=== PATIENT | male | born 1950 | race Caucasian/White ===

== ENCOUNTER 2020-05-01 01:50 | Outpatient (CLI) | payer MEDICARE, OTHER, SELFPAY ==
[2020-05-02 13:41] LABS: SARS-CoV-2 RNA PCR Negative
== END 2020-05-01 01:51 | disposition home or self-care (01) ==
LOC: ANHCOVIDDT 01:51
PROVIDERS: Visit Provider Otolaryngology
DX: Z01.812 Encounter for preprocedural laboratory examination (principal); Z20.828 Contact with and (suspected) exposure to other viral communicable diseases
CPT/HCPCS: 87635; C9803; U0003

== ENCOUNTER 2020-05-03 02:27 | Day surgery (SDC) | payer MEDICARE, OTHER, SELFPAY ==
[2020-04-30 15:27] VITALS: BMI 32.9
--- NOTE | 2020-05-02 08:19 | P.HP_ITS ---
H&P: HPI History of Present Illness Date/Time: 05/02/20 08:20 Chief complaint: eustachian tube dysfunction, nasopharyngeal cyst Narrative: Maciel Horn is a 69 year old male With history of bilateral eustachian tube dysfunction as well as a recently observed nasopharyngeal cyst on recent endoscopy. Patient presents today for operative intervention including PE tube insertion as well as nasal endoscopy and biopsy of cyst /excision of cyst. Review of Systems Review of Systems: Narrative: Similar to previous H&P /clinic note. [facility] Social History Social History Smoking packs per day: 0.5 Smoking cigarettes per day: 10.0 Years smoked: 5 Smoking pack-years: 2.50 Smoking status: Former smoker Additional smoking assessment comments: 40 YEARS AGO Substance use: current Substance use type: marijuana Last use: 04/29/2020 Spiritual care concerns: No Meds Home Medications and Allergies Home Medications Medication Instructions Recorded Confirmed Type aspirin 81 mg chewable tablet 81 mg PO DAILY 01/17/20 04/30/20 History finasteride 5 mg tablet 5 mg PO DAILY 01/17/20 04/30/20 History lisinopril 20 1 tablet PO DAILY 01/17/20 04/30/20 History mg-hydrochlorothiazide 25 mg tablet lovastatin 40 mg tablet 40 mg PO DAILY 01/17/20 04/30/20 History metformin 1,000 mg 24 hr 2,000 mg PO DAILY tablet 01/17/20 04/30/20 History tablet,extended release zmoanzfr-tqcqdgdnv-ntiexdqqx 3.5 4 drop RIGHTEAR Q8H #10 ml 04/25/20 04/30/20 Rx mg/mL-10,000 unit/mL-1 % ear solution fluticasone propionate [Flonase 1 spray NASAL Q12H PRN 04/30/20 04/30/20 History Allergy Relief] Allergies Allergy/AdvReac Type Severity Reaction Status Date / Time No Known Allergies Allergy Unknown NONE Verified 04/30/20 15:27 Exam Narrative: Exam Narrative: Similar to previous H&P /clinic note. Assessment and Plan Assessment and plan (1) Pharyngeal or nasopharyngeal cyst: Code(s): J39.2 - Other diseases of pharynx Status: Acute Assessment and Plan: The plan is for the OR for insertion of PE tubes with bilateral myringotomies as well as nasal endoscopy with biopsy /excision of nasopharyngeal cyst. The risks and benefits were explained in great detail to the patient who voiced u nderstanding and signed the appropriate consent forms. These risks include chronic TM perforation, cholesteatoma, change or damage to hearing, bleeding from the nose in ears, as well as infection, and the need for further surgery should the biopsy / excision of the nasopharyngeal cyst reveal something more sinister. (2) ETD (eustachian tube dysfunction): Code(s): H69.80 - Other specified disorders of Eustachian tube, unspecified ear Status: Acute
[2020-05-03] VITALS (8 sets, daily range): BP systolic 127–169; BP diastolic 63–94; PULSE 54–78; RESP 15–20; TEMP 36.3–36.4; O2SAT 94–100
--- NOTE | 2020-05-03 06:08 | ECG_ITS ---
Measurements Intervals [place] Rate: 57 P: 38 DE: 193 QRS: -17 QRSD: 112 T: 16 QT: 441 QTc: 432 Interpretive Statements SINUS BRADYCARDIA INTRAVENTRICULAR CONDUCTION DELAY BASELINE WANDER- II, III, AVF BORDERLINE ECG Electronically Signed On 05-03-2020 8:10:02 CDT by Mukund Dinero D.O.
[2020-05-03] MEDS: ACETAMINOPHEN 500 MG TABLET 1000 MG PO (07:01)
[2020-05-03] MEDS: LACTATED RINGERS 1,000 ML 30 ML IV CONT (07:01)
--- NOTE | 2020-05-03 07:01 | WPDHPUPDATE1 ---
History and Physical Update Update Date/Time: 05/03/20 07:01 History and Physical has been reviewed, including an updated exam of the patient. There are NO changes in the patient's condition. Risks, benefits, and alternatives have been discussed and questions answered. Patient agrees to proceed with procedure.
[2020-05-03 07:11] LABS: Anion Gap 10 mmol/L (8-16); Blood Urea Nitrogen 20 mg/dL (9-20); Calcium 9.2 mg/dL (8.4-10.2); Carbon Dioxide 25 mmol/L (22-30); Chloride 102 mmol/L (98-107); Estimated CRCL calculation 79 ml/min; Estimated Glomerular Filt Rate > 60; Glucose 184 mg/dL (75-110); Potassium 3.9 mmol/L (3.4-5.0); Sodium 137 mmol/L (137-145)
[2020-05-03 07:15] LABS: Glucose Point of Care 186 (65-105)
--- NOTE | 2020-05-03 07:22 | WPDANESEPPF ---
Anes - Initial Pre Proc Eval Procedure: Operation Date: 05/03/20 08:15 Proposed Procedures p Bilateral Myringotomy,Insertion Of T-Tubes - Brandon Bedolla MD s Nasal Endoscopy with Biopsy - Brandon Bedolla MD Date/Time: 05/03/20 07:22 Surgeon: Brandon Bedolla MD Pre Op Diagnosis: eustachian tube dysfunction, nasopharyngeal cyst Patient Data Age: 69 Gender: M Height: 5 ft 9 in Weight: 102 kg Last Vital Signs Temp 36.3 C L 05/03/20 07:08 Pulse 58 L 05/03/20 07:08 Resp 20 05/03/20 07:08 BP 127/63 05/03/20 07:08 Pulse Ox 98 05/03/20 07:08 Allergies Allergy/AdvReac Type Severity Reaction Status Date / Time No Known Allergies Allergy Unknown NONE Verified 04/30/20 15:27 Home Medications Medication Instructions Recorded Confirmed Type aspirin 81 mg chewable tablet 81 mg PO DAILY 01/17/20 05/03/20 History finasteride 5 mg tablet 5 mg PO DAILY 01/17/20 05/03/20 History lisinopril 20 1 tablet PO DAILY 01/17/20 05/03/20 History mg-hydrochlorothiazide 25 mg tablet lovastatin 40 mg tablet 40 mg PO DAILY 01/17/20 05/03/20 History metformin 1,000 mg 24 hr 2,000 mg PO DAILY tablet 01/17/20 05/03/20 History tablet,extended release celgiupk-siwymqchu-qofketrti 3.5 4 drop RIGHTEAR Q8H #10 ml 04/25/20 05/03/20 Rx mg/mL-10,000 unit/mL-1 % ear solution fluticasone propionate [Flonase 1 spray NASAL Q12H PRN 04/30/20 05/03/20 History Allergy Relief] Laboratory Tests 05/03/20 05/03/20 06:45 06:59 Sodium 137 mmol/L mmol/L (137-145) Potassium 3.9 mmol/L mmol/L (3.4-5.0) Chloride 102 mmol/L mmol/L (98-107) Carbon Dioxide 25 mmol/L mmol/L (22-30) Anion Gap 10 mmol/L mmol/L (8-16) BUN 20 mg/dL mg/dL (9-20) Creatinine 0.90 mg/dL mg/dL (0.7-1.3) Estim Creat Clear Calc 79 ml/min ml/min Estimated GFR > 60 (59 - ) Glucose 184 mg/dL H mg/dL (75-110) POC Capillary Glucose 186 mg/dl H mg/dl (65-105) Calcium 9.2 mg/dL mg/dL (8.4-10.2) Patient hx anesthesia problems: none Family hx anesthesia problems: none PMFSH Past Medical History Medical History (Updated 05/03/20 @ 07:23 by Sergey Mendoza MD) BRIDGETTE (obstructive sleep apnea) Social History Social History Smoking packs per day: 0.5 Smoking cigarettes per day: 10.0 Years smoked: 5 Smoking pack-years: 2.50 Smoking status: Former smoker Additional smoking assessment comments: 40 YEARS AGO Substance use: current Substance use type: marijuana Last use: 04/29/2020 Spiritual care concerns: No Anes - Eval Final PreProcedure Day of Procedure 05/03/20 07:22 Patient weight: obese Heart: regular rate and rhythm Lungs: clear to auscultation Airway: Mallampati scale class II Neurological: alert and oriented Last oral intake: >/= 8 hours ASA classification: III Emergent: no Anesthetic plan: proceed Anesthesia type and monitoring: general ETT and standard monitoring Informed Consent: The patient's anesthetic plan and its attendant risks and benefits were discussed with the patient/family/POA. Questions were solicited and answers provided to the satisfaction of the patient/family/POA.
[2020-05-03] MEDS: OXYMETAZOLINE HCL 0.05% NAS 15 ML BTL (*BKC) 1 SPRAY NASAL (08:11)
[2020-05-03] MEDS: LIDO 1%/EPINEPHRINE 1:100,000 20 ML VIAL INFILTRATE (08:12)
[2020-05-03] MEDS: CIPROFLOXACIN HCL 0.3% OP SOLN 2.5 ML BTL 4 DROP EACH EAR (08:12)
[2020-05-03 08:52] LABS: Glucose Point of Care 169 (65-105)
--- NOTE | 2020-05-03 08:52 | PM.PROC ---
Procedure Note - Detailed Date of procedure: 05/03/20 Pre-op diagnosis: eustachian tube dysfunction, nasopharyngeal cyst Post-op diagnosis: same Procedure performed: 1. Bilateral myringotomies with modified T tube insertion 2. Removal of left PE tube 3. Nasal endoscopy 4. Marsupialization of left nasopharyngeal cyst Description of procedure: The patient was correctly identified and consent was verified in the preoperative holding area. Patient was then brought to the operating room and a time-out was performed. General anesthesia was induced and an endotracheal tube was secured and the patient's airway and taped the left lower lip. The patient was then prepped and draped for the aforementioned procedures. The zoraida microscope was brought into the operative field and the right EAC and tympanic membrane were brought into view. An incision was made in the anterior-inferior quadrant and thick serous effusion was suctioned from the middle ear. A modified T-tube was placed and confirmed to be in proper position. Antibiotic drops were placed. The same procedure was performed on the patient's left side except a prior to the myringotomy and tube insertion a retained collar-button tube was removed. Again antibiotic drops were placed. Afrin was applied to the bilateral nasal passages and allowed to sit for 5 minutes. The endoscope was utilized to perform nasal endoscopy and a left septal inferior deviation was noted. A cyst was located in the left nasopharynx near the fossa of [place]mu[place]. Cyst was marsupialized using blakesly forceps. Hemostasis was achieved using Afrin-soaked pledgets. This marked the end of the procedure care of the patient was turned over to anesthesiology was present for and performed the entire procedure. Anesthesia: GLMA Surgeon: Brandon Bedolla MD Estimated blood loss (mL): 5 Packing: No Pathology: yes Complications: No immediate complications Condition: stable Disposition: PACU Findings: Bilateral erythematous TMs and EACs serous thick effusion in the bilateral middle ears left septal deviation left fossa of Rossenmueler nasopharyngeal cyst
== END 2020-05-03 10:13 | disposition home or self-care (01) ==
PROVIDERS: Anesthesiology; PCP Internal Medicine; Visit Provider Otolaryngology
PROC: (CPT 69436; principal; 2020-05-03 08:15)
PROC: (CPT 69436; 2020-05-03 08:15)
DX: H69.93 Unspecified Eustachian tube disorder, bilateral (principal); H93.8X1 Other specified disorders of right ear; J39.2 Other diseases of pharynx; J34.2 Deviated nasal septum; I10 Essential (primary) hypertension; E78.5 Hyperlipidemia, unspecified; E11.9 Type 2 diabetes mellitus without complications; Z79.84 Long term (current) use of oral hypoglycemic drugs; G47.33 Obstructive sleep apnea (adult) (pediatric); Z79.82 Long term (current) use of aspirin; Z79.899 Other long term (current) drug therapy; Z87.891 Personal history of nicotine dependence
CPT/HCPCS: 69436; 31237; 36415; 80048; 88305; 93005; A9270; J0330; J2405; J2704; J3010; J7120

== ENCOUNTER 2020-10-29 13:41 | Outpatient (CLI) | payer MEDICARE, OTHER, SELFPAY | END 2020-10-29 13:42 | disposition home or self-care (01) | LOC: ANHBWCAUD 13:42 | PROVIDERS: PCP Internal Medicine; Visit Provider Otolaryngology | DX: H91.93 Unspecified hearing loss, bilateral (principal); H69.80 Other specified disorders of Eustachian tube, unspecified ear | CPT/HCPCS: 92557 ==

== ENCOUNTER → 2020-11-02 01:41 | Outpatient (CLI) | payer MEDICARE, OTHER, SELFPAY ==
[2020-11-02 18:54] LABS: SARS-CoV-2 RNA PCR Negative
== END ==
PROVIDERS: PCP Internal Medicine; Visit Provider Otolaryngology
DX: Z01.812 Encounter for preprocedural laboratory examination (principal); Z20.822 Contact with and (suspected) exposure to COVID-19
CPT/HCPCS: 36415; 80048; C9803; U0003; U0005

== ENCOUNTER 2020-11-02 07:53 | Outpatient (CLI) | payer MEDICARE, OTHER, SELFPAY ==
[2020-11-02 09:07] LABS: Anion Gap 3 mmol/L (8-16); Blood Urea Nitrogen 15 mg/dL (9-20); Calcium 9.1 mg/dL (8.4-10.2); Carbon Dioxide 35 mmol/L (22-30); Chloride 102 mmol/L (98-107); Estimated Glomerular Filt Rate > 60; Glucose 216 mg/dL (75-110); Potassium 3.6 mmol/L (3.4-5.0); Sodium 140 mmol/L (137-145)
== END 2020-11-02 07:54 | disposition home or self-care (01) ==
PROVIDERS: PCP Internal Medicine; Visit Provider Anesthesiology
DX: I10 Essential (primary) hypertension (principal); Z01.812 Encounter for preprocedural laboratory examination
CPT/HCPCS: 36415; 80048

== ENCOUNTER 2020-11-05 01:12 | Day surgery (SDC) | payer MEDICARE, OTHER, SELFPAY ==
[2020-10-30 15:53] VITALS: BMI 33.0
--- NOTE | 2020-11-04 08:08 | WPDANESEPPF ---
Anes - Initial Pre Proc Eval Procedure: Operation Date: 11/05/20 07:30 Proposed Procedures p Eustachian Tube Dilation - Brandon Bedolla MD Date/Time: 11/04/20 08:08 Surgeon: Brandon Bedolla MD Pre Op Diagnosis: eustachian tube dysfunction Patient Data Age: 70 Gender: M Height: 1.75 m Weight: 101.6 kg Allergies Allergy/AdvReac Type Severity Reaction Status Date / Time No Known Allergies Allergy Unknown NONE Verified 11/05/20 06:39 Home Medications Medication Instructions Recorded Confirmed Type aspirin 81 mg chewable tablet 81 mg PO HS 01/17/20 10/30/20 History finasteride 5 mg tablet 5 mg PO HS 01/17/20 10/30/20 History lisinopril 20 1 tablet PO HS 01/17/20 10/30/20 History mg-hydrochlorothiazide 25 mg tablet lovastatin 40 mg tablet 40 mg PO HS 01/17/20 10/30/20 History metformin 1,000 mg 24 hr 2,000 mg PO HS tablet 01/17/20 10/30/20 History tablet,extended release fluticasone propionate [Flonase 1 spray NASAL Q12H PRN 04/30/20 10/30/20 History Allergy Relief] Patient hx anesthesia problems: none Family hx anesthesia problems: none PMFSH Past Medical History Medical History (Updated 11/04/20 @ 08:09 by Yemi Brandon DO) BPH (benign prostatic hyperplasia) Diabetes type 2, controlled Hyperlipidemia Hypertension BRIDGETTE (obstructive sleep apnea) CPAP Social History Social History Smoking packs per day: 0.5 Smoking cigarettes per day: 10.0 Years smoked: 6 Smoking pack-years: 3.00 Smoking status: Former smoker Tobacco type: cigarettes Smoking end date: 08/23/69 Additional smoking assessment comments: 40 YEARS AGO Substance use: current Substance use type: marijuana Last use: 04/29/2020 Living arrangements: with family Spiritual care concerns: No Anes - Eval Final PreProcedure Day of Procedure 11/04/20 08:08 Patient weight: obese Heart: regular rate and rhythm Lungs: clear to auscultation and normal air movement Airway: Mallampati scale class III Neurological: alert and oriented Last oral intake: >/= 8 hours ASA classification: III Emergent: no Anesthetic plan: proceed Anesthesia type and monitoring: general LMA and standard monitoring Informed Consent: The patient's anesthetic plan and its attendant risks and benefits were discussed with the patient/family/POA. Questions were solicited and answers provided to the satisfaction of the patient/family/POA.
--- NOTE | 2020-11-04 10:19 | PM.IMHP ---
H&P: HPI History of Present Illness Date/Time: 11/04/20 10:19 70-year-old male who presents for planned surgical procedure bilateral eustachian tube balloon dilations and nasal endoscopy with possible septoplasty and turbinate reductions for access. Patient reports no new symptoms or changes in his medical history. Audiogram obtained and reviewed. Reports resolution of his previously reported sinonasal issues. Chief Complaint: Bilateral eustachian tube dysfunction Review of Systems Constitutional: Constitutional: Denies fatigue, Denies fever(s) and Denies lethargy Eyes: Eyes: Denies blurry vision and Denies change in vision ENT: Reports as per HPI Cardiovascular: Cardiovascular: Denies chest pain Respiratory: Respiratory: Denies cough Endocrine: Endocrine: Denies fatigue Hematologic/Lymphatic: Hematologic/Lymphatic: Denies easy bleeding, Denies easy bruising and Denies lymphadenopathy Allergic/Immunologic: Allergic/Immunologic: Denies seasonal rhinorrhea [facility] Past Medical History Medical History (Updated 11/04/20 @ 08:09 by Yemi Brandon DO) BPH (benign prostatic hyperplasia) Diabetes type 2, controlled Hyperlipidemia Hypertension BRIDGETTE (obstructive sleep apnea) CPAP Social History Social History Smoking packs per day: 0.5 Smoking cigarettes per day: 10.0 Years smoked: 6 Smoking pack-years: 3.00 Smoking status: Former smoker Tobacco type: cigarettes Smoking end date: 08/23/69 Additional smoking assessment comments: 40 YEARS AGO Substance use: current Substance use type: marijuana Last use: 04/29/2020 Spiritual care concerns: No Meds Home Medications and Allergies Home Medications Medication Instructions Recorded Confirmed Type aspirin 81 mg chewable tablet 81 mg PO HS 01/17/20 10/30/20 History finasteride 5 mg tablet 5 mg PO HS 01/17/20 10/30/20 History lisinopril 20 1 tablet PO HS 01/17/20 10/30/20 History mg-hydrochlorothiazide 25 mg tablet lovastatin 40 mg tablet 40 mg PO HS 01/17/20 10/30/20 History metformin 1,000 mg 24 hr 2,000 mg PO HS tablet 01/17/20 10/30/20 History tablet,extended release fluticasone propionate [Flonase 1 spray NASAL Q12H PRN 04/30/20 10/30/20 History Allergy Relief] Allergies Allergy/AdvReac Type Severity Reaction Status Date / Time No Known Allergies Allergy Unknown NONE Verified 10/30/20 15:31 Exam Const: General: cooperative, healthy appearing, comfortable, well developed and alert HENMT: Head: normal to inspection, normocephalic and atraumatic Ears: hearing grossly normal bilaterally, external ears normal, TM's abnormal bilaterally ( Tubes present) and EAC's normal General nose exam: Normal external nose present, Normal nares present, No nasal polyps present, Normal nasal mucous membranes and turbinates present and Normal septum present Face and sinus: normal facial exam Mouth: Yes Normal oral and palatal mucosa present, Yes lip normal, Yes tongue normal, Yes oropharynx normal and Yes moist mucous membranes Teeth and gingiva: dentition normal and gingiva normal Throat: posterior oropharynx normal, tonsils normal and uvula midline Eyes: General: appearance normal, both eyes and all related structures Periorbital: periorbital findings normal Eyelids: eyelids normal Conjunctivae: conjunctivae normal Sclera: sclerae normal Neck: Neck: normal visual inspection, full ROM and no lymphadenopathy Thyroid: thyroid normal Lymphatic: no lymphadenopathy noted Resp: Effort & Inspection: normal respiratory effort and able to speak in complete sentences Cardio: Jugular venous distension: no JVD Neuro: Cranial nerves: Yes CN's II-XII intact bilaterally Assessment and Plan Assessment and plan (1) ETD (eustachian tube dysfunction): Code(s): H69.80 - Other specified disorders of Eustachian tube, unspecified ear Status: Acute Assessment and Plan:
[2020-11-05] VITALS (7 sets, daily range): BP systolic 118–151; BP diastolic 60–84; PULSE 55–82; RESP 14–20; TEMP 36.6; O2SAT 94–99
[2020-11-05] MEDS: ACETAMINOPHEN 500 MG TABLET 1000 MG PO (06:28)
[2020-11-05] MEDS: LACTATED RINGERS 1,000 ML 30 ML IV CONT (06:30)
[2020-11-05 06:38] LABS: Glucose Point of Care 236 (65-105)
--- NOTE | 2020-11-05 06:52 | WPDHPUPDATE1 ---
History and Physical Update Update Date/Time: 11/05/20 06:52 History and Physical has been reviewed, including an updated exam of the patient. There are NO changes in the patient's condition. Risks, benefits, and alternatives have been discussed and questions answered. Patient agrees to proceed with procedure.
[2020-11-05] MEDS: LIDO 1%/EPINEPHRINE 1:100,000 50 ML VIAL INFILTRATE (07:18)
[2020-11-05] MEDS: OXYMETAZOLINE HCL 0.05% NAS 15 ML BTL (*BKC) 1 SPRAY NASAL (07:18)
--- NOTE | 2020-11-05 08:13 | PM.PROC ---
Procedure Note - Detailed Date of procedure: 11/05/20 Pre-op diagnosis: eustachian tube dysfunction Post-op diagnosis: same Procedure performed: 1. Nasal endoscopy 2. Bilateral inferior turbinate outfracture 3. Bilateral eustachian tube dilation Description of procedure: The patient was correctly identified and consent was verified in the preoperative holding area. The patient was then brought to the operating room and a time-out was performed. General anesthesia was induced and endotracheal tube was secured the patient's airway and taped to the left lower lip. Afrin-soaked pledgets were then placed the bilateral nasal passages and allowed to sit for 5 minutes. The patient was then prepped and draped for the aforementioned procedures. The Afrin-soaked pledgets were then removed under endoscopic guidance the bilateral inferior turbinates were outfractured using a Montegut elevator. Using a 0 degree scope the left eustachian tube opening or torus was identified. The balloon was then inserted and inflated to 12 atmospheres for 2 minutes. It was deflated and removed. A similar procedure was performed on the right side. Hemostasis was noted to be excellent. This marked the end of the procedure. I performed all dictated portions. Care of the patient was turned over to Anesthesiology. Anesthesia: GETA Surgeon: Brandon Bedolla MD Drains: No Packing: No Pathology: none sent Complications: No immediate complications Condition: stable Disposition: PACU Findings: Successful dilation of the bilateral eustachian tubes
[2020-11-05 08:16] LABS: Glucose Point of Care 210 (65-105)
== END 2020-11-05 10:05 | disposition home or self-care (01) ==
PROVIDERS: PCP Internal Medicine; Visit Provider Otolaryngology
PROC: (CPT 69706; principal; 2020-11-05 07:30)
DX: H69.93 Unspecified Eustachian tube disorder, bilateral (principal); I10 Essential (primary) hypertension; E78.5 Hyperlipidemia, unspecified; E11.9 Type 2 diabetes mellitus without complications; G47.33 Obstructive sleep apnea (adult) (pediatric); N40.0 Benign prostatic hyperplasia without lower urinary tract symptoms; Z79.84 Long term (current) use of oral hypoglycemic drugs; Z79.82 Long term (current) use of aspirin; Z87.891 Personal history of nicotine dependence; E66.9 Obesity, unspecified; Z68.33 Body mass index [BMI] 33.0-33.9, adult
CPT/HCPCS: 69706; 30930; 82948; A9270; J0330; J1100; J2250; J2405; J2704; J3010; J7120

== ENCOUNTER 2021-10-30 00:19 | Day surgery (SDC) | payer MEDICARE, OTHER, SELFPAY ==
[2021-10-21 16:07] VITALS: BMI 32.5
--- NOTE | 2021-10-29 13:30 | P.PNAN_ITS ---
Anes - Initial Pre Proc Eval Procedure: Operation Date: 10/30/21 08:00 Proposed Procedures p Screening Colonoscopy - Bijan Ivory DO Date/Time: 10/29/21 13:30 Surgeon: Bijan Ivory DO Pre Op Diagnosis: hx of colon polyps Patient Data Age: 71 Gender: M Height: 1.75 m Weight: 100 kg Allergies Allergy/AdvReac Type Severity Reaction Status Date / Time No Known Allergies Allergy Unknown NONE Verified 10/30/21 07:11 Home Medications Medication Instructions Recorded Confirmed Type aspirin 81 mg chewable tablet 81 mg PO HS 01/17/20 10/21/21 History finasteride 5 mg tablet 5 mg PO HS 01/17/20 10/21/21 History lisinopril 20 1 tablet PO HS 01/17/20 10/21/21 History mg-hydrochlorothiazide 25 mg tablet lovastatin 40 mg tablet 40 mg PO HS 01/17/20 10/21/21 History metformin 1,000 mg 24 hr 2,000 mg PO HS tablet 01/17/20 10/21/21 History tablet,extended release fluticasone propionate [Flonase 1 spray NASAL Q12H PRN 04/30/20 10/21/21 History Allergy Relief] Patient hx anesthesia problems: none Family hx anesthesia problems: none Results Review: All pre-operative results and documents have been reviewed as part of the pre-operative evaluation. [facility] Past Medical History Medical History (Updated 11/04/20 @ 08:09 by Yemi Brandon DO) BPH (benign prostatic hyperplasia) Diabetes type 2, controlled Hyperlipidemia Hypertension BRIDGETTE (obstructive sleep apnea) CPAP Social History Social History Smoking packs per day: 0.5 Smoking cigarettes per day: 10.0 Years smoked: 3 Smoking pack-years: 1.50 Smoking status: Former smoker Tobacco type: cigarettes Smoking end date: 08/23/69 Additional smoking assessment comments: 40 YEARS AGO Alcohol intake: current Alcohol use details: 6 PK PER YEAR Substance use: current Substance use type: marijuana Last use: 2 DAYS Living arrangements: with family Spiritual care concerns: No Anes - Eval Final PreProcedure Day of Procedure 10/29/21 13:30 Patient weight: obese Heart: regular rate and rhythm Lungs: clear to auscultation and normal air movement Airway: Mallampati scale class II Neurological: alert and oriented Last oral intake: >/= 8 hours ASA classification: III Emergent: no Anesthetic plan: proceed Anesthesia type and monitoring: general GIVS and standard monitoring Results Review: All pre-operative results and documents have been reviewed as part of the pre-operative evaluation. Informed Consent: The patient's anesthetic plan and its attendant risks and benefits were discussed with the patient/family/POA. Questions were solicited and answers provided to the satisfaction of the patient/family/POA.
[2021-10-30 07:12] VITALS: BP 147/65; PULSE 68; RESP 18; TEMP 36.8; O2SAT 98
[2021-10-30] MEDS: LACTATED RINGERS 1,000 ML 150 ML IV CONT (07:18)
[2021-10-30 07:27] LABS: Glucose Point of Care 167 mg/dl (65-105)
--- NOTE | 2021-10-30 08:03 | PM.IMHP ---
H&P: HPI History of Present Illness Date/Time: 10/30/21 08:03 Chief Complaint: family history colon cancer Narrative: this is a 71-year-old man who presents for colonoscopy. His last colonoscopy was 5 years ago. He has a family history of colon cancer in his mother who was diagnosed in her 40s. He denies any hematochezia or melena. He denies any recent change in bowel habits. Review of Systems Review of Systems: All systems reviewed & are unremarkable except as noted in HPI and below Constitutional: Constitutional: Denies chills, Denies fever(s), Denies headache(s) and Denies weight loss Eyes: Eyes: Denies change in vision ENT: Denies dizziness, Denies headache(s), Denies neck mass and Denies throat swelling Cardiovascular: Cardiovascular: Denies chest pain, Denies lightheadedness and Denies dyspnea Respiratory: Respiratory: Denies cough, Denies dyspnea and Denies wheezing Gastrointestinal: Gastrointestinal: Denies abdominal pain, Denies change in bowel habits, Denies nausea and Denies vomiting Genitourinary: Genitourinary: Denies hematuria and Denies dysuria Musculoskeletal: Musculoskeletal: Reports as per HPI Integumentary/Breasts: Skin/Breast: Reports as per HPI Neurologic: Denies dizziness and Denies headache(s) Allergic/Immunologic: Allergic/Immunologic: Denies throat swelling and Denies wheezing [facility] Past Medical History Medical History (Updated 10/30/21 @ 08:04 by Bijan Ivory DO) BPH (benign prostatic hyperplasia) Diabetes type 2, controlled Hyperlipidemia Hypertension BRIDGETTE (obstructive sleep apnea) CPAP Social History Social History Smoking packs per day: 0.5 Smoking cigarettes per day: 10.0 Years smoked: 3 Smoking pack-years: 1.50 Smoking status: Former smoker Tobacco type: cigarettes Smoking end date: 08/23/69 Additional smoking assessment comments: 40 YEARS AGO Alcohol intake: current Alcohol use details: 6 PK PER YEAR Substance use: current Substance use type: marijuana Last use: 2 DAYS Living arrangements: with family Spiritual care concerns: No Meds Home Medications and Allergies Home Medications Medication Instructions Recorded Confirmed Type aspirin 81 mg chewable tablet 81 mg PO HS 01/17/20 10/21/21 History finasteride 5 mg tablet 5 mg PO HS 01/17/20 10/21/21 History lisinopril 20 1 tablet PO HS 01/17/20 10/21/21 History mg-hydrochlorothiazide 25 mg tablet lovastatin 40 mg tablet 40 mg PO HS 01/17/20 10/21/21 History metformin 1,000 mg 24 hr 2,000 mg PO HS tablet 01/17/20 10/21/21 History tablet,extended release fluticasone propionate [Flonase 1 spray NASAL Q12H PRN 04/30/20 10/21/21 History Allergy Relief] Allergies Allergy/AdvReac Type Severity Reaction Status Date / Time No Known Allergies Allergy Unknown NONE Verified 10/30/21 07:11 Vital Signs Vital Signs - 24 hr 10/30/21 07:12 Temperature 36.8 C Pulse Rate 68 Respiratory Rate 18 Blood Pressure 147/65 H Pulse Oximetry 98 Exam Const: General: no acute distress and alert Orientation/consciousness: patient oriented x3 HENMT: Head: normocephalic and atraumatic Ears: hearing grossly normal bilaterally General nose exam: Normal nares present Mouth: Yes Normal oral and palatal mucosa present Eyes: Periorbital: periorbital findings normal Sclera: sclerae normal EOM: EOMs intact bilaterally Neck: Neck: normal visual inspection, no lymphadenopathy and trachea midline Chest: Chest palpation & inspection: normal inspection of the chest Resp: Effort & Inspection: normal respiratory effort Auscultation: clear to auscultation bilaterally Cardio: Jugular venous distension: no JVD Rate: regular rate Rhythm: regular rhythm Heart sounds: S1 normal heart sound present and S2 normal heart sound present Peripheral pulses: Peripheral pulses 2+ throughout GI: Inspection: normal to inspection GI Pa
[2021-10-30 08:37] VITALS: BP 127/76; PULSE 64; RESP 23; O2SAT 98
[2021-10-30 08:47] VITALS: BP 123/75; PULSE 59; RESP 18; O2SAT 98
[2021-10-30 08:57] VITALS: BP 152/77; PULSE 60; RESP 19; O2SAT 98
== END 2021-10-30 09:09 | disposition home or self-care (01) ==
PROVIDERS: PCP Internal Medicine; Visit Provider Surgery
PROC: 0DJD8ZZ Inspection of Lower Intestinal Tract, Via Natural or Artificial Opening Endoscopic (ICD-10-PCS; CPT 45378; principal; 2021-10-30 08:00)
DX: Z12.11 Encounter for screening for malignant neoplasm of colon (principal); D12.5 Benign neoplasm of sigmoid colon; K57.30 Diverticulosis of large intestine without perforation or abscess without bleeding; Z80.0 Family history of malignant neoplasm of digestive organs; I10 Essential (primary) hypertension; N40.0 Benign prostatic hyperplasia without lower urinary tract symptoms; E11.9 Type 2 diabetes mellitus without complications; E78.5 Hyperlipidemia, unspecified; G47.33 Obstructive sleep apnea (adult) (pediatric)
CPT/HCPCS: 45380; 82948; 88305; J2704; J7120

== ENCOUNTER 2021-12-24 16:20 | Outpatient (CLI) | payer MEDICARE, SELFPAY ==
[2021-12-24 17:31] LABS: SARS-CoV-2 Ag Negative (Negative)
[2021-12-24 18:09] LABS: SARS-CoV-2 RNA PCR Negative (Negative)
== END 2021-12-24 16:21 | disposition home or self-care (01) ==
LOC: CHSLAB 16:24
PROVIDERS: PCP Internal Medicine; Visit Provider Internal Medicine
DX: Z20.822 Contact with and (suspected) exposure to COVID-19 (principal)
CPT/HCPCS: 87426; C9803; U0003; U0005

== ENCOUNTER 2022-09-18 10:48 | Outpatient (CLI) | payer MEDICARE, OTHER, SELFPAY ==
--- NOTE | ~2022-09-18 | US_ITS ---
EXAMINATION: US scrotum doppler DATE: 09/18/2022 12:18 INDICATION: Scrotal swelling. TECHNIQUE: Grayscale and Doppler ultrasound images of the testes were obtained. COMPARISON: Ultrasound 07/08/2007 FINDINGS: The right testis measures 3.8 x 2.1 x 2.3 cm. The left testis measures 3.2 x 2.2 x 2.5 cm. There is a 3 mm benign cyst in right testis. There is normal vascular flow to both testes. The right epididymis demonstrate a 5 mm cyst. The left epididymis demonstrates an 11 mm cyst. There are large r ight and moderate-sized left hydroceles. IMPRESSION: 1. Large right and moderate-sized left hydroceles. Reviewed, dictated and finalized at location A. L ATTENDANT
== END 2022-09-18 10:49 | disposition home or self-care (01) ==
LOC: CHSIMG 10:49
PROVIDERS: PCP Internal Medicine; Visit Provider Internal Medicine
DX: N50.89 Other specified disorders of the male genital organs (principal); N43.3 Hydrocele, unspecified
CPT/HCPCS: 76870; 93976

== ENCOUNTER 2023-06-16 14:13 | Outpatient (CLI) | payer MEDICARE, OTHER, SELFPAY ==
--- NOTE | ~2023-06-16 | XR_ITS ---
EXAM: XR lumbar spine 2-3V DATE: 06/16/2023 14:41 HISTORY: LOW BACK PAIN X 6 WEEKS . COMPARISON: None available. FINDINGS: Mild lumbar scoliosis. Soft tissue anchors over the bilateral pelvis. 14 mm right nephrolit h. Exaggerated lumbar lordosis. 5 nonrib-bearing lumbar-type vertebral bodies. Pedicles intact. Kayla l vertebral body alignment. Vertebral body heights preserved. Moderate multilevel disc space narrowin g and marginal osteophytosis. Moderate facet hypertrophy and sclerosis in the lower lumbar spine. No fracture or dislocation. IMPRESSION: Moderate lumbar degenerative disc disease and facet arthropathy. Reviewed, dictated and finalized at location K.
== END 2023-06-16 14:14 | disposition home or self-care (01) ==
LOC: CHSIMG 14:15
PROVIDERS: PCP Internal Medicine; Visit Provider Internal Medicine
DX: M54.50 Low back pain, unspecified (principal); M51.36 Other intervertebral disc degeneration, lumbar region
CPT/HCPCS: 72100

== ENCOUNTER 2023-07-01 09:17 | Outpatient (CLI) | payer MEDICARE, OTHER, SELFPAY ==
--- NOTE | ~2023-07-01 | MR_ITS ---
MRI of the lumbar spine Clinical History: Back pain Technique: Axial T2-weighted images, and sagittal T1-weighted, T2-weighted, and T2 fat-sat images wer e acquired. Findings: There is no fracture or subluxation of the lumbar spine. Vertebral bodies maintain normal h eight and alignment. No bone marrow signal abnormality seen. At L1-L2, there is no significant disc bulge or herniation. There is mild facet arthropathy. No centr al canal stenosis or neural foraminal narrowing. At L2-L3, there is mild disc bulge and mild facet arthropathy. No central canal stenosis or neural fo raminal narrowing. At L3-L4, there is mild disc bulge and mild facet arthropathy. There is minimal central canal stenosi s. There is mild to moderate left neural foraminal narrowing, and mild right neural foraminal narrowi ng. At L4-L5, there is disc bulge and facet arthropathy, with minimal central canal stenosis. There is mo derate to severe left neural foraminal narrowing, and severe right neural foraminal narrowing. At and L5-S1, there is disc bulge and moderate facet arthropathy. No central canal stenosis or neural foraminal narrowing. Paravertebral soft tissues are unremarkable. Impression: Moderate degenerative spondylosis at L4-L5. Mild degenerative change of the remaining lumbar spine, a s detailed above. Reviewed, dictated and finalized at location . YTICAL MANAGER Impression: Moderate degenerative spondylosis at L4-L5. Mild degenerative change of the rem aining lumbar spine, as detailed above.
== END 2023-07-01 09:18 | disposition home or self-care (01) ==
LOC: CHSIMG 09:18
PROVIDERS: PCP Internal Medicine; Visit Provider Internal Medicine
DX: M54.50 Low back pain, unspecified (principal); M43.06 Spondylolysis, lumbar region
CPT/HCPCS: 72148

== ENCOUNTER 2023-12-31 01:19 | Emergency (ER) | payer MEDICARE, OTHER, SELFPAY ==
[2023-12-31 01:25] VITALS: BP 182/75; PULSE 78; RESP 18; TEMP 36.3; O2SAT 98
--- NOTE | 2023-12-31 02:39 | PC.NURSE ---
no answer x1 at triage
== END 2023-12-31 02:30 | disposition left against medical advice (07) ==
LOC: ANHED 02:50
PROVIDERS: PCP Internal Medicine
DX: R10.30 Lower abdominal pain, unspecified (principal)
CPT/HCPCS: 99199

== ENCOUNTER 2023-12-31 02:33 | Emergency (ER) | payer MEDICARE, OTHER, SELFPAY ==
--- NOTE | ~2023-12-31 | CT_ITS ---
CT of the Abdomen and Pelvis: Indication: Abdominal pain Technique: 2.5 mm axial scans were obtained through the abdomen and pelvis following intravenous adm inistration of 100 cc of Omnipaque 350. Dose reduction technique was used on this scan by utilizing a utomated exposure control and iterative reconstruction technique. The dose-length product (DLP) was 1 284.71 mGy-cm. COMPARISON: 05/09/2009 Findings: Scans through the lung bases are unremarkable. Probable mild diffuse hepatic steatosis. The spleen, pancreas, gallbladder, left adrenal gland, and l eft kidney are within normal limits. 9 mm nonobstructing right renal stone present. Right adrenal nod ule measures 2.1 cm in diameter, stable from prior exam. There are atherosclerotic calcifications of the aorta. No lymphadenopathy. There is wall thickening of sigmoid colon with pericolonic inflammatory stranding and underlying dive rticular disease. No abscess or free air. No bowel obstruction. Images through the pelvis were performed. Urinary bladder unremarkable. Prostate gland mildly enlarge d. No ascites. Impression: Acute sigmoid diverticulitis. No abscess or free air. 9 mm nonobstructing right renal stone. Probable diffuse hepatic steatosis. 2.1 cm right adrenal nodule is stable since 2008, therefore benign. Reviewed, dictated and finalized at location . Impression: Acute sigmoid diverticulitis. No abscess or free air. 9 mm nonobstructing right renal stone. Probable diffuse hepatic steatosis. 2.1 cm right adrenal nodule is stable since 2008, therefore benign.
[2023-12-31 02:33] VITALS: BP 178/89; PULSE 73; RESP 18; TEMP 36.6; O2SAT 95
[2023-12-31] MEDS: LACTATED RINGERS 1,000 ML 999 ML IV CONT (03:05)
[2023-12-31 03:10] LABS: Basophils Absolute Auto 0.04 K/mm3 (0.00-0.10); Basophils Percent Auto 0.4 % (0.0-1.0); Eosinophils Absolute Auto 0.11 K/mm3 (0.02-0.50); Hematocrit 44.6 % (37.0-46.0); Hemoglobin 14.6 g/dL (12.4-15.3); Immature Granulocyte Absolute 0.05 K/mm3 (0.00-0.00); Immature Granulocyte Percent A 0.5 % (0.0-0.0); Lymphocytes Absolute Auto 1.76 K/mm3 (1.10-4.50); Lymphocytes Percent Auto 15.9 % (18.0-42.0); Mean Corpuscular HGB Conc 32.7 g/dL (32-36); Mean Corpuscular Hemoglobin 31.3 pg (27.0-31.0); Mean Corpuscular Volume 95.5 fL (78.0-102.0); Monocytes Percent Auto 8.1 % (2.0-11.0); Neutrophils Absolute Auto 8.23 K/mm3 (1.70-7.20); Neutrophils Percent Auto 74.1 % (50.0-70.0); Platelet Count Result 212 K/mm3 (150-420); Red Blood Count 4.67 M/mm3 (4.70-6.10); Red Cell Distribution Width 12.8 % (11.6-14.4); White Blood Count 11.1 K/mm3 (4.8-10.8)
[2023-12-31 03:26] LABS: Partial Thromboplastin Time 34.2 Sec (23.9-30.70); Prothrombin Time 10.9 Seconds (9.50-12.1)
[2023-12-31 03:28] LABS: Alanine Aminotransferase 27 U/L (16-63); Albumin Level 3.3 g/dL (3.4-5.0); Alkaline Phosphatase 62 U/L (46-116); Anion Gap 10 mmol/L (4-12); Aspartate Amino Transferase 12 U/L (15-37); Blood Urea Nitrogen 15 mg/dL (7-18); Calcium 8.9 mg/dL (8.5-10.1); Carbon Dioxide 29 mmol/L (21-32); Chloride 103 mmol/L (98-108); Estimated Glomerular Filt Rate 51; Glucose 213 mg/dL (70-99); Lipase 51 U/L (16-77); Osmolality Calculated 300 mOsm/kg (285-295); Potassium 3.9 mmol/L (3.5-5.1); Sodium 142 mmol/L (136-145); Total Protein 7.2 g/dL (6.4-8.2)
[2023-12-31 03:31] LABS: Lactic Acid Reflex 1.5 mmol/L (0.4-2.0)
[2023-12-31 05:52] LABS: Appearance Urine Clear (Clear); Bilirubin Urine Negative (Negative); Blood Urine Negative (Negative); Color Urine Light Yellow (Yellow); Glucose Urine UA Negative (Negative); Ketones Urine Negative (Negative); Leukocyte Esterase Ur Negative LEU/UL (Negative); Nitrate Urine Negative (Negative); Protein Urine Negative (Negative); Specific Grav Ur <= 1.005 (1.010-1.020); Urobilinogen Urine 0.2 mg/dL (0.2-1.0)
[2023-12-31 05:54] LABS: Add Urine Microscopic? NO
--- NOTE | 2023-12-31 06:11 | ED.ABDPAIN ---
HPI - Abdominal Pain General Chief Complaint: Abdominal Pain Stated Complaint: Abd Pain Time Seen by Provider: 12/31/23 02:46 Source: patient Mode of arrival: ambulatory Limitations: no limitations History of Present Illness HPI narrative: this is a 73-year-old male who presents with some abdominal pain localizing to the left lower quadrant patient with history of kidney stones and history of diverticulitis with no fever chills no chest pain no shortness of breath no dysuria or hematuria. MD elicited complaint: abdominal pain Pertinent past history: none Onset (ago): hour(s) Pain Consistency: constant Severity: mild Quality: aching Radiation: LLQ Migration to: no migration Exacerbating factors: bowel movement and movement Relieving factors: nothing Associated symptoms: nausea Related Data Home Medications Medication Instructions Recorded Confirmed aspirin 81 mg chewable tablet 81 mg PO 01/17/20 10/21/21 finasteride 5 mg tablet 5 mg PO 01/17/20 10/21/21 lisinopril 20 1 tablet PO 01/17/20 10/21/21 mg-hydrochlorothiazide 25 mg tablet lovastatin 40 mg tablet 40 mg PO 01/17/20 10/21/21 metformin 1,000 mg 24 hr 2,000 mg PO 01/17/20 10/21/21 tablet,extended release (gastric reten.) fluticasone propionate 50 1 spray intranasal Q12H PRN 04/30/20 10/21/21 mcg/actuation nasal Allergic Symptoms spray,suspension (Flonase Allergy Relief) Allergies Allergy/AdvReac Type Severity Reaction Status Date / Time No Known Allergies Allergy Unknown NONE Verified 10/30/21 07:11 Review of Systems Review of Systems: All systems reviewed & are unremarkable except as noted in HPI and below PMFSH Past Medical History Medical History BPH (benign prostatic hyperplasia) Diabetes type 2, controlled Hyperlipidemia Hypertension BRIDGETTE (obstructive sleep apnea) CPAP Social History Social History Smoking packs per day: 0.5 Smoking cigarettes per day: 10.0 Years smoked: 3 Smoking pack-years: 1.50 Smoking status: Former smoker Tobacco type: cigarettes Smoking end date: 08/23/69 Additional smoking assessment comments: 40 YEARS AGO Alcohol intake: current Alcohol use details: 6 PK PER YEAR Substance use: current Substance use type: marijuana Last use: 2 DAYS Living arrangements: with family Spiritual care concerns: No Exam Const: General: healthy appearing, no acute distress and alert Nutritional Appearance: well nourished and obese Orientation/consciousness: patient oriented x3 Limitations: no limitations Chest: Chest palpation & inspection: normal inspection of the chest Resp: Effort & Inspection: normal respiratory effort Auscultation: clear to auscultation bilaterally Cardio: Rate: regular rate Rhythm: regular rhythm GI: GI Palp: Yes Soft to palpation and Yes Tenderness to palpation present (GI) Auscultation: normal bowel sounds : General: Yes bladder normal to palpation Skin: General skin exam: normal color Rashes: no rashes Neuro: General: patient oriented x3, moves all extremities and no meningeal signs Extrem: General: normal to inspection, no clubbing, cyanosis or edema and no pedal edema Course Course Emergency Course: Patient with abdominal pain received IV fluids labs reviewed with patient does have an elevated white blood cell count of 11.1, CT scan shows that he has acute diverticulitis without abscess and right renal stone that is nonobstructing. Patient received Cipro and Flagyl p.o.. Patient's pain level has been tolerable and declined any pain medicine at this time. Vital Signs Vital signs: Vital Signs Temperature 36.6 C 12/31/23 02:33 Pulse Rate 73 12/31/23 02:33 Respiratory Rate 18 12/31/23 02:33 Blood Pressure 178/89 H 12/31/23 02:33 Pulse Oximetry 95 12/31/23 02:33 Oxygen Delivery Room Air 12/31/23 0
[2023-12-31] MEDS: CIPROFLOXACIN 500 MG TAB PO (06:17)
[2023-12-31] MEDS: metroNIDAZOLE 250 MG TABLET 500 MG PO (06:18)
[2023-12-31 06:44] VITALS: BP 150/80; PULSE 62; RESP 18; TEMP 36.2; O2SAT 97
--- NOTE | 2024-01-06 12:50 | PC.NURSE ---
Final Blood Culture report: No growth after 5 days, no further action or treatment needed.
== END 2023-12-31 06:44 | disposition home or self-care (01) ==
PROVIDERS: Emergency Provider Emergency Medicine; PCP Internal Medicine
DX: K57.92 Diverticulitis of intestine, part unspecified, without perforation or abscess without bleeding (principal); Z79.82 Long term (current) use of aspirin; E11.9 Type 2 diabetes mellitus without complications; E78.5 Hyperlipidemia, unspecified; I10 Essential (primary) hypertension; G47.33 Obstructive sleep apnea (adult) (pediatric); Z99.89 Dependence on other enabling machines and devices; Z87.891 Personal history of nicotine dependence
CPT/HCPCS: 36415; 74177; 80053; 81003; 83605; 83690; 85025; 85610; 85730; 87040; 96360; 99284; A9270; J7120; Q9967

== ENCOUNTER 2024-05-26 11:22 | Outpatient (CLI) | payer MEDICARE, OTHER, SELFPAY ==
--- NOTE | ~2024-05-26 | CT_ITS ---
Non-contrast CT scan of the Abdomen and Pelvis Clinical indication: Abdominal pain Technique: 2.5 mm axial scans were obtained through the abdomen and pelvis without intravenous or or al contrast. Dose reduction technique was used on this scan by utilizing automated exposure control a nd iterative reconstruction technique. The dose-length product (DLP) was 1145.04 mGy-cm. COMPARISON: 12/31/2023 Findings: Images through the lung bases reveal no abnormalities. 11 x 6 mm nonobstructing right renal stone present. No left renal stone. No hydronephrosis on either side. The liver, spleen, pancreas, gallbladder, and left adrenal gland appear normal. 2.1 cm low-density ri ght adrenal nodule is compatible with adenoma.. There are atherosclerotic calcifications of the aorta . . Probable minimal inflammatory change about diverticula at the proximal sigmoid colon, suggestive of v florencia mild acute radiculitis. No abscess or free air. No bowel obstruction. Images through the pelvis were performed. There is no evidence of ascites or lymphadenopathy. Urinary bladder unremarkable. Prostate gland mildly enlarged. Impression: Findings consistent with very mild acute diverticulitis at the proximal sigmoid colon. No obstruction , abscess, or free air. Nonobstructing right renal stone, as above. 2.9 cm right adrenal adenoma. Reviewed, dictated and finalized at [facility]. Impression: Findings consistent with very mild acute diverticulitis at the proximal sigmoid colon. No obstruction, abscess, or free air. Nonobstructing right renal stone, as above. 2.9 cm right adrenal adenoma.
[2024-05-26 11:36] LABS: Basophils Absolute Auto 0.03 K/mm3 (0.00-0.10); Basophils Percent Auto 0.4 % (0.0-1.0); Eosinophils Absolute Auto 0.19 K/mm3 (0.02-0.50); Eosinophils Percent Auto 2.2 % (1.0-6.0); Hematocrit 45.7 % (37.0-46.0); Hemoglobin 15.5 g/dL (12.4-15.3); Immature Granulocyte Absolute 0.05 K/mm3 (0.00-0.00); Immature Granulocyte Percent A 0.6 % (0.0-0.0); Lymphocytes Absolute Auto 1.64 K/mm3 (1.10-4.50); Lymphocytes Percent Auto 19.2 % (18.0-42.0); Mean Corpuscular HGB Conc 33.9 g/dL (32-36); Mean Corpuscular Hemoglobin 31.4 pg (27.0-31.0); Mean Corpuscular Volume 92.7 fL (78.0-102.0); Mean Platelet Volume 9.7 fl (8.7-11.0); Monocytes Percent Auto 5.8 % (2.0-11.0); Neutrophils Absolute Auto 6.15 K/mm3 (1.70-7.20); Neutrophils Percent Auto 71.8 % (50.0-70.0); Platelet Count Result 233 K/mm3 (150-420); Red Blood Count 4.93 M/mm3 (4.70-6.10); Red Cell Distribution Width 13.4 % (11.6-14.4); White Blood Count 8.6 K/mm3 (4.8-10.8)
[2024-05-26 11:38] LABS: Add Urine Microscopic? NO; Appearance Urine Clear (Clear); Bilirubin Urine Negative (Negative); Blood Urine Negative (Negative); Color Urine Light Yellow (Yellow); Glucose Urine UA Negative (Negative); Ketones Urine Negative (Negative); Leukocyte Esterase Ur Negative (Negative); Nitrate Urine Negative (Negative); Protein Urine Negative (Negative); Specific Grav Ur 1.015 (1.010-1.020); Urobilinogen Urine 0.2 mg/dL (0.2-1.0)
[2024-05-26 11:50] LABS: Alanine Aminotransferase 29 U/L (16-63); Albumin Level 3.5 g/dL (3.4-5.0); Alkaline Phosphatase 74 U/L (46-116); Anion Gap 10 mmol/L (4-12); Aspartate Amino Transferase 12 U/L (15-37); Blood Urea Nitrogen 12 mg/dL (7-18); CRP 1.5 mg/dL (0.0-0.9); Calcium 8.8 mg/dL (8.5-10.1); Carbon Dioxide 28 mmol/L (21-32); Chloride 99 mmol/L (98-108); Estimated Glomerular Filt Rate 54; Glucose 227 mg/dL (70-99); Osmolality Calculated 290 mOsm/kg (285-295); Potassium 3.5 mmol/L (3.5-5.1); Sodium 137 mmol/L (136-145); Total Protein 7.3 g/dL (6.4-8.2)
[2024-05-26 11:59] LABS: Lactic Acid Reflex 3.1 mmol/L (0.4-2.0)
[2024-05-26 12:31] LABS: Reflex Lactic Acid Yes or No No Lactic Reflex
[2024-05-26 12:47] LABS: Erythrocyte Sedimentation Rate 10 mm/hr (0-20)
== END 2024-05-26 11:23 | disposition home or self-care (01) ==
LOC: CHSLAB 11:24
PROVIDERS: PCP Internal Medicine; Visit Provider Internal Medicine
DX: K57.92 Diverticulitis of intestine, part unspecified, without perforation or abscess without bleeding (principal); N20.0 Calculus of kidney; D35.01 Benign neoplasm of right adrenal gland
CPT/HCPCS: 36415; 74176; 80053; 81003; 83605; 85025; 85652; 86140

== ENCOUNTER 2024-06-21 12:45 | Emergency (ER) | payer MEDICARE, OTHER, SELFPAY ==
--- NOTE | ~2024-06-21 | XR_ITS ---
XR chest 1V portable Ordering provider: Pedrito Oquendo MD History: 73 years Male with . cough . Comparison: October 12, 2018 FINDINGS: MEDIASTINUM: The cardiac silhouette is not enlarged. LUNGS: No infiltrates, effusions or pneumothorax. Prominent markings in the lower lobes. OTHER: No free air under the diaphragm. Degenerative the spine. IMPRESSION: Prominent markings in the lower lobes. Otherwise, no acute cardiopulmonary pathology. Reviewed, dictated and finalized at location A. IMPRESSION: Prominent markings in the lower lobes. Otherwise, no acute cardiopulmonary path ology.
--- NOTE | 2024-06-21 13:02 | ED.URI ---
HPI - URI/Sore Throat General Chief Complaint: Upper Respiratory Infection Stated Complaint: covid symptoms Source: patient Mode of arrival: ambulatory Limitations: no limitations History of Present Illness HPI Narrative: 73-year-old male with a history of hypertension, sinusitis, BRIDGETTE on CPAP, kidney stones, BPH, diabetes mellitus, dyslipidemia, diverticulitis currently on antibiotics presents to the ED with a 6 day history of -- cough which is productive of mucoid sputum -- chest congestion. no chest pain or shortness of breath -- improvement of his abdominal pain. patient did COVID test at home this was noted to be -2 days ago. MD elicited complaint: cough Onset (ago): day(s) ( 6 days) Consistency: intermittent Description of mucous: clear Able to tolerate fluids by mouth: Yes Exacerbating factors: nothing Relieving factors: nothing Associated symptoms: cough Treatments prior to arrival: none Related Data Home Medications Medication Instructions Recorded Confirmed aspirin 81 mg chewable tablet 81 mg PO 01/17/20 12/31/23 finasteride 5 mg tablet 5 mg PO 01/17/20 12/31/23 lisinopril 20 1 tablet PO 01/17/20 12/31/23 mg-hydrochlorothiazide 25 mg tablet lovastatin 40 mg tablet 40 mg PO 01/17/20 12/31/23 metformin 1,000 mg 24 hr 2,000 mg PO 01/17/20 12/31/23 tablet,extended release (gastric reten.) fluticasone propionate 50 1 spray intranasal Q12H PRN 04/30/20 12/31/23 mcg/actuation nasal Allergic Symptoms spray,suspension (Flonase Allergy Relief) Allergies Allergy/AdvReac Type Severity Reaction Status Date / Time No Known Allergies Allergy Unknown NONE Verified 10/30/21 07:11 Review of Systems Review of Systems: All systems reviewed & are unremarkable except as noted in HPI and below Constitutional: Constitutional: Reports as per HPI and Reports no additional constitutional complaints Eyes: Eyes: Reports as per HPI and Reports no additional eye complaints ENT: Reports system reviewed and no additional complaints, except as documented and Reports as per HPI Cardiovascular: Cardiovascular: Reports as per HPI and Reports no additional cardiovascular complaints Respiratory: Respiratory: Reports as per HPI, Reports no additional respiratory complaints, Reports chest congestion and Reports cough Gastrointestinal: Gastrointestinal: Reports as per HPI and Reports no additional gastrointestinal complaints Genitourinary: Genitourinary: Reports no additional male genitourinary complaints and Reports as per HPI Musculoskeletal: Musculoskeletal: Reports no additional musculoskeletal complaints and Reports as per HPI Integumentary/Breasts: Skin/Breast: Reports system reviewed and no additional complaints, except as docu and Reports as per HPI Neurologic: Reports system reviewed and no additional complaints, except as documented and Reports as per HPI Psychiatric: Psychiatric: Reports no additional psychiatric complaints and Reports as per HPI Endocrine: Endocrine: Reports no additional endocrine complaints and Reports as per HPI Hematologic/Lymphatic: Hematologic/Lymphatic: Reports no additional hematologic/lymphatic complaints and Reports as per HPI Allergic/Immunologic: Allergic/Immunologic: Reports no additional allergic/immunologic complaints and Reports as per HPI [facility] Past Medical History Medical History BPH (benign prostatic hyperplasia) Diabetes type 2, controlled Hyperlipidemia Hypertension BRIDGETTE (obstructive sleep apnea) CPAP Social History Social History Smoking packs per day: 0.5 Smoking cigarettes per day: 10.0 Years smoked: 3 Smoking pack-years: 1.50 Smoking status: Former smoker Tobacco type: cigarettes Smoking end date: 08/23/69 Additional smoking assessment comments: 40 YEARS AGO Alcohol intake: current Alcohol use details: 6 PK PER YEAR Substance use: current Substance use type: marijuana Last use: 2 DAYS Living arrangements: with family Spiritual care concerns: No Exam Narrative: afebrile. Oxygen saturation of 96% on room air with a respiratory rate of 20. Const: Orientation/consciousness: patient oriented x3 Limitations: no limitations HENMT: Head: normal to inspection Ears: external ears normal Face/Nose/Sinus: Normal external nose present Face and sinus: normal facial exam Mouth: Yes Normal oral and palatal mucosa present Throat: posterior oropharynx normal Eyes: Conjunctivae: conjunctivae normal Pupils: Equal, round and reactive pupils present EOM: EOMs intact bilaterally Direct Ophthalmoscopy: no photophobia Neck: Neck: normal visual inspection, no lymphadenopathy and no meningeal signs Chest: Chest palpation & inspection: normal inspection of the chest Resp: Effort & Inspection: normal respiratory effort Auscultation: clear to auscultation bilaterally Cardio: Rate: regular rate Rhythm: regular rhythm GI: GI Palp: Yes Soft to palpation Auscultation: normal bowel sounds Other: No tenderness/ rigidity / rebound. : General: Yes no CVA tenderness Back/Spine/Pelvis: Back: no CVA tenderness Skin: General skin exam: normal color Rashes: no rashes Neuro: General: patient oriented x3, moves all extremities, no meningeal signs, no focal motor deficits and CN's II-XI intact bilaterally Cranial nerves: Yes Nystagmus not present Speech: normal speech Gait exam (Neuro): Normal gait present Extrem: General: normal to inspection and no clubbing, cyanosis or edema Psych: Mental Status: mental status grossly normal Affect: normal affect Attitude: cooperative Course Course Emergency Course: Upper respiratory tract infection-- tested negative for influenza/ RSV / COVID. cough with chest congestion-- Chest x-ray does not show any acute findings. It revealed increased markings at the right base. Patient is already taking Cipro. will DC Cipro and have him take Levaquin which will cover atypical organisms lung infection and diverticulitis. diverticulitis- currently on Cipro and Flagyl per primary care physician. Patient had a normal white cell count and a normal lactate. Hyperglycemia-- patient has a blood sugar of 220. Patient is on metformin. Patient does not have any glucosuria which is surprising with his blood sugar of 220. Vital Signs Vital signs: Vital Signs Oxygen Delivery Room Air 06/21/24 12:45 Temperature 37.0 C 06/21/24 15:09 Pulse Rate 84 06/21/24 15:09 Respiratory Rate 20 06/21/24 15:09 Blood Pressure 150/86 H 06/21/24 15:09 Pulse Oximetry 98 06/21/24 15:09 Oxygen Delivery Room Air 06/21/24 15:09 MDM - URI/Sore Throat MDM Narrative Medical decision making narrative: Upper respiratory tract infection bronchitis hyperglycemia Differential Diagnosis Differential diagnosis: Likely upper respiratory infection and viral infection Medical Records Attestation: I reviewed the patient's medical records. Lab Data Attestation: I reviewed the patient's lab results. 06/21/24 13:34 06/21/24 13:34 Labs: Lab Results 06/21/24 06/21/24 06/21/24 Range/Units 12:50 13:34 13:35 WBC 6.5 (4.8-10.8) K/mm3 RBC 4.74 (4.70-6.10) M/mm3 Hgb 14.7 (12.4-15.3) g/dL Hct 44.3 (37.0-46.0) % MCV 93.5 (78.0-102.0) fL MCH 31.0 (27.0-31.0) pg MCHC 33.2 (32-36) g/dL RDW 13.2 (11.6-14.4) % Plt Count 224 (150-420) K/mm3 MPV 10.1 (8.7-11.0) fl Immature Gran % (Auto) 0.5 H (0.0-0.0) % Neut % (Auto) 58.5 (50.0-70.0) % Lymph % (Auto) 27.2 (18.0-42.0) % [place] % (Auto) 9.3 (2.0-11.0) % Eos % (Auto) 3.9 (1.0-6.0) % Baso % (Auto) 0.6 (0.0-1.0) % Lymph # (Auto) 1.76 (1.10-4.50) K/mm3 [place] # (Auto) 0.60 (0.10-0.90) K/mm3 Eos # (Auto) 0.25 (0.02-0.50) K/mm3 Baso # (Auto) 0.04 (0.00-0.10) K/mm3 Abs Immat Gran (auto) 0.03 H (0.00-0.00) K/mm3 Absolute Neuts (auto) 3.80 (1.70-7.20) K/mm3 Absolute Nucleated RBC 0.00 (0.00-0.00) K/mm3 Nucleated RBC % 0.0 (0-0.0) % Sodium 143 (136-145) mmol/L Potassium 3.9 (3.5-5.1) mmol/L Chloride 105 (98-108) mmol/L Carbon Dioxide 30 (21-32) mmol/L Anion Gap 8 (4-12) mmol/L BUN 14 (7-18) mg/dL Creatinine 1.22 (0.70-1.30) mg/dL Estim Creat Clear Calc 57 ml/min Estimated GFR 58 L (59 - ) Glucose 220 H (70-99) mg/dL Calculated Osmolality 303 H (285-295) mOsm/kg Lactic Acid 1.5 (0.4-2.0) mmol/L Calcium 8.9 (8.5-10.1) mg/dL Total Bilirubin 0.4 (0.00-1.00) mg/dL AST 17 (15-37) U/L ALT 30 (16-63) U/L Alkaline Phosphatase 70 (46-116) U/L Total Protein 7.0 (6.4-8.2) g/dL Albumin 3.2 L (3.4-5.0) g/dL Lipase 121 H (16-77) U/L Urine Color Yellow (Yellow) Urine Appearance Clear (Clear) Urine pH 5.0 (5.0-8.0) Ur Specific [place] >= 1.030 H (1.010-1.020) Urine Protein Trace H (Negative) Urine Glucose (UA) Negative (Negative) Urine Ketones Negative (Negative) Ur Blood (Man) Negative (Negative) Urine Nitrate Negative (Negative) Urine Bilirubin Negative (Negative) Urine Urobilinogen 0.2 (0.2-1.0) mg/dL Leukocyte Esterase Rfl Negative (Negative) JERONIMO/UL Urine RBC None seen (0-2) /hpf Urine WBC None seen (0-3) /hpf Urine Bacteria Trace (None) /hpf Urine Mucus Moderate H /lpf Influenza A (RT-PCR) Negative (Negative) Influenza B (RT-PCR) Negative (Negative) RSV (RT-PCR) Negative (Negative) SARS-CoV-2 RNA (RT-PCR) Negative (Negative) Discharge Plan Discharge Clinical Impression: Bronchitis Upper respiratory infection Qualifiers: URI type: unspecified URI Qualified Code(s): J06.9 - Acute upper respiratory infection, unspecified Hyperglycemia due to type 2 diabetes mellitus Qualifiers: Diabetes mellitus termination clerk insulin use: without termination clerk use Qualified Code(s): E11.65 - Type 2 diabetes mellitus with hyperglycemia Patient Disposition: Home, Self-Care Condition: Stable Instructions: Antibiotic Form, Upper Respiratory Infection (ED), Acute Bronchitis (ED) Patient Language: [place] Prescriptions: New levofloxacin 500 mg tablet 500 mg PO DAILY 5 Days Qty: 5 0RF No Action ciprofloxacin HCl 500 mg tablet 500 mg PO Q12H Qty: 14 0RF metronidazole 500 mg tablet 500 mg PO Q8H Qty: 20 0RF ondansetron 4 mg tablet,disintegrating 4 mg PO Q6H PRN (Reason: nausea and vomiting) Qty: 10 0RF finasteride 5 mg tablet 5 mg PO HS lisinopril-hydrochlorothiazide 20-25 mg tablet 1 tablet PO HS lovastatin 40 mg tablet 40 mg PO HS aspirin 81 mg tablet,chewable 81 mg PO HS metformin 1,000 mg tablet,ER laureen.retention 24 hr 2,000 mg PO HS fluticasone propionate [Flonase Allergy Relief] 50 mcg/actuation spray,suspension 1 spray NASAL Q12H PRN (Reason: Allergic Symptoms) Rx Instructions: administer into each nostril Follow-up/Referrals: UNKNOWN,DOCTOR [Non-Staff] - Time of Disposition: 15:12
[2024-06-21 13:03] VITALS: BP 161/86; PULSE 76; RESP 20; TEMP 36.6; O2SAT 96
[2024-06-21 13:40] LABS: Basophils Absolute Auto 0.04 K/mm3 (0.00-0.10); Basophils Percent Auto 0.6 % (0.0-1.0); Eosinophils Absolute Auto 0.25 K/mm3 (0.02-0.50); Eosinophils Percent Auto 3.9 % (1.0-6.0); Hematocrit 44.3 % (37.0-46.0); Hemoglobin 14.7 g/dL (12.4-15.3); Immature Granulocyte Absolute 0.03 K/mm3 (0.00-0.00); Immature Granulocyte Percent A 0.5 % (0.0-0.0); Lymphocytes Absolute Auto 1.76 K/mm3 (1.10-4.50); Lymphocytes Percent Auto 27.2 % (18.0-42.0); Mean Corpuscular HGB Conc 33.2 g/dL (32-36); Mean Corpuscular Volume 93.5 fL (78.0-102.0); Mean Platelet Volume 10.1 fl (8.7-11.0); Monocytes Percent Auto 9.3 % (2.0-11.0); Neutrophils Percent Auto 58.5 % (50.0-70.0); Platelet Count Result 224 K/mm3 (150-420); Red Blood Count 4.74 M/mm3 (4.70-6.10); Red Cell Distribution Width 13.2 % (11.6-14.4); White Blood Count 6.5 K/mm3 (4.8-10.8)
[2024-06-21 13:41] LABS: Influenza A QL RT-PCR Negative (Negative); Influenza B QL RT-PCR Negative (Negative); RSV RNA, RT-PCR Negative (Negative); SARS-CoV-2 RNA PCR Negative (Negative)
[2024-06-21 13:55] LABS: Alanine Aminotransferase 30 U/L (16-63); Albumin Level 3.2 g/dL (3.4-5.0); Alkaline Phosphatase 70 U/L (46-116); Anion Gap 8 mmol/L (4-12); Aspartate Amino Transferase 17 U/L (15-37); Bilirubin,Total 0.4 mg/dL (0.00-1.00); Blood Urea Nitrogen 14 mg/dL (7-18); Calcium 8.9 mg/dL (8.5-10.1); Carbon Dioxide 30 mmol/L (21-32); Chloride 105 mmol/L (98-108); Estimated CRCL calculation 57 ml/min; Estimated Glomerular Filt Rate 58; Glucose 220 mg/dL (70-99); Lipase 121 U/L (16-77); Osmolality Calculated 303 mOsm/kg (285-295); Potassium 3.9 mmol/L (3.5-5.1); Sodium 143 mmol/L (136-145)
[2024-06-21 13:59] LABS: Lactic Acid Reflex 1.5 mmol/L (0.4-2.0)
[2024-06-21 14:13] LABS: Add Urine Microscopic? YES; Appearance Urine Clear (Clear); Bilirubin Urine Negative (Negative); Blood Urine Negative (Negative); Color Urine Yellow (Yellow); Glucose Urine UA Negative (Negative); Ketones Urine Negative (Negative); Leukocyte Esterase Ur Negative LEU/UL (Negative); Nitrate Urine Negative (Negative); Protein Urine Trace (Negative); Specific Grav Ur >= 1.030 (1.010-1.020); Urobilinogen Urine 0.2 mg/dL (0.2-1.0)
[2024-06-21 14:20] LABS: RBC Urine None seen /hpf (0-2); WBC Urine None seen /hpf (0-3)
[2024-06-21 14:21] LABS: Bacteria Urine Trace /hpf; Mucus Urine Moderate /lpf
[2024-06-21 15:09] VITALS: BP 150/86; PULSE 84; RESP 20; TEMP 37; O2SAT 98
[2024-06-21] MEDS: methylPREDNISolone SOD SUCC 125 MG VIAL 40 MG IM (15:21)
== END 2024-06-21 15:35 | disposition home or self-care (01) ==
PROVIDERS: Emergency Provider Internal Medicine Critical Care Medicine; PCP Internal Medicine
DX: J40 Bronchitis, not specified as acute or chronic (principal); J06.9 Acute upper respiratory infection, unspecified; E11.65 Type 2 diabetes mellitus with hyperglycemia; I10 Essential (primary) hypertension; Z87.891 Personal history of nicotine dependence; Z20.822 Contact with and (suspected) exposure to COVID-19
CPT/HCPCS: 36415; 71045; 80053; 81001; 83605; 83690; 85025; 87637; 96372; 99283; J2919

== ENCOUNTER 2024-07-13 13:54 | Emergency (ER) | payer MEDICARE, OTHER, SELFPAY ==
[2024-07-13] VITALS (41 sets, daily range): BP systolic 97–148; BP diastolic 64–111; PULSE 61–204; RESP 11–26; TEMP 36.8; O2SAT 92–99
--- NOTE | ~2024-07-13 | XR_ITS ---
EXAMINATION: XR chest 1V portable DATE: 07/13/2024 14:28 INDICATION: Chest pain TECHNIQUE: frontal view of the chest was obtained. COMPARISON: Chest radiograph dated 06/21/[address] dated 05/26/2024 FINDINGS: No interval change in linear discoid atelectasis/scarring at the medial right lower lung zone and sarah nting at the left costophrenic angle both of which on prior CT appear to be related to prior partial pneumonectomies with suture lines and scarring along the inferolateral lingula and at the periphery o f the remaining small right middle lobe. No new airspace opacities, pulmonary edema, pleural effusion or pneumothorax. Heart size is normal. IMPRESSION: 1. Chronic atelectasis/scarring along suture lines at the bilateral lung bases consistent with prior partial right middle lobe and lingular pneumonectomies. Correlate with surgical history. 2. No other acute cardiopulmonary disease. Reviewed, dictated and finalized at location B. 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 Chronic atelectasis/scarring along suture lines at the bilateral lung bases consistent with prior partial right middle lobe and lingular pneumonectomies. C orrelate with surgical history. 2. No other acute cardiopulmonary disease.
--- NOTE | 2024-07-13 14:07 | ECG_ITS ---
Test Date: 2024-07-13 13:57:56 Measurements Intervals [place] Rate: 188 P: 0 PA: 0 QRS: -69 QRSD: 125 T: 42 QT: 249 QTc: 440 Interpretive Statements SUPRAVENTRICULAR TACHYCARDIA RIGHT BUNDLE BRANCH BLOCK LEFT ANTERIOR FASCICULAR BLOCK ABNORMAL ECG No previous ECG available for comparison Electronically Signed On 07-13-2024 14:14:46 BASKET [employer]URNER by Mukund Dinero D.O.
[2024-07-13] MEDS: ASPIRIN 81 MG CHEWABLE TABLET 324 MG PO (14:17)
[2024-07-13] MEDS: ADENOSINE IV SOLN 6 MG/2 ML VIAL IV PUSH (14:17)
[2024-07-13 14:22] LABS: Basophils Absolute Auto 0.04 K/mm3 (0.00-0.10); Basophils Percent Auto 0.4 % (0.0-1.0); Eosinophils Absolute Auto 0.24 K/mm3 (0.02-0.50); Eosinophils Percent Auto 2.3 % (1.0-6.0); Hematocrit 40.9 % (37.0-46.0); Hemoglobin 14.2 g/dL (12.4-15.3); Immature Granulocyte Absolute 0.03 K/mm3 (0.00-0.00); Immature Granulocyte Percent A 0.3 % (0.0-0.0); Lymphocytes Absolute Auto 3.12 K/mm3 (1.10-4.50); Lymphocytes Percent Auto 29.3 % (18.0-42.0); Mean Corpuscular HGB Conc 34.7 g/dL (32-36); Mean Corpuscular Hemoglobin 31.8 pg (27.0-31.0); Mean Corpuscular Volume 91.5 fL (78.0-102.0); Mean Platelet Volume 10.1 fl (8.7-11.0); Monocytes Absolute Auto 0.84 K/mm3 (0.10-0.90); Monocytes Percent Auto 7.9 % (2.0-11.0); Neutrophils Absolute Auto 6.38 K/mm3 (1.70-7.20); Neutrophils Percent Auto 59.8 % (50.0-70.0); Platelet Count Result 195 K/mm3 (150-420); Red Blood Count 4.47 M/mm3 (4.70-6.10); Red Cell Distribution Width 13.5 % (11.6-14.4); White Blood Count 10.7 K/mm3 (4.8-10.8)
[2024-07-13] MEDS: SODIUM CHLORIDE 0.9% IV 1,000 ML 1000 ML (14:29)
--- NOTE | 2024-07-13 14:37 | ECG_ITS ---
Test Date: 2024-07-13 14:40:20 Measurements Intervals [place] Rate: 86 P: 47 [place]: 172 QRS: -9 QRSD: 100 T: 45 QT: 385 QTc: 463 Interpretive Statements SINUS RHYTHM INCOMPLETE RIGHT BUNDLE BRANCH BLOCK BASELINE ARTIFACT- I, II, III, AVR, AVL, AVF, V6 BORDERLINE ECG Compared to ECG 07/13/2024 13:57:56 Supraventricular tachycardia no longer present Right bundle-branch block no longer present Left anterior fascicular block no longer present Electronically Signed On 07-13-2024 14:51:46 MICROFILM TECHNICIAN by Mukund Dinero D.O.
[2024-07-13 14:40] LABS: D Dimer 0.46 mg/L (0.19-0.50); Partial Thromboplastin Time 31.1 Sec (23.9-30.70); Prothrombin Time 10.9 Seconds (9.50-12.1)
[2024-07-13 14:42] LABS: Add Urine Microscopic? YES; Appearance Urine Clear (Clear); Bilirubin Urine Negative (Negative); Blood Urine Negative (Negative); Color Urine Light Yellow (Yellow); Glucose Urine UA Negative (Negative); Ketones Urine Trace (Negative); Leukocyte Esterase Ur Negative LEU/UL (Negative); Nitrate Urine Negative (Negative); Protein Urine Trace (Negative); Specific Grav Ur >= 1.030 (1.010-1.020); Urobilinogen Urine 0.2 mg/dL (0.2-1.0); pH Urine 5.5 (5.0-8.0)
[2024-07-13 14:49] LABS: Bacteria Urine Trace /hpf; Mucus Urine Few /lpf; RBC Urine None seen /hpf (0-2); Squamous Epithelial Cell Urine Rare /hpf (Few); WBC Urine None seen /hpf (0-3)
[2024-07-13 14:52] LABS: Alanine Aminotransferase 26 U/L (16-63); Albumin Level 3.3 g/dL (3.4-5.0); Alkaline Phosphatase 66 U/L (46-116); Anion Gap 15 mmol/L (4-12); Aspartate Amino Transferase 17 U/L (15-37); Bilirubin,Total 0.8 mg/dL (0.00-1.00); Blood Urea Nitrogen 17 mg/dL (7-18); Calcium 8.9 mg/dL (8.5-10.1); Carbon Dioxide 25 mmol/L (21-32); Chloride 103 mmol/L (98-108); Estimated CRCL calculation 48 ml/min; Estimated Glomerular Filt Rate 48; Glucose 163 mg/dL (70-99); Lipase 68 U/L (16-77); NT Pro B Type Natriuretic Pept 175 pg/mL (0-125); Osmolality Calculated 301 mOsm/kg (285-295); Potassium 3.4 mmol/L (3.5-5.1); Sodium 143 mmol/L (136-145); Total Protein 6.6 g/dL (6.4-8.2); Troponin I 14.2 ng/L (0.00-60.4)
--- NOTE | 2024-07-13 14:56 | PC.NURSE ---
Placed pt on 2L nasal cannula per RN
[2024-07-13 15:06] LABS: Thyroid Stimulating Hormone 1.46 uIU/mL (0.36-3.74)
[2024-07-13 16:56] LABS: Troponin I 51.5 ng/L (0.00-60.4)
--- NOTE | 2024-07-13 17:11 | ED_ITS ---
HPI - Chest Pain General Chief Complaint: Chest Pain Stated Complaint: chest pain Time Seen by Provider: 07/13/24 13:59 Source: patient and family Mode of arrival: ambulatory Limitations: no limitations History of Present Illness HPI narrative: this is a 73-year-old male has a history of CAD and hypertension along with hyperlipidemia nonsmoker presents with an episode tachycardia that started prior to his arrival to the emergency department. . Patient was having some chest discomfort with some some mild shortness of breath with no diaphoresis no nausea vomiting. Patient had CAD that was treated approximately 20 years ago and has not had any events since then. Patient took a Viagra earlier this morning and subsequent to that has had a episode of tachycardia. No fever chills no nausea vomiting no abdominal pain no flank pain no dysuria. MD complaint: chest discomfort Onset (ago): hour(s) Timing of current episode: constant Onset: during rest Related Data Home Medications Medication Instructions Recorded Confirmed aspirin 81 mg chewable tablet 81 mg PO HS 01/17/20 07/13/24 finasteride 5 mg tablet 5 mg PO HS 01/17/20 07/13/24 lisinopril 20 1 tablet PO HS 01/17/20 07/13/24 mg-hydrochlorothiazide 25 mg tablet lovastatin 40 mg tablet 40 mg PO HS 01/17/20 07/13/24 fluticasone propionate 50 1 spray intranasal Q12H PRN 04/30/20 12/31/23 mcg/actuation nasal Allergic Symptoms spray,suspension (Flonase Allergy Relief) albuterol sulfate 90 mcg/actuation inhalation 07/13/24 aerosol inhaler amlodipine 2.5 mg tablet mg 07/13/24 budesonide-formoterol HFA 160 inhalation 07/13/24 mcg-4.5 mcg/actuation aerosol inhaler (Breyna) glimepiride 4 mg tablet 4 mg PO DAILY 07/13/24 07/13/24 metformin 500 mg tablet,extended mg PO 07/13/24 release 24 hr pioglitazone 30 mg tablet 30 mg PO DAILY 07/13/24 07/13/24 tizanidine 4 mg tablet 4 mg PO DAILY 07/13/24 07/13/24 Allergies Allergy/AdvReac Type Severity Reaction Status Date / Time No Known Allergies Allergy Unknown NONE Verified 07/13/24 14:08 Review of Systems Review of Systems: All systems reviewed & are unremarkable except as noted in HPI and below PMFSH Past Medical History Medical History BPH (benign prostatic hyperplasia) Diabetes type 2, controlled Hyperlipidemia Hypertension BRIDGETTE (obstructive sleep apnea) CPAP Social History Social History Smoking packs per day: 0.5 Smoking cigarettes per day: 10.0 Years smoked: 3 Smoking pack-years: 1.50 Smoking status: Former smoker Tobacco type: cigarettes Smoking end date: 08/23/69 Additional smoking assessment comments: 40 YEARS AGO Alcohol intake: current Alcohol use details: 6 PK PER YEAR Substance use: current Substance use type: marijuana Last use: 2 DAYS Living arrangements: with family Spiritual care concerns: No Exam Const: General: no acute distress Nutritional Appearance: well nourished Orientation/consciousness: patient oriented x3 Limitations: no limitations HENMT: Head: normal to inspection Eyes: Conjunctivae: conjunctivae normal Pupils: Equal, round and reactive pupils present EOM: EOMs intact bilaterally Direct Ophthalmoscopy: no photophobia Neck: Neck: normal visual inspection and no lymphadenopathy Chest: Chest palpation & inspection: normal inspection of the chest Resp: Effort & Inspection: normal respiratory effort Auscultation: clear to auscultation bilaterally Cardio: Rate: tachycardic Rhythm: regular rhythm GI: GI Palp: Yes Soft to palpation Auscultation: normal bowel sounds Urinary Catheter: Urinary Catheter: patent and draining Back/Spine/Pelvis: Back: no CVA tenderness Skin: General skin exam: normal color Neuro: General: patient oriented x3, moves all extremities, no meningeal signs and no focal motor deficits Extrem: General: normal to inspection, no clubbing, cyanosis or edema and no pedal edema Psych: Mental Status: mental status grossly normal Course Course Emergency Course: Patient with some presentation of SVT and heart rates around 185/199 with a blood pressure 109 systolic. The patient received 6mg IV adenosine which converted the patient and currently blood pressure 125/64 with a heart rate of 80. Had blood work performed including troponins within normal range troponin initially 14 and 51 subsequently with a BNP of 175 D-dimer was negative repeat EKG showed normal sinus rhythm with a incomplete right bundle clayton block with a heart rate of 86. Chest x-ray showed no acute cardiopulmonary abnormalities. Vital Signs Vital signs: Vital Signs Pulse Rate 199 H 07/13/24 13:55 Respiratory Rate 11 L 07/13/24 13:55 Temperature 36.8 C 07/13/24 14:03 Pulse Rate 80 07/13/24 15:01 Respiratory Rate 18 07/13/24 15:01 Blood Pressure 125/64 07/13/24 15:01 Pulse Oximetry 95 07/13/24 15:04 Oxygen Delivery Room Air 07/13/24 15:04 Oxygen Flow Rate 2 07/13/24 14:56 MDM - Chest Pain Lab Data 07/13/24 14:17 07/13/24 14:17 Labs: Lab Results 07/13/24 07/13/24 07/13/24 Range/Units 14:07 14:17 16:30 WBC 10.7 (4.8-10.8) K/mm3 RBC 4.47 L (4.70-6.10) M/mm3 Hgb 14.2 (12.4-15.3) g/dL Hct 40.9 (37.0-46.0) % MCV 91.5 (78.0-102.0) fL MCH 31.8 H (27.0-31.0) pg MCHC 34.7 (32-36) g/dL RDW 13.5 (11.6-14.4) % Plt Count 195 (150-420) K/mm3 MPV 10.1 (8.7-11.0) fl Immature Gran % (Auto) 0.3 H (0.0-0.0) % Neut % (Auto) 59.8 (50.0-70.0) % Lymph % (Auto) 29.3 (18.0-42.0) % Piatt % (Auto) 7.9 (2.0-11.0) % Eos % (Auto) 2.3 (1.0-6.0) % Baso % (Auto) 0.4 (0.0-1.0) % Lymph # (Auto) 3.12 (1.10-4.50) K/mm3 Piatt # (Auto) 0.84 (0.10-0.90) K/mm3 Eos # (Auto) 0.24 (0.02-0.50) K/mm3 Baso # (Auto) 0.04 (0.00-0.10) K/mm3 Abs Immat Gran (auto) 0.03 H (0.00-0.00) K/mm3 Absolute Neuts (auto) 6.38 (1.70-7.20) K/mm3 Absolute Nucleated RBC 0.00 (0.00-0.00) K/mm3 Nucleated RBC % 0.0 (0-0.0) % PT 10.9 (9.50-12.1) Seconds INR 1.0 APTT 31.1 H (23.9-30.70) Sec D-Dimer 0.46 (0.19-0.50) mg/L Sodium 143 (136-145) mmol/L Potassium 3.4 L (3.5-5.1) mmol/L Chloride 103 (98-108) mmol/L Carbon Dioxide 25 (21-32) mmol/L Anion Gap 15 H (4-12) mmol/L BUN 17 (7-18) mg/dL Creatinine 1.45 H (0.70-1.30) mg/dL Estim Creat Clear Calc 48 ml/min Estimated GFR 48 L (59 - ) Glucose 163 H (70-99) mg/dL Calculated Osmolality 301 H (285-295) mOsm/kg Calcium 8.9 (8.5-10.1) mg/dL Total Bilirubin 0.8 (0.00-1.00) mg/dL AST 17 (15-37) U/L ALT 26 (16-63) U/L Alkaline Phosphatase 66 (46-116) U/L Troponin I 14.2 51.5 (0.00-60.4) ng/L NT-Pro-B Natriuret Pep 175 H (0-125) pg/mL Total Protein 6.6 (6.4-8.2) g/dL Albumin 3.3 L (3.4-5.0) g/dL Lipase 68 (16-77) U/L TSH 1.46 (0.36-3.74) uIU/mL Urine Color Light yellow (Yellow) Urine Appearance Clear (Clear) Urine pH 5.5 (5.0-8.0) Ur Specific [place] >= 1.030 H (1.010-1.020) Urine Protein Trace H (Negative) Urine Glucose (UA) Negative (Negative) Urine Ketones Trace H (Negative) Ur Blood (Man) Negative (Negative) Urine Nitrate Negative (Negative) Urine Bilirubin Negative (Negative) Urine Urobilinogen 0.2 (0.2-1.0) mg/dL Leukocyte Esterase Rfl Negative (Negative) JERONIMO/UL Urine RBC None seen (0-2) /hpf Urine WBC None seen (0-3) /hpf Ur Squamous Epith Cells Rare (Few) /hpf Urine Bacteria Trace (None) /hpf Granular Casts 1-2 H (None) /lpf Urine Mucus Few H /lpf Critical Care Time Critical Care Time Critical Care Time: No Discharge Plan Discharge Clinical Impression: SVT (supraventricular tachycardia) Patient Disposition: Home, Self-Care Condition: Stable Instructions: Antibiotic Form, Supraventricular Tachycardia (ED) Additional Instructions: advised patient to follow up with primary within the next 2 to 3 days for further evaluation and treatment. Prescriptions: No Action levofloxacin 500 mg tablet 500 mg PO DAILY 3 Days Qty: 3 0RF tizanidine 4 mg tablet 4 mg PO DAILY amlodipine 2.5 mg tablet glimepiride 4 mg tablet 4 mg PO DAILY albuterol sulfate 90 mcg/actuation HFA aerosol inhaler INHALATION pioglitazone 30 mg tablet 30 mg PO DAILY metformin 500 mg tablet extended release 24 hr PO budesonide-formoterol [Breyna] 160-4.5 mcg/actuation HFA aerosol inhaler INHALATION ciprofloxacin HCl 500 mg tablet 500 mg PO Q12H Qty: 14 0RF metronidazole 500 mg tablet 500 mg PO Q8H Qty: 20 0RF finasteride 5 mg tablet 5 mg PO HS lisinopril-hydrochlorothiazide 20-25 mg tablet 1 tablet PO HS lovastatin 40 mg tablet 40 mg PO HS aspirin 81 mg tablet,chewable 81 mg PO HS fluticasone propionate [Flonase Allergy Relief] 50 mcg/actuation spray,suspension 1 spray NASAL Q12H PRN (Reason: Allergic Symptoms) Rx Instructions: administer into each nostril Follow-up/Referrals: Alon Mcneill MD [Primary Care Provider] - Time of Disposition: 17:17
--- NOTE | 2024-07-13 17:28 | PC.NURSE ---
ERP aware of Pt's BP. No new orders.
== END 2024-07-13 17:35 | disposition home or self-care (01) ==
PROVIDERS: Emergency Provider Emergency Medicine; PCP Internal Medicine
DX: I47.10 Supraventricular tachycardia, unspecified (principal); E78.5 Hyperlipidemia, unspecified; I25.10 Atherosclerotic heart disease of native coronary artery without angina pectoris; I10 Essential (primary) hypertension; E11.9 Type 2 diabetes mellitus without complications; Z79.899 Other long term (current) drug therapy; Z79.84 Long term (current) use of oral hypoglycemic drugs; Z87.891 Personal history of nicotine dependence
CPT/HCPCS: 36415; 71045; 80053; 81001; 83690; 83880; 84443; 84484; 85025; 85380; 85610; 85730; 93005; 96361; 96374; 99284; A9270; J0153; J7030

== ENCOUNTER 2024-11-30 16:14 | Outpatient (CLI) | payer MEDICARE, OTHER, SELFPAY ==
--- NOTE | ~2024-11-30 | XR_ITS ---
XR chest 2V Ordering provider: Alon Mcneill MD History: 74 years Male with . URI, COUGH, SOB . Comparison: July 13, 2024 FINDINGS: MEDIASTINUM: The cardiac silhouette is not enlarged. LUNGS: No infiltrates, effusions or pneumothorax. OTHER: No free air under the diaphragm. Degenerative changes of the spine. IMPRESSION: No acute cardiopulmonary pathology. Reviewed, dictated and finalized at location A.
--- OUTSIDE RECORDS SUMMARY | 2024-11-30 16:18 | XMS_ITS | Continuity of Care Document ---
Author Name [facility] Organization [facility] Care Team Providers Care Beef Skinner Name Role Phone [facility] Unavailable Unavailable Problems Combined list of problems from Department of [facility] and [facility] Affairs facilities. It does not include entries that were removed or entered in error. Problem Status Onset Date Problem Type Date of Resolution Comments Source Benign essential hypertension Active Condition [facility] Diabetes mellitus Active Condition [facility] Family history of cancer of colon Active Condition [facility] History of calculus of kidney Active Condition [facility] Hyperlipidemia Active Condition [facility] Sleep apnea Active Condition [facility] Diagnosis: ICD-10-CM H90.3 Sensorineural hearing loss, bilateral Active Diagnosis [facility] Diagnosis: ICD-10-CM H90.A22 Snsrnrl hear loss, uni, l ear, with rstrcd hear cntra side Active Diagnosis [facility] Diagnosis: ICD-10-CM H91.93 Unspecified hearing loss, bilateral Active Diagnosis [facility] Diagnosis: ICD-10-CM E11.9 Type 2 diabetes mellitus without complications Active Diagnosis [facility] Medications Combined list of outpatient medications from Department of [facility] facilities.Medications provided include 1) outpatient medications from the last 15 months, and 2) patient-reported medications. Medication Details Route Status Patient Instructions Prescription Expires Prescription Number Last Dispense Date Ordering Provider Order Date Order Qty Source ALOGLIPTIN 12.5MG TAB TAKE ONE TABLET BY MOUTH ONCE A DAY ORAL DISCONT INUED (EDIT) 07/23/2024 [id number] KARYN ROBISON 2022 90 [facility] ALOGLIPTIN 25MG TAB TAKE ONE TABLET BY MOUTH ONCE A DAY FOR DIABETES ORAL DISCONT INUED 01/03/2025 [id number] SAKRENATEKARYN 2023 90 [facility] AMLODIPINE BESYLATE 2.5MG TAB TAKE ONE TABLET BY MOUTH ONCE A DAY ORAL ACTIVE ENRIQUETA2023 [facility] ASPIRIN 81MG TAB,EC TAKE ONE TABLET BY MOUTH ONCE A DAY ORAL ACTIVE FRANKLINRENATE2020 [facility] BETAMETHASO NE VALERATE 0.1% OINT,TOP APPLY SPARINGL Y TO AFFECTED AREA(S) TWICE DAILY NEEDED (EXTERNA L USE ONLY) APPLY SMALL DAB TO ENTRANCE OF EAR CANAL TWICE A DAY NEEDED FOR ITCHING TOPICA L 10/20/2024 [id number] NATHALY DOOLEY 2023 45 [facility] DIVISCHALINO N CETIRIZINE HCL 10MG TAB TAKE ONE TABLET BY MOUTH ONCE A DAY NEEDED ORAL ACTIVE RENE ROBISONJAYA 2020 [facility] FINASTERIDE 5MG TAB TAKE ONE TABLET BY MOUTH ONCE A DAY ORAL ACTIVE FRANKLINRENATE2020 [facility] GLIMEPIRIDE 4MG TAB TAKE ONE TABLET BY MOUTH EVERY MORNING ORAL ACTIVE ENRIQUETA2022 [facility] HYDROCHLORO THIAZIDE 25MG/LISINO PRIL 20MG TAB TAKE ONE TABLET BY MOUTH EVERY MORNING ORAL ACTIVE ENRIQUETA2022 [facility] LISINOPRIL 40MG TAB TAKE ONE-HALF TABLET BY MOUTH ONCE A DAY ORAL ACTIVE ENRIQUETA2022 [facility] LOVASTATIN 40MG TAB TAKE ONE TABLET BY MOUTH EVERY EVENING ORAL ACTIVE ENRIQUETA2020 [facility] METFORMIN HCL 500MG 24HR TAB,SA TAKE FOUR TABLETS BY MOUTH EVERY MORNING BEFORE A MEAL ORAL ACTIVE ENRIQUETA2020 [facility] PIOGLITAZON E HCL 30MG TAB TAKE ONE TABLET BY MOUTH ONCE A DAY ORAL ACTIVE GARRY SANTANA 2023 [facility] SITAGLIPTIN (EQV-ZITUVI O) 25MG TAB TAKE ONE TABLET BY MOUTH ONCE A DAY FOR DIABETES ORAL ACTIVE 09/05/2025 [id number] KARYN ROBISON 2024 90 [facility] Immunizations Combined list of available immunizations from the Department of Defense and Veterans Affairs facilities. 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 Status Comments Source COVID-19 (PFIZER), MRNA, LNP-S, PF, 30 MCG/0.3 ML DOSE 3 2020 208 complet ed [facility] COVID-19 (PFIZER), MRNA, LNP-S, PF, 30 MCG/0.3 ML DOSE 2 2020 208 complet ed [facility] COVID-19 (AdviceIQ), MRNA, LNP-S, PF, 30 MCG/0.3 ML DOSE 1 2020 208 complet ed [facility] ZOSTER LIVE 2014 121 complet ed [facility] INFLUENZA, UNSPECIFIED FORMULATION 2013 88 complet ed [facility] Results Combined list of recent chemistry, hematology and other laboratory results from Department of Defense and Veterans Affairs, ranging from 15 months to all on record, depending upon the facility. Order Name Results Value Reference Range Date Interpretation Specimen Comments Source BASIC METABOLIC PANEL CREATININE [MASS/VOLUM E] IN SERUM OR PLASMA 1.10 mg/dL 0.7 - 1.3 07/12 Specimen Type: PLASMA Comment: No hemolysis noted. Ordering Provider: OLYA NICHOLS Report Released Date/Time: Jul 12, 2024 01:43 PM Reporting Lab: [facility] [address] [facility] [address] Performing Lab: [facility] [address] [facility] [address] [facility] BASIC METABOLIC PANEL UREA NITROGEN [MASS/VOLUM E] IN SERUM OR PLASMA 16.7 mg/dL 9.0 - 25.0 07/12 Specimen Type: PLASMA Comment: No hemolysis noted. Ordering Provider: OLYA NICHOLS Report Released Date/Time: Jul 12, 2024 01:43 PM Reporting Lab: [facility] [address] [facility] [address] Performing Lab: [facility] [address] [facility] [facility] [address] [address] [facility] BASIC METABOLIC PANEL GLUCOSE [MASS/VOLUM E] IN SERUM OR PLASMA 168 mg/dL 72 - 99 07/12 H Specimen Type: PLASMA Comment: No hemolysis noted. Ordering Provider: OLYA NICHOLS Report Released Date/Time: Jul 12, 2024 01:43 PM Reporting Lab: [place] [address] [facility] [address] [address] Performing Lab: [place] [address] [facility] [address] [facility] BASIC METABOLIC PANEL SODIUM [MOLES/VOLU ME] IN SERUM OR PLASMA 144 meq/L 136 - 145 07/12 Specimen Type: PLASMA Comment: No hemolysis noted. Ordering Provider: OLYA NICHOLS Report Released Date/Time: Jul 12, 2024 01:43 PM Reporting Lab: [place] [address] [facility] [address] Performing Lab: [place] [address] [facility] [address] [facility] BASIC METABOLIC PANEL POTASSIUM [MOLES/VOLU ME] IN SERUM OR PLASMA 3.8 meq/L 3.5 - 5 07/12 Specimen Type: PLASMA Comment: No hemolysis noted. Ordering Provider: OLYA NICHOLS Report Released Date/Time: Jul 12, 2024 01:43 PM Reporting Lab: [place] [address] [facility] [address] Performing Lab: [place] [address] [facility] [address] [facility] BASIC METABOLIC PANEL CHLORIDE [MOLES/VOLU ME] IN SERUM OR PLASMA 106 meq/L 98 - 107 07/12 Specimen Type: PLASMA Comment: No hemolysis noted. Ordering Provider: OLYA NICHOLS Report Released Date/Time: Jul 12, 2024 01:43 PM Reporting Lab: [facility] [address] [address] Performing Lab: [facility] [address] [address] [facility] BASIC METABOLIC PANEL CARBON DIOXIDE, TOTAL [MOLES/VOLU ME] IN SERUM OR PLASMA 27 meq/L 22 - 31 07/12 Specimen Type: PLASMA Comment: No hemolysis noted. Ordering Provider: OLYA NICHOLS Report Released Date/Time: Jul 12, 2024 01:43 PM Reporting Lab: [place] [address] [facility] [address] Performing Lab: [address] [phone] [place] [address] BASIC METABOLIC PANEL CALCIUM [MASS/VOLUM E] IN SERUM OR PLASMA 9.4 mg/dL 8.4 - 10.4 07/12 Specimen Type: PLASMA Comment: No hemolysis noted. Ordering Provider: OLYA NICHOLS Report Released Date/Time: Jul 12, 2024 01:43 PM Reporting Lab: [place] [address] [facility] [facility] [address] Performing Lab: [place] [address] [facility] [address] [address] [facility] BASIC METABOLIC PANEL GLOMERULAR FILTRATION RATE/1.73 SQ M.PREDICTED [VOLUME RATE/AREA] IN SERUM, PLASMA OR BLOOD BY CREATININE- BASED FORMULA (CKD-EPI 2020) 70.4 60 07/12 Specimen Type: PLASMA Comment: No hemolysis noted. Ordering Provider: OLYA NICHOLS Report Released Date/Time: Jul 12, 2024 01:43 PM Reporting Lab: [facility] [address] [facility] [facility] [address] [address] Performing Lab: [place] [address] [facility] [facility] [address] [address] [facility] CBC LEUKOCYTES [#/VOLUME] IN BLOOD BY AUTOMATED COUNT 6.6 10*3/u L 3.6 - 11.2 07/12 Specimen Type: BLOOD No comment entered. Ordering Provider: OLYA NICHOLS Report Released Date/Time: Jul 12, 2024 01:43 PM Reporting Lab: [address] [address] Performing Lab: [address] [address] [facility] CBC ERYTHROCYTE S [#/VOLUME] IN BLOOD BY AUTOMATED COUNT 4.59 10*6/u L 4.10 - 5.70 07/12 Specimen Type: BLOOD No comment entered. Ordering Provider: OLYA NICHOLS Report Released Date/Time: Jul 12, 2024 01:43 PM Reporting Lab: [address] [address] Performing Lab: [phone] [place] [address] CBC HEMOGLOBIN [MASS/VOLUM E] IN BLOOD 14.2 g/dL 13.1 - 16.8 07/12 Specimen Type: BLOOD No comment entered. Ordering Provider: OLYA NICHOLS Report Released Date/Time: Jul 12, 2024 01:43 PM Reporting Lab: [address] [address] Performing Lab: [address] [phone] [place] [address] CBC HEMATOCRIT [VOLUME FRACTION] OF BLOOD 43.6 38.2 - 48.4 07/12 Specimen Type: BLOOD No comment entered. Ordering Provider: OLYA NICHOLS Report Released Date/Time: Jul 12, 2024 01:43 PM Reporting Lab: [address] [address] Performing Lab: [address] [address] [facility] CBC MCV [ENTITIC VOLUME] BY AUTOMATED COUNT 95.0 fL 80.0 - 100.0 07/12 Specimen Type: BLOOD No comment entered. Ordering Provider: OLYA NICHOLS Report Released Date/Time: Jul 12, 2024 01:43 PM Reporting Lab: [address] [address] Performing Lab: [address] [address] [facility] CBC MCH [ENTITIC MASS] BY AUTOMATED COUNT 30.9 pg 27.0 - 34.0 07/12 Specimen Type: BLOOD No comment entered. Ordering Provider: OLYA NICHOLS Report Released Date/Time: Jul 12, 2024 01:43 PM Reporting Lab: [address] [address] Performing Lab: [address] [address] [facility] CBC MCHC [MASS/VOLUM E] BY AUTOMATED COUNT 32.6 g/dL 33.0 - 36.0 07/12 L Specimen Type: BLOOD No comment entered. Ordering Provider: OLYA NICHOLS Report Released Date/Time: Jul 12, 2024 01:43 PM Reporting Lab: [address] [address] Performing Lab: [address] [address] [facility] CBC PLATELETS [#/VOLUME] IN BLOOD BY AUTOMATED COUNT 199 10*3/u L 150 - 400 07/12 Specimen Type: BLOOD No comment entered. Ordering Provider: OLYA NICHOLS Report Released Date/Time: Jul 12, 2024 01:43 PM Reporting Lab: [address] [address] Performing Lab: [address] [address] [facility] CBC PLATELET MEAN VOLUME [ENTITIC VOLUME] IN BLOOD BY AUTOMATED COUNT 10.6 fL 7.5 - 11.2 07/12 Specimen Type: BLOOD No comment entered. Ordering Provider: OLYA NICHOLS Report Released Date/Time: Jul 12, 2024 01:43 PM Reporting Lab: [facility] [address] [facility] [address] Performing Lab: [facility] [address] [place] [address] [facility] CBC ERYTHROCYTE DISTRIBUTIO N WIDTH [RATIO] BY AUTOMATED COUNT 13.9 11.8 - 15.1 07/12 Specimen Type: BLOOD No comment entered. Ordering Provider: OLYA NICHOLS Report Released Date/Time: Jul 12, 2024 01:43 PM Reporting Lab: [facility] [address] [place] [address] Performing Lab: [facility] [address] [place] [address] [phone] [place] [address] CBC LYMPHOCYTES /100 LEUKOCYTES IN BLOOD BY AUTOMATED COUNT 31 07/12 Specimen Type: BLOOD No comment entered. Ordering Provider: OLYA NICHOLS Report Released Date/Time: Jul 12, 2024 01:43 PM Reporting Lab: [facility] [address] [place] [address] Performing Lab: [facility] [address] [place] [address] [facility] CBC MONOCYTES/1 00 LEUKOCYTES IN BLOOD BY AUTOMATED COUNT 9 07/12 Specimen Type: BLOOD No comment entered. Ordering Provider: OLYA NICHOLS Report Released Date/Time: Jul 12, 2024 01:43 PM Reporting Lab: [facility] [address] [place] [address] Performing Lab: [facility] [address] [address] [facility] CBC NEUTROPHILS /100 LEUKOCYTES IN BLOOD BY AUTOMATED COUNT 56 07/12 Specimen Type: BLOOD No comment entered. Ordering Provider: OLYA NICHOLS Report Released Date/Time: Jul 12, 2024 01:43 PM Reporting Lab: [facility] [address] [facility] [address] Performing Lab: [facility] [address] [address] [facility] CBC EOSINOPHILS /100 LEUKOCYTES IN BLOOD BY AUTOMATED COUNT 3 07/12 Specimen Type: BLOOD No comment entered. Ordering Provider: OLYA NICHOLS Report Released Date/Time: Jul 12, 2024 01:43 PM Reporting Lab: [place] [address] [address] Performing Lab: [place] [address] [place] [phone] [facility] CBC BASOPHILS/1 00 LEUKOCYTES IN BLOOD BY AUTOMATED COUNT 1 07/12 Specimen Type: BLOOD No comment entered. Ordering Provider: OLYA NICHOLS Report Released Date/Time: Jul 12, 2024 01:43 PM Reporting Lab: [facility] [address] [address] Performing Lab: [place] [address] [address] [facility] CBC LYMPHOCYTES [#/VOLUME] IN BLOOD BY AUTOMATED COUNT 2.05 10*3/u L 0.77 - 4.50 07/12 Specimen Type: BLOOD No comment entered. Ordering Provider: OLYA NICHOLS Report Released Date/Time: Jul 12, 2024 01:43 PM Reporting Lab: [facility] [address] Performing Lab: [facility] [address] [facility] CBC MONOCYTES [#/VOLUME] IN BLOOD BY AUTOMATED COUNT 0.59 10*3/u L 0.19 - 0.80 07/12 Specimen Type: BLOOD No comment entered. Ordering Provider: STROBER,OLYA SCOTT A Report Released Date/Time: Jul 12, 2024 01:43 PM Reporting Lab: [place] [phone] Performing Lab: [address] [address] [facility] CBC NEUTROPHILS [#/VOLUME] IN BLOOD BY AUTOMATED COUNT 3.68 10*3/u L 2.10 - 8.00 07/12 Specimen Type: BLOOD No comment entered. Ordering Provider: OLYA NICHOLS A Report Released Date/Time: Jul 12, 2024 01:43 PM Reporting Lab: [place] [phone] Performing Lab: [address] [phone] CBC EOSINOPHILS [#/VOLUME] IN BLOOD BY AUTOMATED COUNT 0.21 10*3/u L 0.00 - 0.60 07/12 Specimen Type: BLOOD No comment entered. Ordering Provider: OLYA NICHOLS A Report Released Date/Time: Jul 12, 2024 01:43 PM Reporting Lab: [place] [phone] Performing Lab: [address] [address] [facility] CBC BASOPHILS [#/VOLUME] IN BLOOD BY AUTOMATED COUNT 0.05 10*3/u L 0.00 - 0.20 07/12 Specimen Type: BLOOD No comment entered. Ordering Provider: OLYA NICHOLS A Report Released Date/Time: Jul 12, 2024 01:43 PM Reporting Lab: [place] [phone] Performing Lab: [address] [address] [facility] GLUCOSE,B LOOD-poct (STL) GLUCOSE [MASS/VOLUM E] IN BLOOD BY AUTOMATED TEST STRIP 115 mg/dL 72 - 99 01/01 H Specimen Type: BLOOD Comment: Test Performed by: [id number] Meter #: [id number] Ordering Provider: Sae ROBISON Report Released Date/Time: January 01, 2023 04:03 PM Reporting Lab: [facility] [address] [facility] [address] Performing Lab: [facility] [address] [facility] [address] [facility] Vital Signs Combined list of inpatient and outpatient Vital Signs from Department of [facility] and [facility], ranging from 12 months to all on record, depending upon the facility. Vital Sign Value Date Comments Source SYSTOLIC BLOOD PRESSURE 152 07/12/2024 12:47:25 [facility] DIASTOLIC BLOOD PRESSURE 74 07/12/2024 12:47:25 [facility] PULSE OXIMETRY 96 07/12/2024 12:47:25 [facility] PAIN 0 07/12/2024 12:47:25 [facility] TEMPERATURE 97.7 07/12/2024 12:47:25 [facility] PULSE 65 07/12/2024 12:47:25 [facility] RESPIRATION 16 07/12/2024 12:47:25 [facility] Encounters Combined list of: 1) Encounters from Department of [facility] Affairs facilities going backup to the last 18 months, not all MD inpatient encounters are included; 2) Encounters from the Department [facility] facilities going backup to 280 months. Location Location Details Encounter Type Encounter Number Reason For Visit Attending Provider ADM Date DC Date Status Disposition Source [facility] Outpatient Encounter [id number] RIGOBERTO RYAN 07/14 [facility] Outpatient Encounter [id number] 07/22 [facility] QNHP OL DIG ASSMT&MGMT 5-10 [id number] Diagnos is: ICD-10- CM E11.9 Type 2 diabete s mellitu s without complic ations KAMINI SANTANA 07/23 [facility] Outpatient Encounter [id number] LOUIE MEYER 12/30 [facility] Outpatient Encounter [id number] 01/02 [facility] OFFICE O/P EST MOD 30 MIN [id number] Diagnos is: ICD-10- CM E11.9 Type 2 diabete s mellitu s without complic ations KARYN ROBISON 01/02 [facility] MTMS BY PHARM ADDL 15 MIN [id number] Diagnos is: ICD-10- CM E11.9 Type 2 diabete s mellitu s without complic ations KAMINI SANTANA 01/18 [facility] UNLISTED ORL SERVICE/PX [id number] Diagnos is: ICD-10- CM H90.3 Sensori neural hearing loss, bilKaran Cespedes 07/07 [facility] OFFICE O/P EST LOW 20 MIN [id number] Diagnos is: ICD-10- CM H91.93 Unspeci fied hearing loss, bilater JAGJIT Moran 07/12 [facility] Outpatient Encounter [id number] 07/12 [facility] [place] [id number] Diagnos is: ICD-10- CM H90.A22 Snsrnrl hear loss, uni, l ear, with rstrcd hear cntra side MAXIMOLANDON Bae 07/19 [facility] HEARING AID CHECK BOTH EARS [id number] Diagnos is: ICD-10- CM H90.3 Sensori neural hearing loss, bilater al LANDON MARSH 08/02 [facility] Outpatient Encounter [id number] 09/03 [facility] Outpatient Encounter [id number] 10/31 [facility] Outpatient Encounter [id number] 11/01 [facility] Outpatient Encounter [id number] 11/10 [facility] Outpatient Encounter [id number] 11/27 [facility] Social History Combined list of available smoking, tobacco, and other social history from Department of Defense and [facility] Affairs facilities. Social History Type Response Date Comment [facility] e Tobacco smoking status NHIS VA-TOBACCO NEVER USED 01/03/2024 [facility] History of tobacco use MD-TOBACCO QUIT 5 TO < 15 YRS 06/22/2022 [facility] History of tobacco use MD-TOBACCO FORMER USER 07/22/2021 [facility] History of tobacco use CURRENT TOBACCO USER 01/08/2015 [facility] Plan of Care List of future care activities from Department [facility] Affairs facilities. Additional future care activities may be listed in the Assessment and Plan section. Date/Time Care Activity Care Activity Detail Facili ty 12/27/2024 AMBULATORY - NONE AMBULATORY - NONE [facility]
--- OUTSIDE RECORDS SUMMARY | 2024-11-30 16:18 | XMS_ITS | Encounter Summary ---
Author Name [facility] [place] [facility] [place] Address [address] [place] [address] Care Team Providers Care Associate Professor Of Library Science Name Role Phone KARYN ROBISON Primary Care Provider Unavaila ble Insurance Providers: All historical and current Section Date Range: From patient's date of to the date document was created. This section includes the names of all active insurance providers for the patient. Insurance Provider Type of Coverage Plan Name Start of Policy Coverage End of Policy Coverage Group Number Member ID Insurance Provider's Telephone Number Policy Guardado's Name Patient's Relationship to Policy Guardado MEDICARE (WNR) MEDICARE (M) PART B Aug 23, 2014 PART B [id number] [phone] [place] PATIENT MEDICARE (WNR) MEDICARE (M) PART A Jul 23, 2014 PART A [id number] [place] PATIENT [employer] PLAN F MEDIC ARE SUPPL EMENT Feb 20, 2015 PLAN F [id number] [phone] DOUG [place] PATIENT Selected Encounter This section includes the information on record at [place] for the Encounter. Date/Time Encounter Type Encounter Description Reason Pro vider Source IHE Encounter Template Text not used by PA
--- OUTSIDE RECORDS SUMMARY | 2024-11-30 16:19 | XMS_ITS | Encounter Summary ---
Author Organization [facility] Address [address] [place] [address] Care Team Providers Care Call Center Dispatcher Name Role Phone Alon Mcneill MD Primary Care Provider [phone] Encounter Details Date Type Department Care Team (Late st Contact Info) Description 01/28/2019 Abstract [facility] CONVERSION [address] [place] [address] , Generic Conversion, Social History Tobacco Use Types Packs/Day Years Used Date Smoking Tobacco: Never Sex and Gender Information Value Date Recorded Sex Assigned at Not on file Legal Sex Male 8:49 PM CDT Gender Identity Not on file Sexual Orientation Not on file documented as of this encounter Plan of Treatment Not on file documented as of this encounter Visit Diagnoses Not on filedocumented in this encounter Care Teams Call Center Dispatcher Relationship Specialty Start Date End Date Alon Mcneill MD [address] [place] [phone] PCP - General INTERNAL MEDICINE 02/28/19 documented as of this encounter
--- OUTSIDE RECORDS SUMMARY | 2024-11-30 16:19 | XMS_ITS | Clinical Summary ---
Author Organization [facility] Address [address] [place] [phone] Care Team Providers Care Connie Scratcher Name Role Phone Alon Mcneill MD Primary Care Provider + [phone] Allergies No known active allergies Medications finasteride (PROSCAR) 5 mg tablet Take 1 tablet (5 mg total) by mouth every morning Active lisinopril-hydroCHLO ROthiazide (ZESTORETIC) 20-25 mg per tablet Take 1 tablet by mouth every morning Active metFORMIN XR (GLUCOPHAGE XR) 500 mg 24 hr tablet Take 4 tablets (2,000 mg total) by mouth daily with breakfast 08/09/20 24 Active glimepiride (AMARYL) 4 mg tablet Take 2 tablets (8 mg total) by mouth daily before breakfast Active pioglitazone (ACTOS) 30 mg tablet Take 1 tablet (30 mg total) by mouth every morning Active lisinopriL (PRINIVIL,ZESTRIL) 20 mg tablet Take 1 tablet (20 mg total) by mouth every morning Active alogliptin 25 mg tablet Take 25 mg by mouth every morning Active albuterol HFA (PROVENTIL HFA,VENTOLIN HFA,PROAIR HFA) 90 mcg/actuation inhaler albuterol sulfate 90 mcg/actuation HFA aerosol inhaler Active cetirizine (ZyrTEC) 10 mg tablet Take 1 tablet (10 mg total) by mouth as needed for allergies Active apixaban (ELIQUIS) 5 mg tabletIndications:at rial fibrillation Take 1 tablet (5 mg total) by mouth every 12 (twelve) hours 60 tablet 09/01/19 25 Active amiodarone (PACERONE) 200 mg tabletIndications:Pa roxysmal Supraventricular Tachycardia,Preventi on of Recurrent Atrial Fibrillation Take 1 tablet (200 mg total) by mouth 2 (two) times a day 60 tablet 1 09/01/19 25 Active famotidine (PEPCID) 40 mg tabletIndications:Pr evention of Stress Ulcer Take 1 tablet (40 mg total) by mouth 2 (two) times a day 60 tablet 09/01/19 25 Active Active Problems Problem Noted Date Diagnosed Date Status post ablation of atrial fibrillation 04/2025 Atrial fibrillation 08/31/2024 SVT (supraventricular tachycardia) 08/09/2024 Lung mass 05/28/2009 Encounters Date Type Department Care Team Description 09/07/2024 [facility] Post Discharge Follow up phone call [address] [phone] Amalia Babb RN 08/31/2024 6:11 AM ADMINISTRATIVE ASSOCIATE - 09/01/2024 12:40 PM ADMINISTRATIVE ASSOCIATE Hospital Encounter [address] [address] Luis Alarcon MD SVT (supraventricular tachycardia) Discharge Disposition: Discharge to home or self care from Last 3 Months Surgical History Surgery Date Site/Laterality Comments INGUINAL HERNIA REPAIR Inguinal Hernia Repair - (Added by Conv) [place] VASECTOMY UNI/BI SPX W/PO STOP SEMEN EXAMS Surgery Vas Deferens Vasectomy - (Added by Conv) [place] BRNCHSC INCL FLUOR GDNCE DX W/CELL WASHG SPX Bronchoscopy (Therapeutic) - (Added by Conv) [place] LITHOTRIPSY XTRCORP SHOCK WAVE Renal Lithotripsy - (Added by TW Conv) LUNG SURGERY Right nodule removed Medical History Medical History Date Comments Personal history of urinary calculi Nephrolithiasis - (Added by TW Conv) Personal history of other di seases of the respiratory system History of upper respiratory infection - (Added by TW Conv) SVT (supraventricular tachycardia) Lung mass HTN (hypertension) Hyperlipidemia Other fatigue d/t SVT Diverticulitis of colon Bronchitis 07/2024 Sleep apnea Kidney stone Type 2 diabetes mellitus (HCC) Urticaria Family History Medical History Relation Name Comments Asthma Daughter Asthma - (Added by TW Conv) Heart disease Father Heart Disease - (Added by Conv) Relation Name Status Comments Daughter Father Mother Social History Tobacco Use Types Packs/Day Years Used Date Smoking Tobacco: Former Cigarettes Smokeless Tobacco: Former Snuff Tobacco Cessation:Counseling Given: Not Answered Comments:Only smoked in the [employer] in the 60's AUDIT-C Answer Date Recorded Q1: How often do you have a drink containing alc ohol? Monthly or less 08/30/2024 Q2: How many drinks containi ng alcohol do you have on a typical day when you are drinking? 1 or 2 08/30/2024 Q3: How often do you have si x or more drinks on one occasion? Never 08/30/2024 Personal Safety Answer Date Recorded Have you ever been in or are you currently in a harmful physical or emotional relationship or is someone making you feel afraid or unsafe? Denies 08/31/2024 Sex and Gender Information Value Date Recorded Sex Assigned at Not on file Legal Sex Male 2:50 AM ADMINISTRATIVE ASSOCIATE Gender Identity Not on file Sexual Orientation Not on file Obstetrics History Last Filed Vital Signs Vital Sign Reading Time Taken Comments Blood Pressure 136/74 09/01/2024 8:00 AM ADMINISTRATIVE ASSOCIATE Pulse 66 09/01/2024 8:00 AM ADMINISTRATIVE ASSOCIATE Temperature 36.9 C (98.4 F) 09/01/2024 8:00 AM ADMINISTRATIVE ASSOCIATE Respiratory Rate 18 09/01/2024 8:00 AM ADMINISTRATIVE ASSOCIATE Oxygen Saturation 94% 09/01/2024 8:39 AM ADMINISTRATIVE ASSOCIATE Inhaled Oxygen Concentration - - Weight 107 kg (236 lb) 08/31/2024 7:10 AM ADMINISTRATIVE ASSOCIATE Height 175.3 cm (5' 9 ) 08/31/2024 7:10 AM ADMINISTRATIVE ASSOCIATE Body Mass Index 34.85 08/31/2024 7:10 AM ADMINISTRATIVE ASSOCIATE Plan of Treatment Health Maintenance Due Date Last Done Comments Colon Cancer Screening-Colonoscopy 1949 Depression Screening 1949 Hepatitis C Screening 1949 Hepatitis B Screening 1967 Zoster Vaccine (1 of 2) 1999 Abdominal Aortic Aneurysm (A AA) Screen 2014 Well Visit 65+ 2014 Pneumococcal vaccine 65+ (2 of 2 - PPSV23) 12/02/2018 12/02/2017 Covid-19 Vaccine (4 - 2023-2 5 season) 2024 06/12/2021, 10/16/2020, 09/25/2020 Influenza Vaccine (#1) 2024 , 08/04/2019, 07/22/2018, Additional history exists Fall Risk Assessment 09/01/2025 09/01/2024 DTaP/Tdap/Td Vaccine (2 - Td or Tdap) 07/09/2026 07/09/2016 Procedures Procedure Name Priority Date/Time Associated Diagnosis Comments EGFR Routine 09/01/2024 8:29 AM ADMINISTRATIVE ASSOCIATE CREATININE Routine 09/01/2024 8:29 AM ADMINISTRATIVE ASSOCIATE POCT GLUCOSE DEVICE Routine 09/01/2024 8 :22 AM ADMINISTRATIVE ASSOCIATE ECG 12-LEAD Routine 09/01/2024 7:21 AM ADMINISTRATIVE ASSOCIATE HEMOGLOBIN A1C Routine 09/01/2024 4:27 AM ADMINISTRATIVE ASSOCIATE from Last 3 Months Results * eGFR (09/01/2024 8:29 AM ADMINISTRATIVE ASSOCIATE) eGFR 70 >=60 mL/min/1. 73 m2 Comment: Interpretive Data Reference Interval Normal >/= 90 mL/min/1.73m2 Mildly decreased* 60 - 89 mL/min/1.73m2 Mildly to moderately decreased 45 - 59 mL/min/1.73m2 Moderately to severely decreased 30 - 44 mL/min/1.73m2 Severely decreased 15 - 29 mL/min/1.73m2 Kidney Failure < 15 mL/min/1.73m2 *Relative to young adult level Estimated glomerular filtration rate is determined by the 2020 CKD-EPI equation recommended by the National Kidney Foundation (A Unifying Approach to GFR Estimation: Recommendations of the NKF-ASK Task Force on Reassessing the Inclusion of Race in Diagnosing Kidney Disease, JASN 202). The CKD-EPI equation should not be used for patients with unstable renal function and has not been validated in children and those over 70. Current interpretive data was last reviewed 2021. Blood 09/01/2024 8:29 AM ADMINISTRATIVE ASSOCIATE 09/01/2024 9:12 AM ADMINISTRATIVE ASSOCIATE us Saulius Kalvaitis MD LAB BLOOD ORDERABLES Final Result Performing Organization Address City/[facility] Co de Phone Number JACK MANZO [phone] [address] [facility] [place] [address] * Creatinine (09/01/2024 8:29 AM ADMINISTRATIVE ASSOCIATE) Creatinine 1.10 0.80 - 1.30 mg/dL Blood 09/01/2024 8:29 AM ADMINISTRATIVE ASSOCIATE 09/01/2024 9:12 AM ADMINISTRATIVE ASSOCIATE Luis Alarcon MD LAB BLOOD ORDERABLES Final Result Performing Organization Address [facility] Co de Phone Number JACK MANZO [phone] [address] [facility] [place] [address] * (ABNORMAL) POCT glucose (09/01/2024 8:22 AM ADMINISTRATIVE ASSOCIATE) Glucose, POC 222(H) 70 - 199 mg/dL Blood 09/01/2024 8:22 AM ADMINISTRATIVE ASSOCIATE 09/01/2024 8:22 AM ADMINISTRATIVE ASSOCIATE Luis Alarcon MD LAB POCT ORDERABLES - DEVIC E Final Result Performing Organization Address [facility] de Phone Number JACK MANZO [phone] [address] [facility] [place] [address] * ECG 12 lead (09/01/2024 7:21 AM ADMINISTRATIVE ASSOCIATE) 09/01/2024 7:21 AM ADMINISTRATIVE ASSOCIATE Narrative [facility] - 09/01/2024 8:49 AM ADMINISTRATIVE ASSOCIATE Vent Rate: 66 bpm RR Interval: 897 msec [place] Interval: 206 msec QRS Duration: 150 msec QT Interval: 452 msec QTC Interval: 466 msec P-R-T [place]: 65 - -21 - 9 degrees IMPRESSION: SINUS RHYTHM BORDERLINE LEFT AXIS DEVIATION [QRS AXIS < -20] RIGHT BUNDLE BRANCH BLOCK [120+ ms QRS DURATION, UPRIGHT V1, 40+ ms S IN I/aVL/V4/V5/V6] ABNORMAL ECG NO CHANGE FROM PREVIOUS TRACING NOTED Electronically Signed By: Rolando Peña MD us Luis Alarcon MD ECG ORDERABLES Final Resul t [facility] * (ABNORMAL) Hemoglobin A1c (09/01/2024 4:27 AM ADMINISTRATIVE ASSOCIATE) Hgb A1C 7.1(H) 4.0 - 5.6 % Estimated Average Glucose 157 mg/dL JACK MANZO Comment: The ADA recommends reporting an estimated Average Glucose (eAG) with all Hemoglobin A1c results using the equation derived from a study of 507 normal and diabetic adults. Minority populations were underrepresented and children were not included. (Diabetes Care 31:8698-6835, 2008). The eAG is not equivalent to a fasting glucose. Blood 09/01/2024 4:27 AM ADMINISTRATIVE ASSOCIATE 09/01/2024 4:40 AM ADMINISTRATIVE ASSOCIATE Nery Celeste NP LAB BLOOD ORDERABLES Final Result JACK [id number] Department of Laboratories [place] [id number] from Last [address] [facility] Care Teams Connie Scratcher Relationship Specialty Start Date End Date Alon Mcneill MD [address], [place] [id number] PCP - General 05/06/22
--- OUTSIDE RECORDS SUMMARY | 2024-11-30 16:19 | XMS_ITS | Referral Summary ---
Author Organization [facility] Address [address] [place] [phone] Care Team Providers Care Coat Tailor Name Role Phone Alon Mcneill MD Primary Care Provider + [phone] Encounters Date Type Department Care Team Description 09/07/2024 [facility] Post Discharge Follow up phone call [address] [address] Amalia Babb RN 08/31/2024 6:11 AM CREDIT ADMINISTRATION SPECIALIST - 09/01/2024 12:40 PM CREDIT ADMINISTRATION SPECIALIST Hospital Encounter [address] [address] Luis Alarcon MD SVT (supraventricular tachycardia) Discharge Disposition: Discharge to home or self care from Last 3 Months Allergies No known active allergies Medications finasteride [...] SVT (supraventricular tachycardia) 08/09/2024 Lung mass 05/28/2009 Social History Tobacco Use Types Packs/Day Years Used Date Smoking Tobacco: Former Cigarettes Smokeless Tobacco: Former Snuff Tobacco Cessation:Counseling Given: Not Answered Comments:Only smoked in the [employer] in the AUDIT-C Answer Date Recorded Q1: How often [...] on file Legal Sex Male 2:50 AM CREDIT ADMINISTRATION SPECIALIST Gender Identity Not on file Sexual Orientation Not on file Last Filed Vital Signs Vital Sign Reading Time Taken Comments Blood Pressure 136/74 09/01/2024 8:00 AM CREDIT ADMINISTRATION SPECIALIST Pulse 66 09/01/2024 8:00 AM CREDIT ADMINISTRATION SPECIALIST Temperature 36.9 C (98.4 F) 09/01/2024 8:00 AM CREDIT ADMINISTRATION SPECIALIST Respiratory Rate 18 09/01/2024 8:00 AM CREDIT ADMINISTRATION SPECIALIST Oxygen Saturation 94% 09/01/2024 8:39 AM CREDIT ADMINISTRATION SPECIALIST Inhaled Oxygen Concentration - - Weight 107 kg (236 lb) 08/31/2024 7:10 AM CREDIT ADMINISTRATION SPECIALIST Height 175.3 cm (5' 9 ) 08/31/2024 7:10 AM CREDIT ADMINISTRATION SPECIALIST Body Mass Index 34.85 08/31/2024 7:10 AM CREDIT ADMINISTRATION SPECIALIST Plan of Treatment Not on file Procedures Procedure Name Priority Date/Time Associated Diagnosis Comments EGFR Routine 09/01/2024 8:29 AM CREDIT ADMINISTRATION SPECIALIST CREATININE Routine 09/01/2024 8:29 AM CREDIT ADMINISTRATION SPECIALIST POCT GLUCOSE DEVICE Routine 09/01/2024 8 :22 AM CREDIT ADMINISTRATION SPECIALIST ECG 12-LEAD Routine 09/01/2024 7:21 AM CREDIT ADMINISTRATION SPECIALIST HEMOGLOBIN A1C Routine 09/01/2024 4:27 AM CREDIT ADMINISTRATION SPECIALIST from Last 3 Months Results * eGFR (09/01/2024 8:29 AM CREDIT ADMINISTRATION SPECIALIST) eGFR 70 >=60 mL/min/1. 73 m2 Comment: [...] of Race in Diagnosing Kidney Disease, JASN 2020). The CKD-EPI equation should not be used for patients with unstable renal function and has not been validated in children and those over 70. Current interpretive data was last reviewed 2021. Blood 09/01/2024 8:29 AM CREDIT ADMINISTRATION SPECIALIST 09/01/2024 9:12 AM CREDIT ADMINISTRATION SPECIALIST Luis Alarcon MD LAB BLOOD ORDERABLES Final Result Performing Organization Address [facility] de Phone Number JACK MANZO [phone] [facility] [place] [address] * Creatinine (09/01/2024 8:29 AM CREDIT ADMINISTRATION SPECIALIST) Creatinine 1.10 0.80 - 1.30 mg/dL Blood 09/01/2024 8:29 AM CREDIT ADMINISTRATION SPECIALIST 09/01/2024 9:12 AM CREDIT ADMINISTRATION SPECIALIST Luis Alarcon MD LAB BLOOD ORDERABLES Final Result Performing Organization Address [facility] de Phone Number JACK MANZO [phone] [facility] [place] [address] * (ABNORMAL) POCT glucose (09/01/2024 8:22 AM CREDIT ADMINISTRATION SPECIALIST) Glucose, POC 222(H) 70 - 199 mg/dL Blood 09/01/2024 8:22 AM CREDIT ADMINISTRATION SPECIALIST 09/01/2024 8:22 AM CREDIT ADMINISTRATION SPECIALIST Luis Alarcon MD LAB POCT ORDERABLES - DEVIC E Final Result Performing Organization Address [facility] de Phone Number JACK MANZO [phone] [facility] [place] [address] * ECG 12 lead (09/01/2024 7:21 AM CREDIT ADMINISTRATION SPECIALIST) 09/01/2024 7:21 AM CREDIT ADMINISTRATION SPECIALIST Narrative [facility] - 09/01/2024 8:49 AM CREDIT ADMINISTRATION SPECIALIST Vent Rate: 66 bpm RR Interval: 897 msec VT Interval: 206 msec QRS Duration: 150 msec QT Interval: 452 msec QTC Interval: 466 msec P-R-T [place]: 65 - -21 - 9 degrees IMPRESSION: SINUS RHYTHM BORDERLINE LEFT AXIS DEVIATION [QRS AXIS < -20] RIGHT BUNDLE BRANCH BLOCK [120+ ms QRS DURATION, UPRIGHT V1, 40+ ms S IN I/aVL/V4/V5/V6] ABNORMAL ECG NO CHANGE FROM PREVIOUS TRACING NOTED Electronically Signed By: Rolando Peña MD us Luis Alarcon MD ECG ORDERABLES Final Resul t [facility] * (ABNORMAL) Hemoglobin A1c (09/01/2024 4:27 AM CREDIT ADMINISTRATION SPECIALIST) Hgb A1C 7.1(H) 4.0 - 5.6 % Estimated Average Glucose 157 mg/dL JACK MANZO Comment: The ADA recommends reporting an estimated Average Glucose (eAG) with all Hemoglobin A1c results using the equation derived from a study of 507 normal and diabetic adults. Minority populations were underrepresented and children were not included. (Diabetes Care 31:0123-3638, 2008). The eAG is not equivalent to a fasting glucose. Blood 09/01/2024 4:27 AM CREDIT ADMINISTRATION SPECIALIST 09/01/2024 4:40 AM CREDIT ADMINISTRATION SPECIALIST Nery Celeste NP LAB BLOOD ORDERABLES Final Result JACK [id number] [place] [phone] from Last 3 Months Insurance MEDICARE [facility] [employer]ICARE [employer] Care Teams Coat Tailor Relationship Specialty Start Date End Date Alon Mcneill MD [address] [place] [address] PCP - General 05/06/22
--- OUTSIDE RECORDS SUMMARY | 2024-11-30 16:19 | XMS_ITS | Encounter Summary ---
Author Name [facility] Organization [facility] Address [address] [place] [address] Care Team Providers Care Kitchen Porter Name Role Phone KARYN ROBISON Primary Care [...] PART B Aug 23, 2014 PART B [id number] [phone] DOUG KIRKLAND PATIENT MEDICARE (WNR) MEDICARE (M) PART A Jul 23, 2014 PART A [id number] [phone] DOUG KIRKLAND PATIENT [employer] [place] PLAN F MEDIC ARE SUPPL EMENT Feb 20, 2015 PLAN F [id number] [phone] DOUG KIRKLAND PATIENT Selected Encounter This section includes the information on record at [place] for the Encounter. Date/Time Encounter Type Encounter Description Reason Provider Source Jul 07, 2024 10:00 AM UNLISTED ORL SERVICE/PX AUDIOLOGY ICD-10-CM H90.3 Sensorineural hearing loss, bilateral JENNIFER CHRISTENSEN ICA N I[facility] Encounter Template Text not used by [facility] Assessments - Encounter Diagnoses This section includes the primary and secondary diagnoses documented for the Encounter. Date/Time Primary/Secondary Diagnosis Diagnosis Name Provider Source Jul 07, 2024 12:35 PM PRIMARY Sensorineural hearing loss, bilateral MARTINE CHRISTENSEN N [facility] Plan of Treatment: Future Appointments (+ 6 months) and Future Tests (+/- 45 days) The Plan of Treatment section includes future care activities for the patient from all [place] treatmentfacilities. This section includes future appointments and future orders which are active, pending or scheduled. Future Appointments This section includes appointments that were scheduled to occur 6 months from the date of the Encounter, up to a maximum of 20 appointments. The data comes from all [place] treatment facilities. Appointment Date/Time Appointment Type Appointme nt Facility Name Jul 12, 2024 01:00 PM AMBULATORY - SUR[facility]ERY [facility] Jul 19, 2024 09:00 AM [facility]ULATORY [facility]ERY [facility] Aug 02, 2024 10:15 AM AMBULATORY - SUR[facility]ERY [facility] December 27, 2024 07:00 AM AMBULATORY - NONE [facility] January 01, 2025 09:00 AM AMBULATORY - MEDICINE [facility] Lab Results: +/- 30 days of the encounter This section includes the Chemistry and Hematology Lab Results on record with [place] for the patient. Radiology Reports and Pathology Reports are provided separately, in subsequent sections. Lab Results This section contains the Chemistry/Hematology Results that were resulted 30 days before or 30 daysafter the date of the Encounter. Date/Time Source Result Type Result - Unit Interpretation Reference Range Comment Jul 12, 2024 02:07 PM [facility] BASIC METABOLIC PANEL Specimen Type: PLASMA Comment: No hemolysis noted. Ordering Provider: BREANNA NICHOLS Report Released Date/Time: Jul 12, 2024 01:43 PM Reporting Lab: [place] [id number] [facility] [id number] Performing Lab: [address] [address] CREATININE 1.10 mg/dL 0.7-1.3 UREA NITROGEN 16.7 mg/dL 9.0-25.0 GLUCOSE 168 mg/dL H 72-99 SODIUM 144 meq/L 136-145 POTASSIUM 3.8 meq/L 3.5-5 CHLORIDE 106 meq/L 98-107 CARBON DIOXIDE 27 meq/L 22-31 CALCIUM 9.4 mg/dL 8.4-10.4 EGFR (CKD-EPI 2020) 70.4 >60 Jul 12, 2024 02:07 PM [facility] CBC Specimen Type: BLOOD No comment entered. Ordering Provider: BREANNA NICHOLS Report Released Date/Time: Jul 12, 2024 01:43 PM Reporting Lab: [facility] [address] [facility] [address] Performing Lab: [facility] [address] [facility] [address] WBC 6.6 10*3/uL 3.6-11.2 RBC 4.59 10*6/uL 4.10-5.70 HGB 14.2 g/dL 13.1-16.8 HCT 43.6 38.2-48.4 MCV 95.0 fL 80.0-100.0 MCH 30.9 pg 27.0-34.0 MCHC 32.6 g/dL L 33.0-36.0 PLT 199 10*3/uL 150-400 MPV 10.6 fL 7.5-11.2 RDW 13.9 11.8-15.1 LYMPHOCYTES, AUTO % 31 MONOCYTES, AUTO % 9 NEUTROPHILS, AUTO % 56 EOSINOPHILS, AUTO % 3 BASOPHILS, AUTO % 1 LYMPHOCYTES, ABSOLUTE 2.05 10*3/uL 0.77-4.50 MONOCYTES, ABSOLUTE 0.59 10*3/uL 0.19-0.80 NEUTROPHILS, ABSOLUTE 3.68 10*3/uL 2.10-8.00 EOSINOPHILS, ABSOLUTE 0.21 10*3/uL 0.00-0.60 BASOPHILS, ABSOLUTE 0.05 10*3/uL 0.00-0.20 Social History: Smoking Status (Most current) and Tobacco Use (All prior to encounter date) This section includes the most current, and the historical, smoking and tobacco- related health factors from the [place] facility where the Encounter took place. Current Smoking Status This section includes the most current smoking, or tobacco-related health factor, from the [place] facility where the Encounter took place. Date/Time Current Smoking Status Comment Bran arcos January 08, 2015 09:46 AM CURRENT TOBACCO USER [facility] Tobacco Use History This section includes a history of the smoking, or tobacco-related health factors, that were collected on or before the date of the Encounter. The data comes from the [place] facility where the Encounter took place. Date/Time Smoking Status/Tobacco Use Comment Fili narvaez January 08, 2015 09:46 AM TOBACCO MEDS OFFER ED BUT DECLINED [facility] Radiology Reports: +/- 30 days of the encounter Radiology Reports For cases when an order for radiology services may have been completed prior to the date of the Encounter, the report list includes the Radiology Reports that were completed up to 30 days before dateof the Encounter. For cases when an order for radiology services may have been completed after the date of the Encounter, the report list also includes the Radiology Reports that were completed up to30 days after date of the Encounter. The data comes from all [place] treatment facilities. Date/Time Radiology Report Provider Source Jul 12, 2024 01:51 PM CHEST X-RAY, 2 VIE WS: EDUARDOKARISKRYSTALDOUG BEATRIZ [id number] M Exm Date: JUL 12, 2024@13:51 Req Phys: ROBERT NICHOLS Loc: -ENT HEAD AND NECK CONSULT ( Img Loc: -MAIN RADIOLOGY SUITE Service: [address] [address] (Case [id number] COMPLETE) CHEST X-RAY, 2 VIEWS (RAD Detailed) CPT:37287 Reason for Study: pre op cxsdr for ENT procedure Clinical History: Report Status: Verified Date Reported: JUL 13, 2024 Date Verified: JUL 13, 2024 Access Representative E-Sig:/ES/Jill Diggs MD Report: FINDINGS: Heart size is normal. Mediastinal structures appear unremarkable. Both lungs are fully expanded without evidence of pulmonary infiltrates or additional significant findings. Impression: No evidence of acute cardiopulmonary disease. Primary Interpreting Staff: Jill Diggs MD, Radiologist (Access Representative) /QMB JILL DIGGS [facility] Encounter Notes: All associated encounter notes This section contains the clinical notes associated to the Encounter. Date/Time Encounter Note(s) Provider Source Jul 07, 2024 10:00 AM AUDIOLOGY CHAIN DYER NOTE: LOCAL TITLE: HEARING AIDS STL STANDARD TITLE: AUDIOLOGY CHAIN DYER NOTE DATE OF NOTE: JUL 07, 2024@10:00 ENTRY DATE: JUL 07, 2024@10:00:13 AUTHOR: JACINTA CHRISTENSEN COSIGNER: URGENCY: STATUS: COMPLETED SUBJECT: Audio HEARING AIDS STL Has ADDENDA HEARING AID CHECK PERFORMED TODAY: Sebastian has the following [place] issued aid(s): 03/10/22 SONOVA PHONAK AUDEO P90-RL JOAQUIM R [id number] 03/10/22 SONOVA PHONAK AUDEO P90-RL JOAQUIM L [id number] Worn with SlimTips. Left SlimTip with canal lock. REPORTED PROBLEM: Pt reported he is not hearing as well from the hearing aids. Pt also reported discomfort from the left SlimTip. REPAIR ACTIONS: Noted hairline cracking on left SlimTip and portion of right SlimTip broken. General cleaning. Listening check OK. During cleaning, broke canal lock off left SlimTip. Discussed options with pt. Pt reported he prefers the SlimTip coupling. Smoothed edges on left SlimTip. Pt reported improved comfort with canal lock broken off SlimTip. Took new PATRICIA bilaterally without incident to order replacement SlimTips for pt. Pt reported good comfort with current right SlimTip and reported best comfort from left SlimTip with original order in 2021 (order number: [id number]). Will send new impressions and note pt's preference with order. Completed available firmware update. Datalogging lost to firmware update. Performed in-situ audiometry, which suggests significant change to hearing in right ear. Programmed aids based on in-situ thresholds. Pt reported improved hearing through hearing aids following reprogramming and confirmed balance between ears. Requested additional volume. Increased volume 6 steps from in-situ thresholds. Pt reported comfort with gain. Otoscopy revealed clear canal and intact TM left. Visualized right TM with dark discoloration in posterior inferior region. Performed video otoscopy and saved images in MICHELE. Performed tympanometry bilaterally which revealed type C tymp left consistent with findings at 01/14/2022 audio appt and flat tymp right with normal ear canal volume. Of note, pt has history of right PE tube per 01/14/2022 audio eval and ENT notes; PE tube not visualized in TM today. Discussed findings with pt and recommended ENT consult. Pt agreeable. Placed consult. PLAN 1. ENT consult. 2. Appt with assistant front office manager for coupling with replacement SlimTips. 3. Audio eval pending medical management. /luma/ Ramiro BRAVO Staff Glove Cleaner, Surgery Service Signed: 07/07/2024 12:58 07/19/2024 ADDENDUM STATUS: COMPLETED Right and left SlimTips arrived in clinic certified. Will provide to assistant front office manager for coupling at 08/02 appt. /Ramiro Rubio Staff Glove Cleaner, Surgery Service Signed: 07/19/2024 14:32 JACINTA CHRISTENSEN [facility]
--- OUTSIDE RECORDS SUMMARY | 2024-11-30 16:19 | XMS_ITS | Clinical Summary ---
Author Organization [facility] Address [address] [place] [id number] Care Team Providers Care Ed Teacher Name Role Phone Alon Mcneill MD Primary Care Provider [phone] Social History Tobacco Use Types Packs/Day Years Used Date Smoking Tobacco: Never Sex and Gender Information Value Date Recorded Sex Assigned at Not on file Legal Sex Male 8:49 PM CDT Gender Identity Not on file Sexual Orientation Not on file Last Filed Vital Signs Vital Sign Reading Time Taken Comments Blood Pressure 133/88 10/17/2009 4:16 AM INVESTOR Pulse 75 10/17/2009 4:16 AM INVESTOR Temperature - - Respiratory Rate 16 10/17/2009 4:16 AM INVESTOR Oxygen Saturation - - Inhaled Oxygen Concentration - - Weight - - Height 180.3 cm (5' 11 ) 10/17/2009 4:16 AM INVESTOR Body Mass Index - - Plan of Treatment Health Maintenance Due Date Last Done Comments Colorectal Cancer Screening Colonoscopy (10 Years) 1950 Kidney Health Evaluation 1950 Hemoglobin A1C 1950 Diabetes: Retinopathy Eye Exam 1967 Hepatitis C 1967 DTaP, Tdap and Td Vaccines ( 1 - Tdap) 1968 Zoster Vaccines (1 of 2) 1999 Lipid Panel 09/19/2010 09/19/2009 Annual Medicare Wellness Visit 2014 Pneumococcal Vaccine: 65+ Ye ars (2 of 2 - PPSV23 or PCV20) 01/27/2018 12/02/2017 COVID-19 Vaccine ( - 2023-2 5 season) 2024 RSV Immunization or 60+ Years (1 - 1-dose 75+ series) 2024 Meningococcal B Vaccine Aged Out No l onger eligible based on patient's age to complete this topic Meningococcal Vaccine Aged Out No valeriano peter eligible based on patient's age to complete this topic RSV Immunizations Under 20 Months Aged Out No longer eligible based on patient's age to complete this topic Procedures Procedure Name Priority Date/Time Associated Diagnosis Comments LIPID PANEL Routine 09/19/2009 12:00 AM INVESTOR from Last 3 Months or Most Recently Relevant to Health Maintenance Results * LIPID PANEL (09/19/2009 12:00 AM INVESTOR) TRIGLYCERIDES 50 0 - 150 mg/dl MEDINFORMATIX TO EPIC CONVERSION Comment:0-150 CHOLESTEROL 119 0 - 200 mg/dl MEDINFORMATIX TO EPIC CONVERSION Comment:0-200 HDL 49 40 - 59 mg/dl MEDINFORMATIX TO EPIC CONVERSION Comment:35-96 LDL CONVERSION 60 0 - 100 mg/dl MEDINFORMATIX TO EPIC CONVERSION Comment:0-130 CHOL/HDL RATIO 2.4 <4.0 (Calc) MEDINFORMATIX TO EPIC CONVERSION LDL/HDL 1.2 <3.0 Calc MEDINFORMA TIX TO EPIC CONVERSION 09/19/2009 09/19/2009 Narrative MEDINFORMATIX TO EPIC CONVERSION - 09/19/2009 3:05 PM INVESTOR Reviewed by CHART Sep 19 2009 3:05:00:000PM, Reviewed by [facility] Sep 28 2009 9:13:00:000PM 0-150, 0-200, 35-96, 0-130 us Generic Conversion Md [facility] Final R esult MEDINFORMATIX TO EPIC CONVERSION from Last 3 Months or Most Recently Relevant to Health Maintenance Insurance MEDICARE [facility] Care Teams Ed Teacher Relationship Specialty Start Date End Date Alon Mcneill MD [address] [place] [id number] PCP - General INTERNAL MEDICINE 02/28/19
--- OUTSIDE RECORDS SUMMARY | 2024-11-30 16:19 | XMS_ITS | Encounter Summary ---
Author Organization [facility] Healthcare Address [address] [place] [address] Care Team Providers Care Custom Marine Canvas Fabricator Name Role Phone Alon Mcneill MD Primary Care Provider [phone] Encounter Details Date Type Department Care Team (Late st Contact Info) Description 09/07/2024 [facility] Post Discharge Follow up phone call [address] [address] Amalia Babb RN Social History Tobacco Use Types Packs/Day Years Used Date Smoking Tobacco: Former Cigarettes Smokeless Tobacco: Former Snuff Comments:Only smoked in the [employer] in the 's AUDIT-C Answer Date Recorded Q1: How often [...] on file Legal Sex Male 2:50 AM 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
--- OUTSIDE RECORDS SUMMARY | 2024-11-30 16:19 | XMS_ITS | Encounter Summary ---
Author Name [facility] [place] [facility] [place] Address [address] [place] [id number] Care Team Providers Care Chicken Cutter Name Role Phone KARYN ROBISON Primary Care Provider [facility] Insurance Providers: All historical and current Section [...] PART B Aug 23, 2014 PART B [id number] PARVINKRYSTAL DOUG PATIENT MEDICARE (WNR) MEDICARE (M) PART A Jul 23, 2014 PART A [id number] DOUG K[place] PATIENT [employer] [place] [employer] PLAN F MEDIC ARE SUPPL EMENT Feb 20, 2015 PLAN F [id number] [phone] EDUARDOKARISKRYSTALDOUG PATIENT Selected Encounter This section includes the information on record at [place] for the Encounter. Date/Time Encounter Type Encounter Description Reason Provider Source Jul 19, 2024 09:00 AM TYMPANOMETRY AUDIOLOGY ICD-10-CM H90.A22 Snsrnrl hear loss, uni, l ear, with rstrcd hear cntra side SANDY MARSH Encounter Template Text not used by [facility] Assessments - Encounter Diagnoses This section includes the primary and secondary diagnoses documented for the Encounter. Date/Time Primary/Secondary Diagnosis Diagnosis Name Provider Source Jul 27, 2024 03:32 PM PRIMARY Snsrnrl hear loss, uni, l ear, with rstrcd hear cntra side SANDY MARSH [facility] Jul 27, 2024 03:32 PM SECONDARY Mix cndct/snrl hear loss,uni,r ear w rstrcd hear cntra side SANDY MARSH [facility] Plan of Treatment: Future Appointments (+ 6 months) and Future Tests (+/- 45 days) The Plan of Treatment section includes future care activities for the patient from all [place] [facility]. This section includes future appointments and future orders which are active, pending or scheduled. Future Appointments This section includes appointments that were scheduled to occur 6 months from the date of the Encounter, up to a maximum of 20 appointments. The data comes from all [place] treatment facilities. Appointment Date/Time Appointment Type Appointme nt Facility Name Aug 02, 2024 10:15 AM AMBULATORY - SURGERY [facility] December 27, 2024 07:00 AM AMBULATORY - NONE [facility] January 01, 2025 09:00 AM AMBULATORY - MEDICINE [facility] Lab Results: +/- 30 days of the encounter This section includes the Chemistry and Hematology Lab Results on record with [place] for the patient. Radiology Reports and Pathology Reports are provided separately, in subsequent sections. Lab Results This section contains the Chemistry/Hematology Results that were resulted 30 days before or 30 daysafter the date of the Encounter. Date/Time Source Result Type Result - Unit Interpretation Reference Range Comment Jul 12, 2024 02:07 PM [facility] BASIC METABOLIC PANEL Specimen Type: PLASMA Comment: No hemolysis noted. Ordering Provider: BREANNA NICHOLS Report Released Date/Time: Jul 12, 2024 01:43 PM Reporting Lab: [facility] [address] [facility] [address] Performing Lab: [place] [id number] [facility] [address] CREATININE 1.10 mg/dL 0.7-1.3 UREA NITROGEN 16.7 mg/dL 9.0-25.0 GLUCOSE 168 mg/dL H 72-99 SODIUM 144 meq/L 136-145 POTASSIUM 3.8 meq/L 3.5-5 CHLORIDE 106 meq/L 98-107 CARBON DIOXIDE 27 meq/L 22-31 CALCIUM 9.4 mg/dL 8.4-10.4 EGFR (CKD-EPI 2020) 70.4 >60 Jul 12, 2024 02:07 PM [facility] CBC Specimen Type: BLOOD No comment entered. Ordering Provider: BREANNA NICHOLS Report Released Date/Time: Jul 12, 2024 01:43 PM Reporting Lab: [facility] [address] [facility] [address] Performing Lab: [facility] [address] [facility] [address] WBC 6.6 10*3/uL 3.6-11.2 RBC 4.59 10*6/uL [...] and tobacco- related health factors from the [place] facility where the Encounter took place. Current Smoking Status This section includes the most current smoking, or tobacco-related health factor, from the [place] facility where the Encounter took place. Date/Time Current Smoking Status Comment Bran ity January 08, 2015 09:46 AM CURRENT TOBACCO USER [facility] Tobacco Use History This section includes a history of the smoking, or tobacco-related health factors, that were collected on or before the date of the Encounter. The data comes from the [place] facility where the Encounter took place. Date/Time Smoking Status/Tobacco Use Comment F acrodrigo January 08, 2015 09:46 AM TOBACCO MEDS OFFER ED BUT DECLINED [facility] Radiology Reports: +/- 30 days of [...] the Encounter. The data comes from all [place] treatment facilities. Date/Time Radiology Report Provider Source Jul 12, 2024 01:51 PM CHEST X-RAY, 2 VIE WS: DOUG KIRKLAND BEATRIZ [id number] -[id number] M Ex Date: JUL 12, 2024@13:51 Req Phys: ROBERT NICHOLS Loc: -ENT HEAD AND NECK CONSULT ( Img Loc: -MAIN RADIOLOGY SUITE Service: [address] [address] (Case [id number] COMPLETE) CHEST X-RAY, 2 VIEWS (RAD Detailed) CPT:28303 Reason for Study: pre op cxsdr for ENT procedure Clinical History: Report Status: Verified Date Reported: JUL 13, 2024 Date Verified: JUL 13, 2024 Barrel Marker E-Sig:/ES/Jill Diggs MD Report: FINDINGS: Heart size is normal. Mediastinal structures appear unremarkable. Both lungs are fully expanded without evidence of pulmonary infiltrates or additional significant findings. Impression: No evidence of acute cardiopulmonary disease. Primary Interpreting Staff: Jill Diggs MD, Radiologist (Barrel Marker) /QMB JILL DIGGS [facility] Encounter Notes: All associated encounter notes This section contains the clinical notes associated to the Encounter. Date/Time Encounter Note(s) Provider Source Jul 19, 2024 12:02 PM ADDENDUM: LOCAL TITLE: Addendum STANDARD TITLE: ADDENDUM DATE OF NOTE: JUL 19, 2024@12:02:59 ENTRY DATE: JUL 19, 2024@12:03 AUTHOR: MARANDA BREEN EXP COSIGNER: URGENCY: STATUS: COMPLETED Unable to addend most recent ENT note. Patient completed audiogram today in preparation for ENT procedure for removal of retained right PE tube, possible placement of bilateral t-tubes. Patient reported recent cardiac event to scarfer operator. I called patient to discuss. 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 He was able to get to his recliner prior to syncopal episode. He went to ED in [place], [place] as he thought he was having an TN. Per patient, bloodwork was done and he was given a medication IV (sounds like adenosine for SVT). After receiving the medication his sxs completely and immediately resolved. Patient has pending outpatient cardiology f/u. Will defer OR scheduling until he has seen cardiology and been cleared. /luma/ MARANDA BREEN REGISTERED NURSE Signed: 07/19/2024 12:07 Receipt Acknowledged By: 07/19/2024 12:37 /luma/ HILTON WALKER STAFF PHYSICIAN OTOLARYNGOLOGY 07/19/2024 16:29 /luma/ ROBERT NICHOLS Resident Physician --- Original Document --- 07/19/24 AUDIO EVALS STL: Purpose of appt: audio [X] patient initiated visit [] provider initiated visit CASE HISTORY: Otoscopic evaluation normal left ear and likely retained PE tube in right ear behind TM. TM's visible AU. Pt's main complaint is bilateral hearing loss, worse to right ear. Denied tinnitus x2 during case history. Pt denied otalgia, aural fullness, vertigo, otosurgery or recent ear infections. Last Baseline eval 01-14-2022. RESULTS: Right Ear- Audiometry (air and/or bone conduction): Mod 250 Hz sloping to profound mixed loss 4-8000 Hz. Bone line symmetric with left ear. Masking dilemma at 4000 Hz for bone. SRT: 65 dB WRS: 72% (last eval 92%) Tympanogram: type B Reflexes: did not test Left Ear- Audiometry (air and/or bone conduction): Normal 250 Hz sloping to severe/profound SNHL at 4-8000 Hz. Masking dilemma at 4000 Hz for bone. SRT: 50 dB WRS: 76% (last eval 88%) Tympanogram: type C with signif neg pressure of -144daPa Reflexes: did not test RECOMMENDATIONS: 1. Pt has Aug 02 appt to p/u new c-shells. 2. Pt had recent cariac event. Will alert ENT nurse navigator for situational awareness. /luma/ Ramiro SARMIENTO Staff Vice Chairman, Surgery Service Signed: 07/19/2024 09:49 Receipt Acknowledged By: 07/19/2024 11:42 /luma/ MARANDA BREEN REGISTERED NURSE 07/19/2024 ADDENDUM STATUS: COMPLETED New right and left SlimTips ordered as planned in 07/07/2024 hearing aid note; arrived in clinic. Certified. Will provide to facilities assistant for coupling at 08/02 appt. /luma/ Ramiro BRAVO Staff Vice Chairman, Surgery Service Signed: 07/19/2024 14:33 MARANDA BREEN [facility] Jul 19, 2024 07:29 AM AUDIOLOGY E & M NO TE: LOCAL TITLE: AUDIO EVALS STL STANDARD TITLE: AUDIOLOGY E & M NOTE DATE OF NOTE: JUL 19, 2024@07:29 ENTRY DATE: JUL 19, 2024@07:29:17 AUTHOR: SANDY MARSH EXP COSIGNER: URGENCY: STATUS: COMPLETED SUBJECT: audio AUDIO EVALS STL Has ADDENDA Purpose of appt: audio [X] patient initiated visit [] provider initiated visit CASE HISTORY: Otoscopic evaluation normal left ear and likely retained PE tube in right ear behind TM. TM's visible AU. Pt's main complaint is bilateral hearing loss, worse to right ear. Denied tinnitus x2 during case history. Pt denied otalgia, aural fullness, vertigo, otosurgery or recent ear infections. Last Baseline eval 01-14-2022. RESULTS: Right Ear- Audiometry (air and/or bone conduction): Mod 250 Hz sloping to profound mixed loss 4-8000 Hz. Bone line symmetric with left ear. Masking dilemma at 4000 Hz for bone. SRT: 65 dB WRS: 72% (last eval 92%) Tympanogram: type B Reflexes: did not test Left Ear- Audiometry (air and/or bone conduction): Normal 250 Hz sloping to severe/profound SNHL at 4-8000 Hz. Masking dilemma at 4000 Hz for bone. SRT: 50 dB WRS: 76% (last eval 88%) Tympanogram: type C with signif neg pressure of -144daPa Reflexes: did not test RECOMMENDATIONS: 1. Pt has Aug 02 appt to p/u new c-shells. 2. Pt had recent cariac event. Will alert ENT nurse navigator for situational awareness. /luma/ Ramiro SARMIENTO Staff Vice Chairman, Surgery Service Signed: 07/19/2024 09:49 Receipt Acknowledged By: 07/19/2024 11:42 /darcy BREEN REGISTERED NURSE 07/19/2024 ADDENDUM STATUS: COMPLETED Unable to addend most recent ENT note. Patient completed audiogram today in preparation for ENT procedure for removal of retained right PE tube, possible placement of bilateral t-tubes. Patient reported recent cardiac event to scarfer operator. I called patient to discuss. 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 He was able to get to his recliner prior to syncopal episode. He went to ED in [place], [place] as he thought he was having an TN. Per patient, bloodwork was done and he was given a medication IV (sounds like adenosine for SVT). After receiving the medication his sxs completely and immediately resolved. Patient has pending outpatient cardiology f/u. Will defer OR scheduling until he has seen cardiology and been cleared. /luma/ MARANDA BREEN REGISTERED NURSE Signed: 07/19/2024 12:07 Receipt Acknowledged By: 07/19/2024 12:37 /es/ HILTON WALKER STAFF PHYSICIAN OTOLARYNGOLOGY * AWAITING SIGNATURE * ROBERT NICHOLS 07/19/2024 ADDENDUM STATUS: COMPLETED New right and left SlimTips ordered as planned in 07/07/2024 hearing aid note; arrived in clinic. Certified. Will provide to facilities assistant for coupling at 08/02 appt. /es/ Ramiro BRAVO Staff Vice Chairman, Surgery Service Signed: 07/19/2024 14:33 [facility]
--- OUTSIDE RECORDS SUMMARY | 2024-11-30 16:19 | XMS_ITS | Encounter Summary ---
Author Name [facility] [place] Address [address] [place] [address] Care Team Providers Care Sccm Administrator Name Role Phone KARYN ROBISON Primary Care [...] PART B Aug 23, 2014 PART B [id number] DOUG KIRKLAND PATIENT MEDICARE (WNR) MEDICARE (M) PART A Jul 23, 2014 PART A [id number] DOUG [place] PATIENT [employer] [place] MED[employer] PLAN F MEDIC ARE SUPPL EMENT Feb 20, 2015 PLAN F [id number] [phone] DOUG KIRKLAND PATIENT Selected Encounter This section includes the information on record at [place] for the Encounter. Date/Time Encounter Type Encounter Description Reason Provider Source Aug 02, 2024 10:15 AM HEARING AID CHECK BOTH EARS AUDIOLOGY ICD-10-CM H90.3 Sensorineural hearing loss, bilateral SANDY MARSH Melania Encounter Template Text not used by [place] Assessments - Encounter Diagnoses This section includes the primary and secondary diagnoses documented for the Encounter. Date/Time Primary/Secondary Diagnosis Diagnosis Name Provider Source Aug 11, 2024 11:54 AM PRIMARY Sensorineural hearing loss, bilateral ARIELLE RAVI [facility] Plan of Treatment: Future Appointments (+ 6 months) and Future Tests (+/- 45 days) The Plan of Treatment section includes future care activities for the patient from all [place] treatmentfacilities. This section includes future appointments and future orders which are active, pending or scheduled. Future Appointments This section includes appointments that were scheduled to occur 6 months from the date of the Encounter, up to a maximum of 20 appointments. The data comes from all [place] treatment facilities. Appointment Date/Time Appointment Type Appointme nt Facility Name December 27, 2024 07:00 AM AMBULATORY - NONE [facility] January 01, 2025 09:00 AM AMBULATORY - MEDICINE [facility] Lab Results: +/- 30 days of the encounter This section includes the Chemistry and Hematology Lab Results on record with [place] for the patient. Radiology Reports and Pathology Reports are provided separately, in subsequent sections. Lab Results This section contains the Chemistry/Hematology Results that were resulted 30 days before or 30 daysafter the date of the Encounter. Date/Time Source Result Type Result - Unit Interpretation Reference Range Comment Jul 12, 2024 02:07 PM [facility] BASIC METABOLIC PANEL Specimen Type: PLASMA Comment: No hemolysis noted. Ordering Provider: BREANNA NICHOLS Report Released Date/Time: Jul 12, 2024 01:43 PM Reporting Lab: [facility] [address] [facility] [address] Performing Lab: [facility] [address] [facility] [address] CREATININE 1.10 mg/dL 0.7-1.3 UREA NITROGEN 16.7 mg/dL 9.0-25.0 GLUCOSE 168 mg/dL H 72-99 SODIUM 144 meq/L 136-145 POTASSIUM 3.8 meq/L 3.5-5 CHLORIDE 106 meq/L 98-107 CARBON DIOXIDE 27 meq/L 22-31 CALCIUM 9.4 mg/dL 8.4-10.4 EGFR (CKD-EPI 2020) 70.4 >60 Jul 12, 2024 02:07 PM [facility] CBC Specimen Type: BLOOD No comment entered. Ordering Provider: BREANNA NICHOLS Report Released Date/Time: Jul 12, 2024 01:43 PM Reporting Lab: [facility] [address] [facility] [address] Performing Lab: [facility] [address] [facility] [address] WBC 6.6 10*3/uL 3.6-11.2 RBC 4.59 10*6/uL [...] and tobacco- related health factors from the [place] facility where the Encounter took place. Current Smoking Status This section includes the most current smoking, or tobacco-related health factor, from the [place] facility where the Encounter took place. Date/Time Current Smoking Status Comment Facil ity January 08, 2015 09:46 AM CURRENT TOBACCO USER [facility] Tobacco Use History This section includes a history of the smoking, or tobacco-related health factors, that were collected on or before the date of the Encounter. The data comes from the [place] facility where the Encounter took place. Date/Time Smoking Status/Tobacco Use Comment F acility January 08, 2015 09:46 AM TOBACCO MEDS OFFER ED BUT DECLINED [facility] Radiology Reports: +/- 30 days of the [...] the Encounter. The data comes from all [place] treatment facilities. Date/Time Radiology Report Provider Source Jul 12, 2024 01:51 PM CHEST X-RAY, 2 VIE WS: DOUG KIRKLAND [id number] -1950 M [facility] Date: JUL 12, 2024@13:51 Req Phys: ROBERT NICHOLS Loc: -ENT HEAD AND NECK CONSULT ( Img Loc: -MAIN RADIOLOGY SUITE Service: [address] [address] (Case [id number] COMPLETE) CHEST X-RAY, 2 VIEWS (RAD Detailed) CPT:68098 Reason for Study: pre op cxsdr for ENT procedure Clinical History: Report Status: Verified Date Reported: JUL 13, 2024 Date Verified: JUL 13, 2024 Pricing Specialist E-Sig:/ES/Cristopher Reyes MD Report: FINDINGS: Heart size is normal. Mediastinal structures appear unremarkable. Both lungs are fully expanded without evidence of pulmonary infiltrates or additional significant findings. Impression: No evidence of acute cardiopulmonary disease. Primary Interpreting Staff: Cristopher Reyes MD, Radiologist (Pricing Specialist) /CRISTOPHER REID [facility] Encounter Notes: All associated encounter notes This section contains the clinical notes associated to the Encounter. Date/Time Encounter Note(s) Provider Source Aug 02, 2024 11:16 AM AUDIOLOGY DIRECTOR ZONE NOTE: LOCAL TITLE: HEARING AIDS STL STANDARD TITLE: AUDIOLOGY DIRECTOR ZONE NOTE DATE OF NOTE: AUG 02, 2024@11:16 ENTRY DATE: AUG 02, 2024@11:16:51 AUTHOR: ARIELLE RAVI EXP COSIGNER: SANDY MARSH URGENCY: STATUS: COMPLETED SUBJECT: audio HEARING AIDS STL Has ADDENDA Hearing aid check performed today: CASE HISTORY: Pt wore the following hearing devices: 03/10/22 SONOVA PHONAK AUDEO P90-RL JOAQUIM R [id number] 03/10/22 SONOVA PHONAK AUDEO P90-RL JOAQUIM L [id number] Pt arrived to have new SlimTips coupled to his aids. CLEANING/REPAIRS: Retrieved new SlimTips and coupled to aids. Pt reported much more comfortable fit and better sound quality. Some audible feedback from both aids. PROGRAMMING: Completed per MELYSSA. Details in addendum. CONNECTIVTY: Re-paired both aids to pt's iPhone and [employer] tomi. Reviewed tomi features. DISPOSITION: Pt left clinic wearing both aids. Disposed of previous SlimTips. RECOMMENDATIONS: 1. Full-time hearing aid use. 2. Contact Audiology Clinic [phone] for repairs and/or adjustments as needed. /luma/ ARIELLE RAVI Managing Supervisor Signed: 08/02/2024 11:22 /luma/ Ramiro SARMIENTO Staff Wealth Management Director, Surgery Service Cosigned: 08/02/2024 11:28 08/02/2024 ADDENDUM STATUS: COMPLETED The information above has been reviewed by this provider. I am in agreement with the action plan as outlined. Feedback garage manager completed bilaterally. Feedback tests OK. Pt reported good sound quality and volume. /luma/ Ramiro SARMIENTO Staff Wealth Management Director, Surgery Service Signed: 08/02/2024 11:29 ARIELLE RAVI [facility]
--- OUTSIDE RECORDS SUMMARY | 2024-11-30 16:19 | XMS_ITS | Encounter Summary ---
Author Name [facility] Address [address] [place] [address] Care Team Providers Care Electronic Publishing Specialist Name Role Phone KARYN ROBISON Primary Care [...] PART B Aug 23, 2014 PART B [id number] DOU[place] PATIENT MEDICARE (WNR) MEDICARE (M) PART A Jul 23, 2014 PART A [id number] DOUG [place] PATIENT [employer] PLAN F MEDIC ARE SUPPL EMENT Feb 20, 2015 PLAN F [id number] [phone] DOUG [place] PATIENT Selected Encounter This section includes the information on record at [place] for the Encounter. Date/Time Encounter Type Encounter Description Reason Provider Source January 03, 2024 11:00 AM OFFICE O/P EST MOD 30 MIN PRIMARY CARE/MEDICINE ICD-10-CM E11.9 Type 2 diabetes mellitus without complications LILIANA ROBISON Encounter Template Text not used by [facility] Assessments - Encounter Diagnoses This section includes the primary and secondary diagnoses documented for the Encounter. Date/Time Primary/Secondary Diagnosis Diagnosis Name Provider Source January 18, 2024 07:07 AM PRIMARY Type 2 diabetes mellitus without complications [facility] January 18, 2024 07:07 AM SECONDARY Essential (primary) hypertension [facility] January 18, 2024 07:07 AM SECONDARY Hyperlipidemia, unspecified [facility] January 18, 2024 07:07 AM SECONDARY Other hyperlipidemia [facility] Plan of Treatment: Future Appointments (+ 6 months) and Future Tests (+/- 45 days) The Plan of Treatment section includes future care activities for the patient [facility]. This section includes future appointments and future orders which are active, pending or scheduled. Future Appointments This section includes appointments that were scheduled to occur 6 months from the date of the Encounter, up to a maximum of 20 appointments. The data comes from all [place] treatment facilities. Appointment Date/Time Appointment Type Appointme nt Facility Name January 19, 2024 09:30 AM AMBULATORY - MEDICINE [facility] Social History: Smoking Status (Most current) and Tobacco Use (All prior to encounter date) This section includes the most current, and the historical, smoking and tobacco- related health factors from the [place] facility where the Encounter took place. Current Smoking Status This section includes the most current smoking, or tobacco-related health factor, from the [place] facility where the Encounter took place. Date/Time Current Smoking Status Comment Bran itdarrel January 03, 2024 11:00 AM VA-TOBACCO NEVER USED [facility] Tobacco Use History This section includes a history of the smoking, or tobacco-related health factors, that were collected on or before the date of the Encounter. The data comes from the [place] facility where the Encounter took place. Date/Time Smoking Status/Tobacco Use Comment F acility Jun 22, 2022 02:00 PM VA-TOBACCO FORMER USER [facility] Jun 22, 2022 02:00 PM VA-TOBACCO QUIT 5 TO < 15 YRS [facility] Jul 22, 2021 11:00 AM VA-TOBACCO FORMER USER [facility] Jul 22, 2021 11:00 AM DC-TOBACCO QUIT 1 TO < 5 YRS [facility] Encounter Notes: All associated encounter notes This section contains the clinical notes associated to the Encounter. Date/Time Encounter Note(s) Provider Source January 03, 2024 11:27 AM TELEHEALTH NOTE: LOCAL TITLE: PRIMARY CARE VIDEO CONNECT [facility] STANDARD TITLE: TELEHEALTH NOTE DATE OF NOTE: JANUARY 03, 2024@11:27 ENTRY DATE: JANUARY 03, 2024@11:27:15 AUTHOR: KARYN ROBISON EXP COSIGNER: URGENCY: STATUS: COMPLETED PRIMARY CARE VIDEO CONNECT [facility] Has ADDENDA Medicine Provider Note Modality of Care: Clinical Video Telehealth Visit conducted by Clinical Video Telehealth. Patient/surrogate provided verbal consent for video telehealth. Patient location confirmed. Emergency number confirmed. Patient Contact Details: Best contact number for backup communication with patient: CLASS: Whole Health Pathway Orientation DURATION: Class was minutes. PARTICIPANTS: Veterans participated in class today. PROVIDER: INTERVENTION: Group Education, Motivational Interviewing PURPOSE: Provide an introduction to Whole Health Partnership OBJECTIVES: By the end of the session, the patients will be able to: 1. Understand what [facility] means [facility] 2. Understand the importance of identifying their health goals 3. Understand the options available to them for the whole health partnership TOPICS DISCUSSED: 1. Whole health definition 2. Personalize health inventory and planning 3. Importance of health goals and health and well-being Patient was alert and actively participated in today's group content. Patient appeared to understand the material presented. remains sustainable as an outpatient. Vet appears to be making adequate progress toward group goals. Encouraged patient to call the Whole Health phone line at any time if he/she is interested in more information or have questions about options. Confirmed patient knowledge of contact information for Whole Health Partnership. PLAN Patient's preferences include: Chief Complaint:c/o abd.pain History of Present Illness:says he was dagnosed with diverticulitis in outside ER recently,was given 2 kinds of antibiotics.feeling better now. also had biopsy of forehead skin lesion taken out ,results pending. bs running high,private pcp advised to increase alogliptin to 25 mg. had hga1c done 2 weeks ago,does not remember the value. also had bp lately,pcp added amlodipine 2.5 mg which helped to bring the bp down. Past Medical History: Problem List 1) History of calculus of kidney 2) Sleep apnea 3) Family history of cancer of colon 4) Diabetes mellitus 5) Benign essential hypertension 6) Sleep apnea 7) Hyperlipidemia Comment: Social History:no smoking,etoh very occ Review of Systems:no cp/palpitations/dizziness/ sob/cough. Allergies/Adverse Drug Reactions: Patient has answered NKA Active and Medication List: Active and Recently Outpatient Medications (excluding Supplies): Active Outpatient Medications Status 1) ALOGLIPTIN 12.5MG TAB TAKE ONE TABLET BY MOUTH ONCE A ACTIVE DAY 2) BETAMETHASONE VALERATE 0.1% OINT APPLY SPARINGLY TO ACTIVE AFFECTED AREA(S) TWICE DAILY NEEDED (EXTERNAL USE ONLY) APPLY SMALL DAB TO ENTRANCE OF EAR CANAL TWICE A DAY NEEDED FOR ITCHING Active Non-VA Medications Status 1) Non-VA ASPIRIN 81MG EC TAB 81MG BY MOUTH ONCE A DAY ACTIVE 2) Non-VA CETIRIZINE HCL 10MG TAB 10MG BY MOUTH ONCE A ACTIVE DAY NEEDED 3) Non-VA FINASTERIDE 5MG TAB 5MG BY MOUTH ONCE A DAY ACTIVE 4) Non-VA GLIMEPIRIDE 4MG TAB 4MG BY MOUTH EVERY MORNING ACTIVE 5) Non-VA HCTZ 25/LISINOPRIL 20MG TAB 1 TABLET BY MOUTH ACTIVE EVERY MORNING 6) Non-VA LISINOPRIL 40MG TAB 20MG BY MOUTH ONCE A DAY ACTIVE 7) Non-VA LOVASTATIN 40MG TAB 40MG BY MOUTH EVERY ACTIVE EVENING 8) Non-VA METFORMIN HCL 500MG 24HR SA TAB 2000MG BY ACTIVE MOUTH EVERY MORNING BEFORE A MEAL 10 Total Medications Non VA Medications: Medication Reconciliation Completed: Assessment/Plan: 1) h/o kidney stones,remote 2) hearing loss,has hearing aids 3) s/p lung surgery for a spicule(benign)10 years ago 4) s/p [place] inguinal hernia repairs 5) s/p vasectomy 6) htn,controlled well, conthctz/lisinopril , lisinopril and amlodipine 7) hyperlipidemia,controlled per pt,had labs with private pcp cont lovastatin 8) bph,cont proscar 9) sleep apnea,cont daily cpap 10) s/p colonoscopy in 10/2021,f/u advised in 5 years sec to FH 11) niddm,controlled,cont glimeperide, metformin and alogliptin increase alogliptin from 12.5 mg to 25 mg. will refer to clinical pharmacy. 12) obesity,lost wt on ozempic,now off of it as it made him sick 13) diverticulitis,on antibiotics now. has reg f/u with private pcp. advised to send us copy of recent labs,fax number given. time spent is 30 mts Follow-Up: Suicide Screen: C-SSRS Screening [place]-Suicide Severity Rating Scale (C-SSRS Screener) 1. Over the past month, have you wished you were or wished you could go to sleep and not wake up? No 2. Over the past month, have you had any actual thoughts of killing yourself? No 3. Over the past month, have you been thinking about how you might do this? Response not required due to responses to other questions. 4. Over the past month, have you had these thoughts and had some intention of acting on them? Response not required due to responses to other questions. 5. Over the past month, have you started to work out or worked out the details of how to kill yourself? Response not required due to responses to other questions. 6. If yes, at any time in the past month did you intend to carry out this plan? Response not required due to responses to other questions. 7. In your lifetime, have you ever done anything, started to do anything, or prepared to do anything to end your life (for example, collected pills, obtained a gun, gave away valuables, went to the roof but didn't jump)? No 8. If YES, was this within the past 3 months? Response not required due to responses to other questions. Alcohol Use Screen (AUDIT-C): Alcohol Screen: SCREEN FOR ALCOHOL (AUDIT-C) An alcohol screening test (AUDIT-C) was negative (score=1). 1. How often did you have a drink containing alcohol in the past year? Consider a drink to be a 12 ounce can or bottle of regular beer, 8 ounces of malt liquor, a 5 ounce glass of table wine, or a 1.5 ounce shot of liquor (like scotch, gin, or vodka). Monthly or less 2. How many drinks containing alcohol did you have on a typical day when you were drinking in the past year? One or two drinks 3. How often did you have six or more drinks on one occasion in the past year? Never Avg Risk Colorectal Cancer Screen: AVERAGE RISK colorectal cancer screening is due based on information available to this clinical reminder Patient has arranged or is choosing to arrange this care independent of and without assistance from this [place]. Depression Screening: Perform PHQ-2 A PHQ-2 screen was performed. The score was 0 which is a negative screen for depression. Over the past two weeks, how often have you been bothered by the following problems? 1. Little interest or pleasure in doing things Not at all 2. Feeling down, depressed, or hopeless Not at all Assess Statin Use - Lipids (CVD/DM): The patient is still taking the NON-VA statin medication as documented. Tobacco Use Screening: The patient has never used tobacco. /luma/ KARYN ROBISON Staff Physician Signed: 01/03/2024 16:03 10/31/2024 ADDENDUM STATUS: COMPLETED [facility] Records review performed to find [facility]'s outside PCP's records. Hospital visit summary from [facility] in August 2024 found and attached below. Will add the outside PCP records if found. 08/31/2024: Subjective Chief complaint of ablation. Interval History: Patient seen and examined at bedside. We were asked to consult yesterday for medical management. PAtient did well overnight - no apparent issues. This morning reports feeling well. Dr. Alarcon has indicated that patient will be discharged home today. Objective Physical Exam: General: This is a 74 y.o. male in no acute distress. Head: Normocephalic, atraumatic. Eyes: No conjunctival injection. Nasal cavity is patent. Throat is clear. Mucus membranes are pink and moist without bleeding. Neck: Supple. No JVD. No lymphadenopathy. Trachea is in the midline position. Lungs: Clear breath sounds bilaterally. No wheezing auscultated. Heart: S1 and S2. No murmur auscultated. Abdomen: Round, soft, nontender. Bowel sounds are present in all four quadrants. Extremities: No cyanosis, clubbing or edema. Neuro: Patient is awake and alert x 3. Speech is clear and coherent. Skin: Warm and dry. No rashes or lesions. Lab/Radiology/Diagnostic Review: Laboratory review: Lab results in the last 24 hours: Recent Results (from the past 24 hours) POCT glucose Collection Time: 08/31/24 12:33 PM Result Value Ref Range Glucose, POC 192 70 - 199 mg/dL POCT glucose Collection Time: 08/31/24 9:58 PM Result Value Ref Range Glucose, POC 208 (H) 70 - 199 mg/dL Hemoglobin A1c Collection Time: 09/01/24 4:27 AM Result Value Ref Range Hgb A1C 7.1 (H) 4.0 - 5.6 % Estimated Average Glucose 157 mg/dL POCT glucose Collection Time: 09/01/24 8:22 AM Result Value Ref Range Glucose, POC 222 (H) 70 - 199 mg/dL Creatinine Collection Time: 09/01/24 8:29 AM Result Value Ref Range Creatinine 1.10 0.80 - 1.30 mg/dL eGFR Collection Time: 09/01/24 8:29 AM Result Value Ref Range eGFR 70 >=60 mL/min/1.73 m2 Current Facility-Administered Medications Medication Dose Route Frequency Provider Last Rate Last Admin albuterol HFA (PROVENTIL HFA,VENTOLIN HFA,PROAIR HFA) 90 mcg/actuation inhaler 1 puff 1 puff inhalation Q4H While awake (RT) Lius Alarcon MD 1 puff at 09/01/24 0839 amiodarone (PACERONE) tablet 200 mg 200 mg oral TID Luis Alarcon MD 200 mg at 09/01/24 1124 apixaban (ELIQUIS) tablet 5 mg 5 mg oral Q12H ABHINAV Luis Alarcon MD 5 mg at 09/01/24 1124 cetirizine (ZyrTEC) tablet 10 mg 10 mg oral Daily PRN Luis Alarcon MD dextrose oral liquid liquid 15 g 15 g oral Q15 Min PRN Nery Celeste NP Or dextrose (D10W) 10% bolus 250 mL 250 mL intravenous Q15 Min PRN Nery Celeste NP famotidine (PEPCID) tablet 40 mg 40 mg oral BID Luis Alarcon MD 40 mg at 09/01/24 1124 finasteride (PROSCAR) tablet 5 mg 5 mg oral QAM Luis Alarcon MD 5 mg at 09/01/24 1124 glucagon injection 1 mg 1 mg intramuscular Q30 Min PRN Nery Celeste NP insulin lispro (HumaLOG, ADMELOG) 100 unit/mL injection 0-10 Units 0-10 Units subcutaneous TID with meals Nery Celeste NP 4 Units at 09/01/24 1124 insulin lispro (HumaLOG, ADMELOG) 100 unit/mL injection 0-5 Units 0-5 Units subcutaneous Nightly Nery Celeste NP 2 Units at 08/31/24 2204 lisinopriL (PRINIVIL,ZESTRIL) tablet 20 mg 20 mg oral Luis Pathak MD 20 mg at 09/01/24 1124 sodium chloride 0.9% flush 0.5-20 mL 0.5-20 mL intra-catheter Q8H ABHINAV Luis Alarcon MD 10 mL at 08/31/24 2212 sodium chloride 0.9% flush 0.5-20 mL 0.5-20 mL intra-catheter PRN Luis Alarcon MD Vitals: 24hr Min/Max: Temp Min: 36.7 ?C (98 ?F) Max: 37.1 ?C (98.7 ?F) Pulse Min: 60 Max: 83 BP Min: 121/63 Max: 170/83 Resp Min: 10 Max: 24 SpO2 Min: 91 % Max: 99 % Most Recent : Vitals: 09/01/24 0839 BP: Pulse: Resp: Temp: SpO2: 94% I/O last 2 completed shifts: In: 1250 [P.O.:150; I.V.:1100] Out: 450 [Urine:450] No intake/output data recorded. Assessment/Plan Principal Problem: SVT (supraventricular tachycardia) ([facility]) Active Problems: Status post ablation of atrial fibrillation Atrial fibrillation (CMS/HCC) (HCC) Supraventricular tachycardia Paroxysmal AFib -Now s/p ablation -Continue tele monitoring, amiodarone, Eliquis -Further recommendation per Cardiology Diabetes type 2 -Continue Accu-Cheks, SSI -Check A1c in a.m. Hypertension -Continue lisinopril Hyperlipidemia -Check lipid panel Obesity with BRIDGETTE -Body mass index is 34.85 kg/m?. -iet and lifestyle modification recommended No barriers to discharge from the medicine team - patient appears stable no acute distress. Recommend follow up with pcp + cardiology services AL DESIGNER Luis Alarcon MD - 09/01/2024 8:09 AM VISUAL DESIGNER: Discharge is planned for today. AL DESIGNER Luis Alarcon MD - 08/31/2024 4:39 PM VISUAL DESIGNER: Images from the original note were not included. EP follow-up note I reviewed EKG results post ablation ECG 12 lead Order: [id number] Status: Preliminary result Visible to patient: No (not released) Next appt: None 0 Result Notes Details Narrative Vent Rate: 64 bpm RR Interval: 930 msec NE Interval: 197 msec QRS Duration: 149 msec QT Interval: 460 msec QTC Interval: 470 msec P-R-T [place]: 38 - -27 - 13 degrees IMPRESSION: SINUS RHYTHM BORDERLINE LEFT AXIS DEVIATION RIGHT BUNDLE BRANCH BLOCK ABNORMAL ECG Electronically Signed By: This result has not been signed. Information might be incomplete. Specimen Collected: 08/31/24 13:38 Last Resulted: 08/31/24 13:36 Diabetic medications were held for now Will ask hospitalist consult for diabetes management Stop diltiazem Give amiodarone for now as per orders Give Eliquis as per orders Bedrest until 7:00 a.m. tomorrow AL DESIGNER AL DESIGNER /luma/ MARTÍN ROTHMANN, RN REGISTERED NURSE Signed: 10/31/2024 10:28 11/10/2024 ADDENDUM STATUS: COMPLETED reviewed pts records from pts private pcp DR.RAJNEESH BHAKTA. PT SEEN ON 10/27/2024 ,f/u visit. labs to be done in future.no labs. f/u advised in 3 months. message left for pt advising him to send us copy of recent labs. /luma/ KARYN ROBISON Staff Physician Signed: 11/10/2024 09:24 11/14/2024 ADDENDUM STATUS: COMPLETED labs reviewed,done outside on 10/25/2024. tot chol 247 tri 251,ldl 149 EGFR 58 hga1c 7.1 TSH 2.5 chem 7 with cr of 1.28 normal lfts CK 73 normal cbc u/a normal /luma/ KARYN ROBISON Staff Physician Signed: 11/14/2024 09:22 KARYN ROBISON [facility]
--- OUTSIDE RECORDS SUMMARY | 2024-11-30 16:19 | XMS_ITS | Encounter Summary ---
Author Name [facility] [place] Organization [facility] [place] Address [address] [place] [id number] Care Team Providers Care Shirt Sorter Name Role Phone KARYN ROBISON Primary Care [...] PART B Aug 23, 2014 PART B [id number] DOUG KIRKLAND PATIENT MEDICARE (WNR) MEDICARE (M) PART A Jul 23, 2014 PART A [id number] DOUG KIRKLAND PATIENT [employer] [place] [employer] PLAN F MEDIC ARE SUPPL EMENT Feb 20, 2015 PLAN F [id number] [phone] DOUG KIRKLAND PATIENT Selected Encounter This section includes the information on record at [place] for the Encounter. Date/Time Encounter Type Encounter Description Reason Provider Source Jul 12, 2024 01:00 PM OFFICE O/P EST LOW 20 MIN OTOLARYNGOLOGY/EN T ICD-10-CM H91.93 Unspecified hearing loss, bilateral SMETAK,HILTON HOWARD IHE Encounter Template Text not used by [place] Assessments - Encounter Diagnoses This section includes the primary and secondary diagnoses documented for the Encounter. Date/Time Primary/Secondary Diagnosis Diagnosis Name Provider Source Jul 25, 2024 01:29 PM PRIMARY Unspecified hearing loss, bilateral ALEJO JORDAN [facility] Plan of Treatment: Future Appointments (+ 6 months) and Future Tests (+/- 45 days) The Plan of Treatment section includes future care activities for the patient from all [place] treatmentfacilities. This section includes future appointments and future orders which are active, pending or scheduled. Future Appointments This section includes appointments that were scheduled to occur 6 months from the date of the Encounter, up to a maximum of 20 appointments. The data comes from all [place] treatment facilities. Appointment Date/Time Appointment Type Appointme nt Facility Name Jul 19, 2024 09:00 AM AMBULATORY - SURGERY . [facility] Aug 02, 2024 10:15 AM AMBULATORY - SURGERY . L [facility] December 27, 2024 07:00 AM AMBULATORY - NONE [facility] January 01, 2025 09:00 AM AMBULATORY - MEDICINE [facility] Lab Results: +/- 30 days of the encounter This section includes the Chemistry and Hematology Lab Results on record with [place] for the patient. Radiology Reports and Pathology [...] Comment: No hemolysis noted. Ordering Provider: BREANNA JORDAN Report Released Date/Time: Jul 12, 2024 01:43 PM Reporting Lab: [facility] [address] [address] Performing Lab: [place] [address] [place] [address] CREATININE 1.10 mg/dL 0.7-1.3 UREA NITROGEN 16.7 mg/dL 9.0-25.0 GLUCOSE 168 mg/dL H 72-99 SODIUM 144 meq/L 136-145 POTASSIUM 3.8 meq/L 3.5-5 CHLORIDE 106 meq/L 98-107 CARBON DIOXIDE 27 meq/L 22-31 CALCIUM 9.4 mg/dL 8.4-10.4 EGFR (CKD-EPI 2020) 70.4 >60 Jul 12, 2024 02:07 PM [facility] CBC Specimen Type: BLOOD No comment entered. Ordering Provider: BREANNA JORDAN Report Released Date/Time: Jul 12, 2024 01:43 PM Reporting Lab: [facility] [address] [address] Performing Lab: [facility] [address] [address] WBC 6.6 10*3/uL 3.6-11.2 RBC 4.59 10*6/uL [...] 10*3/uL 0.00-0.60 BASOPHILS, ABSOLUTE 0.05 10*3/uL 0.00-0.20 Vital Signs: All taken on the encounter date This section contains inpatient and outpatient Vital Signs collected on the date of the Encounter. Date/Time Temperature Pulse Blood Pressure Respiratory Rate SP02 Pain Height Weight Body Mass Index Source Jul 12, 2024 12:47 PM 97.7 65 152/74 16 96 0 [facility] Social History: Smoking Status (Most current) and Tobacco Use (All prior to encounter date) This section includes the most current, and the historical, smoking and tobacco- related health factors from the [place] facility where the Encounter took place. Current Smoking Status This section includes the most current smoking, or tobacco-related health factor, from the [place] facility where the Encounter took place. Date/Time Current Smoking Status Comment Bran isrrael January 08, 2015 09:46 AM CURRENT TOBACCO USER [facility] Tobacco Use History This section includes a history of the smoking, or tobacco-related health factors, that were collected on or before the date of the Encounter. The data comes from the [place] facility where the Encounter took place. Date/Time [...] the Encounter. The data comes from all [place] treatment facilities. Date/Time Radiology Report Provider Source Jul 12, 2024 01:51 PM CHEST X-RAY, 2 VIE WS: DOUG KIRKLAND [id number] -[id number] M Exm Date: JUL 12, 2024@13:51 Req Phys: ROBERT JORDAN Loc: -ENT HEAD AND NECK CONSULT ( Img Loc: -MAIN RADIOLOGY SUITE Service: [address] [address] (Case [id number] COMPLETE) CHEST X-RAY, 2 VIEWS (RAD Detailed) CPT:27389 Reason for Study: pre op cxsdr for ENT procedure Clinical History: Report Status: Verified Date Reported: JUL 13, 2024 Date Verified: JUL 13, 2024 [employer] E-Sig:/ES/Jill Diggs MD Report: FINDINGS: Heart size is normal. Mediastinal structures appear unremarkable. Both lungs are fully expanded without evidence of pulmonary infiltrates or additional significant findings. Impression: No evidence of acute cardiopulmonary disease. Primary Interpreting Staff: Jill Diggs MD, Radiologist ([employer]) /QMB JILL DIGGS [facility] Encounter Notes: All associated encounter notes This section contains the clinical notes associated to the Encounter. Date/Time Encounter Note(s) Provider Source Oct 25, 2024 10:24 AM ADDENDUM: LOCAL TITLE: Addendum STANDARD TITLE: ADDENDUM DATE OF NOTE: OCT 25, 2024@10:24:41 ENTRY DATE: OCT 25, 2024@10:24:42 AUTHOR: HILTON WALKER EXP COSIGNER: URGENCY: STATUS: COMPLETED Given low risk of bleeding, ok to continue all anticoagulation in the perioperative period. /es/ HILTON WALKER STAFF PHYSICIAN OTOLARYNGOLOGY Signed: 10/25/2024 10:25 Receipt Acknowledged By: 10/25/2024 10:51 /es/ MARANDA BREEN REGISTERED NURSE 10/25/2024 10:58 /es/ DIEGO GARCIA Staff Physician, Otolaryngology 10/25/2024 17:35 /es/ Arielle Dahl MD PhD Resident Physician, ENT --- Original Document --- 07/12/24 OTOLARYNGOLOGY STL: JUL 12, 2024 OTOLARYNGOLOGY-HEAD AND NECK SURGERY - ESTABLISHED PATIENT PROGRESS NOTE Dx: right retained PE tube in ME w/CHL, left CHL Tx: left myringotomy & PE tube removal (12/10/21) S: DOUG KIRKLAND is a 73 y/o WHITE MALE presenting for follow up after audiology noted a retained ear tube on the right. He noted some itching in the right ear several months ago which resolved after using some ointment. No acute changes in his hearing. PHYSICAL EXAM: GEN: Awake, NAD FACE: NC/AT. No scars or cutaneous lesions. EARS: Bilateral auricles well formed. No drainage. Right ear with retained t- tube just behind TM. Left TM retracted, aerated. NOSE: External nose normal. Nasal mucosa moist, no bleeding/drainage. EYES: EOMI. Vision grossly intact. OC/OP: No OC/OP bleeding, tolerating secretions, MMM NECK: Supple with no LAD. Trachea midline. CHEST: Breathing comfortably, no stridor/stertor. NEURO: Cranial nerves II-XII grossly intact. LABS/IMAGING/DIAGNOSTICS: none ASSESSMENT: DOUG KIRKLAND is a 73 y/o WHITE MALE with history of bilateral t-tube placement, retained PE tube on the left s/p removal, now with retained tube on the right. Tube appears to be just medial to the right TM. Discussed that he would likely benefit from removal of this retained tube. May consider replacement of t-tubes given the retraction noted on the left side. Repeat audiogram may be helpful to determine whether he would have any possible improvement to hearing with tube replacement. PLAN: - Repeat audiogram - OR for removal of retained right PE tube, possible placement of bilateral t- tubes depending on audiogram results /luma/ ROBERT JORDAN Resident Physician Signed: 07/12/2024 18:16 /luma/ HILTON WLAKER STAFF PHYSICIAN OTOLARYNGOLOGY Cosigned: 07/19/2024 12:08 Receipt Acknowledged By: 07/13/2024 11:50 /luma/ MARANDA BREEN REGISTERED NURSE 09/06/2024 ADDENDUM STATUS: COMPLETED Patient called for status update on scheduling ENT procedure. I left a voicemail with my contact information. /luma/ MARANDA BREEN REGISTERED NURSE Signed: 09/06/2024 13:40 10/24/2024 ADDENDUM STATUS: COMPLETED Patient is scheduled on December 27 at 0830 for removal of retained right PE tube, possible placement of bilateral t-tubes with Dr. Garcia/Easton. Patient will arrive on 4N [facility] by 0700 for pre op check-in appointment. Patient is s/p ablation at [facility] on 08/31/24 for SVT, he is on apixaban BID. He will f/u with cardiology on November 24. Audiogram completed on 07/19/24, please review for surgical plan. Dr. Dahl, please schedule in [place]. ENT attending, please advise if you are ok with patient remaining on apixaban BID pre op. /luma/ MARANDA BREEN REGISTERED NURSE Signed: 10/24/2024 12:28 Receipt Acknowledged By: 10/25/2024 10:57 /luma/ DIEGO GARCIA Staff Physician, Otolaryngology 10/25/2024 10:24 /luma/ HILTON WALKER STAFF PHYSICIAN OTOLARYNGOLOGY 10/24/2024 13:07 /luma/ Arielle Dahl MD PhD Resident Physician, ENT HILTON WALKER [facility] Oct 24, 2024 12:23 PM ADDENDUM: LOCAL TITLE: Addendum STANDARD TITLE: ADDENDUM DATE OF NOTE: OCT 24, 2024@12:23:40 ENTRY DATE: OCT 24, 2024@12:23:41 AUTHOR: MARANDA BREEN EXP COSIGNER: URGENCY: STATUS: COMPLETED Patient is scheduled on Wednesday, December 27 at 0830 for removal of retained right PE tube, possible placement of bilateral t-tubes with Dr. Garcia/Easton. Patient will arrive on 4N [facility] by 0700 for pre op check-in appointment. Patient is s/p ablation at [facility] on 08/31/24 for SVT, he is on apixaban BID. He will f/u with cardiology on November 24. Audiogram completed on 07/19/24, please review for surgical plan. Dr. Dahl, please schedule in [place]. ENT attending, please advise if you are ok with patient remaining on apixaban BID pre op. /luma/ MARANDA BREEN REGISTERED NURSE Signed: 10/24/2024 12:28 Receipt Acknowledged By: 10/25/2024 10:57 /luma/ DIEGO GACRIA Staff Physician, Otolaryngology 10/25/2024 10:24 /luma/ HILTON WALKER STAFF PHYSICIAN OTOLARYNGOLOGY 10/24/2024 13:07 /luma/ Arielle Dahl MD PhD Resident Physician, ENT --- Original Document --- 07/12/24 OTOLARYNGOLOGY STL: JUL 12, 2024 OTOLARYNGOLOGY-HEAD AND NECK SURGERY - ESTABLISHED PATIENT PROGRESS NOTE Dx: right retained PE tube in ME w/CHL, left CHL Tx: left myringotomy & PE tube removal (12/10/21) S: DOUG KIRKLAND is a 73 y/o WHITE MALE presenting for follow up after audiology noted a retained ear tube on the right. He noted some itching in the right ear several months ago which resolved after using some ointment. No acute changes in his hearing. PHYSICAL EXAM: GEN: Awake, NAD FACE: NC/AT. No scars or cutaneous lesions. EARS: Bilateral auricles well formed. No drainage. Right ear with retained t- tube just behind TM. Left TM retracted, aerated. NOSE: External nose normal. Nasal mucosa moist, no bleeding/drainage. EYES: EOMI. Vision grossly intact. OC/OP: No OC/OP bleeding, tolerating secretions, MMM NECK: Supple with no LAD. Trachea midline. CHEST: Breathing comfortably, no stridor/stertor. NEURO: Cranial nerves II-XII grossly intact. LABS/IMAGING/DIAGNOSTICS: none ASSESSMENT: DOUG KIRKLAND is a 73 y/o WHITE MALE with history of bilateral t-tube placement, retained PE tube on the left s/p removal, now with retained tube on the right. Tube appears to be just medial to the right TM. Discussed that he would likely benefit from removal of this retained tube. May consider replacement of t-tubes given the retraction noted on the left side. Repeat audiogram may be helpful to determine whether he would have any possible improvement to hearing with tube replacement. PLAN: - Repeat audiogram - OR for removal of retained right PE tube, possible placement of bilateral t- tubes depending on audiogram results /es/ ROBERT JORDAN Resident Physician Signed: 07/12/2024 18:16 /es/ HILTON WALKER STAFF PHYSICIAN OTOLARYNGOLOGY Cosigned: 07/19/2024 12:08 Receipt Acknowledged By: 07/13/2024 11:50 /darcy BREEN REGISTERED NURSE 09/06/2024 ADDENDUM STATUS: COMPLETED Patient called for status update on scheduling ENT procedure. I left a voicemail with my contact information. /darcy BREEN REGISTERED NURSE Signed: 09/06/2024 13:40 10/25/2024 ADDENDUM STATUS: COMPLETED Given low risk of bleeding, ok to continue all anticoagulation in the perioperative period. /darcy WALKER STAFF PHYSICIAN OTOLARYNGOLOGY Signed: 10/25/2024 10:25 Receipt Acknowledged By: 10/25/2024 10:51 /darcy BREEN REGISTERED NURSE * AWAITING SIGNATURE * DIEGO GARCIA * AWAITING SIGNATURE * ARIELLE DAHL [place] [facility] Jul 12, 2024 01:44 PM OTOLARYNGOLOGY NOT E: LOCAL TITLE: OTOLARYNGOLOGY ST STANDARD TITLE: OTOLARYNGOLOGY NOTE DATE OF NOTE: JUL 12, 2024@13:44 ENTRY DATE: JUL 12, 2024@13:45 AUTHOR: ROBERT JORDAN COSIGNER: HILTON WALKER URGENCY: STATUS: COMPLETED OTOLARYNGOLOGY ST Has ADDENDA JUL 12, 2024 OTOLARYNGOLOGY-HEAD AND NECK SURGERY - ESTABLISHED PATIENT PROGRESS NOTE Dx: right retained PE tube in ME w/CHL, left CHL Tx: left myringotomy & PE tube removal (12/10/21) S: DOUG KIRKLAND is a 73 y/o WHITE MALE presenting for follow up after audiology noted a retained ear tube on the right. He noted some itching in the right ear several months ago which resolved after using some ointment. No acute changes in his hearing. PHYSICAL EXAM: GEN: Awake, NAD FACE: NC/AT. No scars or cutaneous lesions. EARS: Bilateral auricles well formed. No drainage. Right ear with retained t- tube just behind TM. Left TM retracted, aerated. NOSE: External nose normal. Nasal mucosa moist, no bleeding/drainage. EYES: EOMI. Vision grossly intact. OC/OP: No OC/OP bleeding, tolerating secretions, MMM NECK: Supple with no LAD. Trachea midline. CHEST: Breathing comfortably, no stridor/stertor. NEURO: Cranial nerves II-XII grossly intact. LABS/IMAGING/DIAGNOSTICS: none ASSESSMENT: DOUG KIRKLAND is a 73 y/o WHITE MALE with history of bilateral t-tube placement, retained PE tube on the left s/p removal, now with retained tube on the right. Tube appears to be just medial to the right TM. Discussed that he would likely benefit from removal of this retained tube. May consider replacement of t-tubes given the retraction noted on the left side. Repeat audiogram may be helpful to determine whether he would have any possible improvement to hearing with tube replacement. PLAN: - Repeat audiogram - OR for removal of retained right PE tube, possible placement of bilateral t- tubes depending on audiogram results /luma/ ROBERT JORDAN Resident Physician Signed: 07/12/2024 18:16 /luma/ HILTON WALKER STAFF PHYSICIAN OTOLARYNGOLOGY Cosigned: 07/19/2024 12:08 Receipt Acknowledged By: 07/13/2024 11:50 /darcy BREEN REGISTERED NURSE 09/06/2024 ADDENDUM STATUS: COMPLETED Patient called for status update on scheduling ENT procedure. I left a voicemail with my contact information. /darcy BREEN REGISTERED NURSE Signed: 09/06/2024 13:40 10/24/2024 ADDENDUM STATUS: COMPLETED Patient is scheduled on Wednesday, December 27 at 0830 for removal of retained right PE tube, possible placement of bilateral t-tubes with Dr. Garcia/Easton. Patient will arrive on [facility] by 0700 for pre op check-in appointment. Patient is s/p ablation at [facility] on 08/31/24 for SVT, he is on apixaban BID. He will f/u with cardiology on November 24. Audiogram completed on 07/19/24, please review for surgical plan. Dr. Dahl, please schedule in [place]. ENT attending, please advise if you are ok with patient remaining on apixaban BID pre op. /darcy BREEN REGISTERED NURSE Signed: 10/24/2024 12:28 Receipt Acknowledged By: * AWAITING SIGNATURE * DIEGO GARCIA 10/25/2024 10:24 /darcy WALKER STAFF PHYSICIAN OTOLARYNGOLOGY 10/24/2024 13:07 /es/ Arielle Dahl MD PhD Resident Physician, ENT 10/25/2024 ADDENDUM STATUS: COMPLETED Given low risk of bleeding, ok to continue all anticoagulation in the perioperative period. /es/ HILTON WALKER STAFF PHYSICIAN OTOLARYNGOLOGY Signed: 10/25/2024 10:25 Receipt Acknowledged By: * AWAITING SIGNATURE * MARANDA BREEN * AWAITING SIGNATURE * DIEGO GARCIA * AWAITING SIGNATURE * ARIELLE DAHL WILLIAM A [facility] Jul 12, 2024 01:30 PM OTOLARYNGOLOGY CON SULT: LOCAL TITLE: OTOLARYNGOLOGY CONSULT [facility] STANDARD TITLE: OTOLARYNGOLOGY CONSULT DATE OF NOTE: JUL 12, 2024@13:30 ENTRY DATE: JUL 19, 2024@11:51:26 AUTHOR: MARANDA BREEN EXP COSIGNER: URGENCY: STATUS: COMPLETED This note serves to close out the ENT consult from 07/12/24. See Dr. Jordan's note for further details. /luma/ MARANDA BREEN REGISTERED NURSE Signed: 07/19/2024 11:51 MARANDA BREEN [facility]
--- OUTSIDE RECORDS SUMMARY | 2024-11-30 16:19 | XMS_ITS | CONTINUITY OF CARE DOCUMENT ---
Author Name melissa torres Address Unknown Organization [facility] Address [address] [place] [address] Phone [phone] Care Team Providers Care Retail Merchandising Specialist Name Role Phone Dorian HILTON, Luis Unavailable JAMES BHAKTA MD Unavailable JAMES BHAKTA MD Unavailable PROBLEMS Condition Status Date Provider Notes Sleep apnea active Jose Anderson Hypertension active Jose Ahyolyzageorge Hyperlipidemia active Jose Anderson Diabetes mellitus, type 2 active Jose tuttle Lobectomy of lung, right active Jose mercado SVT active Jose Anderson Intermittent palpitations active Luis poole MD Systolic murmur active Luis Alarcon MD Carotid bruit bilateral active Luis rodriguez MD Atrial fib paroxysmal active Luis christine MD Fatigue, weakness active Luis Alarcon MD ENCOUNTERS Date Type Provider Location Encounter Diag nosis - In-person encounter Office Visit Luis Alarcon MD [facility] Atrial fib paroxysmalFatigue, weakness - In-person encounter Office Visit Luis Alarcon MD [facility] Intermittent palpitationsSystolic murmurCarotid bruit bilateral VITAL SIGNS Date Observation Value Provider Body Mass Index (Ratio) 36.18 kg/m2 Casey banegas [place] blood pressure, cuff size regular Avelino allen Griselda blood pressure, diastolic 84 mm[Hg] Avelino rrgeorge Griselda blood pressure, systolic 146 mm[Hg] Radha ri Griselda oxygen saturation, oximetry 96 % Sandy Griselda pulse rate 73 /min Sandy Leslie lder weight E&M 245 [lb_av] Sandy Leslie lder height E&M 69 [in_i] Sandy Leslie lder HISTORY OF MEDICATION USE Medication Status Instructions Dates Provider Indications Com ments amiodarone 200 mg tablet active Take 1 tablet by mouth twice a day Sandy Villalobos amiodarone 200 mg tablet completed TAKE 1 TABLET BY MOUTH TWICE DAILY - Sandy Villalobos albuterol sulfate 90 mcg/actuation HFA aerosol inhaler active Luis Alarcon MD finasteride 5 mg tablet active Sandy Villalobos pioglitazone 30 mg tablet active Sandy Villalobos albuterol sulfate 90 mcg/actuation HFA aerosol inhaler active Sandy Villalobos diltiazem HCl (Cardizem CD) 120 mg capsule,extende d release 24hr completed - Luis Alarcon MD glimepiride 4 mg tablet active Sandy Villalobos lisinopril 20 mg tablet active Take 1 tablet by mouth once a day Sandy Villalobos alogliptin 25 mg tablet active Sandy Villalobos aspirin 81 mg tablet,delayed release (DR/EC) active Take 1 tablet by mouth once a day Sandy Villalobos lovastatin 20 mg tablet active Sandy Villalobos INSURANCE PROVIDERS Payer name Policy type / Coverage type [place] [employer] [place] Medicare [id number] [facility] GIS [employer] [phone] ADVANCE DIRECTIVES Name Date DISCUSSED - NO DECISION MADE TREATMENT PLAN Date Name Performer Electrophysiology: His updated medication list for this problem includes: Lisinopril-hydrochlorothiazide 20-25 Mg Tablet (Lisinopril-hydrochlorothiazide) Diltiazem Hcl (cardizem Cd) 120 Mg Capsule,extended Release 24hr (Diltiazem hcl (cardizem cd)) Lisinopril 20 Mg Tablet (Lisinopril) ..... Take 1 tablet by mouth once a day Aspirin 81 Mg Tablet,delayed Release (dr/ec) (Aspirin) ..... Take 1 tablet by mouth once a day Luis Alarcon MD Electrophysiology Luis christine MD Electrophysiology:ab arizmendi on 09/01/2024 Atrial fibrillation, Atypical atrial flutter , SVT (supraventricular tachycardia) AV node reentry P alpitations T he following medications were removed from the medication list: Diltiazem Hcl (cardizem Cd) 120 Mg Capsule,extended Release 24hr (Diltiazem hcl (cardizem cd)) His updated medication list for this problem includes: Lisinopril 20 Mg Tablet (Lisinopril) ..... Take 1 tablet by mouth once a day Aspirin 81 Mg Tablet,delayed Release (dr/ec) (Aspirin) ..... Take 1 tablet by mouth once a day Orders: 9 9213 LTD 20-29min (CPT-69832) C omplex e/m visit add on (G2211) Luis Alarcon MD Electrophysiology: The following medications were removed from the medication list: Diltiazem Hcl (cardizem Cd) 120 Mg Capsule,extended Release 24hr (Diltiazem hcl (cardizem cd)) & #13;His updated medication list for this problem includes: Lisinopril 20 Mg Tablet (Lisinopril) ..... Take 1 tablet by mouth once a day Aspirin 81 Mg Tablet,delayed Release (dr/ec) (Aspirin) ..... Take 1 tablet by mouth once a day Luis Alarcon MD Electrophysiology:rosalba Alarcon MD Electrophysiology Luis christine MD Electrophysiology: H is updated medication list for this problem includes: Lisinopril-hydrochlorothiazide 20-25 Mg Tablet (Lisinopril-hydrochlorothiazide) Diltiazem Hcl (cardizem Cd) 120 Mg Capsule,extended Release 24hr (Diltiazem hcl (cardizem cd)) Lisinopril 20 Mg Tablet (Lisinopril) ..... Take 1 tablet by mouth once a day Aspirin 81 Mg Tablet,delayed Release (dr/ec) (Aspirin) ..... Take 1 tablet by mouth once a day uLis Alarcon MD Electrophysiology: H is updated medication list for this problem includes: Lisinopril-hydrochlorothiazide 20-25 Mg Tablet (Lisinopril-hydrochlorothiazide) Diltiazem Hcl (cardizem Cd) 120 Mg Capsule,extended Release 24hr (Diltiazem hcl (cardizem cd)) Lisinopril 20 Mg Tablet (Lisinopril) ..... Take 1 tablet by mouth once a day Aspirin 81 Mg Tablet,delayed Release (dr/ec) (Aspirin) ..... Take 1 tablet by mouth once a day Orders: E KG (CPT-53978) 9 9205 HIGH 60-74 min (CPT-96303) A BLATION w/ Anesthesia (*) C omplete Echo (71087) Luis Alarcon MD Date Name Monitor - Telemetry (Mobile Cardiac) PROTHROMBIN TIME WIT H INR Partial Thromboplast in Time, Activated CBC (INCLUDES DIFF/P LT) BASIC METABOLIC PANE L W/EGFR Carotid Duplex Bilat eral Complete Echo ABLATION w/ Anesthes ia Complex e/[place] [address] LTD 20-29min HISTORY OF PROCEDURES Procedure Date Procedure Name Provider Procedure Notes S tatus Complex e/m visit ad d on Luis Alarcon MD active EKG Luis Alarcon MD comp leted
[2024-11-30 16:43] LABS: Hematocrit 42.4 % (37.0-46.0); Hemoglobin 13.7 g/dL (12.4-15.3); Mean Corpuscular HGB Conc 32.3 g/dL (32-36); Mean Corpuscular Hemoglobin 30.9 pg (27.0-31.0); Mean Corpuscular Volume 95.7 fL (78.0-102.0); Mean Platelet Volume 10.1 fl (8.7-11.0); Platelet Count Result 210 K/mm3 (150-420); Red Blood Count 4.43 M/mm3 (4.70-6.10); Red Cell Distribution Width 13.4 % (11.6-14.4); White Blood Count 6.1 K/mm3 (4.8-10.8)
[2024-11-30 16:52] LABS: Alanine Aminotransferase 38 U/L (16-63); Albumin Level 3.5 g/dL (3.4-5.0); Alkaline Phosphatase 74 U/L (46-116); Anion Gap 8 mmol/L (4-12); Aspartate Amino Transferase 17 U/L (15-37); Bilirubin,Total 0.6 mg/dL (0.00-1.00); Blood Urea Nitrogen 17 mg/dL (7-18); Calcium 8.7 mg/dL (8.5-10.1); Carbon Dioxide 31 mmol/L (21-32); Chloride 105 mmol/L (98-108); Estimated Glomerular Filt Rate 49; Glucose 196 mg/dL (70-99); Osmolality Calculated 304 mOsm/kg (285-295); Potassium 3.4 mmol/L (3.5-5.1); Sodium 144 mmol/L (136-145); Total Protein 7.1 g/dL (6.4-8.2)
[2024-11-30 17:30] LABS: Influenza A QL RT-PCR Negative (Negative); Influenza B QL RT-PCR Negative (Negative); RSV RNA, RT-PCR Negative (Negative); SARS-CoV-2 RNA PCR Negative (Negative)
== END 2024-11-30 16:15 | disposition home or self-care (01) ==
PROVIDERS: PCP Internal Medicine; Visit Provider Internal Medicine
DX: J06.9 Acute upper respiratory infection, unspecified (principal); R05.9 Cough, unspecified
CPT/HCPCS: 36415; 71046; 80053; 85027; 87637

== ENCOUNTER 2024-12-05 15:33 | Outpatient (CLI) | payer MEDICARE, OTHER, SELFPAY ==
--- NOTE | ~2024-12-05 | XR_ITS ---
XR chest 2V Ordering provider: Anila Keyes, CHILDREN'S CHOIR DIRECTOR History: 74 years Male with . COUGH X 2 WEEKS . Comparison: November 30, 2024 FINDINGS: MEDIASTINUM: The cardiac silhouette is not enlarged. LUNGS: No infiltrates, effusions or pneumothorax. OTHER: No free air under the diaphragm. Degenerative changes of the spine. IMPRESSION: No acute cardiopulmonary pathology. Reviewed, dictated and finalized at location A.
[2024-12-05 15:47] LABS: Hematocrit 45.3 % (37.0-46.0); Hemoglobin 14.8 g/dL (12.4-15.3); Mean Corpuscular HGB Conc 32.7 g/dL (32-36); Mean Platelet Volume 9.8 fl (8.7-11.0); Platelet Count Result 250 K/mm3 (150-420); Red Blood Count 4.77 M/mm3 (4.70-6.10); Red Cell Distribution Width 13.3 % (11.6-14.4); White Blood Count 7.1 K/mm3 (4.8-10.8)
[2024-12-05 15:57] LABS: Anion Gap 11 mmol/L (4-12); Blood Urea Nitrogen 24 mg/dL (7-18); Calcium 9.2 mg/dL (8.5-10.1); Carbon Dioxide 29 mmol/L (21-32); Chloride 103 mmol/L (98-108); Estimated Glomerular Filt Rate 43; Glucose 303 mg/dL (70-99); Osmolality Calculated 311 mOsm/kg (285-295); Sodium 143 mmol/L (136-145)
--- OUTSIDE RECORDS SUMMARY | 2024-12-05 16:32 | XMS_ITS | Continuity of Care Document ---
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 and [facility] Affairs facilities. It does not include entries that were removed or entered in error. Problem Status Onset Date Problem Type Date of Resolution Comments Source Benign essential hypertension Active Condition [facility] Diabetes mellitus Active Condition [facility] Family history of cancer of colon Active Condition [facility] History of calculus of kidney Active Condition [facility] Hyperlipidemia Active Condition [facility] Sleep apnea Active Condition [facility] Diagnosis: ICD-10-CM H90.3 Sensorineural hearing loss, bilateral Active Diagnosis [facility] Diagnosis: ICD-10-CM H90.A22 Snsrnrl hear loss, uni, l ear, with rstrcd hear cntra side Active Diagnosis [facility] Diagnosis: ICD-10-CM H91.93 Unspecified hearing loss, bilateral Active Diagnosis [facility] Diagnosis: ICD-10-CM E11.9 Type 2 diabetes mellitus without complications Active Diagnosis [facility] Medications Combined list of outpatient medications from Department of [facility] and [facility] facilities.Medications provided include 1) outpatient medications from the last 15 months, and 2) patient-reported medications. Medication Details Route Status Patient Instructions Prescription Expires Prescription Number Last Dispense Date Ordering Provider Order Date Order Qty Source ALOGLIPTIN 12.5MG TAB TAKE ONE TABLET BY MOUTH ONCE A DAY ORAL DISCONT INUED (EDIT) 07/23/2024 [id number] KARYN ROBISON 2022 90 [facility] ALOGLIPTIN 25MG TAB TAKE ONE TABLET BY MOUTH ONCE A DAY FOR DIABETES ORAL DISCONT INUED 01/03/2025 [id number] SAKRENATEKARYN 2023 90 [facility] AMLODIPINE BESYLATE 2.5MG TAB TAKE ONE TABLET BY MOUTH ONCE A DAY ORAL ACTIVE ENRIQUETA2023 [facility] ASPIRIN 81MG TAB,EC TAKE ONE TABLET BY MOUTH ONCE A DAY ORAL ACTIVE FRANKLINRENATE2020 [facility] BETAMETHASO NE VALERATE 0.1% OINT,TOP APPLY SPARINGL Y TO AFFECTED AREA(S) TWICE DAILY NEEDED (EXTERNA L USE ONLY) APPLY SMALL DAB TO ENTRANCE OF EAR CANAL TWICE A DAY NEEDED FOR ITCHING TOPICA L 10/20/2024 [id number] NATHALY DOOLEY 2023 45 [facility] DIVIS[facility]AL[facility] N CETIRIZINE HCL 10MG TAB TAKE ONE TABLET BY MOUTH ONCE A DAY NEEDED ORAL ACTIVE RENE ROBISONJAYA 2020 [facility] FINASTERIDE 5MG TAB TAKE ONE TABLET BY MOUTH ONCE A DAY ORAL ACTIVE FRANKLINRENATE2020 [facility] GLIMEPIRIDE 4MG TAB TAKE ONE TABLET BY MOUTH EVERY MORNING ORAL ACTIVE ENRIQUETA2022 [facility] HYDROCHLORO THIAZIDE 25MG/LISINO PRIL 20MG TAB TAKE ONE TABLET BY MOUTH EVERY MORNING ORAL ACTIVE ENRIQUETA2022 [facility] LISINOPRIL 40MG TAB TAKE ONE-HALF TABLET BY MOUTH ONCE A DAY ORAL ACTIVE ENRIQUETA2022 [facility] LOVASTATIN 40MG TAB TAKE ONE TABLET BY MOUTH EVERY EVENING ORAL ACTIVE ENRIQUETA2020 [facility] METFORMIN HCL 500MG 24HR TAB,SA TAKE FOUR TABLETS BY MOUTH EVERY MORNING BEFORE A MEAL ORAL ACTIVE ENRIQUETA2020 [facility] PIOGLITAZON E HCL 30MG TAB TAKE ONE TABLET BY MOUTH ONCE A DAY ORAL ACTIVE GARRY SANTANA 2023 [facility] SITAGLIPTIN (EQV-ZITUVI O) 25MG TAB TAKE ONE TABLET BY MOUTH ONCE A DAY FOR DIABETES ORAL ACTIVE 09/05/2025 [id number] KARYN ROBISON 2024 90 [facility] Immunizations Combined list of available immunizations from the Department of Defense and Veterans Affairs facilities. 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 [facility] [address] Performing Lab: [facility] [address] [facility] [address] [facility] BASIC METABOLIC PANEL UREA NITROGEN [MASS/VOLUM E] IN SERUM OR PLASMA 16.7 mg/dL 9.0 - 25.0 07/12 Specimen Type: PLASMA Comment: No hemolysis noted. Ordering Provider: OLYA NICHOLS Report Released Date/Time: Jul 12, 2024 01:43 PM Reporting Lab: [facility] [address] [facility] [address] Performing Lab: [facility] [address] [facility] [address] [facility] BASIC METABOLIC PANEL GLUCOSE [MASS/VOLUM E] IN SERUM OR PLASMA 168 mg/dL 72 - 99 07/12 H Specimen Type: PLASMA Comment: No hemolysis noted. Ordering Provider: OLYA NICHOLS Report Released Date/Time: Jul 12, 2024 01:43 PM Reporting Lab: [place] [address] [facility] [address] Performing Lab: [place] [address] [facility] [address] [facility] BASIC METABOLIC PANEL SODIUM [MOLES/VOLU ME] IN SERUM OR PLASMA 144 meq/L 136 - 145 07/12 Specimen Type: PLASMA Comment: No hemolysis noted. Ordering Provider: OLYA NICHOLS Report Released Date/Time: Jul 12, 2024 01:43 PM Reporting Lab: [place] [address] [facility] [address] Performing Lab: [place] [address] [facility] [address] [facility] BASIC METABOLIC PANEL POTASSIUM [MOLES/VOLU ME] IN SERUM OR PLASMA 3.8 meq/L 3.5 - 5 07/12 Specimen Type: PLASMA Comment: No hemolysis noted. Ordering Provider: OLYA NICHOLS Report Released Date/Time: Jul 12, 2024 01:43 PM Reporting Lab: [place] [address] [facility] [address] Performing Lab: [place] [address] [facility] [address] [facility] BASIC METABOLIC PANEL CHLORIDE [MOLES/VOLU ME] IN SERUM OR PLASMA 106 meq/L 98 - 107 07/12 Specimen Type: PLASMA Comment: No hemolysis noted. Ordering Provider: OLYA NICHOLS Report Released Date/Time: Jul 12, 2024 01:43 PM Reporting Lab: [facility] [address] [facility] [address] Performing Lab: [facility] [address] [facility] [address] [facility] BASIC METABOLIC PANEL CARBON DIOXIDE, TOTAL [MOLES/VOLU ME] IN SERUM OR PLASMA 27 meq/L 22 - 31 07/12 Specimen Type: PLASMA Comment: No hemolysis noted. Ordering Provider: OLYA NICHOLS Report Released Date/Time: Jul 12, 2024 01:43 PM Reporting Lab: [place] [address] [facility] [address] Performing Lab: [address] [id number] [place] [address] BASIC METABOLIC PANEL CALCIUM [MASS/VOLUM E] IN SERUM OR PLASMA 9.4 mg/dL 8.4 - 10.4 07/12 Specimen Type: PLASMA Comment: No hemolysis noted. Ordering Provider: OLYA NICHOLS Report Released Date/Time: Jul 12, 2024 01:43 PM Reporting Lab: [place] [address] [facility] [address] Performing Lab: [place] [address] [facility] [address] [facility] BASIC METABOLIC PANEL GLOMERULAR FILTRATION RATE/1.73 SQ M.PREDICTED [VOLUME RATE/AREA] IN SERUM, PLASMA OR BLOOD BY CREATININE- BASED FORMULA (CKD-EPI 2020) 70.4 60 07/12 Specimen Type: PLASMA Comment: No hemolysis noted. Ordering Provider: OLYA NICHOLS Report Released Date/Time: Jul 12, 2024 01:43 PM Reporting Lab: [facility] [address] [facility] [address] Performing Lab: [place] [address] [facility] [address] [facility] CBC LEUKOCYTES [#/VOLUME] IN BLOOD BY AUTOMATED COUNT 6.6 10*3/u L 3.6 - 11.2 07/12 Specimen Type: BLOOD No comment entered. Ordering Provider: OLYA NICHOLS Report Released Date/Time: Jul 12, 2024 01:43 PM Reporting Lab: [address] [address] Performing Lab: [address] [address] [facility] CBC ERYTHROCYTE S [#/VOLUME] IN BLOOD BY AUTOMATED COUNT 4.59 10*6/u L 4.10 - 5.70 07/12 Specimen Type: BLOOD No comment entered. Ordering Provider: OLYA NICHOLS Report Released Date/Time: Jul 12, 2024 01:43 PM Reporting Lab: [address] [address] Performing Lab: [address] [phone] [place] [address] CBC HEMOGLOBIN [MASS/VOLUM E] IN BLOOD 14.2 g/dL 13.1 - 16.8 07/12 Specimen Type: BLOOD No comment entered. Ordering Provider: OLYA NICHOLS Report Released Date/Time: Jul 12, 2024 01:43 PM Reporting Lab: [address] [address] Performing Lab: [address] [phone] [place] [address] CBC HEMATOCRIT [VOLUME FRACTION] OF BLOOD 43.6 38.2 - 48.4 07/12 Specimen Type: BLOOD No comment entered. Ordering Provider: OLYA NICHOLS Report Released Date/Time: Jul 12, 2024 01:43 PM Reporting Lab: [address] [address] Performing Lab: [address] [address] [facility] CBC MCV [ENTITIC VOLUME] BY AUTOMATED COUNT 95.0 fL 80.0 - 100.0 07/12 Specimen Type: BLOOD No comment entered. Ordering Provider: OLYA NICHOLS Report Released Date/Time: Jul 12, 2024 01:43 PM Reporting Lab: [address] [address] Performing Lab: [address] [address] [facility] CBC MCH [ENTITIC MASS] BY AUTOMATED COUNT 30.9 pg 27.0 - 34.0 07/12 Specimen Type: BLOOD No comment entered. Ordering Provider: OLYA NICHOLS Report Released Date/Time: Jul 12, 2024 01:43 PM Reporting Lab: [address] [address] Performing Lab: [address] [address] [facility] CBC MCHC [MASS/VOLUM E] BY AUTOMATED COUNT 32.6 g/dL 33.0 - 36.0 07/12 L Specimen Type: BLOOD No comment entered. Ordering Provider: OLYA NICHOLS Report Released Date/Time: Jul 12, 2024 01:43 PM Reporting Lab: [address] [address] Performing Lab: [address] [address] [facility] CBC PLATELETS [#/VOLUME] IN BLOOD BY AUTOMATED COUNT 199 10*3/u L 150 - 400 07/12 Specimen Type: BLOOD No comment entered. Ordering Provider: OYLA NICHOLS Report Released Date/Time: Jul 12, 2024 01:43 PM Reporting Lab: [address] [address] Performing Lab: [address] [address] [facility] CBC PLATELET MEAN VOLUME [ENTITIC VOLUME] IN BLOOD BY AUTOMATED COUNT 10.6 fL 7.5 - 11.2 07/12 Specimen Type: BLOOD No comment entered. Ordering Provider: OLYA NICHOLS Report Released Date/Time: Jul 12, 2024 01:43 PM Reporting Lab: [facility] [address] [facility] [address] Performing Lab: [facility] [address] [place] [address] [facility] CBC ERYTHROCYTE DISTRIBUTIO N WIDTH [RATIO] BY AUTOMATED COUNT 13.9 11.8 - 15.1 07/12 Specimen Type: BLOOD No comment entered. Ordering Provider: OLYA NICHOLS Report Released Date/Time: Jul 12, 2024 01:43 PM Reporting Lab: [facility] [address] [place] [address] Performing Lab: [facility] [address] [place] [phone] [place] [address] CBC LYMPHOCYTES /100 LEUKOCYTES IN BLOOD BY AUTOMATED COUNT 31 07/12 Specimen Type: BLOOD No comment entered. Ordering Provider: OLYA NICHOLS Report Released Date/Time: Jul 12, 2024 01:43 PM Reporting Lab: [facility] [address] [place] [address] Performing Lab: [facility] [address] [place] [address] [facility] CBC MONOCYTES/1 00 LEUKOCYTES IN BLOOD BY AUTOMATED COUNT 9 07/12 Specimen Type: BLOOD No comment entered. Ordering Provider: OLYA NICHOLS Report Released Date/Time: Jul 12, 2024 01:43 PM Reporting Lab: [facility] [address] [place] [address] Performing Lab: [facility] [address] [facility] [address] [facility] CBC NEUTROPHILS /100 LEUKOCYTES IN BLOOD BY AUTOMATED COUNT 56 07/12 Specimen Type: BLOOD No comment entered. Ordering Provider: OLYA NICHOLS Report Released Date/Time: Jul 12, 2024 01:43 PM Reporting Lab: [facility] [address] [facility] [address] Performing Lab: [facility] [address] [facility] [address] [facility] CBC EOSINOPHILS /100 LEUKOCYTES IN BLOOD BY AUTOMATED COUNT 3 07/12 Specimen Type: BLOOD No comment entered. Ordering Provider: OLYA NICHOLS Report Released Date/Time: Jul 12, 2024 01:43 PM Reporting Lab: [place] [address] [facility] [address] Performing Lab: [place] [address] [place] [phone] [facility] CBC BASOPHILS/1 00 LEUKOCYTES IN BLOOD BY AUTOMATED COUNT 1 07/12 Specimen Type: BLOOD No comment entered. Ordering Provider: OLYA NICHOLS Report Released Date/Time: Jul 12, 2024 01:43 PM Reporting Lab: [facility] [address] Performing Lab: [place] [address] [facility] [address] [facility] CBC LYMPHOCYTES [#/VOLUME] IN BLOOD BY AUTOMATED COUNT 2.05 10*3/u L 0.77 - 4.50 07/12 Specimen Type: BLOOD No comment entered. Ordering Provider: OLYA NICHOLS Report Released Date/Time: Jul 12, 2024 01:43 PM Reporting Lab: [facility] [address] Performing Lab: [facility] [address] [facility] CBC MONOCYTES [#/VOLUME] IN BLOOD BY AUTOMATED COUNT 0.59 10*3/u L 0.19 - 0.80 07/12 Specimen Type: BLOOD No comment entered. Ordering Provider: STROBER,OLYA SCOTT A Report Released Date/Time: Jul 12, 2024 01:43 PM Reporting Lab: [place] [id number] Performing Lab: [address] [address] [facility] CBC NEUTROPHILS [#/VOLUME] IN BLOOD BY AUTOMATED COUNT 3.68 10*3/u L 2.10 - 8.00 07/12 Specimen Type: BLOOD No comment entered. Ordering Provider: OLYA NICHOLS A Report Released Date/Time: Jul 12, 2024 01:43 PM Reporting Lab: [place] [id number] Performing Lab: [address] [phone] CBC EOSINOPHILS [#/VOLUME] IN BLOOD BY AUTOMATED COUNT 0.21 10*3/u L 0.00 - 0.60 07/12 Specimen Type: BLOOD No comment entered. Ordering Provider: OLYA NICHOLS A Report Released Date/Time: Jul 12, 2024 01:43 PM Reporting Lab: [place] [id number] Performing Lab: [address] [address] [facility] CBC BASOPHILS [#/VOLUME] IN BLOOD BY AUTOMATED COUNT 0.05 10*3/u L 0.00 - 0.20 07/12 Specimen Type: BLOOD No comment entered. Ordering Provider: OLYA NICHOLS A Report Released Date/Time: Jul 12, 2024 01:43 PM Reporting Lab: [place] [id number] Performing Lab: [address] [address] [facility] GLUCOSE,B LOOD-poct (STL) GLUCOSE [MASS/VOLUM E] IN BLOOD BY AUTOMATED TEST STRIP 115 mg/dL 72 - 99 01/01 H Specimen Type: BLOOD Comment: Test Performed by: [id number] Meter #: [id number] Ordering Provider: Sae ROBISON Report Released Date/Time: January 01, 2023 04:03 PM Reporting Lab: [facility] [address] [facility] [address] Performing Lab: [facility] [address] [facility] [address] [facility] Vital Signs Combined list of inpatient and outpatient Vital Signs from Department of [facility] and [facility], ranging from 12 months to all on record, depending upon the facility. Vital Sign Value Date Comments Source SYSTOLIC BLOOD PRESSURE 152 07/12/2024 12:47:25 [facility] DIASTOLIC BLOOD PRESSURE 74 07/12/2024 12:47:25 [facility] PULSE OXIMETRY 96 07/12/2024 12:47:25 [facility] PAIN 0 07/12/2024 12:47:25 [facility] TEMPERATURE 97.7 07/12/2024 12:47:25 [facility] PULSE 65 07/12/2024 12:47:25 [facility] RESPIRATION 16 07/12/2024 12:47:25 [facility] Encounters Combined list of: 1) Encounters from Department of [facility] Affairs facilities going backup to the last 18 months, not all DC inpatient encounters are included; 2) Encounters from the Department [facility] facilities going backup to 280 months. Location Location Details Encounter Type Encounter Number Reason For Visit Attending Provider ADM Date DC Date Status Disposition Source [facility] Outpatient Encounter [id number] RIGOBERTO RYAN 07/14 [facility] Outpatient Encounter [id number] 07/22 [facility] QNHP OL DIG ASSMT&MGMT 5-10 [id number] Diagnos is: ICD-10- CM E11.9 Type 2 diabete s mellitu s without complic ations KAMINI SANTANA 07/23 [facility] N [facility] Outpatient Encounter [id number] LOUIE MEYER 12/30 [facility] Outpatient Encounter [id number] 01/02 [facility] OFFICE O/P EST MOD 30 MIN [id number] Diagnos is: ICD-10- CM E11.9 Type 2 diabete s mellitu s without complic ations KARYN ROBISON 01/02 [facility] MTMS BY PHARM ADDL 15 MIN [id number] Diagnos is: ICD-10- CM E11.9 Type 2 diabete s mellitu s without complic ations KAMINI SANTANA 01/18 [facility] UNLISTED ORL SERVICE/PX [id number] Diagnos is: ICD-10- CM H90.3 Sensori neural hearing loss, bilKaran Cespedes 07/07 [facility] OFFICE O/P EST LOW 20 MIN [id number] Diagnos is: ICD-10- CM H91.93 Unspeci fied hearing loss, bilater JAGJIT Moran 07/12 [facility] N [facility] Outpatient Encounter [id number] 07/12 [facility] [place] [id number] Diagnos is: ICD-10- CM H90.A22 Snsrnrl hear loss, uni, l ear, with rstrcd hear cntra side MAXIMOLANDON Bae 07/19 [facility] N [facility] HEARING AID CHECK BOTH EARS [id number] Diagnos is: ICD-10- CM H90.3 Sensori neural hearing loss, bilater al LANDON MARSH 08/02 [facility] Outpatient Encounter [id number] 09/03 [facility] Outpatient Encounter [id number] 10/31 [facility] Outpatient Encounter [id number] 11/01 [facility] Outpatient Encounter [id number] 11/10 [facility] Outpatient Encounter [id number] 11/27 [facility] N Social History Combined list of available smoking, tobacco, and other social history from Department of Defense and [facility] Affairs facilities. Social History Type Response Date Comment [facility] e Tobacco smoking status NHIS VA-TOBACCO NEVER USED 01/03/2024 [facility] History of tobacco use DC-TOBACCO FORMER USER 06/22/2022 [facility] History of tobacco use DC-TOBACCO FORMER USER 07/22/2021 [facility] History of tobacco use CURRENT TOBACCO USER 01/08/2015 [facility] Plan of Care List of future care activities from Department of [facility] Affairs facilities. Additional future care activities may be listed in the Assessment and Plan section. Date/Time Care Activity Care Activity Detail Facili ty 12/27/2024 AMBULATORY - NONE AMBULATORY - NONE [facility]
--- OUTSIDE RECORDS SUMMARY | 2024-12-05 16:32 | XMS_ITS | Encounter Summary ---
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
--- OUTSIDE RECORDS SUMMARY | 2024-12-05 16:32 | XMS_ITS | Encounter Summary ---
Author Name [facility] [place] Organization [facility] [place] Address [address] [place] [address] Care Team Providers Care Epic Manager Name Role Phone KARYN ROBISON Primary Care [...] PART B Aug 23, 2014 PART B [id number] DOUG KIRKLAND PATIENT MEDICARE (WNR) MEDICARE (M) PART A Jul 23, 2014 PART A [id number] [phone] DOUG KIRKLAND PATIENT [employer] [place] [employer] PLAN F MEDIC ARE SUPPL EMENT Feb 20, 2015 PLAN F [id number] [phone] DOUG KIRKLAND PATIENT Selected Encounter This section [...] PRIMARY Unspecified hearing loss, bilateral ALEJO JORDAN [facility] Plan of Treatment: Future Appointments (+ [...] 2024 09:00 AM AMBULATORY - SURGERY . [facility] Aug 02, 2024 10:15 AM AMBULATORY - SURGERY . [facility] December 27, 2024 07:00 AM AMBULATORY - NONE [facility] January 01, 2025 09:00 AM AMBULATORY - MEDICINE [facility] Lab Results: +/- 30 days of the [...] Type Result - Unit Interpretation Reference Range Specimen Type Comment Jul 12, 2024 02:07 PM [facility] BASIC METABOLIC PANEL PLASMA Specimen Type: PLASMA Comment: No hemolysis noted. Ordering Provider: ROBERT JORDAN Report Released Date/Time: Jul 12, 2024 01:43 PM Reporting Lab: [place] [id number] [facility] [address] Performing Lab: [address] [address] CREATININE 1.10 mg/dL 0.7-1.3 UREA NITROGEN 16.7 mg/dL 9.0-25.0 GLUCOSE 168 mg/dL H 72-99 SODIUM 144 meq/L 136-145 POTASSIUM 3.8 meq/L 3.5-5 CHLORIDE 106 meq/L 98-107 CARBON DIOXIDE 27 meq/L 22-31 CALCIUM 9.4 mg/dL 8.4-10.4 EGFR (CKD-EPI 2020) 70.4 >60 Jul 12, 2024 02:07 PM [facility] CBC BLOOD Specimen Type: BLOOD No comment entered. Ordering Provider: ROBERT JORDAN Report Released Date/Time: Jul 12, 2024 01:43 PM Reporting Lab: [facility] [address] [facility] [address] Performing Lab: [facility] [address] [facility] [address] WBC 6.6 10*3/uL 3.6-11.2 RBC 4.59 10*6/uL 4.10-5.70 HGB 14.2 g/dL 13.1-16.8 HCT 43.6 38.2-48.4 MCV 95.0 fL 80.0-100.0 MCH 30.9 pg 27.0-34.0 MCHC 32.6 g/dL L 33.0-36.0 PLT 199 10*3/uL 150-400 MPV 10.6 fL 7.5-11.2 RDW 13.9 11.8-15.1 LYMPHOCYTES, AUTO % 31 MONOCYTES, AUTO % 9 NEUTROPHILS, AUTO % 56 EOSINOPHILS, AUTO % 3 BASOPHILS, AUTO % 1 LYMPHOCYTES, ABSOLUTE 2.05 10*3/uL 0.77- 4.50 MONOCYTES, ABSOLUTE 0.59 10*3/uL 0.19-0. 80 NEUTROPHILS, ABSOLUTE 3.68 10*3/uL 2.10- 8.00 EOSINOPHILS, ABSOLUTE 0.21 10*3/uL 0.00- 0.60 BASOPHILS, ABSOLUTE 0.05 10*3/uL 0.00-0. 20 Vital Signs: All taken on the encounter date This section contains inpatient and outpatient Vital Signs collected on the date of the Encounter. Date/Time Temperature Pulse Blood Pressure Respiratory Rate SP02 Pain Height Weight Body Mass Index Source Jul 12, 2024 12:47 PM 97.7 65 152/74 16 96 0 [facility] Social History: Smoking Status (Most [...] 08, 2015 09:46 AM CURRENT TOBACCO USER [facility] Tobacco Use History This section includes a history of the smoking, or tobacco-related health factors, that were collected on or before the date of the Encounter. The data comes from the [place] facility where the Encounter took place. Date/Time Smoking Status/Tobacco Use Comment F acrodrigo January 08, 2015 09:46 AM TOBACCO MEDS OFFER ED BUT DECLINED [facility] Radiology Reports: +/- 30 days of [...] CHEST X-RAY, 2 VIE WS: DOUG KIRKLAND [id number] -[id number] M Exm Date: JUL 12, 2024@13:51 Req Phys: ROBERT JORADN Loc: -ENT HEAD AND NECK CONSULT ( Img Loc: -MAIN RADIOLOGY SUITE Service: [address] [address] (Case [id number] COMPLETE) CHEST X-RAY, 2 VIEWS (RAD Detailed) CPT:93133 Reason for Study: pre op cxsdr for ENT procedure Clinical History: Report Status: Verified Date Reported: JUL 13, 2024 Date Verified: JUL 13, 2024 Black Top Machine Operator E-Sig:/ES/Jill Diggs MD Report: FINDINGS: Heart size is normal. Mediastinal structures appear unremarkable. Both lungs are fully expanded without evidence of pulmonary infiltrates or additional significant findings. Impression: No evidence of acute cardiopulmonary disease. Primary Interpreting Staff: Jill Diggs MD, Radiologist (Black Top Machine Operator) /QMB JILL DIGGS [facility] Encounter Notes: All associated encounter [...] 12:08 Receipt Acknowledged By: 07/13/2024 11:50 /luma/ AMRANDA BREEN REGISTERED NURSE 09/06/2024 ADDENDUM STATUS: COMPLETED [...] check-in appointment. Patient is s/p ablation at [facility] on 08/31/24 for SVT, he is [...] MD PhD Resident Physician, ENT HILTON WALKER [facility] Oct 24, 2024 12:23 PM [...] check-in appointment. Patient is s/p ablation at [facility] on 08/31/24 for SVT, he is [...] * AWAITING SIGNATURE * ARIELLE DAHL [facility] Jul 12, 2024 01:44 PM [...] check-in appointment. Patient is s/p ablation at [facility] on 08/31/24 for SVT, he is on apixaban BID. He will f/u with cardiology on November 24. Audiogram completed on 07/19/24, please review for surgical plan. Dr. Dahl, please schedule in [place]. ENT attending, please advise if you are ok with patient remaining on apixaban BID pre op. /darcy BREEN REGISTERED NURSE Signed: 10/24/2024 12:28 Receipt Acknowledged By: 10/25/2024 10:57 /es/ DIEGO GARCIA Staff Physician, Otolaryngology 10/25/2024 10:24 /es/ HILTON WALKER STAFF PHYSICIAN OTOLARYNGOLOGY 10/24/2024 13:07 /es/ Arielle Dahl MD PhD Resident Physician, ENT 10/25/2024 ADDENDUM STATUS: COMPLETED Given low risk of bleeding, ok to continue all anticoagulation in the perioperative period. /luma/ HILTON WALKER STAFF PHYSICIAN OTOLARYNGOLOGY Signed: 10/25/2024 10:25 Receipt Acknowledged By: 10/25/2024 10:51 /luma/ MARANDA BREEN REGISTERED NURSE 10/25/2024 10:58 /es/ DIEGO GARCIA Staff Physician, Otolaryngology 10/25/2024 17:35 /es/ Arielle Dahl MD PhD Resident Physician, ENT 12/05/2024 ADDENDUM STATUS: COMPLETED Contacted patient regarding cardiology visit, he reports appt is 12/07. Will f/u after that appt. Patient is still planning on upcoming procedure with ENT on December 27. /luma/ MARANDA BREEN REGISTERED NURSE Signed: 12/05/2024 10:51 ROBERT JORDAN [facility] Jul 12, 2024 01:30 PM OTOLARYNGOLOGY CON SULT: LOCAL TITLE: OTOLARYNGOLOGY CONSULT [facility] STANDARD TITLE: OTOLARYNGOLOGY CONSULT DATE OF NOTE: JUL 12, 2024@13:30 ENTRY DATE: JUL 19, 2024@11:51:26 AUTHOR: MARANDA BREEN EXP COSIGNER: URGENCY: STATUS: COMPLETED This note serves to close out the ENT consult from 07/12/24. See Dr. Jordan's note for further details. /darcy BREEN REGISTERED NURSE Signed: 07/19/2024 11:51 MARANDA BREEN [facility]
--- OUTSIDE RECORDS SUMMARY | 2024-12-05 16:32 | XMS_ITS | CONTINUITY OF CARE DOCUMENT ---
Author Name melissa torres Address Unknown Organization [facility] Address [address] [address] [place] [address] Phone [phone] Care Team Providers Care Wire Dropper Name Role Phone Dorian HILTON, Luis Unavailable JAMES BHAKTA MD Unavailable [phone] JAMES BHAKTA MD Unavailable PROBLEMS Condition Status [...] In-person encounter Office Visit Luis Alarcon MD [facility] Atrial fib paroxysmalFatigue, weakness - In-person encounter Office Visit Luis Alarcon MD [facility] Intermittent palpitationsSystolic murmurCarotid bruit bilateral VITAL SIGNS Date Observation Value Provider Body Mass Index (Ratio) 36.18 kg/m2 Casey banegas [place] blood pressure, cuff size regular Avelino allen [...] Payer name Policy type / Coverage type [place] red constitution party [place] MEDIC[place] PART B Medicare [id number] [facility] [employer] [place] [id number] ADVANCE DIRECTIVES Name Date DISCUSSED - NO [...] a day Orders: 9 9213 LTD 20-29min (CPT-61609) C omplex e/m visit add on (G2211) [...] mouth once a day Luis Alarcon MD Electrophysiology: H is updated medication list for this problem includes: Lisinopril-hydrochlorothiazide 20-25 Mg Tablet (Lisinopril-hydrochlorothiazide) Diltiazem Hcl (cardizem Cd) 120 Mg Capsule,extended Release 24hr (Diltiazem hcl (cardizem cd)) Lisinopril 20 Mg Tablet (Lisinopril) ..... Take 1 tablet by mouth once a day Aspirin 81 Mg Tablet,delayed Release (dr/ec) (Aspirin) ..... Take 1 tablet by mouth once a day Orders: E KG (CPT-28212) 9 9205 HIGH 60-74 min (CPT-58983) A BLATION w/ Anesthesia (*) C omplete Echo (38366) Luis Alarcon MD Date Name Monitor - Telemetry (Mobile Cardiac) PROTHROMBIN TIME WIT H INR Partial Thromboplast in Time, Activated CBC (INCLUDES DIFF/P LT) BASIC METABOLIC PANE L W/EGFR Carotid Duplex Bilat eral Complete Echo ABLATION w/ Anesthes ia Complex e/[place] [address] LTD 20-29min HISTORY OF PROCEDURES Procedure Date Procedure Name Provider Procedure Notes S tatus Complex e/m visit ad d on Luis Alarcon MD active EKG Luis Alarcon MD comp leted
--- OUTSIDE RECORDS SUMMARY | 2024-12-05 16:32 | XMS_ITS | Referral Summary ---
Author Organization [facility] Address [address] [place] [id number] Care Team Providers Care Networking Administrator Name Role Phone Alon Mcneill MD Primary Care Provider + [phone] Encounters Date Type Department Care Team Description 09/07/2024 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 Gender Identity Not on file Sexual Orientation Not on file Last Filed Vital Signs Vital Sign Reading Time Taken Comments Blood Pressure 136/74 09/01/2024 8:00 AM CORE MICROARCHITECT Pulse 66 09/01/2024 8:00 AM CORE MICROARCHITECT Temperature 36.9 C (98.4 F) 09/01/2024 8:00 AM CORE MICROARCHITECT Respiratory Rate 18 09/01/2024 8:00 AM CORE MICROARCHITECT Oxygen Saturation 94% 09/01/2024 8:39 AM CORE MICROARCHITECT Inhaled Oxygen Concentration - - Weight 107 kg (236 lb) 08/31/2024 7:10 AM CORE MICROARCHITECT Height 175.3 cm (5' 9 ) 08/31/2024 7:10 AM CORE MICROARCHITECT Body Mass Index 34.85 08/31/2024 7:10 AM CORE MICROARCHITECT Plan of Treatment Not on file Insurance [employer] MEDICARE [facility] MEDICARE [employer] [place] Care Teams Networking Administrator Relationship Specialty Start Date End Date Alon Mcneill MD [address] [place] [address] PCP - General 05/06/22
--- OUTSIDE RECORDS SUMMARY | 2024-12-05 16:32 | XMS_ITS | Encounter Summary ---
Author Organization [facility] Address [address] [place] [address] Care Team Providers Care Hammer Fitter Name Role Phone Alon Mcneill MD Primary Care Provider [phone] Encounter Details Date Type Department Care Team (Late st Contact Info) Description 01/28/2019 Abstract SFL CONVERSION [address] [place] [address] , Generic Conversion, Social History Tobacco Use [...] on filedocumented in this encounter Care Teams Hammer Fitter Relationship Specialty Start Date End Date Alon Mcneill MD [address] [place] [phone] PCP - General INTERNAL MEDICINE 02/28/19 documented as of this encounter
--- OUTSIDE RECORDS SUMMARY | 2024-12-05 16:32 | XMS_ITS | Clinical Summary ---
Author Organization [facility] Address [address] [place] [id number] Care Team Providers Care Wrister Name Role Phone Alon Mcneill MD Primary Care Provider + [phone] Allergies No known active allergies Medications finasteride [...] Date Type Department Care Team Description 09/07/2024 [facility] Post Discharge Follow up phone call [place] [phone] Amalia Babb RN from Last 3 Months Surgical History Surgery Date Site/Laterality Comments INGUINAL HERNIA REPAIR Inguinal Hernia Repair - (Added by TW Conv) [place] VASECTOMY UNI/BI SPX W/PO STOP SEMEN EXAMS Surgery Vas Deferens Vasectomy - (Added by TW Conv) UT BRNCHSC INCL FLUOR GDNCE DX W/CELL WASHG SPX Bronchoscopy (Therapeutic) - (Added by TW Conv) [place] LITHOTRIPSY XTRCORP SHOCK WAVE Renal Lithotripsy - [...] disease Father Heart Disease - (Added by TW Conv) Relation Name Status Comments Daughter Father Mother Social History Tobacco Use Types Packs/Day Years Used Date Smoking Tobacco: Former Cigarettes Smokeless Tobacco: Former Snuff Tobacco Cessation:Counseling Given: Not Answered Comments:Only smoked in the [employer] in the ' AUDIT-C Answer Date Recorded Q1: How often [...] on file Legal Sex Male 2:50 AM SYSTEM CONFIGURATION SPECIALIST Gender Identity Not on file Sexual Orientation Not on file Obstetrics History Last Filed Vital Signs Vital Sign Reading Time Taken Comments Blood Pressure 136/74 09/01/2024 8:00 AM SYSTEM CONFIGURATION SPECIALIST Pulse 66 09/01/2024 8:00 AM SYSTEM CONFIGURATION SPECIALIST Temperature 36.9 C (98.4 F) 09/01/2024 8:00 AM SYSTEM CONFIGURATION SPECIALIST Respiratory Rate 18 09/01/2024 8:00 AM SYSTEM CONFIGURATION SPECIALIST Oxygen Saturation 94% 09/01/2024 8:39 AM SYSTEM CONFIGURATION SPECIALIST Inhaled Oxygen Concentration - - Weight 107 kg (236 lb) 08/31/2024 7:10 AM SYSTEM CONFIGURATION SPECIALIST Height 175.3 cm (5' 9 ) 08/31/2024 7:10 AM SYSTEM CONFIGURATION SPECIALIST Body Mass Index 34.85 08/31/2024 7:10 AM SYSTEM CONFIGURATION SPECIALIST Plan of Treatment Health Maintenance Due Date [...] (2 - Td or Tdap) 07/09/2026 07/09/2016 Insurance MEDICARE [facility] MEDICARE [facility] MEDICARE [facility] Care Teams Wrister Relationship Specialty Start Date End Date Alon Mcneill MD [address] [place] [address] PCP - General 05/06/22
--- OUTSIDE RECORDS SUMMARY | 2024-12-05 16:32 | XMS_ITS | Clinical Summary ---
Author Organization [facility] Address [address] [place] [address] Care Team Providers Care Waste Water Worker Name Role Phone Alon Mcneill MD Primary Care Provider [phone] Social History Tobacco Use Types Packs/Day Years Used Date Smoking Tobacco: Never Sex and Gender Information Value Date Recorded Sex Assigned at Not on file Legal Sex Male 8:49 PM CDT Gender Identity Not on file Sexual Orientation Not on file Last Filed Vital Signs Vital Sign Reading Time Taken Comments Blood Pressure 133/88 10/17/2009 4:16 AM SENIOR SALES EXECUTIVE Pulse 75 10/17/2009 4:16 AM SENIOR SALES EXECUTIVE Temperature - - Respiratory Rate 16 10/17/2009 4:16 AM SENIOR SALES EXECUTIVE Oxygen Saturation - - Inhaled Oxygen Concentration - - Weight - - Height 180.3 cm (5' 11 ) 10/17/2009 4:16 AM SENIOR SALES EXECUTIVE Body Mass Index - - Plan of [...] Annual Medicare Wellness Visit 2014 Pneumococcal Vaccine: 50+ Ye ars (2 of 2 - PPSV23 [...] Comments LIPID PANEL Routine 09/19/2009 12:00 AM SENIOR SALES EXECUTIVE from Last 3 Months or Most Recently Relevant to Health Maintenance Results * LIPID PANEL (09/19/2009 12:00 AM SENIOR SALES EXECUTIVE) TRIGLYCERIDES 50 0 - 150 mg/dl MEDINFORMATIX [...] TO EPIC CONVERSION - 09/19/2009 3:05 PM SENIOR SALES EXECUTIVE Reviewed by CHART Sep 19 2009 3:05:00:000PM, Reviewed by [facility] Sep 28 2009 9:13:00:000PM 0-150, 0-200, 35-96, 0-130 us Generic Conversion Md [facility] Final R esult MEDINFORMATIX TO EPIC CONVERSION from Last 3 Months or Most Recently Relevant to Health Maintenance Insurance MEDICARE [facility] Care Teams Waste Water Worker Relationship Specialty Start Date End Date Alon Mcneill MD [address] [place] [phone] PCP - General INTERNAL MEDICINE 02/28/19
== END 2024-12-05 15:34 | disposition home or self-care (01) ==
PROVIDERS: PCP Nurse Practitioner Family; Visit Provider Nurse Practitioner Family
DX: R05.9 Cough, unspecified (principal)
CPT/HCPCS: 36415; 71046; 80048; 85027

== ENCOUNTER 2024-12-08 10:16 | Outpatient (CLI) | payer MEDICARE, SELFPAY ==
--- OUTSIDE RECORDS SUMMARY | 2024-12-08 10:26 | XMS_ITS | Encounter Summary ---
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
--- OUTSIDE RECORDS SUMMARY | 2024-12-08 10:26 | XMS_ITS | CONTINUITY OF CARE DOCUMENT ---
Author Name melissa torres Address Unknown Organization [facility] Address [address] [address] [place] [address] Phone [phone] Care Team Providers Care Corporate Coordinator Name Role Phone Dorian HILTON, Luis Unavailable [phone] JAMES BHAKTA MD Unavailable JAMES BHAKTA MD Unavailable [phone] PROBLEMS Condition Status Date Provider Notes Sleep [...] In-person encounter Office Visit Luis Alarcon MD [facility] Atrial fib paroxysmalFatigue, weakness - In-person encounter Office Visit Luis Alarcon MD [facility] Intermittent palpitationsSystolic murmurCarotid bruit bilateral VITAL SIGNS Date Observation Value Provider Body Mass Index (Ratio) 36.18 kg/m2 Casey banegas [place] blood pressure, cuff size regular Avelino allen [...] Payer name Policy type / Coverage type [place] red [place] PART B Medicare [id number] [facility] [employer] [id number] ADVANCE DIRECTIVES Name Date DISCUSSED - NO [...] a day Orders: 9 9213 LTD 20-29min (CPT-36694) C omplex e/m visit add on (G2211) [...] mouth once a day Orders: E KG (CPT-29701) 9 9205 HIGH 60-74 min (CPT-25647) A BLATION w/ Anesthesia (*) C omplete Echo (77017) Luis Alarcon MD Date Name Monitor - Telemetry (Mobile Cardiac) PROTHROMBIN TIME WIT H INR Partial Thromboplast in Time, Activated CBC (INCLUDES DIFF/P LT) BASIC METABOLIC PANE L W/EGFR Carotid Duplex Bilat eral Complete Echo ABLATION w/ Anesthes ia Complex e/[place] [address] LTD 20-29min HISTORY OF PROCEDURES Procedure Date Procedure Name Provider Procedure Notes S tatus Complex e/m visit ad d on Luis Alarcon MD active EKG Luis Alarcon MD comp leted
--- OUTSIDE RECORDS SUMMARY | 2024-12-08 10:26 | XMS_ITS | Continuity of Care Document ---
Author Name [facility] Organization [facility] Care Team Providers Care Lock And Dam Operator Name Role Phone [facility] Unavailable Unavailable Problems Combined list of problems from Department of [facility] and [facility] facilities. It does not include entries that were removed or entered in error. Problem Status Onset Date Problem Type Date of Resolution Comments Source Benign essential hypertension Active Condition [facility] Diabetes mellitus Active Condition [facility] Family history of cancer of colon Active Condition [facility] History of calculus of kidney Active Condition [facility] Hyperlipidemia Active Condition [facility] Sleep apnea Active Condition [facility] Diagnosis: ICD-10-CM H90.3 Sensorineural hearing loss, bilateral Active Diagnosis [facility] Diagnosis: ICD-10-CM H90.A22 Snsrnrl hear loss, uni, l ear, with rstrcd hear cntra side Active Diagnosis [facility] Diagnosis: ICD-10-CM H91.93 Unspecified hearing loss, bilateral Active Diagnosis [facility] Diagnosis: ICD-10-CM E11.9 Type 2 diabetes mellitus without complications Active Diagnosis [facility] Medications Combined list of outpatient medications from Department of [facility] and [facility] facilities.Medications provided include 1) outpatient medications from the last 15 months, and 2) patient-reported medications. Medication Details Route Status Patient Instructions Prescription Expires Prescription Number Last Dispense Date Ordering Provider Order Date Order Qty Source ALOGLIPTIN 12.5MG TAB TAKE ONE TABLET BY MOUTH ONCE A DAY ORAL DISCONT INUED (EDIT) 07/23/2024 [id number] KARYN ROBISON 2022 [facility] ALOGLIPTIN 25MG TAB TAKE ONE TABLET BY MOUTH ONCE A DAY FOR DIABETES ORAL DISCONT INUED 01/03/2025 [id number] SAKRENATEKARYN 2023 90 [facility] AMLODIPINE BESYLATE 2.5MG TAB TAKE ONE TABLET BY MOUTH ONCE A DAY ORAL ACTIVE [facility]QUETA[facility]23 [facility] ASPIRIN 81MG TAB,EC TAKE ONE TABLET BY MOUTH ONCE A DAY ORAL ACTIVE FRANKLINRENATE[facility] BETAMETHASO NE VALERATE 0.1% OINT,TOP APPLY SPARINGL Y TO AFFECTED AREA(S) TWICE DAILY NEEDED (EXTERNA L USE ONLY) APPLY SMALL DAB TO ENTRANCE OF EAR CANAL TWICE A DAY NEEDED FOR ITCHING TOPICA L 10/20/2024 [id number] NATHALY DOOLEY 2023 45 [facility] N CETIRIZINE HCL 10MG TAB TAKE ONE TABLET BY MOUTH ONCE A DAY NEEDED ORAL ACTIVE RENE ROBISONJAYA [facility] FINASTERIDE 5MG TAB TAKE ONE TABLET BY MOUTH ONCE A DAY ORAL ACTIVE [facility] GLIMEPIRIDE 4MG TAB TAKE ONE TABLET BY MOUTH EVERY MORNING ORAL ACTIVE EN[facility]ETA2022 [facility] HYDROCHLORO THIAZIDE 25MG/LISINO PRIL 20MG TAB TAKE ONE TABLET BY MOUTH EVERY MORNING ORAL ACTIVE ENRIQUETA2022 [facility] LISINOPRIL 40MG TAB TAKE ONE-HALF TABLET BY MOUTH ONCE A DAY ORAL ACTIVE EN[facility]QUETA2022 [facility] LOVASTATIN 40MG TAB TAKE ONE TABLET BY MOUTH EVERY EVENING ORAL ACTIVE [facility]QUETA[facility] METFORMIN HCL 500MG 24HR TAB,SA TAKE FOUR TABLETS BY MOUTH EVERY MORNING BEFORE A MEAL ORAL ACTIVE [facility]RIQUETA[facility] PIOGLITAZON E HCL 30MG TAB TAKE ONE TABLET BY MOUTH ONCE A DAY ORAL ACTIVE GARRY SANTANA 2023 [facility] SITAGLIPTIN (EQV-ZITUVI O) 25MG TAB TAKE ONE TABLET BY MOUTH ONCE A DAY FOR DIABETES ORAL ACTIVE 09/05/2025 [id number] KARYN ROBISON 2024 90 [facility] Immunizations Combined list of available immunizations from the Department of Defense and Veterans Affairs facilities. 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 Code Drug Event Staff Member Status Comments Source COVID-19 (PFIZER), MRNA, LNP-S, PF, 30 MCG/0.3 ML DOSE 3 2020 208 complet ed [facility] COVID-19 (PFIZER), MRNA, LNP-S, PF, 30 MCG/0.3 ML DOSE 2 2020 208 complet ed [facility] COVID-19 (LendLayer), MRNA, LNP-S, PF, 30 MCG/0.3 ML DOSE 1 2020 208 complet ed [facility] ZOSTER LIVE 2014 121 complet ed [facility] INFLUENZA, UNSPECIFIED FORMULATION 2013 88 complet ed [facility] Results Combined list of [...] Lab: [facility] [address] [facility] [address] Performing Lab: [facility] [address] [facility] [address] [facility] BASIC METABOLIC PANEL UREA NITROGEN [MASS/VOLUM E] IN SERUM OR PLASMA 16.7 mg/dL 9.0 - 25.0 07/12 Specimen Type: PLASMA Comment: No hemolysis noted. Ordering Provider: OLYA NICHOLS Report Released Date/Time: Jul 12, 2024 01:43 PM Reporting Lab: [facility] [address] [facility] [address] Performing Lab: [facility] [address] [facility] [address] [facility] BASIC METABOLIC PANEL GLUCOSE [MASS/VOLUM E] IN SERUM OR PLASMA 168 mg/dL 72 - 99 07/12 H Specimen Type: PLASMA Comment: No hemolysis noted. Ordering Provider: OLYA NICHOLS Report Released Date/Time: Jul 12, 2024 01:43 PM Reporting Lab: [place] [address] [facility] [address] Performing Lab: [place] [address] [facility] [address] [facility] BASIC METABOLIC PANEL SODIUM [MOLES/VOLU ME] IN SERUM OR PLASMA 144 meq/L 136 - 145 07/12 Specimen Type: PLASMA Comment: No hemolysis noted. Ordering Provider: OLYA NICHOLS Report Released Date/Time: Jul 12, 2024 01:43 PM Reporting Lab: [place] [address] [facility] [address] Performing Lab: [place] [address] [facility] [address] [facility] BASIC METABOLIC PANEL POTASSIUM [MOLES/VOLU ME] IN SERUM OR PLASMA 3.8 meq/L 3.5 - 5 07/12 Specimen Type: PLASMA Comment: No hemolysis noted. Ordering Provider: OLYA NICHOLS Report Released Date/Time: Jul 12, 2024 01:43 PM Reporting Lab: [place] [address] [facility] [address] Performing Lab: [place] [address] [facility] [address] [facility] BASIC METABOLIC PANEL CHLORIDE [MOLES/VOLU ME] IN SERUM OR PLASMA 106 meq/L 98 - 107 07/12 Specimen Type: PLASMA Comment: No hemolysis noted. Ordering Provider: OLYA NICHOLS Report Released Date/Time: Jul 12, 2024 01:43 PM Reporting Lab: [facility] [address] [facility] [address] Performing Lab: [facility] [address] [facility] [address] [facility] BASIC METABOLIC PANEL CARBON DIOXIDE, TOTAL [MOLES/VOLU ME] IN SERUM OR PLASMA 27 meq/L 22 - 31 07/12 Specimen Type: PLASMA Comment: No hemolysis noted. Ordering Provider: OLYA NICHOLS Report Released Date/Time: Jul 12, 2024 01:43 PM Reporting Lab: [place] [address] [facility] [address] Performing Lab: [address] [phone] [place] [address] BASIC METABOLIC PANEL CALCIUM [MASS/VOLUM E] IN SERUM OR PLASMA 9.4 mg/dL 8.4 - 10.4 07/12 Specimen Type: PLASMA Comment: No hemolysis noted. Ordering Provider: OLYA NICHOLS Report Released Date/Time: Jul 12, 2024 01:43 PM Reporting Lab: [place] [address] [facility] [address] Performing Lab: [place] [address] [facility] [address] [facility] BASIC METABOLIC PANEL GLOMERULAR FILTRATION RATE/1.73 SQ M.PREDICTED [VOLUME RATE/AREA] IN SERUM, PLASMA OR BLOOD BY CREATININE- BASED FORMULA (CKD-EPI 2020) 70.4 60 07/12 Specimen Type: PLASMA Comment: No hemolysis noted. Ordering Provider: OLYA NICHOLS Report Released Date/Time: Jul 12, 2024 01:43 PM Reporting Lab: [facility] [address] [facility] [address] Performing Lab: [place] [address] [facility] [address] [facility] CBC LEUKOCYTES [#/VOLUME] IN BLOOD BY AUTOMATED COUNT 6.6 10*3/u L 3.6 - 11.2 07/12 Specimen Type: BLOOD No comment entered. Ordering Provider: OLYA NICHOLS Report Released Date/Time: Jul 12, 2024 01:43 PM Reporting Lab: [address] [address] Performing Lab: [address] [address] [facility] CBC ERYTHROCYTE S [#/VOLUME] IN BLOOD BY AUTOMATED COUNT 4.59 10*6/u L 4.10 - 5.70 07/12 Specimen Type: BLOOD No comment entered. Ordering Provider: OLYA NICHOLS Report Released Date/Time: Jul 12, 2024 01:43 PM Reporting Lab: [address] [address] Performing Lab: [address] [phone] [place] [address] CBC HEMOGLOBIN [MASS/VOLUM E] IN BLOOD 14.2 g/dL 13.1 - 16.8 07/12 Specimen Type: BLOOD No comment entered. Ordering Provider: OLYA NICHOLS Report Released Date/Time: Jul 12, 2024 01:43 PM Reporting Lab: [address] [address] Performing Lab: [address] [phone] [place] [address] CBC HEMATOCRIT [VOLUME FRACTION] OF BLOOD 43.6 38.2 - 48.4 07/12 Specimen Type: BLOOD No comment entered. Ordering Provider: OLYA NICHOLS Report Released Date/Time: Jul 12, 2024 01:43 PM Reporting Lab: [address] [address] Performing Lab: [address] [address] [facility] CBC MCV [ENTITIC VOLUME] BY AUTOMATED COUNT 95.0 fL 80.0 - 100.0 07/12 Specimen Type: BLOOD No comment entered. Ordering Provider: OLYA NICHOLS Report Released Date/Time: Jul 12, 2024 01:43 PM Reporting Lab: [address] [address] Performing Lab: [address] [address] [facility] CBC MCH [ENTITIC MASS] BY AUTOMATED COUNT 30.9 pg 27.0 - 34.0 07/12 Specimen Type: BLOOD No comment entered. Ordering Provider: OLYA NICHOLS Report Released Date/Time: Jul 12, 2024 01:43 PM Reporting Lab: [address] [address] Performing Lab: [address] [address] [facility] CBC MCHC [MASS/VOLUM E] BY AUTOMATED COUNT 32.6 g/dL 33.0 - 36.0 07/12 L Specimen Type: BLOOD No comment entered. Ordering Provider: OLYA NICHOLS Report Released Date/Time: Jul 12, 2024 01:43 PM Reporting Lab: [address] [address] Performing Lab: [address] [address] [facility] CBC PLATELETS [#/VOLUME] IN BLOOD BY AUTOMATED COUNT 199 10*3/u L 150 - 400 07/12 Specimen Type: BLOOD No comment entered. Ordering Provider: OLYA NICHOLS Report Released Date/Time: Jul 12, 2024 01:43 PM Reporting Lab: [address] [address] Performing Lab: [address] [address] [facility] CBC PLATELET MEAN VOLUME [ENTITIC VOLUME] IN BLOOD BY AUTOMATED COUNT 10.6 fL 7.5 - 11.2 07/12 Specimen Type: BLOOD No comment entered. Ordering Provider: OLYA NICHOLS Report Released Date/Time: Jul 12, 2024 01:43 PM Reporting Lab: [facility] [address] [facility] [address] Performing Lab: [facility] [address] [place] [address] [facility] CBC ERYTHROCYTE DISTRIBUTIO N WIDTH [RATIO] BY AUTOMATED COUNT 13.9 11.8 - 15.1 07/12 Specimen Type: BLOOD No comment entered. Ordering Provider: OLYA NICHOLS Report Released Date/Time: Jul 12, 2024 01:43 PM Reporting Lab: [facility] [address] [place] [phone] Performing Lab: [facility] [address] [place] [phone] [place] [address] CBC LYMPHOCYTES /100 LEUKOCYTES IN BLOOD BY AUTOMATED COUNT 31 07/12 Specimen Type: BLOOD No comment entered. Ordering Provider: OLYA NICHOLS Report Released Date/Time: Jul 12, 2024 01:43 PM Reporting Lab: [facility] [address] [place] [phone] Performing Lab: [facility] [address] [place] [address] [facility] CBC MONOCYTES/1 00 LEUKOCYTES IN BLOOD BY AUTOMATED COUNT 9 07/12 Specimen Type: BLOOD No comment entered. Ordering Provider: OLYA NICHOLS Report Released Date/Time: Jul 12, 2024 01:43 PM Reporting Lab: [facility] [address] [place] [address] Performing Lab: [facility] [address] [facility] [address] [facility] CBC NEUTROPHILS /100 LEUKOCYTES IN BLOOD BY AUTOMATED COUNT 56 07/12 Specimen Type: BLOOD No comment entered. Ordering Provider: OLYA NICHOLS Report Released Date/Time: Jul 12, 2024 01:43 PM Reporting Lab: [facility] [address] [facility] [address] Performing Lab: [facility] [address] [facility] [address] [facility] CBC EOSINOPHILS /100 LEUKOCYTES IN BLOOD BY AUTOMATED COUNT 3 07/12 Specimen Type: BLOOD No comment entered. Ordering Provider: OLYA NICHOLS Report Released Date/Time: Jul 12, 2024 01:43 PM Reporting Lab: [place] [address] [facility] [address] Performing Lab: [place] [address] [place] [phone] [facility] CBC BASOPHILS/1 00 LEUKOCYTES IN BLOOD BY AUTOMATED COUNT 1 07/12 Specimen Type: BLOOD No comment entered. Ordering Provider: OLYA NICHOLS Report Released Date/Time: Jul 12, 2024 01:43 PM Reporting Lab: [facility] [address] Performing Lab: [place] [address] [facility] [address] [facility] CBC LYMPHOCYTES [#/VOLUME] IN BLOOD BY AUTOMATED COUNT 2.05 10*3/u L 0.77 - 4.50 07/12 Specimen Type: BLOOD No comment entered. Ordering Provider: OLYA NICHOLS Report Released Date/Time: Jul 12, 2024 01:43 PM Reporting Lab: [facility] [address] Performing Lab: [facility] [address] [facility] CBC MONOCYTES [#/VOLUME] IN BLOOD BY AUTOMATED COUNT 0.59 10*3/u L 0.19 - 0.80 07/12 Specimen Type: BLOOD No comment entered. Ordering Provider: STROBER,OLYA SCOTT A Report Released Date/Time: Jul 12, 2024 01:43 PM Reporting Lab: [place] [phone] Performing Lab: [address] [address] [facility] CBC NEUTROPHILS [#/VOLUME] IN BLOOD BY AUTOMATED COUNT 3.68 10*3/u L 2.10 - 8.00 07/12 Specimen Type: BLOOD No comment entered. Ordering Provider: OLYA NICHOLS A Report Released Date/Time: Jul 12, 2024 01:43 PM Reporting Lab: [place] [phone] Performing Lab: [address] [phone] CBC EOSINOPHILS [#/VOLUME] IN BLOOD BY AUTOMATED COUNT 0.21 10*3/u L 0.00 - 0.60 07/12 Specimen Type: BLOOD No comment entered. Ordering Provider: OLYA NICHOLS A Report Released Date/Time: Jul 12, 2024 01:43 PM Reporting Lab: [place] [phone] Performing Lab: [address] [address] [facility] CBC BASOPHILS [#/VOLUME] IN BLOOD BY AUTOMATED COUNT 0.05 10*3/u L 0.00 - 0.20 07/12 Specimen Type: BLOOD No comment entered. Ordering Provider: OLYA NICHOLS A Report Released Date/Time: Jul 12, 2024 01:43 PM Reporting Lab: [place] [phone] Performing Lab: [address] [address] [facility] GLUCOSE,B LOOD-poct (STL) GLUCOSE [MASS/VOLUM E] IN BLOOD BY AUTOMATED TEST STRIP 115 mg/dL 72 - 99 01/01 H Specimen Type: BLOOD Comment: Test Performed by: [id number] Meter #: [id number] Ordering Provider: Sae RBOISON Report Released Date/Time: January 01, 2023 04:03 PM Reporting Lab: [facility] [address] [facility] [address] Performing Lab: [facility] [address] [facility] [address] [facility] Vital Signs Combined list of inpatient and outpatient Vital Signs from Department of [facility] and [facility], ranging from 12 months to all on record, depending upon the facility. Vital Sign Value Date Comments Source SYSTOLIC BLOOD PRESSURE 152 07/12/2024 12:47:25 [facility] DIASTOLIC BLOOD PRESSURE 74 07/12/2024 12:47:25 [facility] PULSE OXIMETRY 96 07/12/2024 12:47:25 [facility] PAIN 0 07/12/2024 12:47:25 [facility] TEMPERATURE 97.7 07/12/2024 12:47:25 [facility] PULSE 65 07/12/2024 12:47:25 [facility] RESPIRATION 16 07/12/2024 12:47:25 [facility] Encounters Combined list of: 1) Encounters from Department of [facility] facilities going backup to the last 18 months, not all [place] inpatient encounters are included; 2) Encounters from the Department [facility] facilities going backup to 280 months. Location Location Details Encounter Type Encounter Number Reason For Visit Attending Provider ADM Date DC Date Status Disposition Source [facility] Outpatient Encounter [id number] RIGOBERTO RYAN 07/[address] [facility] Outpatient Encounter [id number] 07/[address] [facility] QNHP OL DIG ASSMT&MGMT 5-10 [id number] Diagnos is: ICD-10- CM E11.9 Type 2 diabete s mellitu s without complic ations KAMINI SANTANA 07/23 [facility] N [facility] Outpatient Encounter [id number] LOUIE MEYER 12/[address] [facility] Outpatient Encounter [id number] 01/02 [facility] OFFICE O/P EST MOD 30 MIN [id number] Diagnos is: ICD-10- CM E11.9 Type 2 diabete s mellitu s without complic ations KARYN ROBISON 01/02 [facility] MTMS BY PHARM ADDL 15 MIN [id number] Diagnos is: ICD-10- CM E11.9 Type 2 diabete s mellitu s without complic ations KAMINI SANTANA 01/18 [facility] UNLISTED ORL SERVICE/PX [id number] Diagnos is: ICD-10- CM H90.3 Sensori neural hearing loss, bilKaran Cespedes 07/[address] [facility] OFFICE O/P EST LOW 20 MIN [id number] Diagnos is: ICD-10- CM H91.93 Unspeci fied hearing loss, bilater JAGJIT Moran 07/12 [facility] N [facility] Outpatient Encounter [id number] 07/12 [facility] [place] [id number] Diagnos is: ICD-10- CM H90.A22 Snsrnrl hear loss, uni, l ear, with rstrcd hear cntra side MAXIMOLANDON Bae 07/19 [facility] N [facility] HEARING AID CHECK BOTH EARS [id number] Diagnos is: ICD-10- CM H90.3 Sensori neural hearing loss, bilater al LANDON MARSH 08/02 [facility] Outpatient Encounter [id number] 09/03 [facility] Outpatient Encounter [id number] 10/31 [facility] Outpatient Encounter [id number] 11/01 [facility] Outpatient Encounter [id number] 11/10 [facility] Outpatient Encounter [id number] 11/27 [facility] N Social History Combined list of available smoking, tobacco, and other social history from Department of Defense and [facility] facilities. Social History Type Response Date Comment [facility] e Tobacco smoking status NHIS [place]-TOBACCO NEVER USED 01/03/2024 [facility] History of tobacco use [place]-TOBACCO FORMER USER 06/22/2022 [facility] History of tobacco use [place]-TOBACCO FORMER USER 07/22/2021 [facility] History of tobacco use CURRENT TOBACCO USER 01/08/2015 [facility] Plan of Care List of future care activities from Department of [facility] facilities. Additional future care activities may be listed in the Assessment and Plan section. Date/Time Care Activity Care Activity Detail Facili ty 12/27/2024 AMBULATORY - NONE AMBULATORY - NONE [facility]
--- OUTSIDE RECORDS SUMMARY | 2024-12-08 10:26 | XMS_ITS | Encounter Summary ---
Author Organization [facility] Address [address] [place] [address] Care Team Providers Care Alliance Director Name Role Phone Alon Mcneill MD Primary Care Provider [phone] Encounter Details Date Type Department Care Team (Late st Contact Info) Description 01/28/2019 Abstract [facility] CONVERSION [address] [place] [address] , Generic Conversion, Social History Tobacco Use [...] on filedocumented in this encounter Care Teams Alliance Director Relationship Specialty Start Date End Date Alon Mcneill MD [address] [place] [phone] PCP - General INTERNAL MEDICINE 02/28/19 documented as of this encounter
--- OUTSIDE RECORDS SUMMARY | 2024-12-08 10:26 | XMS_ITS | Clinical Summary ---
Author Organization [facility] Address [address] [place] [address] Care Team Providers Care Director Of Hemophilia Name Role Phone Alon Mcneill MD Primary Care Provider + [phone] Allergies No known active allergies Medications finasteride [...] SVT (supraventricular tachycardia) 08/09/2024 Lung mass 05/28/2009 Surgical History Surgery Date Site/Laterality Comments INGUINAL HERNIA REPAIR Inguinal Hernia Repair - (Added by TW Conv) [place] VASECTOMY UNI/BI SPX W/PO STOP SEMEN EXAMS Surgery Vas Deferens Vasectomy - (Added by TW Conv) [place] BRNCHSC INCL FLUOR GDNCE DX W/CELL WASHG SPX Bronchoscopy (Therapeutic) - (Added by TW Conv) [place] LITHOTRIPSY XTRCORP SHOCK WAVE Renal Lithotripsy - [...] on file Legal Sex Male 2:50 AM [employer]LINDER CHECKER Gender Identity Not on file Sexual Orientation Not on file Obstetrics History Last Filed Vital Signs Vital Sign Reading Time Taken Comments Blood Pressure 136/74 09/01/2024 8:00 AM [employer]ER CHECKER Pulse 66 09/01/2024 8:00 AM [employer]LINDER CHECKER Temperature 36.9 C (98.4 F) 09/01/2024 8:00 AM [employer]LINDER CHECKER Respiratory Rate 18 09/01/2024 8:00 AM CYLINDER CHECKER Oxygen Saturation 94% 09/01/2024 8:39 AM CYLINDER CHECKER Inhaled Oxygen Concentration - - Weight 107 kg (236 lb) 08/31/2024 7:10 AM [employer]LINDER CHECKER Height 175.3 cm (5' 9 ) 08/31/2024 7:10 AM CYLINDER CHECKER Body Mass Index 34.85 08/31/2024 7:10 AM CYLINDER CHECKER Plan of Treatment Health Maintenance Due Date [...] Td or Tdap) 07/09/2026 07/09/2016 Insurance MEDICARE [employer] [facility] [place] [address] Care Teams Director Of Hemophilia Relationship Specialty Start Date End Date Alon Mcniell MD [address] [place] [address] PCP - General 05/06/22
--- OUTSIDE RECORDS SUMMARY | 2024-12-08 10:26 | XMS_ITS | Clinical Summary ---
Author Organization [facility] Address [address] [place] [id number] Care Team Providers Care Manager Field Sales Name Role Phone Alon Mcneill MD Primary Care Provider [phone] Social History Tobacco Use Types Packs/Day Years Used Date Smoking Tobacco: Never Sex and Gender Information Value Date Recorded Sex Assigned at Not on file Legal Sex Male 8:49 PM CDT Gender Identity Not on file Sexual Orientation Not on file Last Filed Vital Signs Vital Sign Reading Time Taken Comments Blood Pressure 133/88 10/17/2009 4:16 AM MEDICAL EDUCATOR Pulse 75 10/17/2009 4:16 AM MEDICAL EDUCATOR Temperature - - Respiratory Rate 16 10/17/2009 4:16 AM MEDICAL EDUCATOR Oxygen Saturation - - Inhaled Oxygen Concentration - - Weight - - Height 180.3 cm (5' 11 ) 10/17/2009 4:16 AM MEDICAL EDUCATOR Body Mass Index - - Plan of [...] 50+ Ye ars (2 of 2 - PPSV23) 01/27/2018 12/02/2017 COVID-19 Vaccine ( - 2023-2 [...] Comments LIPID PANEL Routine 09/19/2009 12:00 AM MEDICAL EDUCATOR from Last 3 Months or Most Recently Relevant to Health Maintenance Results * LIPID PANEL (09/19/2009 12:00 AM MEDICAL EDUCATOR) TRIGLYCERIDES 50 0 - 150 mg/dl MEDINFORMATIX [...] TO EPIC CONVERSION - 09/19/2009 3:05 PM MEDICAL EDUCATOR Reviewed by CHART Sep 19 2009 3:05:00:000PM, Reviewed by [facility] Sep 28 2009 9:13:00:000PM 0-150, 0-200, 35-96, 0-130 us Generic Conversion Md [facility] Final R esult MEDINFORMATIX TO EPIC CONVERSION from Last 3 Months or Most Recently Relevant to Health Maintenance Insurance MEDICARE [facility] Care Teams Manager Field Sales Relationship Specialty Start Date End Date Alon Mcneill MD [address] [place] [address] PCP - General INTERNAL MEDICINE 02/28/19
--- OUTSIDE RECORDS SUMMARY | 2024-12-08 10:26 | XMS_ITS | Referral Summary ---
Author Organization [facility] Address [address] [place] [id number] Care Team Providers Care Cpht Name Role Phone Alon Mcneill MD Primary Care Provider [phone] Allergies No known active allergies Medications finasteride [...] on file Legal Sex Male 2:50 AM COOK TACO Gender Identity Not on file Sexual Orientation Not on file Last Filed Vital Signs Vital Sign Reading Time Taken Comments Blood Pressure 136/74 09/01/2024 8:00 AM COOK TACO Pulse 66 09/01/2024 8:00 AM COOK TACO Temperature 36.9 C (98.4 F) 09/01/2024 8:00 AM COOK TACO Respiratory Rate 18 09/01/2024 8:00 AM COOK TACO Oxygen Saturation 94% 09/01/2024 8:39 AM COOK TACO Inhaled Oxygen Concentration - - Weight 107 kg (236 lb) 08/31/2024 7:10 AM COOK TACO Height 175.3 cm (5' 9 ) 08/31/2024 7:10 AM COOK TACO Body Mass Index 34.85 08/31/2024 7:10 AM COOK TACO Plan of Treatment Not on file Insurance MEDICARE [facility] MEDICARE [facility] MEDICARE [facility] Care Teams Cpht Relationship Specialty Start Date End Date Alon Mcneill MD [address] [place] [address] PCP - General 05/06/22
[2024-12-08 10:36] LABS: Anion Gap 9 mmol/L (4-12); Blood Urea Nitrogen 19 mg/dL (7-18); Calcium 8.9 mg/dL (8.5-10.1); Carbon Dioxide 29 mmol/L (21-32); Chloride 104 mmol/L (98-108); Estimated Glomerular Filt Rate 51; Glucose 252 mg/dL (70-99); Osmolality Calculated 305 mOsm/kg (285-295); Potassium 3.7 mmol/L (3.5-5.1); Sodium 142 mmol/L (136-145)
== END 2024-12-08 10:17 | disposition home or self-care (01) ==
LOC: CHSLAB 10:18
PROVIDERS: PCP Nurse Practitioner Family; Visit Provider Nurse Practitioner Family
DX: E86.0 Dehydration (principal)
CPT/HCPCS: 36415; 80048

== ENCOUNTER 2025-01-23 17:58 | Emergency (ER) | payer MEDICARE, OTHER, SELFPAY ==
--- NOTE | ~2025-01-23 | CT_ITS ---
CT abdomen pelvis wo con Ordering provider: Ajay Zaragoza MD History: 74 years Male with . pain LLQ, blood in stool today, hx of diverticulitis . Comparison: May 26, 2024 Technique: CT abdomen and pelvis with IV and without oral contrast. Automated exposure control and it erative reconstruction technique were employed. The dose-length product was 1230.80 mGy-cm. Findings: VISUALIZED LOWER CHEST: Normal. UPPER ABDOMINAL ORGANS: Liver: Fat infiltration. Hepatomegaly. Gallbladder: Contracted. Spleen: Normal. Stomach/duodenum: Normal. Pancreas: Normal. Adrenals: Right adrenal adenoma unchanged from previous examination. Kidneys: Hypodensity in the left kidney lower pole unchanged from previous examination suggestive of a cyst. Stone in the right kidney lower pole unchanged PELVIC ORGANS: The bladder shows slightly thickened wall which may indicate cystitis. BOWEL AND MESENTERY: Colon: Mild sigmoid diverticulosis without diverticulitis. Slightly thickened wall of the sigmoid col on is seen with minimal surrounding fat stranding which may indicate colitis or diverticulitis. Follo w-up advised. Normal appendix. Small Bowel: Normal. No obstruction. Peritoneum/mesentery: No free air or free fluid. No mesenteric lymphadenopathy. RETROPERITONEUM: Mild atheromatous disease of the abdominal aorta. No retroperitoneal lymphadenopat hy. MUSCULOSKELETAL: Superficial soft tissues: Small fat-containing umbilical hernia. The superficial soft tissues are nor mal. Bones: Age appropriate degenerative changes of the spine. Fracture in the right fifth, sixth and iraida nth rib anteriorly. Bilateral sacroiliitis. Bilateral hip osteoarthritic changes. IMPRESSION: 1. Possible colitis versus diverticulitis in the proximal sigmoid colon. 2. Right kidney stone unchanged from previous examination. 3. Right adrenal adenoma unchanged. 4. Hepatomegaly with fat infiltration. Reviewed, dictated and finalized at location A.
[2025-01-23 18:00] VITALS: BP 172/72; PULSE 97; RESP 18; TEMP 36.7; O2SAT 97
--- OUTSIDE RECORDS SUMMARY | 2025-01-23 18:00 | XMS_ITS | Encounter Summary ---
Author Name [facility] Organization [facility] Address [address] [place] [address] Care Team Providers Care State Archivist Name Role Phone KARYN ROBISON Primary Care [...] PART B Aug 23, 2014 PART B [id number] [phone] DOUG KIRKLAND PATIENT MEDICARE (WNR) MEDICARE (M) PART A Jul 23, 2014 PART A [id number] DOUG KIRKLAND PATIENT [employer] PLAN F MEDIC ARE SUPPL EMENT Feb 20, 2015 PLAN F [id number] [phone] DOUG KIRKLAND PATIENT Selected Encounter This section includes the information on record at [place] for the Encounter. Date/Time Encounter Type Encounter Description Reason Provider Source December 27, 2024 09:20 AM Outpatient Encounter ADMIN PAT ACTIVTIES (MASNONCT) JUANI TALAMANTES Melania Encounter Template Text not used by [place] Plan of Treatment: Future Appointments (+ 6 months) and Future Tests (+/- 45 days) The Plan of Treatment section includes future care activities for the patient from all [place] [facility]. This section includes future appointments and future orders which are active, pending or scheduled. Future Appointments This section includes appointments that were scheduled to occur 6 months from the date of the Encounter, up to a maximum of 20 appointments. The data comes from all [place] treatment facilities. Appointment Date/Time Appointment Type Appointme nt Facility Name January 01, 2025 09:00 AM AMBULATORY - MEDICINE [facility] Jan 24, 2025 11:30 AM AMBULATORY - SURGERY [facility] Active, Pending, and Scheduled Orders This section includes a listing of several types of active, pending, and scheduled orders, including clinic medications orders, diagnostic test orders, procedure orders and consult orders; where the start date of the order is 45 days before the date of the Encounter or 45 days after the date of theEncounter. The data comes from all [facility]. Test Date/Time Test Type Test Details Facility Name December 27, 2024 08:10 AM Pharmacy - Clinic Medication Order [facility] Lab Results: +/- 30 days of the encounter This section includes the Chemistry and Hematology Lab Results on record with [place] for the patient. Radiology Reports and Pathology Reports are provided separately, in subsequent sections. Lab Results This section contains the Chemistry/Hematology Results that were resulted 30 days before or 30 daysafter the date of the Encounter. Date/Time Source Result Type Result - Unit Interpretation Reference Range Specimen Type Comment December 27, 2024 09:08 AM [facility] GLUCOSE,BLOOD-poct (STL) BLOOD Specimen Type: BLOOD Comment: Test Performed by: [id number] Meter #: [id number] Ordering Provider: AGA GARCIA Report Released Date/Time: December 28, 2024 08:00 AM Reporting Lab: [address] [address] Performing Lab: [address] [address] GLUCOSE,BLOOD-poct (STL) 200 mg/dL H 72-99 December 27, 2024 06:50 AM [facility] GLUCOSE,BLOOD-poct (STL) BLOOD Specimen Type: BLOOD Comment: Test Performed by: [id number] Meter #: [id number] Ordering Provider: KARYN ROBISON Report Released Date/Time: December 27, 2024 06:51 AM Reporting Lab: [facility] [address] [facility] [address] Performing Lab: [facility] [address] [facility] [address] GLUCOSE,BLOOD-poct (STL) 206 mg/dL H 72-99 Vital Signs: All taken on the encounter date This section contains inpatient and outpatient Vital Signs collected on the date of the Encounter. Date/Time Temperature Pulse Blood Pressure Respiratory Rate SP02 Pain Height Weight Body Mass Index Source December 27, 2024 09:20 AM 97.3 57 144/77 17 94 0 [facility] December 27, 2024 07:45 AM 97.3 60 152/71 20 94 0 70 236.6 34 [facility] Social History: Smoking Status (Most current) and Tobacco Use (All prior to encounter date) This section includes the most current, and the historical, smoking and tobacco- related health factors from the [place] facility where the Encounter took place. Current Smoking Status This section includes the most current smoking, or tobacco-related health factor, from the [place] facility where the Encounter took place. Date/Time Current Smoking Status Comment Bran [email or web address] January 08, 2015 09:46 AM TOBACCO MEDS OFFER ED BUT DECLINED [facility] Tobacco Use History This section includes a history of the smoking, or tobacco-related health factors, that were collected on or before the date of the Encounter. The data comes from the [place] facility where the Encounter took place. Date/Time Smoking Status/Tobacco Use Comment F [email or web address] January 08, 2015 09:46 AM TOBACCO MEDS OFFER ED BUT DECLINED [facility] Encounter Notes: All associated encounter notes This section contains the clinical notes associated to the Encounter. Date/Time Encounter Note(s) Provider Source December 27, 2024 09:20 AM ANESTHESIOLOGY LENARD WSHEET: LOCAL TITLE: PACU POST-OP FLOWSHEET STL STANDARD TITLE: ANESTHESIOLOGY FLOWSHEET DATE OF NOTE: DECEMBER 27, 2024@09:20 ENTRY DATE: DECEMBER 27, 2024@09:20:54 AUTHOR: JUANI TALAMANTES EXP COSIGNER: URGENCY: STATUS: COMPLETED Patient: DOUG KIRKLAND SSN: [id number] Anesthesia Method: Monitored 12/27/2024 8:34 (Primary), Level Of Consciousness: Sedated, Monitors Applied, Oxygen Therapy: Mask, EtCO2 Verified: Waveform Positioning: Head Neutral, Head And Neck In Alignment With Spine, Pressure Points Padded & Checked, Eyes, Ears And Nose Free Of Pressure ASA Number: 3 Procedure: Removal right ear tube, possible bilateral T-tube Diagnosis: Conductive hearing loss Ototoxic hearing loss, unspecified ear PACU Drugs: PACU Fluids: Date of Operation: 12/27/2024 Anesthesia Care End: 12/27/2024 9:01 Resources: Aquacel foam placed on rene prominence to protect skin during surgery Safety Belt Staff: --------- MARILIN PISANO, SURGEON HILTON WALKER, ATT. SURGEON ANA OLIVA, Holding Nurse ANA OLIVA, Holding Nurse AGA GARCIA ANES. SUPER. LUGO, MICHAEL, PRIN. ANES. YUNGLING, NEKCOE, Post-Op Nurse Surgery Start Time: 12/27/2024 8:33 Procedure End Time: Moderate Sedation Care End: /luma/ YURI HARPER, RN Signed: 12/27/2024 09:20 JUANI TALAMANTES [facility]
--- OUTSIDE RECORDS SUMMARY | 2025-01-23 18:00 | XMS_ITS ---
Author Name [facility] Organization [facility] Address [address] [place] [id number] Care Team Providers Care Gore Stitcher Name Role Phone KARYN ROBISON Primary Care [...] PART B Aug 23, 2014 PART B [id number] [place] PATIENT MEDICARE (WNR) MEDICARE (M) PART A Jul 23, 2014 PART A [id number] D[place] PATIENT [employer] [facility] [employer] PLAN F MEDIC ARE SUPPL EMENT Feb 20, 2015 PLAN F [id number] [phone] DOUG [place] PATIENT Selected Encounter This section includes the information on record at [place] for the Encounter. Date/Time Encounter Type Encounter Description Reason Provider Source Jul 12, 2024 01:00 PM OFFICE O/P EST LOW 20 MIN OTOLARYNGOLOGY/EN T ICD-10-CM H91.93 Unspecified hearing loss, bilateral SMETAK,JAYNE HOWARD IHE Encounter Template Text not used by [place] Assessments - Encounter Diagnoses This section includes the primary and secondary diagnoses documented for the Encounter. Date/Time Primary/Secondary Diagnosis Diagnosis Name Provider Source Jul 25, 2024 01:29 PM PRIMARY Unspecified hearing loss, bilateral ALEJO JORDAN [facility] Plan of Treatment: Future Appointments (+ 6 months) and Future Tests (+/- 45 days) The Plan of Treatment section includes future care activities for the patient from all [place] treatmentfacilities. This section includes future appointments and future orders which are active, pending or scheduled. Future Appointments This section includes appointments that were scheduled to occur 6 months from the date of the Encounter, up to a maximum of 20 appointments. The data comes from all [place] treatment facilities. Appointment Date/Time Appointment Type Appointme nt Facility Name Jul 19, 2024 09:00 AM AMBULATORY - SURGERY [facility] Aug 02, 2024 10:15 AM AMBULATORY - SURGERY [facility] December 27, 2024 07:00 AM AMBULATORY - NONE [facility] January 01, 2025 09:00 AM AMBULATORY - MEDICINE [facility] Lab Results: +/- 30 days of the encounter This section includes the Chemistry and Hematology Lab Results on record with [place] for the patient. Radiology Reports and Pathology Reports are provided separately, in subsequent sections. Lab Results This section contains the Chemistry/Hematology Results that were resulted 30 days before or 30 daysafter the date of the Encounter. Date/Time Source Result Type Result - Unit Interpretation Reference Range Specimen Type Comment Jul 12, 2024 02:07 PM [facility] BASIC METABOLIC PANEL PLASMA Specimen Type: PLASMA Comment: No hemolysis noted. Ordering Provider: ROBERT JORDAN Report Released Date/Time: Jul 12, 2024 01:43 PM Reporting Lab: [facility] [address] [facility] [address] Performing Lab: [place] [id number] [facility] [address] CREATININE 1.10 mg/dL 0.7-1.3 UREA NITROGEN 16.7 mg/dL 9.0-25.0 GLUCOSE 168 mg/dL H 72-99 SODIUM 144 meq/L 136-145 POTASSIUM 3.8 meq/L 3.5-5 CHLORIDE 106 meq/L 98-107 CARBON DIOXIDE 27 meq/L 22-31 CALCIUM 9.4 mg/dL 8.4-10.4 EGFR (CKD-EPI 2020) 70.4 >60 Jul 12, 2024 02:[address] [facility] CBC BLOOD Specimen Type: BLOOD No comment entered. Ordering Provider: ROBERT JORDAN Report Released Date/Time: Jul 12, 2024 01:43 PM Reporting Lab: [facility] [address] [facility] [address] Performing Lab: [facility] [address] [facility] [address] WBC 6.6 10*3/uL 3.6-11.2 RBC 4.59 10*6/uL [...] PM 97.7 65 152/74 16 96 0 [facility] Social History: Smoking Status (Most current) and Tobacco Use (All prior to encounter date) This section includes the most current, and the historical, smoking and tobacco- related health factors from the [place] facility where the Encounter took place. Current Smoking Status This section includes the most current smoking, or tobacco-related health factor, from the [place] facility where the Encounter took place. Date/Time Current Smoking Status Comment Bran ity January 08, 2015 09:46 AM CURRENT TOBACCO USER [facility] Tobacco Use History This section includes a history of the smoking, or tobacco-related health factors, that were collected on or before the date of the Encounter. The data comes from the [place] facility where the Encounter took place. Date/Time Smoking Status/Tobacco Use Comment F [email or web address] January 08, 2015 09:46 AM TOBACCO MEDS OFFER ED BUT DECLINED [facility] Radiology Reports: +/- 30 days of [...] the Encounter. The data comes from all [place] treatment facilities. Date/Time Radiology Report Provider Source Jul 12, 2024 01:51 PM CHEST X-RAY, 2 VIE WS: PARVINKRYSTALDOUG [id number] M Exm Date: JUL 12, 2024@13:51 Req Phys: ROBERT OJRDAN Loc: -ENT HEAD AND NECK CONSULT ( Img Loc: -MAIN RADIOLOGY SUITE Service: [address] [address] (Case [id number] COMPLETE) CHEST X-RAY, 2 VIEWS (RAD Detailed) CPT:50110 Reason for Study: pre op cxsdr for ENT procedure Clinical History: Report Status: Verified Date Reported: JUL 13, 2024 Date Verified: JUL 13, 2024 Chief Clinical Dietitian E-Sig:/ES/Jill Diggs MD Report: FINDINGS: Heart size is normal. Mediastinal structures appear unremarkable. Both lungs are fully expanded without evidence of pulmonary infiltrates or additional significant findings. Impression: No evidence of acute cardiopulmonary disease. Primary Interpreting Staff: Jill Diggs MD, Radiologist (Chief Clinical Dietitian) /QMB JILL DIGGS [facility] Encounter Notes: All associated encounter notes This section contains the clinical notes associated to the Encounter. Date/Time Encounter Note(s) Provider Source December 27, 2024 08:48 AM OPERATIVE NOTE: LOCAL TITLE: BRIEF OP NOTE STL STANDARD TITLE: OPERATIVE NOTE DATE OF NOTE: DECEMBER 27, 2024@08:48 ENTRY DATE: DECEMBER 27, 2024@08:48:30 AUTHOR: MARILIN HERNADEZ EXP COSIGNER: JAYNE WALKER URGENCY: STATUS: COMPLETED Date of Surgery:December Surgery Case #:[id number] Pre-Operative Diagnosis:Retained R ear tube Post-Operative Diagnosis:Retained R ear tube Surgery Performed:Bilateral ear exam under anesthesia, removal of R ear tube Attending:Jayne Walker Surgeon:Marilin Hernadez 1st Neonatal Critical Care Nurse:None Type of Anesthesia:MAC Specimens:No If yes, Type and number of specimens: Findings: Retained tube in R middle ear Complications:None Estimated Blood Loss:2 cc Blood Given? No If yes, how much? Fluid Replacement:See anesthesia note Status En-Route to PACU? Critical: Satisfactory: Operative Note Dictation Job#: /es/ MARILIN HERNADEZ Resident Physician Signed: 12/27/2024 08:51 /es/ JAYNE WALKER STAFF PHYSICIAN OTOLARYNGOLOGY Cosigned: 12/27/2024 09:06 MARILIN HERNADEZ [facility] December 27, 2024 07:57 AM PHYSICIAN EDUCATIO N DISCHARGE NOTE: LOCAL TITLE: DISCHARGE INSTRUCTIONS ST STANDARD TITLE: PHYSICIAN EDUCATION DISCHARGE NOTE DATE OF NOTE: DECEMBER 27, 2024@07:57 ENTRY DATE: DECEMBER 27, 2024@07:57:47 AUTHOR: MARILIN HERNADEZ EXP COSIGNER: JAYNE WALKER URGENCY: STATUS: COMPLETED ENT DISCHARGE INSTRUCTIONS SURGERY DATE: DECEMBER 27, 2024 DIAGNOSIS: Otitis media with effusion SURGERY PERFORMED: Ear exam under anesthesia, removal of R ear tube DIET: Pre-surgical diet ACTIVITY: 1. No activity restrictions WOUND CARE: After-Care Bloody ear drainage for a day or two after surgery is common. Use Ciprodex drops twice daily for 10 days. MEDICATIONS TO TAKE: Active Outpatient Medications (including Supplies): Active Outpatient Medications Status 1) SITAGLIPTIN (EQV-ZITUVIO) 25MG TAB TAKE ONE TABLET BY MOUTH ACTIVE ONCE A DAY Indication: FOR DIABETES Active Non-VA Medications Status 1) Non-VA AMLODIPINE BESYLATE 2.5MG TAB 2.5MG BY MOUTH ONCE A ACTIVE DAY Indication: FOR HIGH BLOOD PRESSURE 2) Non-VA ASPIRIN 81MG EC TAB 81MG BY MOUTH ONCE A DAY ACTIVE 3) Non-VA CETIRIZINE HCL 10MG TAB 10MG BY MOUTH ONCE A DAY ACTIVE NEEDED 4) Non-VA FINASTERIDE 5MG TAB 5MG BY MOUTH ONCE A DAY ACTIVE 5) Non-VA GLIMEPIRIDE 4MG TAB 4MG BY MOUTH EVERY MORNING ACTIVE Indication: FOR DIABETES 6) Non-VA HCTZ 25/LISINOPRIL 20MG TAB 1 TABLET BY MOUTH EVERY ACTIVE MORNING Indication: FOR HIGH BLOOD PRESSURE 7) Non-VA LISINOPRIL 40MG TAB 20MG BY MOUTH ONCE A DAY ACTIVE Indication: FOR HIGH BLOOD PRESSURE 8) Non-VA LOVASTATIN 40MG TAB 40MG BY MOUTH EVERY EVENING ACTIVE 9) Non-VA METFORMIN HCL 500MG 24HR SA TAB 2000MG BY MOUTH EVERY ACTIVE MORNING BEFORE A MEAL 10) Non-VA PIOGLITAZONE HCL 30MG TAB 30MG BY MOUTH ONCE A DAY ACTIVE 11 Total Medications MEDICATIONS TO HOLD: None MEDICATIONS TO HOLD: NA MEDICATIONS TO TAKE AFTER DISCHARGE: Active Outpatient Medications (excluding Supplies): Issue Date Status Last Fill Active Outpatient Medications Refills Expiration 1) SITAGLIPTIN (EQV-ZITUVIO) 25MG TAB Qty: 90 ACTIVE Issue: 09/04/24 for 90 days Sig: TAKE ONE TABLET BY MOUTH Refills: 3 Last : 09/04/24 ONCE A DAY Expr : 09/05/25 Indication: FOR DIABETES Start Date Active Non-VA Medications Status Stop Date 1) Non-VA AMLODIPINE BESYLATE 2.5MG TAB Sig: ACTIVE 2.5MG BY MOUTH ONCE A DAY Indication: FOR HIGH BLOOD PRESSURE 2) Non-VA ASPIRIN 81MG EC TAB SiMG BY ACTIVE MOUTH ONCE A DAY 3) Non-VA CETIRIZINE HCL 10MG TAB SiMG BY ACTIVE MOUTH ONCE A DAY NEEDED 4) Non-VA FINASTERIDE 5MG TAB SiMG BY MOUTH ACTIVE ONCE A DAY 5) Non-VA GLIMEPIRIDE 4MG TAB SiMG BY MOUTH ACTIVE EVERY MORNING Indication: FOR DIABETES 6) Non-VA HCTZ 25/LISINOPRIL 20MG TAB Si ACTIVE TABLET BY MOUTH EVERY MORNING Indication: FOR HIGH BLOOD PRESSURE 7) Non-VA LISINOPRIL 40MG TAB SiMG BY ACTIVE MOUTH ONCE A DAY Indication: FOR HIGH BLOOD PRESSURE 8) Non-VA LOVASTATIN 40MG TAB SiMG BY ACTIVE MOUTH EVERY EVENING 9) Non-VA METFORMIN HCL 500MG 24HR SA TAB Sig: ACTIVE 2000MG BY MOUTH EVERY MORNING BEFORE A MEAL 10) Non-VA PIOGLITAZONE HCL 30MG TAB SiMG ACTIVE BY MOUTH ONCE A DAY 11 Total Medications NEW MEDICATION INSTRUCTIONS: Take the following medications as prescribed: Medication (Local) Status No local medications found. Medication (Remote) Status - No remote medications found. PAIN CONTROL: 1. You may use over the counter Tylenol as needed to control pain. Do not exceed more than 3000mg of tylenol(acetaminophen)a day from your medications. FOLLOW-UP APPOINTMENT: In 6 weeks at the ENT [facility] ([phone]). Call to schedule. EMERGENCIES: Call the [facility] and asked to be connected to the ENT Physician transportation assistant ([phone]). Upcomming Appointments: 01/01/25 9:00 am [facility] PCP [phone] /luma/ MARILIN HERNADEZ Resident Physician Signed: 12/27/2024 08:53 /luma/ JAYNE WALKER STAFF PHYSICIAN OTOLARYNGOLOGY Cosigned: 12/27/2024 09:06 MARILIN HERNADEZ [facility] December 27, 2024 07:34 AM H & P NOTE: LOCAL TITLE: HISTORY AND PHYSICAL EXAMINATION [facility] STANDARD TITLE: H & P NOTE DATE OF NOTE: DECEMBER 27, 2024@07:34 ENTRY DATE: DECEMBER 27, 2024@07:34:19 AUTHOR: MARILIN HERNADEZ [facility] COSIGNER: JAYNE WALKER URGENCY: STATUS: COMPLETED OTOLARYNGOLOGY-HEAD AND NECK SURGERY - History and Physical Dx: right retained PE tube in ME [...] ointment. No acute changes in his hearing. No changes in health since last visit. Will proceed to the OR. PHYSICAL EXAM: GEN: Awake, NAD FACE: NC/AT. [...] the retraction noted on the left side. PLAN: - OR for removal of retained right PE tube, possible placement of bilateral t- tubes /luma/ MARILIN HERNADEZ Resident Physician Signed: 12/27/2024 07:35 /luma/ JAYNE WALKER STAFF PHYSICIAN OTOLARYNGOLOGY Cosigned: 12/27/2024 07:52 MARILIN HERNADEZ [facility] Oct 25, 2024 10:24 AM ADDENDUM: LOCAL TITLE: Addendum STANDARD TITLE: ADDENDUM DATE OF NOTE: OCT 25, 2024@10:24:41 ENTRY DATE: OCT 25, 2024@10:24:42 AUTHOR: JAYNE WALKER EXP COSIGNER: URGENCY: STATUS: COMPLETED Given low risk of bleeding, ok to continue all anticoagulation in the perioperative period. /darcy WALKER STAFF PHYSICIAN OTOLARYNGOLOGY Signed: 10/25/2024 10:25 Receipt Acknowledged By: 10/25/2024 10:51 /es/ MARANDA BREEN REGISTERED NURSE 10/25/2024 10:58 /es/ DIEGO HENRY Staff Physician, Otolaryngology 10/25/2024 17:35 /luma/ Arielle Dahl MD PhD Resident Physician, [...] JORDAN Resident Physician Signed: 07/12/2024 18:16 /es/ JAYNE WALKER STAFF PHYSICIAN OTOLARYNGOLOGY Cosigned: 07/19/2024 12:08 [...] possible placement of bilateral t-tubes with Dr. Henry/Easton. Patient will arrive on 4N [facility]ET[facility] by 0700 for pre op check-in appointment. Patient is s/p ablation at [facility] on 08/31/24 for SVT, [...] Receipt Acknowledged By: 10/25/2024 10:57 /es/ DIEGO HENRY Staff Physician, Otolaryngology 10/25/2024 10:24 /es/ JAYNE WALKER STAFF PHYSICIAN OTOLARYNGOLOGY 10/24/2024 13:07 /es/ Arielle Dahl MD PhD Resident Physician, ENT JAYNE WALKER [facility] Oct 24, 2024 12:23 PM ADDENDUM: LOCAL TITLE: Addendum STANDARD TITLE: ADDENDUM DATE OF NOTE: OCT 24, 2024@12:23:40 ENTRY DATE: OCT 24, 2024@12:23:41 AUTHOR: MARANDA BREEN EXP COSIGNER: URGENCY: STATUS: COMPLETED Patient is scheduled on December 27 at 0830 for removal of retained right PE tube, possible placement of bilateral t-tubes with Dr. Henry/Easton. Patient will arrive on 4N AETC by 0700 for pre op check-in appointment. Patient is s/p ablation at [facility] on 08/31/24 for SVT, he is on apixaban BID. He will f/u with cardiology on November 24. Audiogram completed on 07/19/24, please review for surgical plan. Dr. Dahl, please schedule in [place]. ENT attending, please advise if you are ok with patient remaining on apixaban BID pre op. /es/ MARANDA BREEN REGISTERED NURSE Signed: 10/24/2024 12:28 Receipt Acknowledged By: 10/25/2024 10:57 /es/ DIEGO HENRY Staff Physician, Otolaryngology 10/25/2024 10:24 /es/ JAYNE WALKER STAFF PHYSICIAN OTOLARYNGOLOGY 10/24/2024 13:07 /es/ [...] JORDAN Resident Physician Signed: 07/12/2024 18:16 /luma/ JAYNE WALKER STAFF PHYSICIAN OTOLARYNGOLOGY Cosigned: 07/19/2024 12:08 Receipt Acknowledged By: 07/13/2024 11:50 /luma/ MARANDA BREEN REGISTERED NURSE 09/06/2024 ADDENDUM STATUS: COMPLETED Patient called for status update on scheduling ENT procedure. I left a voicemail with my contact information. /luma/ MARANDA BREEN REGISTERED NURSE Signed: 09/06/2024 13:40 10/25/2024 ADDENDUM STATUS: COMPLETED Given low risk of bleeding, ok to continue all anticoagulation in the perioperative period. /luma/ JAYNE WALKER STAFF PHYSICIAN OTOLARYNGOLOGY Signed: 10/25/2024 10:25 Receipt Acknowledged By: 10/25/2024 10:51 /luma/ MARANDA BREEN REGISTERED NURSE * AWAITING SIGNATURE * DIEGO HENRY * AWAITING SIGNATURE * ARIELLE DAHL K[facility]IGH [facility] Jul 12, 2024 01:44 PM OTOLARYNGOLOGY NOT E: LOCAL TITLE: OTOLARYNGOLOGY STL STANDARD TITLE: OTOLARYNGOLOGY NOTE DATE OF NOTE: JUL 12, 2024@13:44 ENTRY DATE: JUL 12, 2024@13:45 AUTHOR: ROBERT JORDAN COSIGNER: JAYNE WALKER URGENCY: STATUS: COMPLETED OTOLARYNGOLOGY STL Has ADDENDA JUL 12, 2024 OTOLARYNGOLOGY-HEAD AND [...] JORDAN Resident Physician Signed: 07/12/2024 18:16 /luma/ JAYNE WALKER STAFF PHYSICIAN OTOLARYNGOLOGY Cosigned: 07/19/2024 12:08 [...] possible placement of bilateral t-tubes with Dr. Henry/Easton. Patient will arrive on 4N AE by 0700 for pre op check-in appointment. Patient is s/p ablation at [facility] on 08/31/24 for SVT, [...] Receipt Acknowledged By: 10/25/2024 10:57 /luma/ DIEGO HENRY Staff Physician, Otolaryngology 10/25/2024 10:24 /luma/ JAYNE WALKER STAFF PHYSICIAN OTOLARYNGOLOGY 10/24/2024 13:07 /luma/ Arielle Dahl MD PhD Resident Physician, ENT 10/25/2024 ADDENDUM STATUS: COMPLETED Given low risk of bleeding, ok to continue all anticoagulation in the perioperative period. /darcy WALKER STAFF PHYSICIAN OTOLARYNGOLOGY Signed: 10/25/2024 10:25 Receipt Acknowledged By: 10/25/2024 10:51 /darcy BREEN REGISTERED NURSE 10/25/2024 10:58 /luma/ DIEGO HENRY Staff Physician, Otolaryngology 10/25/2024 17:35 /luma/ Arielle Dahl MD PhD Resident Physician, ENT 12/05/2024 ADDENDUM STATUS: COMPLETED Contacted patient regarding cardiology visit, he reports appt is 12/07. Will f/u after that appt. Patient is still planning on upcoming procedure with ENT on December 27. /darcy BREEN REGISTERED NURSE Signed: 12/05/2024 10:51 12/12/2024 ADDENDUM STATUS: COMPLETED Cardiac clearance form sent to Dr. Alarcon. Patient cancelled appontment on December 07 and re-scheduled for December 20. Anesthesia e-consult placed. Will monitor for recommendations. /darcy BREEN REGISTERED NURSE Signed: 12/12/2024 11:45 12/21/2024 ADDENDUM STATUS: COMPLETED Contacted Dr. Alarcon' office for cardiac clearance. Will await provider comment on clearance. Patient seen in office yesterday. /luma/ MARANDA BREEN REGISTERED NURSE Signed: 12/21/2024 15:35 ROBERT JORDAN [facility] Jul 12, 2024 01:30 PM OTOLARYNGOLOGY CON SULT: LOCAL TITLE: OTOLARYNGOLOGY CONSULT ST STANDARD TITLE: OTOLARYNGOLOGY CONSULT DATE OF NOTE: JUL 12, 2024@13:30 ENTRY DATE: JUL 19, 2024@11:51:26 AUTHOR: MARANDA BREEN EXP COSIGNER: URGENCY: STATUS: COMPLETED This note serves to close out the ENT consult from 07/12/24. See Dr. Jordan's note for further details. /darcy BREEN REGISTERED NURSE Signed: 07/19/2024 11:51 MARANDA BREEN [facility]
--- NOTE | 2025-01-23 18:01 | ED_ITS ---
HPI - GI Bleed General Chief complaint: GI Bleed Stated complaint: rectal bleed Time Seen by Provider: 01/23/25 18:00 Source: patient and family Mode of arrival: ambulatory Limitations: no limitations History of Present Illness HPI Narrative: Patient is a 74-year-old male with bright red blood per rectum twice today with bowel movement. Once it was all over the toilet paper and the 2nd time it was in the bowl. No lightheaded or dizziness or syncope. Family history of colon cancer. Last colonoscopy was negative in 2017. He has a strong history of recurrent diverticulitis. He is having some mild abdominal pains in the right lower quadrant and left lower quadrant. Patient has AFib and takes Eliquis. MD complaint: blood on toilet paper and gross hematochezia Onset (ago): day(s) ( One) Pain Consistency: intermittent Severity: moderate Relieving factors: none Exacerbating factors: none Context: other ( patient having 2 bouts of hematochezia today. History of diverticulitis and family history of colon cancer.) Associated symptoms: abdominal pain Treatments Prior to Arrival: none Related Data Home Medications ?Medication ?Instructions ?Recorded ?Confirmed ?Last Taken ?Type aspirin 81 mg chewable tablet 81 mg PO HS 01/17/20 07/13/24 07/13/24 History 81 finasteride 5 mg tablet 5 mg PO 01/17/20 07/13/24 12/30/23 History lisinopril 20 1 tablet PO 01/17/20 07/13/24 12/30/23 History mg-hydrochlorothiazide 25 mg tablet lovastatin 40 mg tablet 40 mg PO 01/17/20 07/13/24 12/30/23 History fluticasone propionate 50 1 spray intranasal Q12H PRN 04/30/20 12/31/23 12/30/23 History mcg/actuation nasal Allergic Symptoms spray,suspension (Flonase Allergy Relief) albuterol sulfate 90 mcg/actuation inhalation 07/13/24 Unknown History aerosol inhaler amlodipine 2.5 mg tablet mg 07/13/24 Unknown History budesonide-formoterol HFA 160 inhalation 07/13/24 Unknown History mcg-4.5 mcg/actuation aerosol inhaler (Breyna) glimepiride 4 mg tablet 4 mg PO DAILY 07/13/24 07/13/24 Unknown History metformin 500 mg tablet,extended mg PO 07/13/24 Unknown History release 24 hr pioglitazone 30 mg tablet 30 mg PO DAILY 07/13/24 07/13/24 Unknown History tizanidine 4 mg tablet 4 mg PO DAILY 07/13/24 07/13/24 Unknown History Allergies Allergy/AdvReac Type Severity Reaction Status Date / Time No Known Allergies Allergy Unknown NONE Verified 01/23/25 18:19 Review of Systems 2 Review of Systems: All systems reviewed & are unremarkable except as noted in HPI and below Constitutional: Constitutional: Reports no additional constitutional complaints Eyes: Eyes: Reports no additional eye complaints ENT: Reports system reviewed and no additional complaints, except as documented Cardiovascular: Cardiovascular: Reports no additional cardiovascular complaints Respiratory: Respiratory: Reports no additional respiratory complaints Gastrointestinal: Gastrointestinal: Reports no additional gastrointestinal complaints Genitourinary: Genitourinary: Reports no additional male genitourinary complaints Musculoskeletal: Musculoskeletal: Reports no additional musculoskeletal complaints Integumentary/Breasts: Skin/Breast: Reports system reviewed and no additional complaints, except as docu Neurologic: Reports system reviewed and no additional complaints, except as documented Psychiatric: Psychiatric: Reports no additional psychiatric complaints Endocrine: Endocrine: Reports no additional endocrine complaints Hematologic/Lymphatic: Hematologic/Lymphatic: Reports no additional hematologic/lymphatic complaints Allergic/Immunologic: Allergic/Immunologic: Reports no additional allergic/immunologic complaints PMFSH Past Medical History Medical History Diabetes type 2, controlled BPH (benign prostatic hyperplasia) Hyperlipidemia BRIDGETTE (obstructive sleep apnea) CPAP Hypertension Social History Social History Smoking packs per day: 0.5 Smoking cigarettes per day: 10.0 Years smoked: 3 Smoking pack-years: 1.50 Smoking status: Former smoker Tobacco type: cigarettes Smoking end date: 08/23/69 Additional smoking assessment comments: 40 YEARS AGO Alcohol intake: current Alcohol use details: 6 PK PER YEAR Substance use: current Substance use type: marijuana Last use: 2 DAYS Living arrangements: with family Spiritual care concerns: No Exam 2 Const: General: healthy appearing Nutritional Appearance: well nourished Orientation/consciousness: patient oriented x3 HENMT: Head: normal to inspection Ears: external ears normal F ekaterina/Nose/Sinus: Normal external nose present Eyes: Conjunctivae: conjunctivae normal Pupils: Equal, round and reactive pupils present EOM: EOMs intact bilaterally Neck: Neck: normal visual inspection Chest: Chest palpation & inspection: normal inspection of the chest Resp: Effort & Inspection: normal respiratory effort and not labored A uscultation: clear to auscultation bilaterally and no crackles Cardio: Rate: regular rate Rhythm: regular rhythm Heart sounds: no murmurs GI: Inspection: non-distended GI Palp: Yes Soft to palpation, Yes Tenderness to palpation present (GI) ( Left lower quadrant and right lower quadrant), No Guarding due to palpation present (GI), No Rigid due to palpation, No Hernia present, No Palpable mass present and No Rebound tenderness present Auscultation: normal bowel sounds Rectal Exam: normal sphincter tone, No Abnormal stool present, heme positive stool, No fecal impaction and No hemorrhoids : General: Yes bladder normal to palpation Back/Spine/Pelvis: Back: no CVA tenderness Skin: General skin exam: normal color Rashes: no rashes Wounds: no wounds Neuro: General: patient oriented x3 Cranial nerves: Yes Nystagmus not present Speech: normal speech Extrem: General: normal to inspection Psych: Mental Status: mental status grossly normal Affect: normal affect Attitude: cooperative Course Vital Signs Vital signs: Vital Signs Temperature 36.7 C 01/23/25 18:00 Pulse Rate 97 01/23/25 18:00 Respiratory Rate 18 01/23/25 18:00 Blood Pressure 172/72 H 01/23/25 18:00 Pulse Oximetry 97 01/23/25 18:00 Oxygen Delivery Room Air 01/23/25 18:00 Temperature 36.7 C 01/23/25 18:00 Pulse Rate 97 01/23/25 18:00 Respiratory Rate 18 01/23/25 18:00 Blood Pressure 172/72 H 01/23/25 18:00 Pulse Oximetry 97 01/23/25 18:00 Oxygen Delivery Room Air 01/23/25 18:00 MDM - GI Bleed MDM Narrative Medical decision making narrative: patient is a 74-year-old male with hematochezia twice today. We will do a GI workup this time. patient is on Eliquis. No aspirin. Lab Data Attestation: I reviewed the patient's lab results. 01/23/25 18:16 01/23/25 18:16 Labs: Lab Results 01/23/25 01/23/25 Range/Units 18:16 20:22 WBC 6.6 (4.8-10.8) K/mm3 RBC 4.45 L (4.70-6.10) M/mm3 Hgb 13.6 (12.4-15.3) g/dL Hct 41.9 (37.0-46.0) % MCV 94.2 (78.0-102.0) fL MCH 30.6 (27.0-31.0) pg MCHC 32.5 (32-36) g/dL RDW 13.2 (11.6-14.4) % Plt Count 245 (150-420) K/mm3 MPV 9.5 (8.7-11.0) fl Immature Gran % (Auto) 0.5 H (0.0-0.0) % Neut % (Auto) 51.4 (50.0-70.0) % Lymph % (Auto) 36.2 (18.0-42.0) % Lamar % (Auto) 8.0 (2.0-11.0) % Eos % (Auto) 3.3 (1.0-6.0) % Baso % (Auto) 0.6 (0.0-1.0) % Lymph # (Auto) 2.39 (1.10-4.50) K/mm3 Lamar # (Auto) 0.53 (0.10-0.90) K/mm3 Eos # (Auto) 0.22 (0.02-0.50) K/mm3 Baso # (Auto) 0.04 (0.00-0.10) K/mm3 Abs Immat Gran (auto) 0.03 H (0.00-0.00) K/mm3 Absolute Neuts (auto) 3.39 (1.70-7.20) K/mm3 Absolute Nucleated RBC 0.00 (0.00-0.00) K/mm3 Nucleated RBC % 0.0 (0-0.0) % PT 10.8 (9.50-12.1) Seconds INR 1.0 APTT 34.3 H (23.9-30.70) Sec Sodium 142 (137-145) mmol/L Potassium 3.4 (3.4-5.0) mmol/L Chloride 108 H (98-107) mmol/L Carbon Dioxide 28 (22-30) mmol/L Anion Gap 6 (4-12) mmol/L BUN 16 (9-20) mg/dL Creatinine 1.11 (0.7-1.3) mg/dL Estim Creat Clear Calc 62 ml/min Estimated GFR > 60 (59 - ) Glucose 153 H (65-110) mg/dL Calculated Osmolality 298 H (285-295) mOsm/kg Calcium 8.7 (8.4-10.2) mg/dL Total Bilirubin 0.5 (0.2-1.3) mg/dL AST 39 (17-59) U/L ALT 38 (6-50) U/L Alkaline Phosphatase 89 (38-126) U/L Total Protein 6.9 (6.3-8.2) g/dL Albumin 3.9 (3.5-5.1) g/dL Stool Occult Blood Positive A (Negative) Imaging Data Attestation: I personally reviewed and interpreted this imaging study as follows: Radiologist's impression: CT scan of the abdomen and pelvis shows IMPRESSION: 1. Possible colitis versus diverticulitis in the proximal sigmoid colon. 2. Right kidney stone unchanged from previous examination. 3. Right adrenal adenoma unchanged. 4. Hepatomegaly with fat infiltration. Discharge Plan Discharge Clinical Impression: Diverticulitis, Hematochezia Patient Disposition: Home Condition: Stable Instructions: Antibiotic Form, Diverticulitis (ED) Additional Instructions: please follow-up with primary doctor in the next week. I suggest to get a colonoscopy done as you are due at this time and you have bleeding. Hold Eliquis until no further rectal bleeding and then you may restart when the bleeding has resolved. Patient Language: Sami Prescriptions: New metronidazole 500 mg tablet 500 mg PO TID 10 Days Qty: 30 0RF ciprofloxacin HCl [Cipro] 500 mg tablet 500 mg PO BID 10 Days Qty: 20 0RF No Action levofloxacin 500 mg tablet 500 mg PO DAILY 3 Days Qty: 3 0RF tizanidine 4 mg tablet 4 mg PO DAILY amlodipine 2.5 mg tablet glimepiride 4 mg tablet 4 mg PO DAILY albuterol sulfate 90 mcg/actuation HFA aerosol inhaler INHALATION pioglitazone 30 mg tablet 30 mg PO DAILY metformin 500 mg tablet extended release 24 hr PO budesonide-formoterol [Breyna] 160-4.5 mcg/actuation HFA aerosol inhaler INHALATION ciprofloxacin HCl 500 mg tablet 500 mg PO Q12H Qty: 14 0RF metronidazole 500 mg tablet 500 mg PO Q8H Qty: 20 0RF finasteride 5 mg tablet 5 mg PO HS lisinopril-hydrochlorothiazide 20-25 mg tablet 1 tablet PO HS lovastatin 40 mg tablet 40 mg PO HS aspirin 81 mg tablet,chewable 81 mg PO HS fluticasone propionate [Flonase Allergy Relief] 50 mcg/actuation spray,suspension 1 spray NASAL Q12H PRN (Reason: Allergic Symptoms) Rx Instructions: administer into each nostril Follow-up/Referrals: Alon Mcneill MD [Primary Care Provider] - Time of Disposition: 20:13
--- OUTSIDE RECORDS SUMMARY | 2025-01-23 18:01 | XMS_ITS ---
Author Name [facility] Organization [facility] Address [address] [place] [address] Care Team Providers Care Penetration Tester Name Role Phone KARYN ROBISON Primary Care [...] PART B Aug 23, 2014 PART B [id number] DOUG KIRKLAND PATIENT MEDICARE (WNR) MEDICARE (M) PART A Jul 23, 2014 PART A [id number] DOUG KIRKLAND PATIENT [employer] PLAN F MEDIC ARE SUPPL EMENT Feb 20, 2015 PLAN F [id number] [phone] DOUG KIRKLAND PATIENT Selected Encounter This section includes the information on record at [place] for the Encounter. Date/Time Encounter Type Encounter Description Reason Provider Source December 27, 2024 08:55 AM Outpatient Encounter ADMIN PAT ACTIVTIES (MASNONCT) ALPESH ARANA Encounter Template Text not used by [place] Plan of Treatment: Future Appointments (+ 6 months) and Future Tests (+/- 45 days) The Plan of Treatment section includes future care activities for the patient [facility] This section includes future appointments and future orders which are active, pending or scheduled. Future Appointments This section includes appointments that were scheduled to occur 6 months from the date of the Encounter, up to a maximum of 20 appointments. The data comes from all [place] treatment [facility]. Appointment Date/Time Appointment Type Appointme nt Facility Name January 01, 2025 09:00 AM AMBULATORY - MEDICINE [facility] Jan 24, 2025 11:30 AM AMBULATORY - SURGERY [facility] Active, Pending, and Scheduled Orders This section includes a listing of several types of active, pending, and scheduled orders, including clinic medications orders, diagnostic test orders, procedure orders and consult orders; where the start date of the order is 45 days before the date of the Encounter or 45 days after the date of theEncounter. The data comes from all [facility]. Test Date/Time Test Type Test Details Facility Name December 27, 2024 08:10 AM Pharmacy - Clinic Medication Order [facility] Lab Results: +/- 30 days of the encounter This section includes the Chemistry and Hematology Lab Results on record with [place] for the patient. Radiology Reports and Pathology Reports are provided separately, in subsequent sections. Lab Results This section contains the Chemistry/Hematology Results that were resulted 30 days before or 30 daysafter the date of the Encounter. Date/Time Source Result Type Result - Unit Interpretation Reference Range Specimen Type Comment December 27, 2024 09:08 AM [facility] GLUCOSE,BLOOD-poct (STL) BLOOD Specimen Type: BLOOD Comment: Test Performed by: [id number] Meter #: [id number] Ordering Provider: AGA GARCIA Report Released Date/Time: December 28, 2024 08:00 AM Reporting Lab: [facility] [address] [facility] [address] Performing Lab: [address] [address] GLUCOSE,BLOOD-poct (STL) 200 mg/dL H 72-99 December 27, 2024 06:50 AM [facility] GLUCOSE,BLOOD-poct (STL) BLOOD Specimen Type: BLOOD Comment: Test Performed by: [id number] Meter #: [id number] Ordering Provider: KARYN ROBISON Report Released Date/Time: December 27, 2024 06:51 AM Reporting Lab: [facility] [address] [facility] [address] Performing Lab: [facility] [address] [facility] [address] GLUCOSE,BLOOD-poct (STL) 206 mg/dL H 72-99 Vital Signs: All taken on the encounter date This section contains inpatient and outpatient Vital Signs collected on the date of the Encounter. Date/Time Temperature Pulse Blood Pressure Respiratory Rate SP02 Pain Height Weight Body Mass Index Source December 27, 2024 09:20 AM 97.3 57 144/77 17 94 0 [facility] December 27, 2024 07:45 AM 97.3 60 152/71 20 94 0 70 236.6 34 [facility] Social History: Smoking Status (Most current) and Tobacco Use (All prior to encounter date) This section includes the most current, and the historical, smoking and tobacco- related health factors from the [place] facility where the Encounter took place. Current Smoking Status This section includes the most current smoking, or tobacco-related health factor, from the [place] facility where the Encounter took place. Date/Time Current Smoking Status Comment Bran arcos January 08, 2015 09:46 AM CURRENT TOBACCO USER [facility] Tobacco Use History This section includes a history of the smoking, or tobacco-related health factors, that were collected on or before the date of the Encounter. The data comes from the [place] facility where the Encounter took place. Date/Time Smoking Status/Tobacco Use Comment F [email or web address] January 08, 2015 09:46 AM TOBACCO MEDS OFFER ED BUT DECLINED [facility] Encounter Notes: All associated encounter notes This section contains the clinical notes associated to the Encounter. Date/Time Encounter Note(s) Provider Source December 27, 2024 08:55 AM ANESTHESIOLOGY LENARD WSHEET: LOCAL TITLE: ANES INTRA-OP FLOWSHEET STL STANDARD TITLE: ANESTHESIOLOGY FLOWSHEET DATE OF NOTE: DECEMBER 27, 2024@08:55 ENTRY DATE: DECEMBER 27, 2024@08:55:51 AUTHOR: ALPESH ARANA COSIGNER: AGA GARCIA URGENCY: STATUS: COMPLETED Patient: DOUG KIRKLAND SSN: [id number] Date of Operation: 12/27/2024 Surgery Start Time: 12/27/2024 8:33 Surgery End Time: 12/27/2024 8:47 Anesthesia Care Start: 12/27/2024 8:26 Anesthesia Care End: 12/27/2024 9:01 Anesthesia Method: Monitored 12/27/2024 8:34 (Primary), Level Of Consciousness: Sedated, Monitors Applied, Oxygen Therapy: Mask, EtCO2 Verified: Waveform Positioning: Head Neutral, Head And Neck In Alignment With Spine, Pressure Points Padded & Checked, Eyes, Ears And Nose Free Of Pressure ASA Number: 3 Procedure: Removal right ear tube, possible bilateral T-tube Diagnosis: Conductive hearing loss Ototoxic hearing loss, unspecified ear Holding, Anesthesia, PACU Drugs: ------- FentaNYL: 75 mcg Lidocaine: 60 mg Propofol: 50 mg Ondansetron: 4 mg Propofol gtt: 228.672 mg Holding, Anesthesia, PACU Fluids: -------- Resources: Aquacel foam placed on rene prominence to protect skin during surgery Safety Belt Staff: --------- MARILIN PISANO, SURGEON HILTON WALKER, ATT. SURGEON ANA OLIVA, Holding Nurse ANA OLIVA, Holding Nurse AGA GARCIA ANES. SUPER. ALPESH ARANA PRIN. ANES. Procedure Date: 12/27/2024 Procedure Start Time: Procedure End Time: /luma/ Alpesh Arana MD Resident Physician Signed: 01/16/2025 09:14 /es/ AGA GARCIA MD STAFF ANESTHESIOLOGIST Cosigned: 01/16/2025 10:00 Receipt Acknowledged By: * AWAITING SIGNATURE * AGA GARCIA,ALPESH [facility]
--- OUTSIDE RECORDS SUMMARY | 2025-01-23 18:01 | XMS_ITS | Encounter Summary ---
Author Name [facility] [place] [facility] [place] Address [address] [place] [address] Care Team Providers Care Sr. Payroll Processor Name Role Phone KARYN ROBISON Primary Care [...] PART B Aug 23, 2014 PART B [id number] DOUG KIRKLAND PATIENT MEDICARE (WNR) MEDICARE (M) PART A Jul 23, 2014 PART A [id number] DOUG KIRKLAND PATIENT [employer] [place] [employer] PLAN F MEDIC ARE SUPPL EMENT Feb 20, 2015 PLAN F [id number] [phone] DOUG KIRKLAND PATIENT Selected Encounter This section includes the information on record at [place] for the Encounter. Date/Time Encounter Type Encounter Description Reason Provider Source December 27, 2024 08:29 AM Outpatient Encounter GENERAL SURGERY CHRISTI MEJIA Melania Encounter Template Text not used by [place] Plan of Treatment: Future Appointments (+ 6 months) and Future Tests (+/- 45 days) The Plan of Treatment section includes future care activities for the patient from all [place] treatmentfacilities. This section includes future appointments and future orders which are active, pending or scheduled. Future Appointments This section includes appointments that were scheduled to occur 6 months from the date of the Encounter, up to a maximum of 20 appointments. The data comes from all [place] treatment facilities. Appointment Date/Time Appointment Type Appointme nt Facility Name January 01, 2025 09:00 AM AMBULATORY - MEDICINE [facility] Jan 24, 2025 11:30 AM AMBULATORY - SURGERY [facility] Active, Pending, and Scheduled Orders This section includes a listing of several types of active, pending, and scheduled orders, including clinic medications orders, diagnostic test orders, procedure orders and consult orders; where the start date of the order is 45 days before the date of the Encounter or 45 days after the date of theEncounter. The data comes from all [facility]. Test Date/Time Test Type Test Details Facility Name December 27, 2024 08:10 AM Pharmacy - Clinic Medication Order [facility] Lab Results: +/- 30 days of the encounter This section includes the Chemistry and Hematology Lab Results on record with [place] for the patient. Radiology Reports and Pathology Reports are provided separately, in subsequent sections. Lab Results This section contains the Chemistry/Hematology Results that were resulted 30 days before or 30 daysafter the date of the Encounter. Date/Time Source Result Type Result - Unit Interpretation Reference Range Specimen Type Comment December 27, 2024 09:08 AM [facility] GLUCOSE,BLOOD-poct (STL) BLOOD Specimen Type: BLOOD Comment: Test Performed by: [id number] Meter #: [id number] Ordering Provider: AGA GARCIA Report Released Date/Time: December 28, 2024 08:00 AM Reporting Lab: [facility] [address] [facility] [address] Performing Lab: [place] [address] [facility] [address] GLUCOSE,BLOOD-poct (STL) 200 mg/dL H 72-99 December 27, 2024 06:50 AM [facility] GLUCOSE,BLOOD-poct (STL) BLOOD Specimen Type: BLOOD Comment: Test Performed by: [id number] Meter #: [id number] Ordering Provider: KARYN ROBISON Report Released Date/Time: December 27, 2024 06:51 AM Reporting Lab: [facility] [address] [facility] [address] Performing Lab: [facility] [address] [facility] [address] GLUCOSE,BLOOD-poct (STL) 206 mg/dL H 72-99 Vital Signs: All taken on the encounter date This section contains inpatient and outpatient Vital Signs collected on the date of the Encounter. Date/Time Temperature Pulse Blood Pressure Respiratory Rate SP02 Pain Height Weight Body Mass Index Source December 27, 2024 09:20 AM 97.3 57 144/77 17 94 0 [facility] December 27, 2024 07:45 AM 97.3 60 152/71 20 94 0 70 236.6 34 [facility] Social History: Smoking Status (Most current) and Tobacco Use (All prior to encounter date) This section includes the most current, and the historical, smoking and tobacco- related health factors from the [place] facility where the Encounter took place. Current Smoking Status This section includes the most current smoking, or tobacco-related health factor, from the [place] facility where the Encounter took place. Date/Time Current Smoking Status Comment Bran arcos January 08, 2015 09:46 AM CURRENT TOBACCO USER [facility] Tobacco Use History This section includes a history of the smoking, or tobacco-related health factors, that were collected on or before the date of the Encounter. The data comes from the [place] facility where the Encounter took place. Date/Time Smoking Status/Tobacco Use Comment F acrodrigo January 08, 2015 09:46 AM TOBACCO MEDS OFFER ED BUT DECLINED [facility] Encounter Notes: All associated encounter notes This section contains the clinical notes associated to the Encounter. Date/Time Encounter Note(s) Provider Source December 27, 2024 08:37 AM NURSING PROCEDURE NOTE: LOCAL TITLE: [facility] OPERATING ROOM/PROCEDURE FIRE RISK ASSESSMEN STANDARD TITLE: NURSING PROCEDURE NOTE DATE OF NOTE: DECEMBER 27, 2024@08:37 ENTRY DATE: DECEMBER 27, 2024@08:37:10 AUTHOR: MEJIA,MARVIN T EXP COSIGNER: URGENCY: STATUS: COMPLETED PROBLEM: FIRE RISK ASSESSMENT EXPECTED OUTCOME: Patient will remain free from injury related to surgical fire/ procedural fire NURSING ASSESSMENT: A. Is an alcohol-based skin antiseptic or other flammable solution being used preoperatively? No B. Is the procedure being performed above the xiphoid process or in the oropharynx? Yes, Interventions Coat head and facial hair near the site with water-soluble surgical lubricant to decrease flammability. Use an adhesive incise drape between the surgical/procedural site and the oxygen source. If oxygen concentration is greater than 30% consider laryngeal mask airway or endotracheal tube. Comments: C. Is open oxygen or nitrous oxide being administered (delivery via nasal cannula or face mask)? Yes, Interventions Configure the drape to allow sufficient venting of oxygen delivered to the patient via mask or nasal cannula Titrate oxygen to the lowest percentage necessary to support the patient's physiological needs Place drapes, including warming blankets with attached head drapes, over the patient's head in a manner that allows the oxygen to flow freely and not accumulate under the drapes. Deliver 5 to 10 liter per minute of medical air under the drapes to flush out excess oxygen via a second delivery system. Use the lowest possible concentration of oxygen that provides adequate patient oxygen saturation. The amount of time required to shut off oxygen or nitrous and return to safe levels before using an ignition source ranged from .08-10min per ASA 2013 Practice Advisory for the Prevention and Management of Operating room Fires. Turn off the flow of oxygen at the end of each procedure. Comments: D. Is an ESU (Electrical Surgical Unit), laser, or fiber optic cord being used? No E. Other possible contributors to fire are present (defibrillator, drills, saws, burrs) No OUTCOME: Option 1. Patient is free from fire/burn injury. Additional comments: /luma/ YURI PLAZA, RN REGISTERED NURSE Signed: 12/27/2024 08:37 MARVIN MEJIA [facility]
--- OUTSIDE RECORDS SUMMARY | 2025-01-23 18:01 | XMS_ITS | Referral Summary ---
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 Gender Identity Not on file Sexual Orientation Not on file Last Filed Vital Signs Vital Sign Reading Time Taken Comments Blood Pressure 136/74 09/01/2024 8:00 AM GUEST ASSOCIATE Pulse 66 09/01/2024 8:00 AM GUEST ASSOCIATE Temperature 36.9 C (98.4 F) 09/01/2024 8:00 AM GUEST ASSOCIATE Respiratory Rate 18 09/01/2024 8:00 AM GUEST ASSOCIATE Oxygen Saturation 94% 09/01/2024 8:39 AM GUEST ASSOCIATE Inhaled Oxygen Concentration - - Weight 107 kg (236 lb) 08/31/2024 7:10 AM GUEST ASSOCIATE Height 175.3 cm (5' 9) 08/31/2024 7:10 AM GUEST ASSOCIATE Body Mass Index 34.85 08/31/2024 7:10 AM GUEST ASSOCIATE Plan of Treatment Not on file Insurance MEDICARE [facility] MEDICARE [facility] MEDICARE [facility] Care Teams Track Production Engineer Relationship Specialty Start Date End Date Alon Mcneill MD [address] [place] [address] PCP - General 05/06/22
--- OUTSIDE RECORDS SUMMARY | 2025-01-23 18:01 | XMS_ITS | Clinical Summary ---
Author Organization 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 Gender Identity Not on file Sexual Orientation Not on file Obstetrics History Last Filed Vital Signs Vital Sign Reading Time Taken Comments Blood Pressure 136/74 09/01/2024 8:00 AM BAD CLOTH CHECKER Pulse 66 09/01/2024 8:00 AM BAD CLOTH CHECKER Temperature 36.9 C (98.4 F) 09/01/2024 8:00 AM BAD CLOTH CHECKER Respiratory Rate 18 09/01/2024 8:00 AM BAD CLOTH CHECKER Oxygen Saturation 94% 09/01/2024 8:39 AM BAD CLOTH CHECKER Inhaled Oxygen Concentration - - Weight 107 kg (236 lb) 08/31/2024 7:10 AM BAD CLOTH CHECKER Height 175.3 cm (5' 9) 08/31/2024 7:10 AM BAD CLOTH CHECKER Body Mass Index 34.85 08/31/2024 7:10 AM BAD CLOTH CHECKER Plan of Treatment Health Maintenance Due [...] season) 2024 06/12/2021, 10/16/2020, 09/25/2020 Influenza Vaccine (Season Ended) 2025 05/30/2021, 08/04/2019, 07/22/2018, Additional history exists Fall Risk Assessment 09/01/2025 09/01/2024 DTaP/Tdap/Td Vaccine (2 - Td or Tdap) 07/09/2026 07/09/2016 Insurance MEDICARE [employer] [place] [employer] [place] MED[employer] [place] [place] [address] Care Teams Forming Press Operator Relationship Specialty Start Date End Date Alon Mcneill MD [address] [place] [address] PCP - General 05/06/22
--- OUTSIDE RECORDS SUMMARY | 2025-01-23 18:01 | XMS_ITS ---
Author Name [facility] [place] [facility] [place] [facility] [place] Address [address] [place] [address] Care Team Providers Care Waiter/Waitress Dining Car Name Role Phone KARYN ROBISON Primary Care [...] PART B Aug 23, 2014 PART B [id number] [phone] DOUG KIRKLAND PATIENT MEDICARE (WNR) MEDICARE (M) PART A Jul 23, 2014 PART A [id number] DOUG KIRKLAND PATIENT [employer] [place] [employer] PLAN F MEDIC ARE SUPPL EMENT Feb 20, 2015 PLAN F [id number] [phone] DOUG KIRKLAND PATIENT Selected Encounter This section includes the information on record at [place] for the Encounter. Date/Time Encounter Type Encounter Description Reason Provider Source January 01, 2025 09:00 AM OFFICE O/P EST HI 40 MIN PRIMARY CARE/MEDICINE ICD-10-CM I48.21 Permanent atrial fibrillation LILIANA ROBISON Encounter Template Text not used by [place] Assessments - Encounter Diagnoses This section includes the primary and secondary diagnoses documented for the Encounter. Date/Time Primary/Secondary Diagnosis Diagnosis Name Provider Source January 11, 2025 12:15 PM PRIMARY Permanent atrial fibrillation LILIANA ROBISON [facility] January 11, 2025 12:15 PM SECONDARY Essential (primary) hypertension [facility] January 11, 2025 12:15 PM SECONDARY Hyperlipidemia, unspecified [facility] January 11, 2025 12:15 PM SECONDARY Other hyperlipidemia [facility] January 11, 2025 12:15 PM SECONDARY Type 2 diabetes mellitus without complications [facility] Plan of Treatment: Future Appointments (+ 6 months) and Future Tests (+/- 45 days) The Plan of Treatment section includes future care activities for the patient from all [place] [facility]. This section includes future appointments and future orders which are active, pending or scheduled. Future Appointments This section includes appointments that were scheduled to occur 6 months from the date of the Encounter, up to a maximum of 20 appointments. The data comes from all [facility]. Appointment Date/Time Appointment Type Appointme nt Facility Name Jan 24, 2025 11:30 AM AMBULATORY - SURGERY [facility] Active, Pending, and Scheduled Orders This section includes a listing of several types of active, pending, and scheduled orders, including clinic medications orders, diagnostic test orders, procedure orders and consult orders; where the start date of the order is 45 days before the date of the Encounter or 45 days after the date of theEncounter. The data comes from all [facility]. Test Date/Time Test Type Test Details Facility Name December 27, 2024 08:10 AM Pharmacy - Clinic Medication Order [facility] Lab Results: +/- 30 days of the encounter This section includes the Chemistry and Hematology Lab Results on record with [place] for the patient. Radiology Reports and Pathology Reports are provided separately, in subsequent sections. Lab Results This section contains the Chemistry/Hematology Results that were resulted 30 days before or 30 daysafter the date of the Encounter. Date/Time Source Result Type Result - Unit Interpretation Reference Range Specimen Type Comment December 27, 2024 09:[address] [facility] GLUCOSE,BLOOD-poct (STL) BLOOD Specimen Type: BLOOD Comment: Test Performed by: [id number] Meter #: [id number] Ordering Provider: AGA GARCIA Report Released Date/Time: December 28, 2024 08:00 AM Reporting Lab: [facility] [address] [facility] [address] Performing Lab: [facility] [address] [facility] [address] GLUCOSE,BLOOD-poct (STL) 200 mg/dL H 72-99 December 27, 2024 06:[address] [facility] GLUCOSE,BLOOD-poct (STL) BLOOD Specimen Type: BLOOD Comment: Test Performed by: [id number] Meter #: [id number] Ordering Provider: KARYN ROBISON Report Released Date/Time: December 27, 2024 06:51 AM Reporting Lab: [facility] [address] [facility] [address] Performing Lab: [facility] [address] [facility] [address] GLUCOSE,BLOOD-poct (STL) 206 mg/dL H 72-99 Social History: Smoking Status (Most current) and Tobacco Use (All prior to encounter date) This section includes the most current, and the historical, smoking and tobacco- related health factors from the [place] facility where the Encounter took place. Current Smoking Status This section includes the most current smoking, or tobacco-related health factor, from the [place] facility where the Encounter took place. Date/Time Current Smoking Status Comment Facil ity January 01, 2025 09:00 AM VA-TOBACCO NEVER U SED OTHER TYPE [facility] Tobacco Use History This section includes a history of the smoking, or tobacco-related health factors, that were collected on or before the date of the Encounter. The data comes from the [place] facility where the Encounter took place. Date/Time Smoking Status/Tobacco Use Comment F acility January 01, 2025 09:00 AM VA-TOBACCO NEVER U SED OTHER TYPE [facility] January 03, 2024 11:00 AM VA-TOBACCO NEVER USED [facility] Jun 22, 2022 02:00 PM VA-TOBACCO FORMER USER [facility] Jun 22, 2022 02:00 PM VA-TOBACCO QUIT 5 TO < 15 YRS [facility] Jul 22, 2021 11:00 AM VA-TOBACCO FORMER USER [facility] Jul 22, 2021 11:00 AM VA-TOBACCO QUIT 1 TO < 5 YRS [facility] Encounter Notes: All associated encounter notes This section contains the clinical notes associated to the Encounter. Date/Time Encounter Note(s) Provider Source January 01, 2025 09:01 AM TELEHEALTH NOTE: LOCAL TITLE: PRIMARY CARE VIDEO CONNECT STL STANDARD TITLE: TELEHEALTH NOTE DATE OF NOTE: JANUARY 01, 2025@09:01 ENTRY DATE: JANUARY 01, 2025@09:01:58 AUTHOR: KARYN ROBISON EXP COSIGNER: URGENCY: STATUS: COMPLETED Medicine Provider Note Modality of Care: Clinical [...] 1. Understand what whole health means within [facility] 2. Understand the importance of identifying their [...] Health Partnership. PLAN Patient's preferences include: Chief Complaint:none History of Present Illness:says he was diagnosed with afib in end of 2023,had ablation in 08/2024. on eliquis and diltiazem.off of asa,amlodipine. apetite good. no change in stool habits. Past Medical History: Problem List 1) History of calculus of kidney 2) Sleep apnea 3) Family history of cancer of colon 4) Diabetes mellitus 5) Benign essential hypertension 6) Sleep apnea 7) Hyperlipidemia Comment: Social History:n smoking,no etoh Review of Systems:no cp/palpitations/sob/cough/ fevers. Allergies/Adverse Drug Reactions: Patient has answered NKA Active and Medication List: Active and Recently Outpatient Medications (excluding Supplies): Active Outpatient Medications Status 1) SITAGLIPTIN [...] ONCE A DAY ACTIVE 11 Total Medications Non [facility] Medications: Medication Reconciliation Completed: Assessment/Plan: 1) h/o kidney stones,remote 2) hearing loss,has hearing aids. s/p rt ear tube removal in 12/2024,says he can hear much better now. 3) s/p lung surgery for a spicule(benign)10 years ago 4) s/p [place] inguinal hernia repairs 5) s/p vasectomy 6) htn, controlled well per pt, cont hctz/lisinopril ,diltiazem. 7) hyperlipidemia,controlled per pt,had labs with private pcp cont lovastatin 8) bph,cont proscar 9) sleep apnea,cont daily cpap 10) s/p colonoscopy in 10/2021,f/u advised in 5 years sec to FH 11) niddm,controlled,cont glimeperide, metformin ,alogliptin and sitagliptin. 12) obesity,lost wt on ozempic,now off of it as it made him sick 13) h/o diverticulitis, 14) afib,s/p ablation in 08/2024,on diltiazem and eliquis. wants eliquis here,advised to get recent office visit notes sent to us. has heart monitor now. has f/u with private director of digital platforms. time spent is 40 mts. advised to check on vaccinations-shingles,pneu monia,tdap. has reg f/u with private pcp. non VA med list updated. labs reviewed,done outside on 10/25/2024. tot chol 247 tri 251,ldl 149 EGFR 58 hga1c 7.1 TSH 2.5 chem 7 with cr of 1.28 normal lfts CK 73 normal cbc u/a normal Patient's Hemoglobin A1c from a non-VA lab. Date: October 25, 2024 Result 7.1 Diabetes: Kidney Health Evaluation - N,P,PH: Last eGFR: Most recent eGFR within past 12 months No data available for: uACR (PB-MA) URINE ALBUMIN (MA) URINE ALBUMIN (PB-STL) MICROALBUMIN-RU (PB-sendout) Collection DT Specimen Test Name Result Units Ref Range 07/12/2024 14:07 PLASMA EGFR (CKD-EPI 202 70.4 Ref: >=60 Comment: No hemolysis noted. Last uACR: Most recent uACR/MicroAlbumin within past 12 months No data available for: uACR (PB-MA) URINE ALBUMIN (MA) URINE ALBUMIN (PB-STL) MICROALBUMIN-RU (PB-sendout) Collection DT Specimen Test Name Result Units Ref Range 07/12/2024 14:07 PLASMA EGFR (CKD-EPI 202 70.4 Ref: >=60 Comment: No hemolysis noted. uACR (Urine Albumin-Creatinine Ratio) Quantitative urine creatinine and quantitative urine albumin lab tests were ordered. Tobacco Use Screening - AT,DE,L,M,N,P,PH,PS,RT,S,U : The patient has never smoked cigarettes. The patient has never used other types of tobacco. Depression Screening - V: Perform PHQ-2 A PHQ-2 screen was performed. The score was 0 which is a negative screen for depression. Over the past two weeks, how often have you been bothered by the following problems? 1. Little interest or pleasure in doing things Not at all 2. Feeling down, depressed, or hopeless Not at all Alcohol Use Screen (AUDIT-C) - V: Alcohol Screen: SCREEN FOR ALCOHOL (AUDIT-C) An alcohol screening test (AUDIT-C) was negative (score=0). 1. How often did you have a drink containing alcohol in the past year? Consider a drink to be a 12 ounce can or bottle of regular beer, 8 ounces of malt liquor, a 5 ounce glass of table wine, or a 1.5 ounce shot of liquor (like scotch, gin, or vodka). Never 2. How many drinks containing alcohol did you have on a typical day when you were drinking in the past year? Response not required due to responses to other questions. 3. How often did you have six or more drinks on one occasion in the past year? Response not required due to responses to other questions. Suicide Screen - V: C-SSRS Screening [place]-Suicide Severity Rating Scale (C-SSRS Screener) 1. Over [...] required due to responses to other questions. /luma/ KARYN ROBISON Staff Physician Signed: 01/01/2025 09:42 KARYN ROBISON [facility]
--- OUTSIDE RECORDS SUMMARY | 2025-01-23 18:01 | XMS_ITS | Encounter Summary ---
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
--- OUTSIDE RECORDS SUMMARY | 2025-01-23 18:01 | XMS_ITS | Continuity of Care Document ---
Author Name [facility] Organization [facility] Care Team Providers Care Production Shift Supervisor Name Role Phone [facility] Unavailable Unavailable Problems Combined list of problems from Department of [facility] and [facility] facilities. It does not include entries that were removed or entered in error. Problem Status Onset Date Problem Type Date of Resolution Comments Source Atrial fibrillation Active Condition [facility] Benign essential hypertension Active Condition [facility] Diabetes mellitus Active Condition [facility] Family history of cancer of colon Active Condition [facility] History of calculus of kidney Active Condition [facility] Hyperlipidemia Active Condition [facility] Sleep apnea Active Condition [facility] Diagnosis: ICD-10-CM I48.21 Permanent atrial fibrillation Active Diagnosis [facility] Diagnosis: ICD-10-CM Z71.81 Spiritual or hindu counseling Active Diagnosis [facility] Diagnosis: ICD-10-CM Z01.818 Encounter for other preprocedural examination Active Diagnosis [facility] Diagnosis: ICD-10-CM H90.A22 Snsrnrl hear loss, uni, l ear, with rstrcd hear cntra side Active Diagnosis [facility] Diagnosis: ICD-10-CM H91.90 Unspecified hearing loss, unspecified ear Active Diagnosis [facility] Diagnosis: ICD-10-CM H90.3 Sensorineural hearing loss, bilateral Active Diagnosis [facility] Diagnosis: ICD-10-CM H91.93 Unspecified hearing loss, bilateral Active Diagnosis [facility] Diagnosis: ICD-10-CM E11.9 Type 2 diabetes mellitus without complications Active Diagnosis [facility] Medications Combined list of outpatient medications from Department of [facility] and [facility] facilities.Medications provided include 1) outpatient medications from the last 15 months, and 2) patient-reported medications. Medication Details Route Status Patient Instructions Prescription Expires Prescription Number Last Dispense Date Ordering Provider Order Date Order Qty Source ALOGLIPTIN 12.5MG TAB TAKE ONE TABLET BY MOUTH ONCE A DAY ORAL DISCONT INUED (EDIT) 07/23/2024 [id number] FRANKLINMAMADOUPRIYANK AKRYN 2022 90 [facility] ALOGLIPTIN 25MG TAB TAKE ONE TABLET BY MOUTH ONCE A DAY FOR DIABETES ORAL DISCONT INUED 01/03/2025 [id number] ROHITPRIYANKKARYN 2023 90 [facility] CETIRIZINE HCL 10MG TAB TAKE ONE TABLET BY MOUTH ONCE A DAY NEEDED ORAL ACTIVE KARYN ROBISON 2020 [facility] DILTIAZEM (EQV-TIAZAC AB4) 300MG 24HR CAP TAKE 1 CAPSULE BY MOUTH EVERY MORNING BEFORE A MEAL ORAL ACTIVE KARYN ROBISON 2024 [facility] FINASTERIDE 5MG TAB TAKE ONE TABLET BY MOUTH ONCE A DAY ORAL ACTIVE ENRIQUETAKARYN 2020 [facility] GLIMEPIRIDE 4MG TAB TAKE ONE TABLET BY MOUTH EVERY MORNING ORAL ACTIVE KARYN ROBISON 2022 [facility] HYDROCHLORO THIAZIDE 25MG/LISINO PRIL 20MG TAB TAKE ONE TABLET BY MOUTH EVERY MORNING ORAL ACTIVE KARYN ROBISON 2022 [facility] LOVASTATIN 40MG TAB TAKE ONE TABLET BY MOUTH EVERY EVENING ORAL ACTIVE JEFF ROBISONYA 2020 [facility] METFORMIN HCL 500MG 24HR TAB,SA TAKE FOUR TABLETS BY MOUTH EVERY MORNING BEFORE A MEAL ORAL ACTIVE KARYN ROBISON 2020 [facility] OFLOXACIN 0.3% SOLN,OPH INSTILL 2 DROPS IN BOTH EARS TWICE A DAY APPLY 2-5 DROPS TWICE DAILY TO THE EAR(S) THAT RECEIVED EAR TUBES AURICU LAR (OTIC) DISCONT INUED BY KEY Rivers 12/28/2025 [id number] MARILIN PISANO 2024 10 [facility] PIOGLITAZON E HCL 30MG TAB TAKE ONE TABLET BY MOUTH ONCE A DAY ORAL ACTIVE GARRY SANTANA DOMONIQUE Loomis 2023 [facility] SITAGLIPTIN (EQV-ZITUVI O) 25MG TAB TAKE ONE TABLET BY MOUTH ONCE A DAY FOR DIABETES ORAL ACTIVE 01/02/2026 [id number] KARYN ROBISON 2024 90 [facility] SITAGLIPTIN (EQV-ZITUVI O) 25MG TAB TAKE ONE TABLET BY MOUTH ONCE A DAY FOR DIABETES ORAL DISCONT INUED 09/05/2025 [id number] KARYN ROBISON 2024 90 [facility] Immunizations Combined list of available immunizations from the Department of Defense and Veterans Affairs facilities. 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 Code Drug Photogrammetric Compilation Specialist Status Comments Source COVID-19 (PFIZER), MRNA, LNP-S, PF, 30 MCG/0.3 ML DOSE 3 2020 208 complet ed [facility] COVID-19 ([email or web address]), MRNA, LNP-S, PF, 30 MCG/0.3 ML DOSE 2 2020 208 complet ed [facility] COVID-19 ([email or web address]), MRNA, LNP-S, PF, 30 MCG/0.3 ML DOSE 1 2020 208 complet ed [facility] ZOSTER LIVE 2014 121 complet ed [facility] INFLUENZA, UNSPECIFIED FORMULATION 2013 88 complet ed [facility] Results Combined list of recent chemistry, hematology and other laboratory results from Department of Defense and Veterans Affairs, ranging from 15 months to all on record, depending upon the facility. Order Name Results Value Reference Range Date Interpretation Specimen Comments Source GLUCOSE,BL OOD-poct (STL) GLUCOSE [MASS/VOLUM E] IN BLOOD BY AUTOMATED TEST STRIP 200 mg/dL 72 - 99 12/27 H Specimen Type: BLOOD Comment: Test Performed by: [id number] Meter #: [id number] Ordering Provider: Silvestre GARCIA Report Released Date/Time: December 28, 2024 08:00 AM Reporting Lab: [address] [address] Performing Lab: [address] [address] [facility] GLUCOSE,BL OOD-poct (STL) GLUCOSE [MASS/VOLUM E] IN BLOOD BY AUTOMATED TEST STRIP 206 mg/dL 72 - 99 12/27 H Specimen Type: BLOOD Comment: Test Performed by: [id number] Meter #: [id number] Ordering Provider: KARYN ROBISON Report Released Date/Time: December 27, 2024 06:51 AM Reporting Lab: [address] [address] Performing Lab: [phone] [place] [address] BASIC METABOLIC PANEL CREATININE [MASS/VOLUM E] IN SERUM OR PLASMA 1.10 mg/dL 0.7 - 1.3 07/12 Specimen Type: PLASMA Comment: No hemolysis noted. Ordering Provider: ARLET NICHOLS Report Released Date/Time: Jul 12, 2024 01:43 PM Reporting Lab: [address] [address] Performing Lab: [phone] [place] [address] BASIC METABOLIC PANEL UREA NITROGEN [MASS/VOLUM E] IN SERUM OR PLASMA 16.7 mg/dL 9.0 - 25.0 07/12 Specimen Type: PLASMA Comment: No hemolysis noted. Ordering Provider: ARLET NICHOLS Report Released Date/Time: Jul 12, 2024 01:43 PM Reporting Lab: [address] [address] Performing Lab: [address] [address] [facility] BASIC METABOLIC PANEL GLUCOSE [MASS/VOLUM E] IN SERUM OR PLASMA 168 mg/dL 72 - 99 07/12 H Specimen Type: PLASMA Comment: No hemolysis noted. Ordering Provider: ARLET NICHOLS Report Released Date/Time: Jul 12, 2024 01:43 PM Reporting Lab: [place] [address] [facility] [address] Performing Lab: [facility] [address] [facility] [address] [facility] BASIC METABOLIC PANEL SODIUM [MOLES/VOLU ME] IN SERUM OR PLASMA 144 meq/L 136 - 145 07/12 Specimen Type: PLASMA Comment: No hemolysis noted. Ordering Provider: ARLET NICHOLS Report Released Date/Time: Jul 12, 2024 01:43 PM Reporting Lab: [place] [address] [facility] [address] Performing Lab: [facility] [address] [facility] [address] [facility] BASIC METABOLIC PANEL POTASSIUM [MOLES/VOLU ME] IN SERUM OR PLASMA 3.8 meq/L 3.5 - 5 07/12 Specimen Type: PLASMA Comment: No hemolysis noted. Ordering Provider: ARLET NICHOLS Report Released Date/Time: Jul 12, 2024 01:43 PM Reporting Lab: [address] [address] Performing Lab: [facility] [address] [facility] [address] [facility] BASIC METABOLIC PANEL CHLORIDE [MOLES/VOLU ME] IN SERUM OR PLASMA 106 meq/L 98 - 107 07/12 Specimen Type: PLASMA Comment: No hemolysis noted. Ordering Provider: ARLET NICHOLS Report Released Date/Time: Jul 12, 2024 01:43 PM Reporting Lab: [place] [address] [address] Performing Lab: [facility] [address] [place] [address] [facility] BASIC METABOLIC PANEL CARBON DIOXIDE, TOTAL [MOLES/VOLU ME] IN SERUM OR PLASMA 27 meq/L 22 - 31 07/12 Specimen Type: PLASMA Comment: No hemolysis noted. Ordering Provider: ARLET NICHOLS Report Released Date/Time: Jul 12, 2024 01:43 PM Reporting Lab: [place] [address] [facility] [address] Performing Lab: [place] [address] [place] [phone] [place] [address] BASIC METABOLIC PANEL CALCIUM [MASS/VOLUM E] IN SERUM OR PLASMA 9.4 mg/dL 8.4 - 10.4 07/12 Specimen Type: PLASMA Comment: No hemolysis noted. Ordering Provider: ARLET NICHOLS Report Released Date/Time: Jul 12, 2024 01:43 PM Reporting Lab: [place] [address] [facility] [address] Performing Lab: [place] [address] [phone] [place] [address] BASIC METABOLIC PANEL GLOMERULAR FILTRATION RATE/1.73 SQ M.PREDICTED [VOLUME RATE/AREA] IN SERUM, PLASMA OR BLOOD BY CREATININE- BASED FORMULA (CKD-EPI 2020) 70.4 60 07/12 Specimen Type: PLASMA Comment: No hemolysis noted. Ordering Provider: ARLET NICHOLS Report Released Date/Time: Jul 12, 2024 01:43 PM Reporting Lab: [place] [address] [facility] [address] Performing Lab: [place] [address] [phone] [place] [address] CBC LEUKOCYTES [#/VOLUME] IN BLOOD BY AUTOMATED COUNT 6.6 10*3/u L 3.6 - 11.2 07/12 Specimen Type: BLOOD No comment entered. Ordering Provider: ARLET NICHOLS Report Released Date/Time: Jul 12, 2024 01:43 PM Reporting Lab: [place] [address] [address] Performing Lab: [address] [address] [facility] CBC ERYTHROCYTE S [#/VOLUME] IN BLOOD BY AUTOMATED COUNT 4.59 10*6/u L 4.10 - 5.70 07/12 Specimen Type: BLOOD No comment entered. Ordering Provider: ARLET NICHOLS Report Released Date/Time: Jul 12, 2024 01:43 PM Reporting Lab: [place] [id number] Performing Lab: [address] CBC HEMOGLOBIN [MASS/VOLUM E] IN BLOOD 14.2 g/dL 13.1 - 16.8 07/12 Specimen Type: BLOOD No comment entered. Ordering Provider: ARLET NICHOLS Report Released Date/Time: Jul 12, 2024 01:43 PM Reporting Lab: [place] [id number] Performing Lab: [place] [phone] CBC HEMATOCRIT [VOLUME FRACTION] OF BLOOD 43.6 38.2 - 48.4 07/12 Specimen Type: BLOOD No comment entered. Ordering Provider: ARLET NICHOLS Report Released Date/Time: Jul 12, 2024 01:43 PM Reporting Lab: [address] [address] Performing Lab: [place] [phone] CBC MCV [ENTITIC VOLUME] BY AUTOMATED COUNT 95.0 fL 80.0 - 100.0 07/12 Specimen Type: BLOOD No comment entered. Ordering Provider: ARLET NICHOLS Report Released Date/Time: Jul 12, 2024 01:43 PM Reporting Lab: [place] [address] [facility] [address] Performing Lab: [address] [address] [facility] CBC MCH [ENTITIC MASS] BY AUTOMATED COUNT 30.9 pg 27.0 - 34.0 07/12 Specimen Type: BLOOD No comment entered. Ordering Provider: ARLET NICHOLS Report Released Date/Time: Jul 12, 2024 01:43 PM Reporting Lab: [address] [address] Performing Lab: [address] [address] [facility] CBC MCHC [MASS/VOLUM E] BY AUTOMATED COUNT 32.6 g/dL 33.0 - 36.0 07/12 L Specimen Type: BLOOD No comment entered. Ordering Provider: ARLET NICHOLS Report Released Date/Time: Jul 12, 2024 01:43 PM Reporting Lab: [address] [address] Performing Lab: [address] [address] [facility] CBC PLATELETS [#/VOLUME] IN BLOOD BY AUTOMATED COUNT 199 10*3/u L 150 - 400 07/12 Specimen Type: BLOOD No comment entered. Ordering Provider: ARLET NICHOLS Report Released Date/Time: Jul 12, 2024 01:43 PM Reporting Lab: [address] [address] Performing Lab: [address] [address] [facility] CBC PLATELET MEAN VOLUME [ENTITIC VOLUME] IN BLOOD BY AUTOMATED COUNT 10.6 fL 7.5 - 11.2 07/12 Specimen Type: BLOOD No comment entered. Ordering Provider: ARLET NICHOLS Report Released Date/Time: Jul 12, 2024 01:43 PM Reporting Lab: [facility] [address] [facility] [address] Performing Lab: [facility] [address] [facility] [address] [facility] CBC ERYTHROCYTE DISTRIBUTIO N WIDTH [RATIO] BY AUTOMATED COUNT 13.9 11.8 - 15.1 07/12 Specimen Type: BLOOD No comment entered. Ordering Provider: ARLET NICHOLS Report Released Date/Time: Jul 12, 2024 01:43 PM Reporting Lab: [place] [address] [facility] [address] Performing Lab: [place] [address] [facility] [address] [facility] CBC LYMPHOCYTES /100 LEUKOCYTES IN BLOOD BY AUTOMATED COUNT 31 07/12 Specimen Type: BLOOD No comment entered. Ordering Provider: ARLET NICHOLS Report Released Date/Time: Jul 12, 2024 01:43 PM Reporting Lab: [facility] [address] [facility] [address] Performing Lab: [facility] [address] [facility] [address] [facility] CBC MONOCYTES/1 00 LEUKOCYTES IN BLOOD BY AUTOMATED COUNT 9 07/12 Specimen Type: BLOOD No comment entered. Ordering Provider: ARLET NICHOLS Report Released Date/Time: Jul 12, 2024 01:43 PM Reporting Lab: [facility] [address] [facility] [address] Performing Lab: [facility] [address] [facility] [address] [facility] CBC NEUTROPHILS /100 LEUKOCYTES IN BLOOD BY AUTOMATED COUNT 56 07/12 Specimen Type: BLOOD No comment entered. Ordering Provider: ARLET NICHOLS Report Released Date/Time: Jul 12, 2024 01:43 PM Reporting Lab: [facility] [address] Performing Lab: [facility] [address] [facility] [address] [facility] CBC EOSINOPHILS /100 LEUKOCYTES IN BLOOD BY AUTOMATED COUNT 3 07/12 Specimen Type: BLOOD No comment entered. Ordering Provider: ARLET NICHOLS Report Released Date/Time: Jul 12, 2024 01:43 PM Reporting Lab: [place] [address] [address] Performing Lab: [place] [address] [facility] [address] [facility] CBC BASOPHILS/1 00 LEUKOCYTES IN BLOOD BY AUTOMATED COUNT 1 07/12 Specimen Type: BLOOD No comment entered. Ordering Provider: ARLET NICHOLS Report Released Date/Time: Jul 12, 2024 01:43 PM Reporting Lab: [place] [address] [facility] [address] Performing Lab: [place] [address] [facility] [address] [facility] CBC LYMPHOCYTES [#/VOLUME] IN BLOOD BY AUTOMATED COUNT 2.05 10*3/u L 0.77 - 4.50 07/12 Specimen Type: BLOOD No comment entered. Ordering Provider: ARELT NICHOLS Report Released Date/Time: Jul 12, 2024 01:43 PM Reporting Lab: [address] [address] Performing Lab: [place] [address] [facility] [address] [facility] CBC MONOCYTES [#/VOLUME] IN BLOOD BY AUTOMATED COUNT 0.59 10*3/u L 0.19 - 0.80 07/12 Specimen Type: BLOOD No comment entered. Ordering Provider: ARLET NICHOLS Report Released Date/Time: Jul 12, 2024 01:43 PM Reporting Lab: [place] [address] [facility] [address] Performing Lab: [address] [place] [address] [facility] CBC NEUTROPHILS [#/VOLUME] IN BLOOD BY AUTOMATED COUNT 3.68 10*3/u L 2.10 - 8.00 07/12 Specimen Type: BLOOD No comment entered. Ordering Provider: ARLET NICHOLS Report Released Date/Time: Jul 12, 2024 01:43 PM Reporting Lab: [address] [address] Performing Lab: [address] [address] [facility] CBC EOSINOPHILS [#/VOLUME] IN BLOOD BY AUTOMATED COUNT 0.21 10*3/u L 0.00 - 0.60 07/12 Specimen Type: BLOOD No comment entered. Ordering Provider: ARLET NICHOLS Report Released Date/Time: Jul 12, 2024 01:43 PM Reporting Lab: [place] [address] [facility] [address] Performing Lab: [address] [address] [facility] CBC BASOPHILS [#/VOLUME] IN BLOOD BY AUTOMATED COUNT 0.05 10*3/u L 0.00 - 0.20 07/12 Specimen Type: BLOOD No comment entered. Ordering Provider: ARLET NICHOLS Report Released Date/Time: Jul 12, 2024 01:43 PM Reporting Lab: [address] [address] Performing Lab: [address] [phone] [place] [address] Vital Signs Combined list of inpatient and outpatient Vital Signs from Department of Defense and Veterans Affairs, ranging from 12 months to all on record, depending upon the facility. Vital Sign Value Date Comments Source SYSTOLIC BLOOD PRESSURE 152 12/27/2024 07:45:59 [facility] DIASTOLIC BLOOD PRESSURE 71 12/27/2024 07:45:59 [facility] PULSE OXIMETRY 94 12/27/2024 07:45:59 [facility] WEIGHT 236.6 12/27/2024 07:45:59 [facility] BMI 34 kg/m2 12/27/2024 07:45:59 [facility] PAIN 0 12/27/2024 07:45:59 [facility] HEIGHT 70 12/27/2024 07:45:59 [facility] TEMPERATURE 97.3 12/27/2024 07:45:59 [facility] PULSE 60 12/27/2024 07:45:59 [facility] RESPIRATION 20 12/27/2024 07:45:59 [facility] SYSTOLIC BLOOD PRESSURE 152 07/12/2024 12:47:25 [facility] DIASTOLIC BLOOD PRESSURE 74 07/12/2024 12:47:25 [facility] PULSE OXIMETRY 96 07/12/2024 12:47:25 [facility] PAIN 0 07/12/2024 12:47:25 [facility] TEMPERATURE 97.7 07/12/2024 12:47:25 [facility] PULSE 65 07/12/2024 12:47:25 [facility] RESPIRATION 16 07/12/2024 12:47:25 [facility] Encounters Combined list of: 1) Encounters from Department of Veterans Affairs facilities going backup to the last 18 months, not all VA inpatient encounters are included; 2) Encounters from the Department of Defense facilities going backup to 280 months. Location Location Details Encounter Type Encounter Number Reason For Visit Attending Provider ADM Date DC Date Status Disposition Source [facility] Outpatient Encounter [id number] LOUIE MEYER 12/30 [facility] Outpatient Encounter [id number] 01/02 [facility] OFFICE O/P EST MOD 30 MIN [id number] Diagnos is: ICD-10- CM E11.9 Type 2 diabete s mellitu s without complic ations KARYN ROBISON 01/02 [facility] MTMS BY PHARM ADDL 15 MIN [id number] Diagnos is: ICD-10- CM E11.9 Type 2 diabete s mellitu s without complic ations KAMINI SANTANA 01/18 [facility] UNLISTED ORL SERVICE/PX [id number] Diagnos is: ICD-10- CM H90.3 Sensori neural hearing loss, Karan Infante 07/07 [facility] OFFICE O/P EST LOW 20 MIN [id number] Diagnos is: ICD-10- CM H91.93 Unspeci fied hearing loss, JAGJIT Randolph 07/12 [facility] Outpatient Encounter [id number] 07/12 [facility] [place] [id number] Diagnos is: ICD-10- CM H90.A22 Snsrnrl hear loss, uni, l ear, with rstrcd hear cntra side LANDON MARSH 07/19 [facility] HEARING AID CHECK BOTH EARS [id number] Diagnos is: ICD-10- CM H90.3 Sensori neural hearing loss, LANDON Mcqueen 08/02 [facility] Outpatient Encounter [id number] 09/03 [facility] Outpatient Encounter [id number] 10/25 [facility] Outpatient Encounter [id number] 10/31 [facility] Outpatient Encounter [id number] 11/01 [facility] Outpatient Encounter [id number] 11/10 [facility] Outpatient Encounter [id number] 11/27 [facility] SYNCH AUDIO-ONLY NEW LOW 30 [id number] Diagnos is: ICD-10- CM Z01.818 Encount er for other preproc edural examina VANE Frankel 12/13 [facility] Outpatient Encounter [id number] 12/20 [facility] Outpatient Encounter [id number] 12/22 [facility] PH1 ASSMT&MGMT NQHP 5-10 [id number] Diagnos is: ICD-10- CM H91.90 Unspeci fied hearing loss, unspeci fied ear АЛЕКСАНДР CHRISTIANSON 12/26 [facility] EDU&TRN PT SELF-MGMT NQHP 1 [id number] Diagnos is: ICD-10- CM H90.A22 Snsrnrl hear loss, uni, l ear, with rstrcd hear cntra side RUTH OLIVA R 12/27 [facility] Outpatient Encounter [id number] 12/27 [facility] OFFICE O/P EST LOW 20 MIN [id number] Diagnos is: ICD-10- CM Z01.818 Encount er for other preproc edural examina Silvestre Mahajan 12/27 [facility] Outpatient Encounter [id number] Silvestre GARCIA 12/27 [facility] Outpatient Encounter [id number] JAGJIT WALKER 12/27 [facility] CREATE EARDRUM OPENING 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 al or religio us nutrition counselor VICKIE Dai 12/27 [facility] Outpatient Encounter [id number] Silvestre GARCIA 12/28 [facility] Encounter [id number] 12/28 [facility] Out[facility] Encounter [id number] Silvestre GARCIA 12/28 [facility] OFFICE O/P EST HI 40 MIN [id number] Diagnos is: ICD-10- CM I48.21 Permane nt atrial fibrill ation KARYN ROBISON 01/01 [facility] Procedures Combined list of: 1) Procedures from Department of Veterans Affairs facilities going back up to thelast 18 months, not all VA non-surgical procedures are included; 2) All procedures from the Department of Defense facilities. Procedure Procedure Type Code Date Perfomer Comments Sourc e REMOVAL RIGHT EAR TUBE, MIDDLE EAR EXPLORATION CREATE EARDRUM OPENING 51433 12/27/2024 MAYELA PISANO [facility] Social History Combined list of available smoking, tobacco, and other social history from Department of Defense and Veterans Affairs facilities. Social History Type Response Date Comment Sourc e Tobacco smoking status KSIS CO-TOBACCO NEVER USED CIGARETTES 01/01/2025 [facility] History of tobacco use CO-TOBACCO NEVER USED OTHER TYPE 01/01/2025 [facility] History of tobacco use VA-TOBACCO NEVER USED 01/03/2024 [facility] History of tobacco use CO-TOBACCO FORMER USER 06/22/2022 [facility] History of tobacco use CO-TOBACCO FORMER USER 07/22/2021 [facility] History of tobacco use CURRENT TOBACCO USER 01/08/2015 [facility] Plan of Care List of future care activities from Department of Veterans Affairs facilities. Additional future care activities may be listed in the Assessment and Plan section. Date/Time Care Activity Care Activity Detail Facili ty 01/24/2025 AMBULATORY - SURGERY AMBULATORY - SURGERY [facility]
--- OUTSIDE RECORDS SUMMARY | 2025-01-23 18:01 | XMS_ITS | CONTINUITY OF CARE DOCUMENT ---
Author Name melissa torres Address Unknown Organization [facility] Address [address] [address] [place] [address] Phone [phone] Care Team Providers Care Electroplating Laborer Name Role Phone Dorian HILTON, Luis Unavailable [...] MD Fatigue, weakness active Luis Alarcon MD Cardiology examination active Vikki Gaines i, NP ENCOUNTERS Date Type Provider Location Encounter Diag nosis - In-person encounter Office Visit Luis Alarcon MD [facility] Cardiology examination - In-person encounter Office Visit Luis Alarcon MD [facility] Atrial fib paroxysmalFatigue, weakness - In-person encounter Office Visit Luis Alarcon MD [facility] Intermittent palpitationsSystolic murmurCarotid bruit bilateral VITAL SIGNS Date Observation Value Provider Body Mass Index (Ratio) 35.50 kg/m2 Benny Alarcon MD blood pressure, diastolic -1 mm[Hg] Li nkLogic blood pressure, systolic 166 mm[Hg] Roxi kLogdori blood pressure, diastolic 148 mm[Hg] Brayden evnegas Sekou blood pressure, systolic 166 mm[Hg] Alia Sapp pulse rate 93 /min Lianne Sapp oxygen saturation, oximetry 96 % Lianne Sapp respiratory rate E&M 16 /min Lianne Sapp weight E&M 240.4 [lb_av] Lianne Sapp blood pressure, cuff size regular Brayden venegas Sapp height E&M 69 [in_i] Lianne Sapp Body Mass Index (Ratio) 36.18 kg/m2 Casey as [place] blood pressure, cuff size regular Ke rri Gersonjuanjo blood pressure, diastolic 84 mm[Hg] Ke rri Loritamipatriciadestiny blood pressure, systolic 146 mm[Hg] Radha ri Griselda oxygen saturation, oximetry 96 % Sandy Villalobos pulse rate 73 /min Sandy Leslie lder weight E&M 245 [lb_av] Sandy Leslie lder height E&M 69 [in_i] Sandy Leslie lder HISTORY OF MEDICATION USE Medication Status Instructions Dates Provider Indications Com ments magnesium oxide 400 mg magnesium tablet active 1 tablet by mouth twice a day Vikki Quinones NP Eliquis 5 mg tablet active Take 1 tablet by mouth twice a day Vikki Quinones NP diltiazem HCl (Cardizem CD) 300 mg capsule,extende d release 24hr active 1 capsule by mouth once a day Vikki Quinones NP Eliquis 5 mg tablet completed - Vikki Quinones NP lisinopril-hydr ochlorothiazide 20-25 mg tablet active Vikki Quinones NP lovastatin 40 mg tablet active Vikki Quinones NP finasteride 5 mg tablet active Vikki Quinones NP diltiazem HCl (Cardizem CD) 120 mg capsule,extende d release 24hr completed - Vikki Quinones NP pioglitazone 30 mg tablet active Vikki Quinones NP glimepiride 4 mg tablet active Vikki Quinones NP metformin (Glucophage XR) 500 mg tablet extended release 24 hr active Take 4 tablet by mouth once a day Vikki Quinones NP amiodarone 200 mg tablet completed Take 1 tablet by mouth twice a day - Vikki Quinones NP amiodarone 200 mg tablet completed TAKE 1 TABLET BY MOUTH TWICE DAILY - Sandy Villalobos albuterol sulfate 90 mcg/actuation HFA aerosol inhaler active Luis Alarcon MD finasteride 5 mg tablet completed - Vikki Quinones NP pioglitazone 30 mg tablet completed - Vikki Quinones NP albuterol sulfate 90 mcg/actuation HFA aerosol inhaler completed - Vikki Quinones NP diltiazem HCl (Cardizem CD) 120 mg capsule,extende d release 24hr completed - Luis Alarcon MD glimepiride 4 mg tablet completed - Vikki Quinones NP lisinopril 20 mg tablet completed Take 1 tablet by mouth once a day - Vikki Quinones NP alogliptin 25 mg tablet active Sandy Villalobos aspirin 81 mg tablet,delayed release (DR/EC) completed Take 1 tablet by mouth once a day - Vikki Quinones NP lovastatin 20 mg tablet completed - Vikki Quinones NP SOCIAL HISTORY Date Observation Value Provider alcohol use, average drinks per day socia l Sanakalli Stacie WILKERSON personal history of marijuana use yes Vikki Quinones NP drug use no Vikki Quinones NP alcohol use yes Vikki Stacie WILKERSON smoking status Former smoker Sanakalli irvin NP INSURANCE PROVIDERS Payer name Policy type / Coverage type [employer] [place] [id number] [employer] [employer] [id number] ADVANCE DIRECTIVES Name Date DISCUSSED - NO DECISION MADE TREATMENT PLAN Date Name Performer Cardiology: C ontinue current medication regimen. Labs per PCP T he following medications were removed from the medication list: Lovastatin 20 Mg Tablet (Lovastatin) His updated medication list for this problem includes: Lovastatin 40 Mg Tablet (Lovastatin) Luis Alarcon MD Cardiology: B P elevated in office today. Repeat manual BP at 150/90 W ill increase Diltiazem to 300 mg C ontincaitlyn monitoring Bp at home and notify office if BP remaisn elevated at home M onitor dietary sodium intake B P today: 166/148 P rior BP: 146/84 (08/09/2024) Luis Alarocn MD Cardiology: N o recurrence T he following medications were removed from the medication list: Aspirin 81 Mg Tablet,delayed Release (dr/ec) (Aspirin) ..... Take 1 tablet by mouth once a day Amiodarone 200 Mg Tablet (Amiodarone) ..... Take 1 tablet by mouth twice a day Diltiazem Hcl (cardizem Cd) 120 Mg Capsule,extended Release 24hr (Diltiazem hcl (cardizem cd)) Lisinopril 20 Mg Tablet (Lisinopril) ..... Take 1 tablet by mouth once a day His updated medication list for this problem includes: Diltiazem Hcl (cardizem Cd) 300 Mg Capsule,extended Release 24hr (Diltiazem hcl (cardizem cd)) ..... 1 capsule by mouth once a day Lisinopril-hydrochlorothiazide 20-25 Mg Tablet (Lisinopril-hydrochlorothiazide) Luis Alarcon MD Cardiology: a blation on 09/01/2024 Atrial fibrillation, Atypical atrial flutter , SVT (supraventricular tachycardia) AV node reentry P alpitations S R on EKG today Will get a 30 day monitor in about 6 months W ill stop Amiodarone W ill increase Diltiazem to 300 mg daily C ontinue Eliquis for AC Luis Alarcon MD Cardiology: M anaged per PCP C mary current medication regimen Vikki Quinones NP Cardiology: B P elevated in office today. Repeat manual BP at 150/90 W ill increase Diltiazem to 300 mg C ontinue monitoring Bp at home and notify office if BP remaisn elevated at home M onitor dietary sodium intake Vikki Quinones NP Cardiology: C ontinue current medication regimen. Labs per PCP Vikki Quinones NP Cardiology: N o recurrence Vikki Quinones NP Cardiology: a blation on 09/01/2024 Atrial fibrillation, Atypical atrial flutter , SVT (supraventricular tachycardia) AV node reentry P alpitations S R on EKG today Will get a 30 day monitor in about 6 months W ill stop Amiodarone W ill increase Diltiazem to 300 mg daily C emilianaincaitlyn Eliofelia for XAVIER Quinones NP Electrophysiology: His updated medication list for this [...] a day Orders: 9 9213 LTD 20-29min (CPT-12910) C omplex e/m visit add on (G2211) [...] mouth once a day Luis Alarcon MD Electrophysiology:ueses JENNIFER Alarcon MD Electrophysiology Luis christine MD Electrophysiology: [...] mouth once a day Orders: E KG (CPT-36566) 9 9205 HIGH 60-74 min (CPT-07781) A BLATION w/ Anesthesia (*) C omplete Echo (50384) Luis Alarcon MD Date Name Monitor - Telemetry (Mobile Cardiac) EKG Monitor - Telemetry (Mobile Cardiac) PROTHROMBIN TIME WIT H INR Partial Thromboplast in Time, Activated CBC (INCLUDES DIFF/P LT) BASIC METABOLIC PANE L W/EGFR Carotid Duplex Bilat eral Complete Echo ABLATION w/ Anesthes ia Complex e/[place] [address] LTD 20-29min HISTORY OF PROCEDURES Procedure Date Procedure Name Provider Procedure Notes S tatus Complex e/m visit ad d on Luis Alarcon MD completed Complex e/m visit ad d on Luis Alarcon MD active EKG Luis Alarcon MD comp leted
[2025-01-23 18:20] LABS: Basophils Absolute Auto 0.04 K/mm3 (0.00-0.10); Basophils Percent Auto 0.6 % (0.0-1.0); Eosinophils Absolute Auto 0.22 K/mm3 (0.02-0.50); Eosinophils Percent Auto 3.3 % (1.0-6.0); Hematocrit 41.9 % (37.0-46.0); Hemoglobin 13.6 g/dL (12.4-15.3); Immature Granulocyte Absolute 0.03 K/mm3 (0.00-0.00); Immature Granulocyte Percent A 0.5 % (0.0-0.0); Lymphocytes Absolute Auto 2.39 K/mm3 (1.10-4.50); Lymphocytes Percent Auto 36.2 % (18.0-42.0); Mean Corpuscular HGB Conc 32.5 g/dL (32-36); Mean Corpuscular Hemoglobin 30.6 pg (27.0-31.0); Mean Corpuscular Volume 94.2 fL (78.0-102.0); Mean Platelet Volume 9.5 fl (8.7-11.0); Monocytes Absolute Auto 0.53 K/mm3 (0.10-0.90); Neutrophils Absolute Auto 3.39 K/mm3 (1.70-7.20); Neutrophils Percent Auto 51.4 % (50.0-70.0); Platelet Count Result 245 K/mm3 (150-420); Red Blood Count 4.45 M/mm3 (4.70-6.10); Red Cell Distribution Width 13.2 % (11.6-14.4); White Blood Count 6.6 K/mm3 (4.8-10.8)
--- OUTSIDE RECORDS SUMMARY | 2025-01-23 18:22 | XMS_ITS | Referral Summary ---
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 Gender Identity Not on file Sexual Orientation Not on file Last Filed Vital Signs Vital Sign Reading Time Taken Comments Blood Pressure 136/74 09/01/2024 8:00 AM JEWEL CUPPING MACHINE OPERATOR Pulse 66 09/01/2024 8:00 AM JEWEL CUPPING MACHINE OPERATOR Temperature 36.9 C (98.4 F) 09/01/2024 8:00 AM JEWEL CUPPING MACHINE OPERATOR Respiratory Rate 18 09/01/2024 8:00 AM JEWEL CUPPING MACHINE OPERATOR Oxygen Saturation 94% 09/01/2024 8:39 AM JEWEL CUPPING MACHINE OPERATOR Inhaled Oxygen Concentration - - Weight 107 kg (236 lb) 08/31/2024 7:10 AM JEWEL CUPPING MACHINE OPERATOR Height 175.3 cm (5' 9) 08/31/2024 7:10 AM JEWEL CUPPING MACHINE OPERATOR Body Mass Index 34.85 08/31/2024 7:10 AM JEWEL CUPPING MACHINE OPERATOR Plan of Treatment Not on file Insurance MEDICARE [facility] MEDICARE [facility] MEDICARE [facility] Care Teams Hemp Fiber Taker Off Relationship Specialty Start Date End Date Alon Mcneill MD [address] [place] [address] PCP - General 05/06/22
--- OUTSIDE RECORDS SUMMARY | 2025-01-23 18:22 | XMS_ITS | Encounter Summary ---
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
--- OUTSIDE RECORDS SUMMARY | 2025-01-23 18:22 | XMS_ITS | Continuity of Care Document ---
Author Name [facility] Organization [facility] Care Team Providers Care Flower Stripper Name Role Phone [facility] Unavailable Unavailable Problems Combined list of problems from Department of [facility] and [facility] facilities. It does not include entries that were removed or entered in error. Problem Status Onset Date Problem Type Date of Resolution Comments Source Atrial fibrillation Active Condition [facility] Benign essential hypertension Active Condition [facility] Diabetes mellitus Active Condition [facility] Family history of cancer of colon Active Condition [facility] History of calculus of kidney Active Condition [facility] Hyperlipidemia Active Condition [facility] Sleep apnea Active Condition [facility] Diagnosis: ICD-10-CM I48.21 Permanent atrial fibrillation Active Diagnosis [facility] Diagnosis: ICD-10-CM Z71.81 Spiritual or hinduism counseling Active Diagnosis [facility] Diagnosis: ICD-10-CM Z01.818 Encounter for other preprocedural examination Active Diagnosis [facility] Diagnosis: ICD-10-CM H90.A22 Snsrnrl hear loss, uni, l ear, with rstrcd hear cntra side Active Diagnosis [facility] Diagnosis: ICD-10-CM H91.90 Unspecified hearing loss, unspecified ear Active Diagnosis [facility] Diagnosis: ICD-10-CM H90.3 Sensorineural hearing loss, bilateral Active Diagnosis [facility] Diagnosis: ICD-10-CM H91.93 Unspecified hearing loss, bilateral Active Diagnosis [facility] Diagnosis: ICD-10-CM E11.9 Type 2 diabetes mellitus without complications Active Diagnosis [facility] Medications Combined list of outpatient medications from Department of [facility] and [facility] facilities.Medications provided include 1) outpatient medications from the last 15 months, and 2) patient-reported medications. Medication Details Route Status Patient Instructions Prescription Expires Prescription Number Last Dispense Date Ordering Provider Order Date Order Qty Source ALOGLIPTIN 12.5MG TAB TAKE ONE TABLET BY MOUTH ONCE A DAY ORAL DISCONT INUED (EDIT) 07/23/2024 [id number] FRANKLINMAMADOUPRIYANK KARYN 2022 90 [facility] ALOGLIPTIN 25MG TAB TAKE ONE TABLET BY MOUTH ONCE A DAY FOR DIABETES ORAL DISCONT INUED 01/03/2025 [id number] ROHITPRIYANKKARYN 2023 90 [facility] [place] CETIRIZINE HCL 10MG TAB TAKE ONE TABLET BY MOUTH ONCE A DAY NEEDED ORAL ACTIVE KARYN ROBISON 2020 [facility] DILTIAZEM (EQV-TIAZAC AB4) 300MG 24HR CAP TAKE 1 CAPSULE BY MOUTH EVERY MORNING BEFORE A MEAL ORAL ACTIVE KARYN ROBISON 2024 [facility] FINASTERIDE 5MG TAB TAKE ONE TABLET BY MOUTH ONCE A DAY ORAL ACTIVE ENRIQUETAKARYN 2020 [facility] GLIMEPIRIDE 4MG TAB TAKE ONE TABLET BY MOUTH EVERY MORNING ORAL ACTIVE KARYN ROBISON 2022 [facility] HYDROCHLORO THIAZIDE 25MG/LISINO PRIL 20MG TAB TAKE ONE TABLET BY MOUTH EVERY MORNING ORAL ACTIVE KARYN ROBISON 2022 [facility] LOVASTATIN 40MG TAB TAKE ONE TABLET BY MOUTH EVERY EVENING ORAL ACTIVE JEFF ROBISONYA 2020 [facility] METFORMIN HCL 500MG 24HR TAB,SA TAKE FOUR TABLETS BY MOUTH EVERY MORNING BEFORE A MEAL ORAL ACTIVE KARYN ROBISON 2020 [facility] OFLOXACIN 0.3% SOLN,OPH INSTILL 2 DROPS IN BOTH EARS TWICE A DAY APPLY 2-5 DROPS TWICE DAILY TO THE EAR(S) THAT RECEIVED EAR TUBES AURICU LAR (OTIC) DISCONT INUED BY KEY Rivers 12/28/2025 [id number] MARILIN PISANO 2024 10 [facility] PIOGLITAZON E HCL 30MG TAB TAKE ONE TABLET BY MOUTH ONCE A DAY ORAL ACTIVE GARRY SANTANA DOMONIQUE Loomis 2023 [facility] SITAGLIPTIN (EQV-ZITUVI O) 25MG TAB TAKE ONE TABLET BY MOUTH ONCE A DAY FOR DIABETES ORAL ACTIVE 01/02/2026 [id number] KARYN ROBISON 2024 90 [facility] [place] SITAGLIPTIN (EQV-ZITUVI O) 25MG TAB TAKE ONE TABLET BY MOUTH ONCE A DAY FOR DIABETES ORAL DISCONT INUED 09/05/2025 [id number] KARYN ROBISON 2024 90 [facility] Immunizations Combined list of available immunizations from the Department of Defense and Veterans Affairs facilities. 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 Code Drug Baggage Handler Status Comments Source COVID-19 (PFIZER), MRNA, LNP-S, PF, 30 MCG/0.3 ML DOSE 3 2020 208 complet ed [facility] COVID-19 (ralali), MRNA, LNP-S, PF, 30 MCG/0.3 ML DOSE 2 2020 208 complet ed [facility] COVID-19 (ralali), MRNA, LNP-S, PF, 30 MCG/0.3 ML DOSE 1 2020 208 complet ed [facility] ZOSTER LIVE 2014 121 complet ed [facility] INFLUENZA, UNSPECIFIED FORMULATION 2013 88 complet ed [facility] Results Combined list of recent [...] Specimen Type: BLOOD Comment: Test Performed by: [id number] Meter #: [id number] Ordering Provider: Silvestre GARCIA Report Released Date/Time: December 28, 2024 08:00 AM Reporting Lab: [address] [address] Performing Lab: [address] [address] [facility] GLUCOSE,BL OOD-poct (STL) GLUCOSE [MASS/VOLUM E] IN BLOOD BY AUTOMATED TEST STRIP 206 mg/dL 72 - 99 12/27 H Specimen Type: BLOOD Comment: Test Performed by: [id number] Meter #: [id number] Ordering Provider: KARYN ROBISON Report Released Date/Time: December 27, 2024 06:51 AM Reporting Lab: [address] [address] Performing Lab: [phone] [place] [address] BASIC METABOLIC PANEL CREATININE [MASS/VOLUM E] IN SERUM OR PLASMA 1.10 mg/dL 0.7 - 1.3 07/12 Specimen Type: PLASMA Comment: No hemolysis noted. Ordering Provider: ARLET NICHOLS Report Released Date/Time: Jul 12, 2024 01:43 PM Reporting Lab: [address] [address] Performing Lab: [address] [phone] [place] [address] BASIC METABOLIC PANEL UREA NITROGEN [MASS/VOLUM E] IN SERUM OR PLASMA 16.7 mg/dL 9.0 - 25.0 07/12 Specimen Type: PLASMA Comment: No hemolysis noted. Ordering Provider: ARLET NICHOLS Report Released Date/Time: Jul 12, 2024 01:43 PM Reporting Lab: [address] [address] Performing Lab: [address] [address] [facility] BASIC METABOLIC PANEL GLUCOSE [MASS/VOLUM E] IN SERUM OR PLASMA 168 mg/dL 72 - 99 07/12 H Specimen Type: PLASMA Comment: No hemolysis noted. Ordering Provider: ARLET NICHOLS Report Released Date/Time: Jul 12, 2024 01:43 PM Reporting Lab: [place] [address] [facility] [address] Performing Lab: [facility] [address] [facility] [address] [facility] BASIC METABOLIC PANEL SODIUM [MOLES/VOLU ME] IN SERUM OR PLASMA 144 meq/L 136 - 145 07/12 Specimen Type: PLASMA Comment: No hemolysis noted. Ordering Provider: ARLET NICHOLS Report Released Date/Time: Jul 12, 2024 01:43 PM Reporting Lab: [place] [address] [facility] [address] Performing Lab: [facility] [address] [facility] [address] [facility] BASIC METABOLIC PANEL POTASSIUM [MOLES/VOLU ME] IN SERUM OR PLASMA 3.8 meq/L 3.5 - 5 07/12 Specimen Type: PLASMA Comment: No hemolysis noted. Ordering Provider: ARLET NICHOLS Report Released Date/Time: Jul 12, 2024 01:43 PM Reporting Lab: [address] [address] Performing Lab: [facility] [address] [facility] [address] [facility] BASIC METABOLIC PANEL CHLORIDE [MOLES/VOLU ME] IN SERUM OR PLASMA 106 meq/L 98 - 107 07/12 Specimen Type: PLASMA Comment: No hemolysis noted. Ordering Provider: ARLET NICHOLS Report Released Date/Time: Jul 12, 2024 01:43 PM Reporting Lab: [place] [address] [facility] [address] Performing Lab: [facility] [address] [place] [address] [facility] BASIC METABOLIC PANEL CARBON DIOXIDE, TOTAL [MOLES/VOLU ME] IN SERUM OR PLASMA 27 meq/L 22 - 31 07/12 Specimen Type: PLASMA Comment: No hemolysis noted. Ordering Provider: ARLET NICHOLS Report Released Date/Time: Jul 12, 2024 01:43 PM Reporting Lab: [place] [address] [facility] [address] Performing Lab: [place] [address] [place] [phone] [place] [address] BASIC METABOLIC PANEL CALCIUM [MASS/VOLUM E] IN SERUM OR PLASMA 9.4 mg/dL 8.4 - 10.4 07/12 Specimen Type: PLASMA Comment: No hemolysis noted. Ordering Provider: ARLET NICHOLS Report Released Date/Time: Jul 12, 2024 01:43 PM Reporting Lab: [place] [address] [facility] [address] Performing Lab: [place] [address] [facility] [phone] [place] [address] BASIC METABOLIC PANEL GLOMERULAR FILTRATION RATE/1.73 SQ M.PREDICTED [VOLUME RATE/AREA] IN SERUM, PLASMA OR BLOOD BY CREATININE- BASED FORMULA (CKD-EPI 2020) 70.4 60 07/12 Specimen Type: PLASMA Comment: No hemolysis noted. Ordering Provider: ARLET NICHOLS Report Released Date/Time: Jul 12, 2024 01:43 PM Reporting Lab: [place] [address] [facility] [address] Performing Lab: [place] [address] [facility] [address] [place] [address] CBC LEUKOCYTES [#/VOLUME] IN BLOOD BY AUTOMATED COUNT 6.6 10*3/u L 3.6 - 11.2 07/12 Specimen Type: BLOOD No comment entered. Ordering Provider: ARLET NICHOLS Report Released Date/Time: Jul 12, 2024 01:43 PM Reporting Lab: [place] [address] [facility] [address] Performing Lab: [address] [address] [facility] CBC ERYTHROCYTE S [#/VOLUME] IN BLOOD BY AUTOMATED COUNT 4.59 10*6/u L 4.10 - 5.70 07/12 Specimen Type: BLOOD No comment entered. Ordering Provider: ARLET NICHOLS Report Released Date/Time: Jul 12, 2024 01:43 PM Reporting Lab: [place] [phone] Performing Lab: [address] CBC HEMOGLOBIN [MASS/VOLUM E] IN BLOOD 14.2 g/dL 13.1 - 16.8 07/12 Specimen Type: BLOOD No comment entered. Ordering Provider: ARLET NICHOLS Report Released Date/Time: Jul 12, 2024 01:43 PM Reporting Lab: [place] [phone] Performing Lab: [place] [phone] CBC HEMATOCRIT [VOLUME FRACTION] OF BLOOD 43.6 38.2 - 48.4 07/12 Specimen Type: BLOOD No comment entered. Ordering Provider: ARLET NICHOLS Report Released Date/Time: Jul 12, 2024 01:43 PM Reporting Lab: [address] [address] Performing Lab: [place] [phone] CBC MCV [ENTITIC VOLUME] BY AUTOMATED COUNT 95.0 fL 80.0 - 100.0 07/12 Specimen Type: BLOOD No comment entered. Ordering Provider: ARLET NICHOLS Report Released Date/Time: Jul 12, 2024 01:43 PM Reporting Lab: [place] [address] [facility] [address] Performing Lab: [address] [address] [facility] CBC MCH [ENTITIC MASS] BY AUTOMATED COUNT 30.9 pg 27.0 - 34.0 07/12 Specimen Type: BLOOD No comment entered. Ordering Provider: ARLET NICHOLS Report Released Date/Time: Jul 12, 2024 01:43 PM Reporting Lab: [address] [address] Performing Lab: [address] [address] [facility] CBC MCHC [MASS/VOLUM E] BY AUTOMATED COUNT 32.6 g/dL 33.0 - 36.0 07/12 L Specimen Type: BLOOD No comment entered. Ordering Provider: ARLET NICHOLS Report Released Date/Time: Jul 12, 2024 01:43 PM Reporting Lab: [address] [address] Performing Lab: [address] [address] [facility] CBC PLATELETS [#/VOLUME] IN BLOOD BY AUTOMATED COUNT 199 10*3/u L 150 - 400 07/12 Specimen Type: BLOOD No comment entered. Ordering Provider: ARLET NICHOLS Report Released Date/Time: Jul 12, 2024 01:43 PM Reporting Lab: [address] [address] Performing Lab: [address] [address] [facility] CBC PLATELET MEAN VOLUME [ENTITIC VOLUME] IN BLOOD BY AUTOMATED COUNT 10.6 fL 7.5 - 11.2 07/12 Specimen Type: BLOOD No comment entered. Ordering Provider: ARLET NICHOLS Report Released Date/Time: Jul 12, 2024 01:43 PM Reporting Lab: [facility] [address] [address] Performing Lab: [facility] [address] [facility] [address] [facility] CBC ERYTHROCYTE DISTRIBUTIO N WIDTH [RATIO] BY AUTOMATED COUNT 13.9 11.8 - 15.1 07/12 Specimen Type: BLOOD No comment entered. Ordering Provider: ARLET NICHOLS Report Released Date/Time: Jul 12, 2024 01:43 PM Reporting Lab: [place] [address] [facility] [address] Performing Lab: [place] [address] [facility] [address] [facility] CBC LYMPHOCYTES /100 LEUKOCYTES IN BLOOD BY AUTOMATED COUNT 31 07/12 Specimen Type: BLOOD No comment entered. Ordering Provider: ARLET NICHOLS Report Released Date/Time: Jul 12, 2024 01:43 PM Reporting Lab: [facility] [address] [address] Performing Lab: [facility] [address] [facility] [address] [facility] CBC MONOCYTES/1 00 LEUKOCYTES IN BLOOD BY AUTOMATED COUNT 9 07/12 Specimen Type: BLOOD No comment entered. Ordering Provider: ARLET NICHOLS Report Released Date/Time: Jul 12, 2024 01:43 PM Reporting Lab: [facility] [address] [facility] [address] Performing Lab: [facility] [address] [facility] [address] [facility] CBC NEUTROPHILS /100 LEUKOCYTES IN BLOOD BY AUTOMATED COUNT 56 07/12 Specimen Type: BLOOD No comment entered. Ordering Provider: ARLET NICHOLS Report Released Date/Time: Jul 12, 2024 01:43 PM Reporting Lab: [facility] [address] Performing Lab: [facility] [address] [facility] [address] [facility] CBC EOSINOPHILS /100 LEUKOCYTES IN BLOOD BY AUTOMATED COUNT 3 07/12 Specimen Type: BLOOD No comment entered. Ordering Provider: ARLET NICHOLS Report Released Date/Time: Jul 12, 2024 01:43 PM Reporting Lab: [place] [address] [facility] [address] Performing Lab: [place] [address] [facility] [address] [facility] CBC BASOPHILS/1 00 LEUKOCYTES IN BLOOD BY AUTOMATED COUNT 1 07/12 Specimen Type: BLOOD No comment entered. Ordering Provider: ARLET NICHOLS Report Released Date/Time: Jul 12, 2024 01:43 PM Reporting Lab: [place] [address] [facility] [address] Performing Lab: [place] [address] [facility] [address] [facility] CBC LYMPHOCYTES [#/VOLUME] IN BLOOD BY AUTOMATED COUNT 2.05 10*3/u L 0.77 - 4.50 07/12 Specimen Type: BLOOD No comment entered. Ordering Provider: ARLET NICHOLS Report Released Date/Time: Jul 12, 2024 01:43 PM Reporting Lab: [address] [address] Performing Lab: [place] [address] [facility] [address] [facility] CBC MONOCYTES [#/VOLUME] IN BLOOD BY AUTOMATED COUNT 0.59 10*3/u L 0.19 - 0.80 07/12 Specimen Type: BLOOD No comment entered. Ordering Provider: ARLET NICHOLS Report Released Date/Time: Jul 12, 2024 01:43 PM Reporting Lab: [place] [address] [facility] [address] Performing Lab: [address] [place] [address] [facility] CBC NEUTROPHILS [#/VOLUME] IN BLOOD BY AUTOMATED COUNT 3.68 10*3/u L 2.10 - 8.00 07/12 Specimen Type: BLOOD No comment entered. Ordering Provider: ARLET NICHOLS Report Released Date/Time: Jul 12, 2024 01:43 PM Reporting Lab: [address] [address] Performing Lab: [address] [address] [facility] CBC EOSINOPHILS [#/VOLUME] IN BLOOD BY AUTOMATED COUNT 0.21 10*3/u L 0.00 - 0.60 07/12 Specimen Type: BLOOD No comment entered. Ordering Provider: ARLET NICHOLS Report Released Date/Time: Jul 12, 2024 01:43 PM Reporting Lab: [place] [address] [facility] [address] Performing Lab: [address] [address] [facility] CBC BASOPHILS [#/VOLUME] IN BLOOD BY AUTOMATED COUNT 0.05 10*3/u L 0.00 - 0.20 07/12 Specimen Type: BLOOD No comment entered. Ordering Provider: ARLET NICHOLS Report Released Date/Time: Jul 12, 2024 01:43 PM Reporting Lab: [address] [address] Performing Lab: [address] [phone] [place] [address] Vital Signs Combined list of inpatient and outpatient Vital Signs from Department of Defense and Veterans Affairs, ranging from 12 months to all on record, depending upon the facility. Vital Sign Value Date Comments Source SYSTOLIC BLOOD PRESSURE 152 12/27/2024 07:45:59 [facility] DIASTOLIC BLOOD PRESSURE 71 12/27/2024 07:45:59 [facility] PULSE OXIMETRY 94 12/27/2024 07:45:59 [facility] WEIGHT 236.6 12/27/2024 07:45:59 [facility] BMI 34 kg/m2 12/27/2024 07:45:59 [facility] PAIN 0 12/27/2024 07:45:59 [facility] HEIGHT 70 12/27/2024 07:45:59 [facility] TEMPERATURE 97.3 12/27/2024 07:45:59 [facility] PULSE 60 12/27/2024 07:45:59 [facility] RESPIRATION 20 12/27/2024 07:45:59 [facility] SYSTOLIC BLOOD PRESSURE 152 07/12/2024 12:47:25 [facility] DIASTOLIC BLOOD PRESSURE 74 07/12/2024 12:47:25 [facility] PULSE OXIMETRY 96 07/12/2024 12:47:25 [facility] PAIN 0 07/12/2024 12:47:25 [facility] TEMPERATURE 97.7 07/12/2024 12:47:25 [facility] PULSE 65 07/12/2024 12:47:25 [facility] RESPIRATION 16 07/12/2024 12:47:25 [facility] Encounters Combined list of: 1) Encounters from Department of Veterans Affairs facilities going backup to the last 18 months, not all VA inpatient encounters are included; 2) Encounters from the Department of Defense facilities going backup to 280 months. Location Location Details Encounter Type Encounter Number Reason For Visit Attending Provider ADM Date DC Date Status Disposition Source [facility] Outpatient Encounter [id number] LOUIE MEYER 12/30 [facility] Outpatient Encounter [id number] 01/02 [facility] OFFICE O/P EST MOD 30 MIN [id number] Diagnos is: ICD-10- CM E11.9 Type 2 diabete s mellitu s without complic ations KARYN ROBISON 01/02 [facility] MTMS BY PHARM ADDL 15 MIN [id number] Diagnos is: ICD-10- CM E11.9 Type 2 diabete s mellitu s without complic ations KAMINI ASNTANA 01/18 [facility] UNLISTED ORL SERVICE/PX [id number] Diagnos is: ICD-10- CM H90.3 Sensori neural hearing loss, Karan Infante 07/07 [facility] OFFICE O/P EST LOW 20 MIN [id number] Diagnos is: ICD-10- CM H91.93 Unspeci fied hearing loss, JAGJIT Randolph 07/12 [facility] Outpatient Encounter [id number] 07/12 [facility] [place] [id number] Diagnos is: ICD-10- CM H90.A22 Snsrnrl hear loss, uni, l ear, with rstrcd hear cntra side LANDON MARSH 07/19 [facility] HEARING AID CHECK BOTH EARS [id number] Diagnos is: ICD-10- CM H90.3 Sensori neural hearing loss, LANDON Mcqueen 08/02 [facility] Outpatient Encounter [id number] 09/03 [facility] Outpatient Encounter [id number] 10/25 [facility] Outpatient Encounter [id number] 10/31 [facility] Outpatient Encounter [id number] 11/01 [facility] Outpatient Encounter [id number] 11/10 [facility] Outpatient Encounter [id number] 11/27 [facility] SYNCH AUDIO-ONLY NEW LOW 30 [id number] Diagnos is: ICD-10- CM Z01.818 Encount er for other preproc edural examina VANE Frankel 12/13 [facility] Outpatient Encounter [id number] 12/20 [facility] Outpatient Encounter [id number] 12/22 [facility] PH1 ASSMT&MGMT NQHP 5-10 [id number] Diagnos is: ICD-10- CM H91.90 Unspeci fied hearing loss, unspeci fied ear АЛЕКСАНДР CHRISTIANSON 12/26 [facility] EDU&TRN PT SELF-MGMT NQHP 1 [id number] Diagnos is: ICD-10- CM H90.A22 Snsrnrl hear loss, uni, l ear, with rstrcd hear cntra side RUTH OLIVA R 12/27 [facility] Outpatient Encounter [id number] 12/27 [facility] OFFICE O/P EST LOW 20 MIN [id number] Diagnos is: ICD-10- CM Z01.818 Encount er for other preproc edural examina Silvestre Mahajan 12/27 [facility] Outpatient Encounter [id number] Silvestre GARCIA 12/27 [facility] Outpatient Encounter [id number] JAGJIT WALKER 12/27 [facility] CREATE EARDRUM OPENING [id number] MARVIN MEJIA 12/27 [facility] Outpatient Encounter [id number] MARVIN MEJIA 12/27 [facility] Outpatient Encounter [id number] ALONZO LABOY 12/27 [facility] Outpatient Encounter [id number] Raffi TALAMANTES EKCOE 12/27 [facility] N 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 Outpatient Encounter [id number] Silvestre GARCIA 12/28 [facility] Outpatient Encounter [id number] 12/28 [facility] Outpatient Encounter [id number] Silvestre GARCIA 12/28 [facility] OFFICE O/P EST HI 40 MIN [id number] Diagnos is: ICD-10- CM I48.21 Permane nt atrial fibrill ation KARYN ROBISON 01/01 [facility] [place] Procedures Combined list of: 1) Procedures from Department of Veterans Affairs facilities going back up to thelast 18 months, not all VA non-surgical procedures are included; 2) All procedures from the Department of Defense facilities. Procedure Procedure Type Code Date Perfomer Comments Sourc e REMOVAL RIGHT EAR TUBE, MIDDLE EAR EXPLORATION CREATE EARDRUM OPENING 80223 12/27/[address] [facility] Social History Combined list of available smoking, tobacco, and other social history from Department of Defense and Veterans Affairs facilities. Social History Type Response Date Comment Sourc e Tobacco smoking status [facility]IS CO-TOBACCO NEVER USED CIGARETTES 01/01/2025 [facility] History of tobacco use CO-TOBACCO NEVER USED OTHER TYPE 01/01/2025 [facility] History of tobacco use VA-TOBACCO NEVER USED 01/03/2024 [facility] History of tobacco use CO-TOBACCO FORMER USER 06/22/2022 [facility] History of tobacco use CO-TOBACCO FORMER USER 07/22/2021 [facility] History of tobacco use CURRENT TOBACCO USER 01/08/2015 [facility] Plan of Care List of future care activities from Department of Veterans Affairs facilities. Additional future care activities may be listed in the Assessment and Plan section. Date/Time Care Activity Care Activity Detail Facili ty 01/24/2025 AMBULATORY - SURGERY AMBULATORY - SURGERY [facility]
--- OUTSIDE RECORDS SUMMARY | 2025-01-23 18:22 | XMS_ITS | Clinical Summary ---
Author Organization [facility] Address [address] [place] [address] Care Team Providers Care Quality Assurance Supervisor Final Name Role Phone Alon Mcneill MD Primary Care Provider + [phone] Allergies No known active allergies Medications finasteride [...] Hernia Repair - (Added by TW Conv) [place] VASECTOMY UNI/BI SPX W/PO STOP SEMEN EXAMS Surgery Vas Deferens Vasectomy - (Added by TW Conv) [place] BRNCHSC INCL FLUOR GDNCE DX W/CELL WASHG SPX Bronchoscopy (Therapeutic) - (Added by TW Conv) [place] LITHOTRIPSY XTRCORP SHOCK WAVE Renal Lithotripsy - [...] on file Legal Sex Male 2:50 AM 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 Gender Identity Not on file Sexual Orientation Not on file Obstetrics History Last Filed Vital Signs Vital Sign Reading Time Taken Comments Blood Pressure 136/74 09/01/2024 8:00 AM 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 Pulse 66 09/01/2024 8:00 AM 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 Temperature 36.9 C (98.4 F) 09/01/2024 8:00 AM 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 Respiratory Rate 18 09/01/2024 8:00 AM 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 Oxygen Saturation 94% 09/01/2024 8:39 AM 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 Inhaled Oxygen Concentration - - Weight 107 kg (236 lb) 08/31/2024 7:10 AM 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 Height 175.3 cm (5' 9) 08/31/2024 7:10 AM 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 Body Mass Index 34.85 08/31/2024 7:10 AM 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 Plan of Treatment Health Maintenance Due Date [...] Tdap) 07/09/2026 07/09/2016 Insurance MEDICARE [employer] [place] [employer] [place] MEDICARE [employer] [facility] [place] [address] Care Teams Quality Assurance Supervisor Final Relationship Specialty Start Date End Date Alon Mcneill MD [address] [place] [address] PCP - General 05/06/22
--- OUTSIDE RECORDS SUMMARY | 2025-01-23 18:23 | XMS_ITS | CONTINUITY OF CARE DOCUMENT ---
Author Name melissa torres Address Unknown Organization [facility] Address [address] [place] [address] Phone [phone] Care Team Providers Care Spray Drier Operator Helper Name Role Phone Dorian HILTON, Luis Unavailable [...] In-person encounter Office Visit Luis Alarcon MD [facility] Cardiology examination - In-person encounter Office Visit Luis Alarcon MD [facility] Atrial fib paroxysmalFatigue, weakness - In-person encounter Office Visit Luis Alarcon MD [facility] Intermittent palpitationsSystolic murmurCarotid bruit bilateral VITAL SIGNS Date Observation Value Provider Body Mass Index (Ratio) 35.50 kg/m2 Benny Alarcon MD blood pressure, diastolic -1 mm[Hg] Li nkLogic blood pressure, systolic 166 mm[Hg] Roxi kLogdori blood pressure, diastolic 148 mm[Hg] Brayden venegas Sekou blood pressure, systolic 166 mm[Hg] Alia Sapp pulse rate 93 /min Lianne Sapp oxygen saturation, oximetry 96 % Lianne Sapp respiratory rate E&M 16 /min Lianne Sapp weight E&M 240.4 [lb_av] Lianne Sapp blood pressure, cuff size regular Brayden venegas Sapp height E&M 69 [in_i] Lianne Sapp Body Mass Index (Ratio) 36.18 kg/m2 Casey as Clemons blood pressure, cuff size regular Ke rri [...] Policy type / Coverage type [employer] party ID [place] MEDICARE PART B Medicare [id number] [employer] Stem [id number] ADVANCE DIRECTIVES Name Date DISCUSSED - NO [...] 166/148 P rior BP: 146/84 (08/09/2024) Luis Alarcon MD Cardiology: N o recurrence T he [...] a day Orders: 9 9213 LTD 20-29min (CPT-73330) C omplex e/m visit add on (G2211) [...] mouth once a day Orders: E KG (CPT-26863) 9 9205 HIGH 60-74 min (CPT-89500) A BLATION w/ Anesthesia (*) C omplete Echo (79502) Luis Alarcon MD Date Name Monitor - Telemetry (Mobile Cardiac) EKG Monitor - Telemetry (Mobile Cardiac) PROTHROMBIN TIME WIT H INR Partial Thromboplast in Time, Activated CBC (INCLUDES DIFF/P LT) BASIC METABOLIC PANE L W/EGFR Carotid Duplex Bilat eral Complete Echo ABLATION w/ Anesthes ia Complex e/[place] [address] LTD 20-29min HISTORY OF PROCEDURES Procedure Date Procedure Name Provider Procedure Notes S tatus Complex e/m visit ad d on Luis Alarcon MD completed Complex e/m visit ad d on Luis Alarcon MD active EKG Luis Alarcon MD comp leted
[2025-01-23 18:35] LABS: Alanine Aminotransferase 38 U/L (6-50); Albumin Level 3.9 g/dL (3.5-5.1); Alkaline Phosphatase 89 U/L (38-126); Anion Gap 6 mmol/L (4-12); Aspartate Amino Transferase 39 U/L (17-59); Bilirubin,Total 0.5 mg/dL (0.2-1.3); Blood Urea Nitrogen 16 mg/dL (9-20); Calcium 8.7 mg/dL (8.4-10.2); Carbon Dioxide 28 mmol/L (22-30); Chloride 108 mmol/L (98-107); Estimated CRCL calculation 62 ml/min; Estimated Glomerular Filt Rate > 60; Glucose 153 mg/dL (65-110); Osmolality Calculated 298 mOsm/kg (285-295); Potassium 3.4 mmol/L (3.4-5.0); Sodium 142 mmol/L (137-145); Total Protein 6.9 g/dL (6.3-8.2)
[2025-01-23 18:37] LABS: Partial Thromboplastin Time 34.3 Sec (23.9-30.70); Prothrombin Time 10.8 Seconds (9.50-12.1)
--- NOTE | 2025-01-23 19:15 | PC.NURSE ---
patient report received from ALETHEA Olivares. patient awaiting results.
--- NOTE | 2025-01-23 20:19 | PC.NURSE ---
ERP Dr. Zaragoza at bedside for occult stool check accompanied by mechatronics technologistgerardo Crooks for fiber optics engineer and witness. Patient update and plan of care provided per ERP.
[2025-01-23 20:25] LABS: Occult Blood Positive (Negative)
[2025-01-23] MEDS: CIPROFLOXACIN 500 MG TAB PO (20:28)
[2025-01-23] MEDS: metroNIDAZOLE 250 MG TABLET 500 MG PO (20:28)
[2025-01-23 20:33] VITALS: BP 174/83; PULSE 57; RESP 18; TEMP 36.4; O2SAT 98
== END 2025-01-23 20:34 | disposition home or self-care (01) ==
PROVIDERS: Emergency Provider Emergency Medicine; PCP Internal Medicine
DX: K57.32 Diverticulitis of large intestine without perforation or abscess without bleeding (principal); K92.1 Melena; I48.91 Unspecified atrial fibrillation; I10 Essential (primary) hypertension; E78.5 Hyperlipidemia, unspecified; E11.9 Type 2 diabetes mellitus without complications; N40.0 Benign prostatic hyperplasia without lower urinary tract symptoms; G47.33 Obstructive sleep apnea (adult) (pediatric); Z79.01 Long term (current) use of anticoagulants; Z87.891 Personal history of nicotine dependence
CPT/HCPCS: 36415; 74176; 80053; 82272; 85025; 85610; 85730; 99284; A9270

== ENCOUNTER 2025-01-24 15:17 | Emergency (ER) | payer MEDICARE, OTHER, SELFPAY ==
--- OUTSIDE RECORDS SUMMARY | 2025-01-24 15:19 | XMS_ITS | Clinical Summary ---
Author Organization 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 Gender Identity Not on file Sexual Orientation Not on file Obstetrics History Last Filed Vital Signs Vital Sign Reading Time Taken Comments Blood Pressure 136/74 09/01/2024 8:00 AM EXTRACTOR MACHINE OPERATOR Pulse 66 09/01/2024 8:00 AM EXTRACTOR MACHINE OPERATOR Temperature 36.9 C (98.4 F) 09/01/2024 8:00 AM EXTRACTOR MACHINE OPERATOR Respiratory Rate 18 09/01/2024 8:00 AM EXTRACTOR MACHINE OPERATOR Oxygen Saturation 94% 09/01/2024 8:39 AM EXTRACTOR MACHINE OPERATOR Inhaled Oxygen Concentration - - Weight 107 kg (236 lb) 08/31/2024 7:10 AM EXTRACTOR MACHINE OPERATOR Height 175.3 cm (5' 9) 08/31/2024 7:10 AM EXTRACTOR MACHINE OPERATOR Body Mass Index 34.85 08/31/2024 7:10 AM EXTRACTOR MACHINE OPERATOR Plan of Treatment Health Maintenance Due Date [...] Tdap) 07/09/2026 07/09/2016 Insurance MEDICARE [employer] [place] [employer] [place] MEDIC[employer] [facility] [place] [address] Care Teams Field Hand Relationship Specialty Start Date End Date Alon Mcneill MD [address] [place] [address] PCP - General 05/06/22
--- OUTSIDE RECORDS SUMMARY | 2025-01-24 15:19 | XMS_ITS | Referral Summary ---
Author Organization [facility] Address [address] [place] [phone] Care Team Providers Care Mass Communications Professor Name Role Phone Alon Mcneill MD Primary Care Provider + [phone] Allergies No known active allergies Medications finasteride [...] on file Legal Sex Male 2:50 AM LAP HAND TOOL Gender Identity Not on file Sexual Orientation Not on file Last Filed Vital Signs Vital Sign Reading Time Taken Comments Blood Pressure 136/74 09/01/2024 8:00 AM LAP HAND TOOL Pulse 66 09/01/2024 8:00 AM LAP HAND TOOL Temperature 36.9 C (98.4 F) 09/01/2024 8:00 AM LAP HAND TOOL Respiratory Rate 18 09/01/2024 8:00 AM LAP HAND TOOL Oxygen Saturation 94% 09/01/2024 8:39 AM LAP HAND TOOL Inhaled Oxygen Concentration - - Weight 107 kg (236 lb) 08/31/2024 7:10 AM LAP HAND TOOL Height 175.3 cm (5' 9) 08/31/2024 7:10 AM LAP HAND TOOL Body Mass Index 34.85 08/31/2024 7:10 AM LAP HAND TOOL Plan of Treatment Not on file Insurance MEDICARE [facility] MEDICARE [facility] MEDICARE [facility] Address: [address] [address] [facility] Care Teams Mass Communications Professor Relationship Specialty Start Date End Date Alon Mcneill MD [address] [place] [address] PCP - General 05/06/22
--- OUTSIDE RECORDS SUMMARY | 2025-01-24 15:19 | XMS_ITS ---
[place] VITAL SIGNS RECORDED [facility] Encounter Summary Created on: January 24, 2025 MARITA DOUG GUERRERO : 1950 Sex: Male Author Name [facility] [place] [facility] [place] Address [address] [place] [id number] Care Team Providers Care Reversal Print Inspector Name Role Phone KARYN ROBISON Primary Care Provider [facility] Insurance Providers: All historical and current Section [...] PART B Aug 23, 2014 PART B [id number] PARVINDOUG RICE PATIENT MEDICARE (WNR) MEDICARE ([place]) PART A Jul 23, 2014 PART A [id number] [phone] DOUG KIRKLAND PATIENT [employer] [place] [employer] PLAN F MEDIC ARE SUPPL EMENT Feb 20, 2015 PLAN F [id number] [phone] EDUARDOKARISKRYSTALDOUG PATIENT Selected Encounter This section includes the information on record at [place] for the Encounter. Date/Time Encounter Type Encounter Description Reason Provider Source Jan 24, 2025 11:30 AM VITAL SIGNS RECORDED OTOLARYNGOLOGY/ENT ICD-10-CM H90.A11 Condctv hear loss, uni, r ear with rstrcd hear cntra side DIEGO HENRY IHE Encounter Template Text not used by [facility] Assessments - Encounter Diagnoses This section includes the primary and secondary diagnoses documented for the Encounter. 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 This section includes future appointments and future orders which are active, pending or scheduled. Active, Pending, and Scheduled Orders This section includes a listing of several types of active, pending, and scheduled orders, including clinic medications orders, diagnostic test orders, procedure orders and consult orders; where the start date of the order is 45 days before the date of the Encounter or 45 days after the date of theEncounter. The data comes from all [place] treatment facilities. Test Date/Time Test Type Test Details Facility Name December 27, 2024 08:10 AM Pharmacy - Clinic Medication Order [facility] Lab Results: +/- 30 days of the encounter This section includes the Chemistry and Hematology Lab Results on record with [place] for the patient. Radiology Reports and Pathology Reports are provided separately, in subsequent sections. Lab Results This section contains the Chemistry/Hematology Results that were resulted 30 days before or 30 daysafter the date of the Encounter. Date/Time Source Result Type Result - Unit Interpretation Reference Range Specimen Type Comment December 27, 2024 09:08 AM [facility] GLUCOSE,BLOOD-poct (STL) BLOOD Specimen Type: BLOOD Comment: Test Performed by: [id number] Meter #: [id number] Ordering Provider: AGA GARCIA Report Released Date/Time: December 28, 2024 08:00 AM Reporting Lab: [facility] [address] [facility] [id number] Performing Lab: [address] [address] GLUCOSE,BLOOD-poct (STL) 200 mg/dL H 72-99 December 27, 2024 06:[address] [facility] GLUCOSE,BLOOD-poct (STL) BLOOD Specimen Type: BLOOD Comment: Test Performed by: [id number] Meter #: [id number] Ordering Provider: KARYN ROBISON Report Released Date/Time: December 27, 2024 06:51 AM Reporting Lab: [facility] [address] [facility] [address] Performing Lab: [facility] [address] [facility] [address] GLUCOSE,BLOOD-poct (L) 206 mg/dL H 72-99 Vital Signs: All taken on the encounter date This section contains inpatient and outpatient Vital Signs collected on the date of the Encounter. Date/Time Temperature Pulse Blood Pressure Respiratory Rate SP02 Pain Height Weight Body Mass Index Source Jan 24, 2025 11:50 AM 97.4 80 148/72 16 98 0 [facility] Social History: Smoking Status (Most current) and Tobacco Use (All prior to encounter date) This section includes the most current, and the historical, smoking and tobacco- related health factors from the [place] facility where the Encounter took place. Current Smoking Status This section includes the most current smoking, or tobacco-related health factor, from the [place] facility where the Encounter took place. Date/Time Current Smoking Status Comment Facil ity January 08, 2015 09:46 AM TOBACCO MEDS OFFER ED BUT DECLINED [facility] Tobacco Use History This section includes a history of the smoking, or tobacco-related health factors, that were collected on or before the date of the Encounter. The data comes from the [place] facility where the Encounter took place. Date/Time Smoking Status/Tobacco Use Comment F acility January 08, 2015 09:46 AM TOBACCO MEDS OFFER ED BUT DECLINED [facility] Encounter Notes: All associated encounter notes This section contains the clinical notes associated to the Encounter. Date/Time Encounter Note(s) Provider Source Jan 24, 2025 11:14 AM OTOLARYNGOLOGY NOT E: LOCAL TITLE: OTOLARYNGOLOGY [facility] STANDARD TITLE: OTOLARYNGOLOGY NOTE DATE OF NOTE: JAN 24, 2025@11:14 ENTRY DATE: JAN 24, 2025@11:14:36 AUTHOR: MARILIN PISANO [facility] COSIGNER: DIEGO HENRY URGENCY: STATUS: COMPLETED JAN 24, 2025 OTOLARYNGOLOGY-HEAD AND NECK SURGERY - ESTABLISHED PATIENT PROGRESS NOTE Dx: right retained PE tube in ME w/CHL, left CHL Tx: left myringotomy & PE tube removal (12/10/21); removal of retained R PE tube w/ large myringotomy (12/27/24) S: DOUG KIRKLAND is a 73 y/o WHITE MALE presenting for follow up after removal of his right ear tube in the OR. The tube was medial to the drum and very stuck-on in the middle ear space, so a large non-radial myringotomy was made for removal. Since surgery, he reports significant improvement in his right-sided hearing. No otorrhea. No longer using ototopical drops. He does feel like his hearing aids are out of tune and need adjustment. PHYSICAL EXAM: GEN: Awake, NAD FACE: NC/AT. No scars or cutaneous lesions. EARS: Bilateral auricles well formed. No drainage. Right EAC patent, TM with 10-15% inferior perforation at myringotomy site (annulus sparing) and dry, middle ear aerated. Left TM retracted postero-inferiorly, middle ear aerated. NOSE: External nose normal. Nasal mucosa moist, no bleeding/drainage. EYES: EOMI. Vision grossly intact. OC/OP: No OC/OP bleeding, tolerating secretions, MMM NECK: Supple with no LAD. Trachea midline. CHEST: Breathing comfortably, no stridor/stertor. NEURO: Cranial nerves II-XII grossly intact. LABS/IMAGING/DIAGNOSTICS: Last audiogram (07/19/24): RESULTS: Right Ear- Audiometry (air and/or bone [...] pressure of -144daPa Reflexes: did not test ASSESSMENT: DOUG KIRKLAND is a 74y/o WHITE MALE with history of bilateral t-tube placement, retained PE tube on the left s/p removal who subsequently developed a retained PE tube on the right, now s/p removal. He has a persistent 10-15% perforation on the right side that is functioning like an ear tube in the setting of his chronic otitis media with effusion and is subjectively hearing very well. He does think he hearing aids need adjustment and plans to see audiology in the near future. PLAN: - Audiology visit for adjustment of hearing aids - Audiogram and repeat ear exam in 6 months /luma/ MARILIN PISANO Resident Physician Signed: 01/24/2025 11:31 /es/ DIEGO HENRY Staff Physician, Otolaryngology Cosigned: 01/24/2025 12:17 Receipt Acknowledged By: 01/24/2025 13:28 /es/ Ramiro SARMIENTO Staff Fuel Cell Designer, Surgery Service MARILIN PISANO [facility]
--- OUTSIDE RECORDS SUMMARY | 2025-01-24 15:19 | XMS_ITS | CONTINUITY OF CARE DOCUMENT ---
Author Name melissa torres Address Unknown Organization [facility] Address [address] [address] [place] [address] Phone [phone] Care Team Providers Care Field Operations Farm Manager Name Role Phone Dorian HILTON, Luis Unavailable [phone] JAMES BHAKTA MD Unavailable JAMES BHAKTA MD [...] In-person encounter Office Visit Luis Alarcon MD [facility] Cardiology examination - In-person encounter Office Visit Luis Alarcon MD [facility] Atrial fib paroxysmalFatigue, weakness - In-person encounter Office Visit Luis Alarcon MD [facility] Intermittent palpitationsSystolic murmurCarotid bruit bilateral VITAL [...] Mass Index (Ratio) 36.18 kg/m2 Casey as Christiana blood pressure, cuff size regular Ke rri [...] party ID [place] MEDICARE PART B Medicare [id number] [employer] [phone] ADVANCE DIRECTIVES Name Date DISCUSSED - NO [...] a day Orders: 9 9213 LTD 20-29min (CPT-82576) C omplex e/m visit add on (G2211) [...] mouth once a day Orders: E KG (CPT-03487) 9 9205 HIGH 60-74 min (CPT-90289) A BLATION w/ Anesthesia (*) C omplete Echo (59468) Luis Alarcon MD Date Name Monitor - Telemetry (Mobile Cardiac) EKG Monitor - Telemetry (Mobile Cardiac) PROTHROMBIN TIME WIT H INR Partial Thromboplast in Time, Activated CBC (INCLUDES DIFF/P LT) BASIC METABOLIC PANE L W/EGFR Carotid Duplex Bilat eral Complete Echo ABLATION w/ Anesthes ia Complex e/[place] [address] LTD 20-29min HISTORY OF PROCEDURES Procedure Date Procedure Name Provider Procedure Notes S tatus Complex e/m visit ad d on Luis Alarcon MD completed Complex e/m visit ad d on Luis Alarcon MD active EKG Luis Alarcon MD comp leted
--- OUTSIDE RECORDS SUMMARY | 2025-01-24 15:19 | XMS_ITS | Continuity of Care Document ---
Author Name [facility] Organization [facility] Care Team Providers Care Looping Inspector Name Role Phone [facility] Unavailable Unavailable Problems Combined list of problems from Department of [facility] facilities. It does not include entries that were removed or entered in error. Problem Status Onset Date Problem Type Date of Resolution Comments Source Atrial fibrillation Active Condition [facility] Benign essential hypertension Active Condition [facility] Diabetes mellitus Active Condition [facility] Family history of cancer of colon Active Condition [facility] History of calculus of kidney Active Condition [facility] Hyperlipidemia Active Condition [facility] Sleep apnea Active Condition [facility] Diagnosis: ICD-10-CM I48.21 Permanent atrial fibrillation Active Diagnosis [facility] Diagnosis: ICD-10-CM Z71.81 Spiritual or mosque counseling Active Diagnosis [facility] Diagnosis: ICD-10-CM Z01.818 Encounter for other preprocedural examination Active Diagnosis [facility] Diagnosis: ICD-10-CM H90.A22 Snsrnrl hear loss, uni, l ear, with rstrcd hear cntra side Active Diagnosis [facility] Diagnosis: ICD-10-CM H91.90 Unspecified hearing loss, unspecified ear Active Diagnosis [facility] Diagnosis: ICD-10-CM H90.3 Sensorineural hearing loss, bilateral Active Diagnosis [facility] Diagnosis: ICD-10-CM H91.93 Unspecified hearing loss, bilateral Active Diagnosis [facility] Diagnosis: ICD-10-CM E11.9 Type 2 diabetes mellitus without complications Active Diagnosis [facility] Medications Combined list of outpatient medications from Department of [facility] facilities.Medications provided include 1) outpatient medications from the last 15 months, and 2) patient-reported medications. Medication Details Route Status Patient Instructions Prescription Expires Prescription Number Last Dispense Date Ordering Provider Order Date Order Qty Source ALOGLIPTIN 12.5MG TAB TAKE ONE TABLET BY MOUTH ONCE A DAY ORAL DISCONT INUED (EDIT) 07/23/2024 [id number] FRANKLINMAMADOUPRIYANK KARYN 2022 90 [facility] ALOGLIPTIN 25MG TAB TAKE ONE TABLET BY MOUTH ONCE A DAY FOR DIABETES ORAL DISCONT INUED 01/03/2025 [id number] ROHITPRIYANKKARYN 2023 90 [facility] CETIRIZINE HCL 10MG TAB TAKE ONE TABLET BY MOUTH ONCE A DAY NEEDED ORAL ACTIVE KARYN ROBISON 2020 [facility] DILTIAZEM (EQV-TIAZAC AB4) 300MG 24HR CAP TAKE 1 CAPSULE BY MOUTH EVERY MORNING BEFORE A MEAL ORAL ACTIVE KARYN ROBISON 2024 [facility] FINASTERIDE 5MG TAB TAKE ONE TABLET BY MOUTH ONCE A DAY ORAL ACTIVE ENRIQUETAKARYN 2020 [facility] GLIMEPIRIDE 4MG TAB TAKE ONE TABLET BY MOUTH EVERY MORNING ORAL ACTIVE KARYN ROBISON 2022 [facility] HYDROCHLORO THIAZIDE 25MG/LISINO PRIL 20MG TAB TAKE ONE TABLET BY MOUTH EVERY MORNING ORAL ACTIVE KARYN ROBISON 2022 [facility] LOVASTATIN 40MG TAB TAKE ONE TABLET BY MOUTH EVERY EVENING ORAL ACTIVE JEFF ROBISONYA 2020 [facility] METFORMIN HCL 500MG 24HR TAB,SA TAKE FOUR TABLETS BY MOUTH EVERY MORNING BEFORE A MEAL ORAL ACTIVE KARYN ROBISON 2020 [facility] OFLOXACIN 0.3% SOLN,OPH INSTILL 2 DROPS IN BOTH EARS TWICE A DAY APPLY 2-5 DROPS TWICE DAILY TO THE EAR(S) THAT RECEIVED EAR TUBES AURICU LAR (OTIC) DISCONT INUED BY KEY Rivers 12/28/2025 [id number] MARILIN PISANO 2024 10 [facility] PIOGLITAZON E HCL 30MG TAB TAKE ONE TABLET BY MOUTH ONCE A DAY ORAL ACTIVE GARRY SANTANA DOMONIQUE Loomis 2023 [facility] SITAGLIPTIN (EQV-ZITUVI O) 25MG TAB TAKE ONE TABLET BY MOUTH ONCE A DAY FOR DIABETES ORAL ACTIVE 01/02/2026 [id number] KARYN ROBISON 2024 90 [facility] SITAGLIPTIN (EQV-ZITUVI O) 25MG TAB TAKE ONE TABLET BY MOUTH ONCE A DAY FOR DIABETES ORAL DISCONT INUED 09/05/2025 [id number] KARYN ROBISON 2024 90 [facility] Immunizations Combined list of available immunizations from the Department of Defense and Veterans Affairs facilities. 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 Code Drug Tank Setter Helper Status Comments Source COVID-19 (PFIZER), MRNA, LNP-S, PF, 30 MCG/0.3 ML DOSE 3 2020 208 complet ed [facility] COVID-19 ([employer]), MRNA, LNP-S, PF, 30 MCG/0.3 ML DOSE 2 2020 208 complet ed [facility] COVID-19 ([employer]), MRNA, LNP-S, PF, 30 MCG/0.3 ML DOSE 1 2020 208 complet ed [facility] ZOSTER LIVE 2014 121 complet ed [facility] INFLUENZA, UNSPECIFIED FORMULATION 2013 88 complet ed [facility] Results Combined list of recent [...] Specimen Type: BLOOD Comment: Test Performed by: [id number] Meter #: [id number] Ordering Provider: Silvestre GARCIA Report Released Date/Time: December 28, 2024 08:00 AM Reporting Lab: [address] [address] Performing Lab: [address] [address] [facility] GLUCOSE,BL OOD-poct (STL) GLUCOSE [MASS/VOLUM E] IN BLOOD BY AUTOMATED TEST STRIP 206 mg/dL 72 - 99 12/27 H Specimen Type: BLOOD Comment: Test Performed by: [id number] Meter #: [id number] Ordering Provider: KARYN ROBISON Report Released Date/Time: December 27, 2024 06:51 AM Reporting Lab: [address] [address] Performing Lab: [phone] [place] [address] BASIC METABOLIC PANEL CREATININE [MASS/VOLUM E] IN SERUM OR PLASMA 1.10 mg/dL 0.7 - 1.3 07/12 Specimen Type: PLASMA Comment: No hemolysis noted. Ordering Provider: ARLET NICHOLS Report Released Date/Time: Jul 12, 2024 01:43 PM Reporting Lab: [address] [address] Performing Lab: [address] [phone] [place] [address] BASIC METABOLIC PANEL UREA NITROGEN [MASS/VOLUM E] IN SERUM OR PLASMA 16.7 mg/dL 9.0 - 25.0 07/12 Specimen Type: PLASMA Comment: No hemolysis noted. Ordering Provider: ARLET NICHOLS Report Released Date/Time: Jul 12, 2024 01:43 PM Reporting Lab: [address] [address] Performing Lab: [address] [address] [facility] BASIC METABOLIC PANEL GLUCOSE [MASS/VOLUM E] IN SERUM OR PLASMA 168 mg/dL 72 - 99 07/12 H Specimen Type: PLASMA Comment: No hemolysis noted. Ordering Provider: ARLET NICHOLS Report Released Date/Time: Jul 12, 2024 01:43 PM Reporting Lab: [place] [address] [facility] [address] Performing Lab: [facility] [address] [facility] [address] [facility] BASIC METABOLIC PANEL SODIUM [MOLES/VOLU ME] IN SERUM OR PLASMA 144 meq/L 136 - 145 07/12 Specimen Type: PLASMA Comment: No hemolysis noted. Ordering Provider: ARLET NICHOLS Report Released Date/Time: Jul 12, 2024 01:43 PM Reporting Lab: [place] [address] [facility] [address] Performing Lab: [facility] [address] [facility] [address] [facility] BASIC METABOLIC PANEL POTASSIUM [MOLES/VOLU ME] IN SERUM OR PLASMA 3.8 meq/L 3.5 - 5 07/12 Specimen Type: PLASMA Comment: No hemolysis noted. Ordering Provider: ARLET NICHOLS Report Released Date/Time: Jul 12, 2024 01:43 PM Reporting Lab: [address] [address] Performing Lab: [facility] [address] [facility] [address] [facility] BASIC METABOLIC PANEL CHLORIDE [MOLES/VOLU ME] IN SERUM OR PLASMA 106 meq/L 98 - 107 07/12 Specimen Type: PLASMA Comment: No hemolysis noted. Ordering Provider: ARLET NICHOLS Report Released Date/Time: Jul 12, 2024 01:43 PM Reporting Lab: [place] [address] [facility] [address] Performing Lab: [facility] [address] [place] [address] [facility] BASIC METABOLIC PANEL CARBON DIOXIDE, TOTAL [MOLES/VOLU ME] IN SERUM OR PLASMA 27 meq/L 22 - 31 07/12 Specimen Type: PLASMA Comment: No hemolysis noted. Ordering Provider: ARLET NICHOLS Report Released Date/Time: Jul 12, 2024 01:43 PM Reporting Lab: [place] [address] [address] [address] Performing Lab: [place] [address] [place] [phone] [place] [address] BASIC METABOLIC PANEL CALCIUM [MASS/VOLUM E] IN SERUM OR PLASMA 9.4 mg/dL 8.4 - 10.4 07/12 Specimen Type: PLASMA Comment: No hemolysis noted. Ordering Provider: ARLET NICHOLS Report Released Date/Time: Jul 12, 2024 01:43 PM Reporting Lab: [place] [address] [address] [address] Performing Lab: [place] [address] [facility] [address] [place] [address] BASIC METABOLIC PANEL GLOMERULAR FILTRATION RATE/1.73 SQ M.PREDICTED [VOLUME RATE/AREA] IN SERUM, PLASMA OR BLOOD BY CREATININE- BASED FORMULA (CKD-EPI 2020) 70.4 60 07/12 Specimen Type: PLASMA Comment: No hemolysis noted. Ordering Provider: ARLET NICHOLS Report Released Date/Time: Jul 12, 2024 01:43 PM Reporting Lab: [place] [address] [facility] [address] Performing Lab: [place] [address] [facility] [phone] [place] [address] CBC LEUKOCYTES [#/VOLUME] IN BLOOD BY AUTOMATED COUNT 6.6 10*3/u L 3.6 - 11.2 07/12 Specimen Type: BLOOD No comment entered. Ordering Provider: ARLET NICHOSL Report Released Date/Time: Jul 12, 2024 01:43 PM Reporting Lab: [place] [address] [facility] [address] Performing Lab: [address] [address] [facility] CBC ERYTHROCYTE S [#/VOLUME] IN BLOOD BY AUTOMATED COUNT 4.59 10*6/u L 4.10 - 5.70 07/12 Specimen Type: BLOOD No comment entered. Ordering Provider: ARLET NICHOLS Report Released Date/Time: Jul 12, 2024 01:43 PM Reporting Lab: [place] [phone] Performing Lab: [address] CBC HEMOGLOBIN [MASS/VOLUM E] IN BLOOD 14.2 g/dL 13.1 - 16.8 07/12 Specimen Type: BLOOD No comment entered. Ordering Provider: ARLET NICHOLS Report Released Date/Time: Jul 12, 2024 01:43 PM Reporting Lab: [place] [phone] Performing Lab: [place] [phone] CBC HEMATOCRIT [VOLUME FRACTION] OF BLOOD 43.6 38.2 - 48.4 07/12 Specimen Type: BLOOD No comment entered. Ordering Provider: ARLET NICHOLS Report Released Date/Time: Jul 12, 2024 01:43 PM Reporting Lab: [address] [address] Performing Lab: [place] [phone] CBC MCV [ENTITIC VOLUME] BY AUTOMATED COUNT 95.0 fL 80.0 - 100.0 07/12 Specimen Type: BLOOD No comment entered. Ordering Provider: ARLET NICHOLS Report Released Date/Time: Jul 12, 2024 01:43 PM Reporting Lab: [place] [address] [facility] [address] Performing Lab: [address] [address] [facility] CBC MCH [ENTITIC MASS] BY AUTOMATED COUNT 30.9 pg 27.0 - 34.0 07/12 Specimen Type: BLOOD No comment entered. Ordering Provider: ARLET NICHOLS Report Released Date/Time: Jul 12, 2024 01:43 PM Reporting Lab: [address] [address] Performing Lab: [address] [address] [facility] CBC MCHC [MASS/VOLUM E] BY AUTOMATED COUNT 32.6 g/dL 33.0 - 36.0 07/12 L Specimen Type: BLOOD No comment entered. Ordering Provider: ARLET NICHOLS Report Released Date/Time: Jul 12, 2024 01:43 PM Reporting Lab: [address] [address] Performing Lab: [address] [address] [facility] CBC PLATELETS [#/VOLUME] IN BLOOD BY AUTOMATED COUNT 199 10*3/u L 150 - 400 07/12 Specimen Type: BLOOD No comment entered. Ordering Provider: ARLET NICHOLS Report Released Date/Time: Jul 12, 2024 01:43 PM Reporting Lab: [address] [address] Performing Lab: [address] [address] [facility] CBC PLATELET MEAN VOLUME [ENTITIC VOLUME] IN BLOOD BY AUTOMATED COUNT 10.6 fL 7.5 - 11.2 07/12 Specimen Type: BLOOD No comment entered. Ordering Provider: ARLET NICHOLS Report Released Date/Time: Jul 12, 2024 01:43 PM Reporting Lab: [facility] [address] [facility] [address] Performing Lab: [facility] [address] [facility] [address] [facility] CBC ERYTHROCYTE DISTRIBUTIO N WIDTH [RATIO] BY AUTOMATED COUNT 13.9 11.8 - 15.1 07/12 Specimen Type: BLOOD No comment entered. Ordering Provider: ARLET NICHOLS Report Released Date/Time: Jul 12, 2024 01:43 PM Reporting Lab: [place] [address] [address] [address] Performing Lab: [place] [address] [facility] [address] [facility] CBC LYMPHOCYTES /100 LEUKOCYTES IN BLOOD BY AUTOMATED COUNT 31 07/12 Specimen Type: BLOOD No comment entered. Ordering Provider: ARLET NICHOLS Report Released Date/Time: Jul 12, 2024 01:43 PM Reporting Lab: [facility] [address] [facility] [address] Performing Lab: [facility] [address] [facility] [address] [facility] CBC MONOCYTES/1 00 LEUKOCYTES IN BLOOD BY AUTOMATED COUNT 9 07/12 Specimen Type: BLOOD No comment entered. Ordering Provider: ARLET NICHOLS Report Released Date/Time: Jul 12, 2024 01:43 PM Reporting Lab: [facility] [address] [facility] [address] Performing Lab: [facility] [address] [facility] [address] [facility] CBC NEUTROPHILS /100 LEUKOCYTES IN BLOOD BY AUTOMATED COUNT 56 07/12 Specimen Type: BLOOD No comment entered. Ordering Provider: ARLET NICHOLS Report Released Date/Time: Jul 12, 2024 01:43 PM Reporting Lab: [facility] [address] Performing Lab: [facility] [address] [facility] [address] [facility] CBC EOSINOPHILS /100 LEUKOCYTES IN BLOOD BY AUTOMATED COUNT 3 07/12 Specimen Type: BLOOD No comment entered. Ordering Provider: ARLET NICHOLS Report Released Date/Time: Jul 12, 2024 01:43 PM Reporting Lab: [place] [address] [facility] [address] Performing Lab: [place] [address] [facility] [address] [facility] CBC BASOPHILS/1 00 LEUKOCYTES IN BLOOD BY AUTOMATED COUNT 1 07/12 Specimen Type: BLOOD No comment entered. Ordering Provider: ARLET NICHOLS Report Released Date/Time: Jul 12, 2024 01:43 PM Reporting Lab: [place] [address] [facility] [address] Performing Lab: [place] [address] [facility] [address] [facility] CBC LYMPHOCYTES [#/VOLUME] IN BLOOD BY AUTOMATED COUNT 2.05 10*3/u L 0.77 - 4.50 07/12 Specimen Type: BLOOD No comment entered. Ordering Provider: ARLET NICHOLS Report Released Date/Time: Jul 12, 2024 01:43 PM Reporting Lab: [address] [address] Performing Lab: [place] [address] [facility] [address] [facility] CBC MONOCYTES [#/VOLUME] IN BLOOD BY AUTOMATED COUNT 0.59 10*3/u L 0.19 - 0.80 07/12 Specimen Type: BLOOD No comment entered. Ordering Provider: ARLET NICHOLS Report Released Date/Time: Jul 12, 2024 01:43 PM Reporting Lab: [place] [address] [facility] [address] Performing Lab: [address] [place] [place] [address] [facility] CBC NEUTROPHILS [#/VOLUME] IN BLOOD BY AUTOMATED COUNT 3.68 10*3/u L 2.10 - 8.00 07/12 Specimen Type: BLOOD No comment entered. Ordering Provider: ARLET NICHOLS Report Released Date/Time: Jul 12, 2024 01:43 PM Reporting Lab: [address] [address] Performing Lab: [address] [address] [facility] CBC EOSINOPHILS [#/VOLUME] IN BLOOD BY AUTOMATED COUNT 0.21 10*3/u L 0.00 - 0.60 07/12 Specimen Type: BLOOD No comment entered. Ordering Provider: ARLET NICHOLS Report Released Date/Time: Jul 12, 2024 01:43 PM Reporting Lab: [place] [address] [facility] [address] Performing Lab: [address] [address] [facility] CBC BASOPHILS [#/VOLUME] IN BLOOD BY AUTOMATED COUNT 0.05 10*3/u L 0.00 - 0.20 07/12 Specimen Type: BLOOD No comment entered. Ordering Provider: ARLET NICHOLS Report Released Date/Time: Jul 12, 2024 01:43 PM Reporting Lab: [address] [address] Performing Lab: [address] [phone] [place] [address] Vital Signs Combined list of inpatient and outpatient Vital Signs from Department of Defense and Veterans Affairs, ranging from 12 months to all on record, depending upon the facility. Vital Sign Value Date Comments Source SYSTOLIC BLOOD PRESSURE 152 12/27/2024 07:45:59 [facility] DIASTOLIC BLOOD PRESSURE 71 12/27/2024 07:45:59 [facility] PULSE OXIMETRY 94 12/27/2024 07:45:59 [facility] WEIGHT 236.6 12/27/2024 07:45:59 [facility] BMI 34 kg/m2 12/27/2024 07:45:59 [facility] PAIN 0 12/27/2024 07:45:59 [facility] HEIGHT 70 12/27/2024 07:45:59 [facility] TEMPERATURE 97.3 12/27/2024 07:45:59 [facility] PULSE 60 12/27/2024 07:45:59 [facility] RESPIRATION 20 12/27/2024 07:45:59 [facility] SYSTOLIC BLOOD PRESSURE 152 07/12/2024 12:47:25 [facility] DIASTOLIC BLOOD PRESSURE 74 07/12/2024 12:47:25 [facility] PULSE OXIMETRY 96 07/12/2024 12:47:25 [facility] PAIN 0 07/12/2024 12:47:25 [facility] TEMPERATURE 97.7 07/12/2024 12:47:25 [facility] PULSE 65 07/12/2024 12:47:25 [facility] RESPIRATION 16 07/12/2024 12:47:25 [facility] Encounters Combined list of: 1) Encounters from Department of Veterans Affairs facilities going backup to the last 18 months, not all VA inpatient encounters are included; 2) Encounters from the Department of Defense facilities going backup to 280 months. Location Location Details Encounter Type Encounter Number Reason For Visit Attending Provider ADM Date DC Date Status Disposition Source [facility] Outpatient Encounter [id number] LOUIE MEYER 12/30 [facility] Outpatient Encounter [id number] 01/02 [facility] OFFICE O/P EST MOD 30 MIN [id number] Diagnos is: ICD-10- CM E11.9 Type 2 diabete s mellitu s without complic ations KARYN ROBISON 01/02 [facility] MTMS BY PHARM ADDL 15 MIN [id number] Diagnos is: ICD-10- CM E11.9 Type 2 diabete s mellitu s without complic ations KAMINI SANTANA 01/18 [facility] UNLISTED ORL SERVICE/PX [id number] Diagnos is: ICD-10- CM H90.3 Sensori neural hearing loss, Karan Infante 07/07 [facility] OFFICE O/P EST LOW 20 MIN [id number] Diagnos is: ICD-10- CM H91.93 Unspeci fied hearing loss, JAGJIT Randolph 07/12 [facility] Outpatient Encounter [id number] 07/12 [facility] [place] [id number] Diagnos is: ICD-10- CM H90.A22 Snsrnrl hear loss, uni, l ear, with rstrcd hear cntra side LANDON MARSH 07/19 [facility] HEARING AID CHECK BOTH EARS [id number] Diagnos is: ICD-10- CM H90.3 Sensori neural hearing loss, LANDON Mcqueen 08/02 [facility] Outpatient Encounter [id number] 09/03 [facility] Outpatient Encounter [id number] 10/25 [facility] Outpatient Encounter [id number] 10/31 [facility] Outpatient Encounter [id number] 11/01 [facility] Outpatient Encounter [id number] 11/10 [facility] Outpatient Encounter [id number] 11/27 [facility] SYNCH AUDIO-ONLY NEW LOW 30 [id number] Diagnos is: ICD-10- CM Z01.818 Encount er for other preproc edural examina VANE Frankel 12/13 [facility] Outpatient Encounter [id number] 12/20 [facility] Outpatient Encounter [id number] 12/22 [facility] PH1 ASSMT&MGMT NQHP 5-10 [id number] Diagnos is: ICD-10- CM H91.90 Unspeci fied hearing loss, unspeci fied ear АЛЕКСАНДР CHRISTIANSON 12/26 [facility] EDU&TRN PT SELF-MGMT NQHP 1 [id number] Diagnos is: ICD-10- CM H90.A22 Snsrnrl hear loss, uni, l ear, with rstrcd hear cntra side RUTH OLIVA R 12/27 [facility] Outpatient Encounter [id number] 12/27 [facility] OFFICE O/P EST LOW 20 MIN [id number] Diagnos is: ICD-10- CM Z01.818 Encount er for other preproc edural examina Silvestre Mahajan 12/27 [facility] Outpatient Encounter [id number] Silvestre GARCIA 12/27 [facility] Outpatient Encounter [id number] JAGJIT WALKER 12/27 [facility] CREATE EARDRUM OPENING [id number]. [id number] MARVIN MEJIA 12/27 [facility] Outpatient Encounter [id number] MARVIN MEJIA 12/27 [facility] Outpatient Encounter [id number] ALONZO LABOY 12/27 [facility] Outpatient Encounter [id number] Raffi TALAMANTES EKCOE 12/27 [facility] N [facility] INTERNATIONAL TRADE ANALYST CONTINUOUS PILLOWCASE CUTTER INDIVIDU [id number] Diagnos is: ICD-10- CM Z71.81 Spiritu al or religio us counseling aide VICKIE Dai 12/27 [facility] Outpatient Encounter [id number] Silvestre GARCIA 12/28 [facility] Outpatient Encounter [id number] 12/28 [facility] Outpatient Encounter [id number] Silvestre GARCIA 12/28 [facility] OFFICE O/P EST HI 40 MIN [id number] Diagnos is: ICD-10- CM I48.21 Permane nt atrial fibrill ation KARYN ROBISON 01/01 [facility] Procedures Combined list of: 1) Procedures from Department of Veterans Affairs facilities going back up to thelast 18 months, not all VA non-surgical procedures are included; 2) All procedures from the Department of Defense facilities. Procedure Procedure Type Code Date Perfomer Comments Sourc e REMOVAL RIGHT EAR TUBE, MIDDLE EAR EXPLORATION CREATE EARDRUM OPENING 55684 12/27/2024 MAYELA PISANO [facility] Social History Combined list of available smoking, tobacco, and other social history from Department of Defense and Veterans Affairs facilities. Social History Type Response Date Comment Sourc e Tobacco smoking status [facility] [place]-TOBACCO NEVER USED CIGARETTES 01/01/2025 [facility] History of tobacco use [place]-TOBACCO NEVER USED OTHER TYPE 01/01/2025 [facility] History of tobacco use [facility]-TOBACCO NEVER USED 01/03/2024 [facility] History of tobacco use [place]-TOBACCO FORMER USER 06/22/2022 [facility] History of tobacco use [place]-TOBACCO FORMER USER 07/22/2021 [facility] History of tobacco use CURRENT TOBACCO USER 01/08/2015 [facility] Plan of Care List of future care activities from [facility] facilities. Additional future care activities may be listed in the Assessment and Plan section. Date/Time Care Activity Care Activity Detail Facili ty 01/24/2025 [facility]BUL[facility]ORY - SURGERY AM[facility] - SURGERY [facility]
--- OUTSIDE RECORDS SUMMARY | 2025-01-24 15:19 | XMS_ITS | Encounter Summary ---
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
[2025-01-24 15:26] VITALS: BP 161/71; PULSE 85; RESP 18; TEMP 36.5; O2SAT 97
[2025-01-24 16:15] VITALS: BP 161/81; PULSE 72; RESP 15; O2SAT 97
--- OUTSIDE RECORDS SUMMARY | 2025-01-24 16:28 | XMS_ITS | Continuity of Care Document ---
Author Name [facility] Organization [facility] Care Team Providers Care Programmer Engineering And Scientific Name Role Phone [facility] Unavailable Unavailable Problems Combined list of problems from Department of [facility] and [facility] facilities. It does not include entries that were removed or entered in error. Problem Status Onset Date Problem Type Date of Resolution Comments Source Atrial fibrillation Active Condition [facility] Benign essential hypertension Active Condition [facility] Diabetes mellitus Active Condition [facility] Family history of cancer of colon Active Condition [facility] History of calculus of kidney Active Condition [facility] Hyperlipidemia Active Condition [facility] Sleep apnea Active Condition [facility] Diagnosis: ICD-10-CM I48.21 Permanent atrial fibrillation Active Diagnosis [facility] Diagnosis: ICD-10-CM Z71.81 Spiritual or episcopal counseling Active Diagnosis [facility] Diagnosis: ICD-10-CM Z01.818 Encounter for other preprocedural examination Active Diagnosis [facility] Diagnosis: ICD-10-CM H90.A22 Snsrnrl hear loss, uni, l ear, with rstrcd hear cntra side Active Diagnosis [facility] Diagnosis: ICD-10-CM H91.90 Unspecified hearing loss, unspecified ear Active Diagnosis [facility] Diagnosis: ICD-10-CM H90.3 Sensorineural hearing loss, bilateral Active Diagnosis [facility] Diagnosis: ICD-10-CM H91.93 Unspecified hearing loss, bilateral Active Diagnosis [facility] Diagnosis: ICD-10-CM E11.9 Type 2 diabetes mellitus without complications Active Diagnosis [facility] Medications Combined list of outpatient medications from Department of [facility] and [facility] facilities.Medications provided include 1) outpatient medications from the last 15 months, and 2) patient-reported medications. Medication Details Route Status Patient Instructions Prescription Expires Prescription Number Last Dispense Date Ordering Provider Order Date Order Qty Source ALOGLIPTIN 12.5MG TAB TAKE ONE TABLET BY MOUTH ONCE A DAY ORAL DISCONT INUED (EDIT) 07/23/2024 [id number] FRANKLINMAMADOUPRIYANK KARYN 2022 90 [facility] ALOGLIPTIN 25MG TAB TAKE ONE TABLET BY MOUTH ONCE A DAY FOR DIABETES ORAL DISCONT INUED 01/03/2025 [id number] ROHITPRIYANKKARYN 2023 90 [facility] CETIRIZINE HCL 10MG TAB TAKE ONE TABLET BY MOUTH ONCE A DAY NEEDED ORAL ACTIVE KARYN ROBISON 2020 [facility] DILTIAZEM (EQV-TIAZAC AB4) 300MG 24HR CAP TAKE 1 CAPSULE BY MOUTH EVERY MORNING BEFORE A MEAL ORAL ACTIVE KARYN ROBISON 2024 [facility] FINASTERIDE 5MG TAB TAKE ONE TABLET BY MOUTH ONCE A DAY ORAL ACTIVE ENRIQUETAKARYN 2020 [facility] GLIMEPIRIDE 4MG TAB TAKE ONE TABLET BY MOUTH EVERY MORNING ORAL ACTIVE KARYN ROBISON 2022 [facility] HYDROCHLORO THIAZIDE 25MG/LISINO PRIL 20MG TAB TAKE ONE TABLET BY MOUTH EVERY MORNING ORAL ACTIVE KARYN ROBISON 2022 [facility] LOVASTATIN 40MG TAB TAKE ONE TABLET BY MOUTH EVERY EVENING ORAL ACTIVE JEFF ROBISONYA 2020 [facility] METFORMIN HCL 500MG 24HR TAB,SA TAKE FOUR TABLETS BY MOUTH EVERY MORNING BEFORE A MEAL ORAL ACTIVE KARYN ROBISON 2020 [facility] OFLOXACIN 0.3% SOLN,OPH INSTILL 2 DROPS IN BOTH EARS TWICE A DAY APPLY 2-5 DROPS TWICE DAILY TO THE EAR(S) THAT RECEIVED EAR TUBES AURICU LAR (OTIC) DISCONT INUED BY KEY Rivers 12/28/2025 [id number] MARILIN PISANO 2024 10 [facility] PIOGLITAZON E HCL 30MG TAB TAKE ONE TABLET BY MOUTH ONCE A DAY ORAL ACTIVE GARRY SANTANA DOMONIQUE Loomis 2023 [facility] SITAGLIPTIN (EQV-ZITUVI O) 25MG TAB TAKE ONE TABLET BY MOUTH ONCE A DAY FOR DIABETES ORAL ACTIVE 01/02/2026 [id number] KARYN ROBISON 2024 90 [facility] SITAGLIPTIN (EQV-ZITUVI O) 25MG TAB TAKE ONE TABLET BY MOUTH ONCE A DAY FOR DIABETES ORAL DISCONT INUED 09/05/2025 [id number] KARYN ROBISON 2024 90 [facility] Immunizations Combined list of available immunizations from the Department of Defense and Veterans Affairs facilities. 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 Code Drug Teacher Tutor Status Comments Source COVID-19 (PFIZER), MRNA, LNP-S, PF, 30 MCG/0.3 ML DOSE 3 2020 208 complet ed [facility] COVID-19 ([employer]), MRNA, LNP-S, PF, 30 MCG/0.3 ML DOSE 2 2020 208 complet ed [facility] COVID-19 ([employer]), MRNA, LNP-S, PF, 30 MCG/0.3 ML DOSE 1 2020 208 complet ed [facility] ZOSTER LIVE 2014 121 complet ed [facility] INFLUENZA, UNSPECIFIED FORMULATION 2013 88 complet ed [facility] Results Combined list of [...] Specimen Type: BLOOD Comment: Test Performed by: [id number] Meter #: [id number] Ordering Provider: Silvestre GARCIA Report Released Date/Time: December 28, 2024 08:00 AM Reporting Lab: [address] [address] Performing Lab: [address] [address] [facility] GLUCOSE,BL OOD-poct (STL) GLUCOSE [MASS/VOLUM E] IN BLOOD BY AUTOMATED TEST STRIP 206 mg/dL 72 - 99 12/27 H Specimen Type: BLOOD Comment: Test Performed by: [id number] Meter #: [id number] Ordering Provider: KARYN ROBISON Report Released Date/Time: December 27, 2024 06:51 AM Reporting Lab: [address] [address] Performing Lab: [phone] [place] [address] BASIC METABOLIC PANEL CREATININE [MASS/VOLUM E] IN SERUM OR PLASMA 1.10 mg/dL 0.7 - 1.3 07/12 Specimen Type: PLASMA Comment: No hemolysis noted. Ordering Provider: ARLET NICHOLS Report Released Date/Time: Jul 12, 2024 01:43 PM Reporting Lab: [address] [address] Performing Lab: [address] [phone] [place] [address] BASIC METABOLIC PANEL UREA NITROGEN [MASS/VOLUM E] IN SERUM OR PLASMA 16.7 mg/dL 9.0 - 25.0 07/12 Specimen Type: PLASMA Comment: No hemolysis noted. Ordering Provider: ARLET NICHOLS Report Released Date/Time: Jul 12, 2024 01:43 PM Reporting Lab: [address] [address] Performing Lab: [address] [address] [facility] BASIC METABOLIC PANEL GLUCOSE [MASS/VOLUM E] IN SERUM OR PLASMA 168 mg/dL 72 - 99 07/12 H Specimen Type: PLASMA Comment: No hemolysis noted. Ordering Provider: ARLET NICHOLS Report Released Date/Time: Jul 12, 2024 01:43 PM Reporting Lab: [place] [address] [facility] [address] Performing Lab: [facility] [address] [facility] [address] [facility] BASIC METABOLIC PANEL SODIUM [MOLES/VOLU ME] IN SERUM OR PLASMA 144 meq/L 136 - 145 07/12 Specimen Type: PLASMA Comment: No hemolysis noted. Ordering Provider: ARLET NICHOLS Report Released Date/Time: Jul 12, 2024 01:43 PM Reporting Lab: [place] [address] [facility] [address] Performing Lab: [facility] [address] [facility] [address] [facility] BASIC METABOLIC PANEL POTASSIUM [MOLES/VOLU ME] IN SERUM OR PLASMA 3.8 meq/L 3.5 - 5 07/12 Specimen Type: PLASMA Comment: No hemolysis noted. Ordering Provider: ARLET NICHOLS Report Released Date/Time: Jul 12, 2024 01:43 PM Reporting Lab: [address] [address] Performing Lab: [facility] [address] [facility] [address] [facility] BASIC METABOLIC PANEL CHLORIDE [MOLES/VOLU ME] IN SERUM OR PLASMA 106 meq/L 98 - 107 07/12 Specimen Type: PLASMA Comment: No hemolysis noted. Ordering Provider: ARLET NICHOLS Report Released Date/Time: Jul 12, 2024 01:43 PM Reporting Lab: [place] [address] [facility] [address] Performing Lab: [facility] [address] [place] [address] [facility] BASIC METABOLIC PANEL CARBON DIOXIDE, TOTAL [MOLES/VOLU ME] IN SERUM OR PLASMA 27 meq/L 22 - 31 07/12 Specimen Type: PLASMA Comment: No hemolysis noted. Ordering Provider: ARLET NICHOLS Report Released Date/Time: Jul 12, 2024 01:43 PM Reporting Lab: [place] [address] [address] [facility] [address] Performing Lab: [place] [address] [place] [phone] [place] [address] BASIC METABOLIC PANEL CALCIUM [MASS/VOLUM E] IN SERUM OR PLASMA 9.4 mg/dL 8.4 - 10.4 07/12 Specimen Type: PLASMA Comment: No hemolysis noted. Ordering Provider: ARLET NICHOLS Report Released Date/Time: Jul 12, 2024 01:43 PM Reporting Lab: [place] [address] [address] [facility] [address] Performing Lab: [place] [address] [facility] [phone] [place] [address] BASIC METABOLIC PANEL GLOMERULAR FILTRATION RATE/1.73 SQ M.PREDICTED [VOLUME RATE/AREA] IN SERUM, PLASMA OR BLOOD BY CREATININE- BASED FORMULA (CKD-EPI 2020) 70.4 60 07/12 Specimen Type: PLASMA Comment: No hemolysis noted. Ordering Provider: ARLET NCIHOLS Report Released Date/Time: Jul 12, 2024 01:43 PM Reporting Lab: [place] [address] [facility] [address] Performing Lab: [place] [address] [facility] [address] [place] [address] CBC LEUKOCYTES [#/VOLUME] IN BLOOD BY AUTOMATED COUNT 6.6 10*3/u L 3.6 - 11.2 07/12 Specimen Type: BLOOD No comment entered. Ordering Provider: ARLET NICHOLS Report Released Date/Time: Jul 12, 2024 01:43 PM Reporting Lab: [place] [address] [facility] [address] Performing Lab: [address] [address] [facility] CBC ERYTHROCYTE S [#/VOLUME] IN BLOOD BY AUTOMATED COUNT 4.59 10*6/u L 4.10 - 5.70 07/12 Specimen Type: BLOOD No comment entered. Ordering Provider: ARLET NICHOLS Report Released Date/Time: Jul 12, 2024 01:43 PM Reporting Lab: [place] [phone] Performing Lab: [address] CBC HEMOGLOBIN [MASS/VOLUM E] IN BLOOD 14.2 g/dL 13.1 - 16.8 07/12 Specimen Type: BLOOD No comment entered. Ordering Provider: ARLET NICHOLS Report Released Date/Time: Jul 12, 2024 01:43 PM Reporting Lab: [place] [phone] Performing Lab: [place] [phone] CBC HEMATOCRIT [VOLUME FRACTION] OF BLOOD 43.6 38.2 - 48.4 07/12 Specimen Type: BLOOD No comment entered. Ordering Provider: ARLET NICHOLS Report Released Date/Time: Jul 12, 2024 01:43 PM Reporting Lab: [address] [address] Performing Lab: [place] [phone] CBC MCV [ENTITIC VOLUME] BY AUTOMATED COUNT 95.0 fL 80.0 - 100.0 07/12 Specimen Type: BLOOD No comment entered. Ordering Provider: ARLET NICHOLS Report Released Date/Time: Jul 12, 2024 01:43 PM Reporting Lab: [place] [address] [facility] [address] Performing Lab: [address] [address] [facility] CBC MCH [ENTITIC MASS] BY AUTOMATED COUNT 30.9 pg 27.0 - 34.0 07/12 Specimen Type: BLOOD No comment entered. Ordering Provider: ARLET NICHOLS Report Released Date/Time: Jul 12, 2024 01:43 PM Reporting Lab: [address] [address] Performing Lab: [address] [address] [facility] CBC MCHC [MASS/VOLUM E] BY AUTOMATED COUNT 32.6 g/dL 33.0 - 36.0 07/12 L Specimen Type: BLOOD No comment entered. Ordering Provider: ARLET NICHOLS Report Released Date/Time: Jul 12, 2024 01:43 PM Reporting Lab: [address] [address] Performing Lab: [address] [address] [facility] CBC PLATELETS [#/VOLUME] IN BLOOD BY AUTOMATED COUNT 199 10*3/u L 150 - 400 07/12 Specimen Type: BLOOD No comment entered. Ordering Provider: ARLET NICHOLS Report Released Date/Time: Jul 12, 2024 01:43 PM Reporting Lab: [address] [address] Performing Lab: [address] [address] [facility] CBC PLATELET MEAN VOLUME [ENTITIC VOLUME] IN BLOOD BY AUTOMATED COUNT 10.6 fL 7.5 - 11.2 07/12 Specimen Type: BLOOD No comment entered. Ordering Provider: ARLET NICHOLS Report Released Date/Time: Jul 12, 2024 01:43 PM Reporting Lab: [facility] [address] [facility] [address] Performing Lab: [facility] [address] [facility] [address] [facility] CBC ERYTHROCYTE DISTRIBUTIO N WIDTH [RATIO] BY AUTOMATED COUNT 13.9 11.8 - 15.1 07/12 Specimen Type: BLOOD No comment entered. Ordering Provider: ARLET NICHOLS Report Released Date/Time: Jul 12, 2024 01:43 PM Reporting Lab: [place] [address] [address] [facility] [address] Performing Lab: [place] [address] [facility] [address] [facility] CBC LYMPHOCYTES /100 LEUKOCYTES IN BLOOD BY AUTOMATED COUNT 31 07/12 Specimen Type: BLOOD No comment entered. Ordering Provider: ARLET NICHOLS Report Released Date/Time: Jul 12, 2024 01:43 PM Reporting Lab: [facility] [address] [facility] [address] Performing Lab: [facility] [address] [facility] [address] [facility] CBC MONOCYTES/1 00 LEUKOCYTES IN BLOOD BY AUTOMATED COUNT 9 07/12 Specimen Type: BLOOD No comment entered. Ordering Provider: ARLET NICHOLS Report Released Date/Time: Jul 12, 2024 01:43 PM Reporting Lab: [facility] [address] [facility] [address] Performing Lab: [facility] [address] [facility] [address] [facility] CBC NEUTROPHILS /100 LEUKOCYTES IN BLOOD BY AUTOMATED COUNT 56 07/12 Specimen Type: BLOOD No comment entered. Ordering Provider: ARLET NICHOLS Report Released Date/Time: Jul 12, 2024 01:43 PM Reporting Lab: [facility] [address] Performing Lab: [facility] [address] [facility] [address] [facility] CBC EOSINOPHILS /100 LEUKOCYTES IN BLOOD BY AUTOMATED COUNT 3 07/12 Specimen Type: BLOOD No comment entered. Ordering Provider: ARLET NICHOLS Report Released Date/Time: Jul 12, 2024 01:43 PM Reporting Lab: [place] [address] [facility] [address] Performing Lab: [place] [address] [facility] [address] [facility] CBC BASOPHILS/1 00 LEUKOCYTES IN BLOOD BY AUTOMATED COUNT 1 07/12 Specimen Type: BLOOD No comment entered. Ordering Provider: ARLET NICHOLS Report Released Date/Time: Jul 12, 2024 01:43 PM Reporting Lab: [place] [address] [facility] [address] Performing Lab: [place] [address] [facility] [address] [facility] CBC LYMPHOCYTES [#/VOLUME] IN BLOOD BY AUTOMATED COUNT 2.05 10*3/u L 0.77 - 4.50 07/12 Specimen Type: BLOOD No comment entered. Ordering Provider: ARLET NICHOLS Report Released Date/Time: Jul 12, 2024 01:43 PM Reporting Lab: [address] [address] Performing Lab: [place] [address] [facility] [address] [facility] CBC MONOCYTES [#/VOLUME] IN BLOOD BY AUTOMATED COUNT 0.59 10*3/u L 0.19 - 0.80 07/12 Specimen Type: BLOOD No comment entered. Ordering Provider: ARLET NICHOLS Report Released Date/Time: Jul 12, 2024 01:43 PM Reporting Lab: [place] [address] [facility] [address] Performing Lab: [address] [place] [address] [facility] CBC NEUTROPHILS [#/VOLUME] IN BLOOD BY AUTOMATED COUNT 3.68 10*3/u L 2.10 - 8.00 07/12 Specimen Type: BLOOD No comment entered. Ordering Provider: ARLET NICHOLS Report Released Date/Time: Jul 12, 2024 01:43 PM Reporting Lab: [address] [address] Performing Lab: [address] [address] [facility] CBC EOSINOPHILS [#/VOLUME] IN BLOOD BY AUTOMATED COUNT 0.21 10*3/u L 0.00 - 0.60 07/12 Specimen Type: BLOOD No comment entered. Ordering Provider: ARLET NICHOLS Report Released Date/Time: Jul 12, 2024 01:43 PM Reporting Lab: [place] [address] [facility] [address] Performing Lab: [address] [address] [facility] CBC BASOPHILS [#/VOLUME] IN BLOOD BY AUTOMATED COUNT 0.05 10*3/u L 0.00 - 0.20 07/12 Specimen Type: BLOOD No comment entered. Ordering Provider: ARLET NICHOLS Report Released Date/Time: Jul 12, 2024 01:43 PM Reporting Lab: [address] [address] Performing Lab: [address] [phone] [place] [address] Vital Signs Combined list of inpatient and outpatient Vital Signs from Department of Defense and Veterans Affairs, ranging from 12 months to all on record, depending upon the facility. Vital Sign Value Date Comments Source SYSTOLIC BLOOD PRESSURE 152 12/27/2024 07:45:59 [facility] DIASTOLIC BLOOD PRESSURE 71 12/27/2024 07:45:59 [facility] PULSE OXIMETRY 94 12/27/2024 07:45:59 [facility] WEIGHT 236.6 12/27/2024 07:45:59 [facility] BMI 34 kg/m2 12/27/2024 07:45:59 [facility] PAIN 0 12/27/2024 07:45:59 [facility] HEIGHT 70 12/27/2024 07:45:59 [facility] TEMPERATURE 97.3 12/27/2024 07:45:59 [facility] PULSE 60 12/27/2024 07:45:59 [facility] RESPIRATION 20 12/27/2024 07:45:59 [facility] SYSTOLIC BLOOD PRESSURE 152 07/12/2024 12:47:25 [facility] DIASTOLIC BLOOD PRESSURE 74 07/12/2024 12:47:25 [facility] PULSE OXIMETRY 96 07/12/2024 12:47:25 S [facility] PAIN 0 07/12/2024 12:47:25 [facility] TEMPERATURE 97.7 07/12/2024 12:47:25 [facility] PULSE 65 07/12/2024 12:47:25 [facility] RESPIRATION 16 07/12/2024 12:47:25 [facility] Encounters Combined list of: 1) Encounters from Department of Veterans Affairs facilities going backup to the last 18 months, not all VA inpatient encounters are included; 2) Encounters from the Department of Defense facilities going backup to 280 months. Location Location Details Encounter Type Encounter Number Reason For Visit Attending Provider ADM Date DC Date Status Disposition Source [facility] Outpatient Encounter [id number] LOUIE MEYER 12/30 [facility] Outpatient Encounter [id number] 01/02 [facility] O/P EST MOD 30 MIN [id number] Diagnos is: ICD-10- CM E11.9 Type 2 diabete s mellitu s without complic ations KARYN ROBISON 01/02 [facility] MTMS BY PHARM ADDL 15 MIN [id number] Diagnos is: ICD-10- CM E11.9 Type 2 diabete s mellitu s without complic ations KAMINI SANTANA 01/18 [facility] UNLISTED ORL SERVICE/PX [id number] Diagnos is: ICD-10- CM H90.3 Sensori neural hearing loss, Karan Infante 07/[address] [facility] OFFICE O/P EST LOW 20 MIN [id number] Diagnos is: ICD-10- CM H91.93 Unspeci fied hearing loss, JAGJIT Randolph 07/[address] [facility] Outpatient Encounter [id number] 07/[address] [facility] [place] [place] [id number] Diagnos is: ICD-10- CM H90.A22 Snsrnrl hear loss, uni, l ear, with rstrcd hear cntra side LANDON MARSH 07/19 [facility] HEARING AID CHECK BOTH EARS [id number] Diagnos is: ICD-10- CM H90.3 Sensori neural hearing loss, LANDON Mcqueen 08/02 [facility] Outpatient Encounter [id number] 09/03 [facility] Outpatient Encounter [id number] 10/25 [facility] Outpatient Encounter [id number] 10/31 [facility] Outpatient Encounter [id number] 11/01 [facility] Outpatient Encounter [id number] 11/10 [facility] Outpatient Encounter [id number] 11/27 [facility] SYNCH AUDIO-ONLY NEW LOW 30 [id number] Diagnos is: ICD-10- CM Z01.818 Encount er for other preproc edural examina VANE Frankel 12/13 [facility] Outpatient Encounter [id number] 12/20 [facility] Outpatient Encounter [id number] 12/22 [facility] PH1 ASSMT&MGMT NQHP 5-10 [id number] Diagnos is: ICD-10- CM H91.90 Unspeci fied hearing loss, unspeci fied ear АЛЕКСАНДР CHRISTIANSON 12/26 [facility] EDU&TRN PT SELF-MGMT NQHP 1 [id number] Diagnos is: ICD-10- CM H90.A22 Snsrnrl hear loss, uni, l ear, with rstrcd hear cntra side RUTH OLIVA R 12/27 [facility] Outpatient Encounter [id number] 12/27 [facility] OFFICE O/P EST LOW 20 MIN [id number] Diagnos is: ICD-10- CM Z01.818 Encount er for other preproc edural examina Silvestre Mahajan 12/27 [facility] Outpatient Encounter [id number] Silvestre GARCIA 12/27 [facility] Outpatient Encounter [id number] JAGJIT WALKER 12/27 [facility] CREATE EARDRUM OPENING [id number] MARVIN MEJIA 12/27 [facility] Outpatient Encounter [id number] MARVIN MEJIA 12/27 [facility] Outpatient Encounter [id number] ALONZO LABOY 12/27 [facility] Outpatient Encounter [id number] Raffi TALAMANTES EKCOE 12/27 [facility] N [facility] HOT METAL CRANE OPERATOR ACQUISITION ADVISOR INDIVIDU [id number] Diagnos is: ICD-10- CM Z71.81 Spiritu al or religio us counselor aide VICKIE Dai 12/27 [facility] Outpatient Encounter [id number] Silvestre GARCIA 12/28 [facility] Outpatient Encounter [id number] 12/28 [facility] Outpatient Encounter [id number] Silvestre GARCIA 12/28 [facility] [place] [facility] OFFICE O/P EST HI 40 MIN [id number] Diagnos is: ICD-10- CM I48.21 Permane nt atrial fibrill ation KARYN ROBISON 01/01 [facility] Procedures Combined list of: 1) Procedures from [facility] facilities going back up to thelast 18 months, not all [facility] non-surgical procedures are included; 2) All procedures from the Department of Defense facilities. Procedure Procedure Type Code Date Perfomer Comments Sourc e REMOVAL RIGHT EAR TUBE, MIDDLE EAR EXPLORATION CREATE EARDRUM OPENING 57577 12/27/2024 MAYELA PISANO [facility] Social History Combined list of available smoking, tobacco, and other social history from Department of Defense and Veterans Affairs facilities. Social History Type Response Date Comment Sourc e Tobacco smoking status [facility]-TOBACCO NEVER USED CIGARETTES 01/01/2025 [facility] History of tobacco use NV-TOBACCO NEVER USED OTHER TYPE 01/01/2025 [facility] History of tobacco use VA-TOBACCO NEVER USED 01/03/2024 [facility] History of tobacco use NV-TOBACCO FORMER USER 06/22/2022 [facility] History of tobacco use NV-TOBACCO FORMER USER 07/22/2021 [facility] History of tobacco use CURRENT TOBACCO USER 01/08/2015 [facility] Plan of Care List of future care activities from [facility] facilities. Additional future care activities may be listed in the Assessment and Plan section. Date/Time Care Activity Care Activity Detail Facili ty 01/24/2025 AMBULATORY - SURGERY AMBULATORY - SURGERY [facility]
--- OUTSIDE RECORDS SUMMARY | 2025-01-24 16:29 | XMS_ITS | Clinical Summary ---
Author Organization [facility] Address [address] [place] [id number] Care Team Providers Care Spud Grader Name Role Phone Alon Mcneill MD Primary Care Provider + [phone] Allergies No known active allergies Medications finasteride [...] Hernia Repair - (Added by TW Conv) HI VASECTOMY UNI/BI SPX W/PO STOP SEMEN EXAMS Surgery Vas Deferens Vasectomy - (Added by TW Conv) HI BRNCHSC INCL FLUOR GDNCE DX W/CELL WASHG SPX Bronchoscopy (Therapeutic) - (Added by TW Conv) HI LITHOTRIPSY XTRCORP SHOCK WAVE Renal Lithotripsy - [...] on file Legal Sex Male 2:50 AM MARINE WELDER Gender Identity Not on file Sexual Orientation Not on file Obstetrics History Last Filed Vital Signs Vital Sign Reading Time Taken Comments Blood Pressure 136/74 09/01/2024 8:00 AM MARINE WELDER Pulse 66 09/01/2024 8:00 AM MARINE WELDER Temperature 36.9 C (98.4 F) 09/01/2024 8:00 AM MARINE WELDER Respiratory Rate 18 09/01/2024 8:00 AM MARINE WELDER Oxygen Saturation 94% 09/01/2024 8:39 AM MARINE WELDER Inhaled Oxygen Concentration - - Weight 107 kg (236 lb) 08/31/2024 7:10 AM MARINE WELDER Height 175.3 cm (5' 9) 08/31/2024 7:10 AM MARINE WELDER Body Mass Index 34.85 08/31/2024 7:10 AM MARINE WELDER Plan of Treatment Health Maintenance Due Date [...] Tdap) 07/09/2026 07/09/2016 Insurance MEDICARE [employer] [facility] [place] [address] Care Teams Spud Grader Relationship Specialty Start Date End Date Alon Mcneill MD [address] [place] [address] PCP - General 05/06/22
--- OUTSIDE RECORDS SUMMARY | 2025-01-24 16:29 | XMS_ITS | Referral Summary ---
Author Organization [facility] Address [address] [place] [id number] Care Team Providers Care Service Sprinkler Helper Name Role Phone Alon Mcneill MD Primary Care Provider + [phone] Allergies No known active allergies Medications finasteride [...] on file Legal Sex Male 2:50 AM PIN DRAFTER Gender Identity Not on file Sexual Orientation Not on file Last Filed Vital Signs Vital Sign Reading Time Taken Comments Blood Pressure 136/74 09/01/2024 8:00 AM PIN DRAFTER Pulse 66 09/01/2024 8:00 AM PIN DRAFTER Temperature 36.9 C (98.4 F) 09/01/2024 8:00 AM PIN DRAFTER Respiratory Rate 18 09/01/2024 8:00 AM PIN DRAFTER Oxygen Saturation 94% 09/01/2024 8:39 AM PIN DRAFTER Inhaled Oxygen Concentration - - Weight 107 kg (236 lb) 08/31/2024 7:10 AM PIN DRAFTER Height 175.3 cm (5' 9) 08/31/2024 7:10 AM PIN DRAFTER Body Mass Index 34.85 08/31/2024 7:10 AM PIN DRAFTER Plan of Treatment Not on file Insurance MEDICARE [facility] MEDICARE [facility] MEDICARE [facility] Address: [address] [address] [facility] Care Teams Service Sprinkler Helper Relationship Specialty Start Date End Date Alon Mcneill MD [address] [place] [address] PCP - General 05/06/22
--- OUTSIDE RECORDS SUMMARY | 2025-01-24 16:29 | XMS_ITS | CONTINUITY OF CARE DOCUMENT ---
Author Name melissa torres Address Unknown Organization [facility] Address [address] [address] [place] [address] Phone [phone] Care Team Providers Care Duck Operator Name Role Phone Dorian HILTON, Luis Unavailable [phone] JAMES BHAKTA MD Unavailable JAMES BHAKTA MD [...] In-person encounter Office Visit Luis Alarcon MD [facility] Cardiology examination - In-person encounter Office Visit Luis Alarcon MD [facility] Atrial fib paroxysmalFatigue, weakness - In-person encounter Office Visit Luis Alarcon MD [facility] Intermittent palpitationsSystolic murmurCarotid bruit bilateral VITAL [...] Mass Index (Ratio) 36.18 kg/m2 [place] blood pressure, cuff size regular Ke rri [...] Policy type / Coverage type [place] red [place] B Medicare [id number] [employer] [id number] ADVANCE DIRECTIVES Name Date DISCUSSED - NO [...] a day Orders: 9 9213 LTD 20-29min (CPT-45736) C omplex e/m visit add on (G2211) [...] mouth once a day Orders: E KG (CPT-69530) 9 9205 HIGH 60-74 min (CPT-89151) A BLATION w/ Anesthesia (*) C omplete Echo (36227) Luis Alarcon MD Date Name Monitor - Telemetry (Mobile Cardiac) EKG Monitor - Telemetry (Mobile Cardiac) PROTHROMBIN TIME WIT H INR Partial Thromboplast in Time, Activated CBC (INCLUDES DIFF/P LT) BASIC METABOLIC PANE L W/EGFR Carotid Duplex Bilat eral Complete Echo ABLATION w/ Anesthes ia Complex e/[place] [address] LTD 20-29min HISTORY OF PROCEDURES Procedure Date Procedure Name Provider Procedure Notes S tatus Complex e/m visit ad d on Luis Alarcon MD completed Complex e/m visit ad d on Luis Alarcon MD active EKG Luis Alarcon MD comp leted
--- OUTSIDE RECORDS SUMMARY | 2025-01-24 16:29 | XMS_ITS | Encounter Summary ---
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
--- NOTE | 2025-01-24 16:49 | ED_ITS ---
HPI - General Adult General Chief complaint: GI Bleed Stated complaint: rectal bleeding Time Seen by Provider: 01/24/25 16:15 History of Present Illness HPI narrative: 74-year-old male with previous history of atrial fibrillation on Eliquis presents the emergency department for evaluation for intermittent rectal bleeding with a recent diagnosis of diverticulitis. Patient was at an outside hospital yesterday and diagnosed with diverticulitis. Patient was started on Cipro and Flagyl at that time. Patient had previously been taking Eliquis for history of atrial fibrillation, patient did have a ablation few months ago. Patient is currently in normal sinus rhythm. Patient states he has not been taking his Eliquis for the past few days. Patient states this morning he had a bowel movement that was normal without bloody but after going to a [place] he did notice some rectal bleeding. Related Data Home Medications ?Medication ?Instructions ?Recorded ?Confirmed ?Last Taken ?Type aspirin 81 mg chewable tablet 81 mg PO HS 01/17/20 07/13/24 07/13/24 History 81 finasteride 5 mg tablet 5 mg PO HS 01/17/20 07/13/24 12/30/23 History lisinopril 20 1 tablet PO HS 01/17/20 07/13/24 12/30/23 History mg-hydrochlorothiazide 25 mg tablet lovastatin 40 mg tablet 40 mg PO HS 01/17/20 07/13/24 12/30/23 History fluticasone propionate 50 1 spray intranasal Q12H PRN 04/30/20 12/31/23 12/30/23 History mcg/actuation nasal Allergic Symptoms spray,suspension (Flonase Allergy Relief) albuterol sulfate 90 mcg/actuation inhalation 07/13/24 Unknown History aerosol inhaler amlodipine 2.5 mg tablet mg 07/13/24 Unknown History budesonide-formoterol HFA 160 inhalation 07/13/24 Unknown History mcg-4.5 mcg/actuation aerosol inhaler (Breyna) glimepiride 4 mg tablet 4 mg PO DAILY 07/13/24 07/13/24 Unknown History metformin 500 mg tablet,extended mg PO 07/13/24 Unknown History release 24 hr pioglitazone 30 mg tablet 30 mg PO DAILY 07/13/24 07/13/24 Unknown History tizanidine 4 mg tablet 4 mg PO DAILY 07/13/24 07/13/24 Unknown History Allergies Allergy/AdvReac Type Severity Reaction Status Date / Time No Known Allergies Allergy Unknown NONE Verified 01/24/25 16:21 Review of Systems 2 Review of Systems: All systems reviewed & are unremarkable except as noted in HPI and below PMFSH Past Medical History Medical History Diabetes type 2, controlled BPH (benign prostatic hyperplasia) Hyperlipidemia BRIDGETTE (obstructive sleep apnea) CPAP Hypertension Social History Social History Smoking packs per day: 0.5 Smoking cigarettes per day: 10.0 Years smoked: 3 Smoking pack-years: 1.50 Smoking status: Former smoker Tobacco type: cigarettes Smoking end date: 08/23/69 Additional smoking assessment comments: 40 YEARS AGO Alcohol intake: current Alcohol use details: 6 PK PER YEAR Substance use: current Substance use type: marijuana Last use: 2 DAYS Living arrangements: with family Spiritual care concerns: No Exam 2 Narrative: APPEARANCE: Well appearing, no pain, no distress, well-nourished. HEAD: normocephalic, atraumatic. EYES: PERRLA/EOMI, conjunctivae clear. NOSE: Normal no drainage EARS:TMS clear with good light reflex. THROAT: Pharynx clear, no exudate. NECK: Supple. No adenopathy, no masses. RESPIRATORY: Airway patent, respirations nonlabored. Clear to auscultation bilaterally, no rales, rhonchi, wheezing. CARDIOVASCULAR: Regular rate and rhythm without murmurs rubs or gallops. ABDOMINAL: Soft, nontender, nondistended, normal bowel sounds MUSCULOSKELETAL: Moves all extremities. Strength/ROM intact, No edema, No calf tenderness. NEURO: Alert. Cranial nerves II through XII intact. Good gait. Good coordination SKIN: Warm, dry. Normal Color Course Vital Signs Vital signs: Vital Signs Temperature 97.7 F 01/24/25 15:26 Pulse Rate 85 01/24/25 15:26 Respiratory Rate 18 01/24/25 15:26 Blood Pressure 161/71 H 01/24/25 15:26 Pulse Oximetry 97 01/24/25 15:26 Temperature 97.7 F 01/24/25 15:26 Pulse Rate 60 01/24/25 19:44 Respiratory Rate 14 01/24/25 19:44 Blood Pressure 166/79 H 01/24/25 19:44 Pulse Oximetry 97 01/24/25 19:44 Medical Decision Making MDM Narrative Medical decision making narrative: 74-year-old male presents emergency department for evaluation after having a bloody bowel movement. Patient is currently afebrile with no leukocytosis and hemoglobin of 13.3 which is similar to his baseline. Patient does have an INR of 1.0. Patient has no acute abnormalities on his CMP. Patient was observed in the emergency department for 4 hours and he had no further episodes of diarrhea or bloody stools. Patient has not been taking his Eliquis for multiple days. Patient was comfortable with the plan for discharge to home. Patient was advised he may continue have some episodes of bloody stool but they should continue to improve over the next 24 hours. Patient does have follow-up with primary care physician tomorrow. Differential Diagnosis Differential Diagnosis: Diverticulitis, colitis, GI bleed, anemia Vital Signs Vital Signs: Vital Signs Temperature 97.7 F 01/24/25 15:26 Pulse Rate 85 01/24/25 15:26 Respiratory Rate 18 01/24/25 15:26 Blood Pressure 161/71 H 01/24/25 15:26 Pulse Oximetry 97 01/24/25 15:26 Temperature 97.7 F 01/24/25 15:26 Pulse Rate 60 01/24/25 19:44 Respiratory Rate 14 01/24/25 19:44 Blood Pressure 166/79 H 01/24/25 19:44 Pulse Oximetry 97 01/24/25 19:44 Lab Data Lab results reviewed: Yes I reviewed the patient's lab results. 01/24/25 16:49 01/24/25 16:49 Labs: Lab Results 01/24/25 Range/Units 16:49 WBC 6.3 (4.5-10.0) K/mm3 RBC 4.20 L (4.6-6.20) M/mm3 Hgb 13.3 L (14.0-18.0) g/dL Hct 39.9 L (42.0-52.0) % MCV 95.0 (80-100) fl MCH 31.7 (26-34) pg MCHC 33.3 (32-36) g/dl RDW 13.3 (11.5-14.5) % Plt Count 237 (150-375) k/mm3 MPV 9.9 (7.4-10.4) fl Immature Gran % (Auto) 0.6 H (0-0.5) % Neut % (Auto) 53.7 (45.5-73.1) % Lymph % (Auto) 34.5 (18.3-44.2) % [place] % (Auto) 8.1 (2.6-8.5) % Eos % (Auto) 2.6 (0-4.4) % Baso % (Auto) 0.5 (0.2-1.2) % Lymph # (Auto) 2.16 (0.9-3.2) K/mm3 [place] # (Auto) 0.5 (0.1-0.6) K/mm3 Eos # (Auto) 0.2 (0-0.3) K/mm3 Baso # (Auto) 0.0 (0.0-0.1) K/mm3 Abs Immat Gran (auto) 0.04 H (0.00-0.031) K/mm3 Absolute Neuts (auto) 3.4 (1.3-6.7) K/mm3 Absolute Nucleated RBC 0.000 (0.0-0.012) K/mm3 Nucleated RBC % 0.0 (0.0-0.2) % PT 13.8 (11.1-14.7) Seconds INR 1.0 APTT 29.9 (22.3-36.8) Seconds Sodium 139 (137-145) mmol/L Potassium 3.7 (3.4-5.0) mmol/L Chloride 106 (98-107) mmol/L Carbon Dioxide 26 (22-30) mmol/L Anion Gap 7 (4-12) mmol/L BUN 17 (9-20) mg/dL Creatinine 1.04 (0.7-1.3) mg/dL Estim Creat Clear Calc 66 ml/min Estimated GFR > 60 (59 - ) Glucose 193 H (65-110) mg/dL Calcium 9.1 (8.4-10.2) mg/dL Total Bilirubin 0.4 (0.2-1.3) mg/dL AST 33 (17-59) U/L ALT 33 (6-50) U/L Alkaline Phosphatase 94 (38-126) U/L Total Protein 6.6 (6.3-8.2) g/dL Albumin 3.8 (3.5-5.1) g/dL Blood Type O Positive Antibody Screen Negative Discharge Plan Discharge Clinical Impression: Diverticulitis, Blood in feces Patient Disposition: Home Condition: Stable Instructions: Antibiotic Form, Diverticulitis (ED), Clear Liquid Diet (ED) Additional Instructions: Continue antibiotics as directed. Have close follow-up with your primary care physician as scheduled. I do recommend switching to a clear liquid diet for the next 1-3 days. If you have any worsening symptoms please call or return to the emergency department Patient Language: Fijian Prescriptions: No Action levofloxacin 500 mg tablet 500 mg PO DAILY 3 Days Qty: 3 0RF tizanidine 4 mg tablet 4 mg PO DAILY amlodipine 2.5 mg tablet glimepiride 4 mg tablet 4 mg PO DAILY albuterol sulfate 90 mcg/actuation HFA aerosol inhaler INHALATION pioglitazone 30 mg tablet 30 mg PO DAILY metformin 500 mg tablet extended release 24 hr PO budesonide-formoterol [Breyna] 160-4.5 mcg/actuation HFA aerosol inhaler INHALATION metronidazole 500 mg tablet 500 mg PO TID 10 Days Qty: 30 0RF ciprofloxacin HCl [Cipro] 500 mg tablet 500 mg PO BID 10 Days Qty: 20 0RF ciprofloxacin HCl 500 mg tablet 500 mg PO Q12H Qty: 14 0RF metronidazole 500 mg tablet 500 mg PO Q8H Qty: 20 0RF finasteride 5 mg tablet 5 mg PO HS lisinopril-hydrochlorothiazide 20-25 mg tablet 1 tablet PO HS lovastatin 40 mg tablet 40 mg PO HS aspirin 81 mg tablet,chewable 81 mg PO HS fluticasone propionate [Flonase Allergy Relief] 50 mcg/actuation spray,suspension 1 spray NASAL Q12H PRN (Reason: Allergic Symptoms) Rx Instructions: administer into each nostril Follow-up/Referrals: Alon Mcneill MD [Primary Care Provider] -
[2025-01-24 17:02] LABS: Basophils Percent Auto 0.5 % (0.2-1.2); Eosinophils Absolute Auto 0.2 K/mm3 (0-0.3); Eosinophils Percent Auto 2.6 % (0-4.4); Hematocrit 39.9 % (42.0-52.0); Hemoglobin 13.3 g/dL (14.0-18.0); Immature Granulocyte Absolute 0.04 K/mm3 (0.00-0.031); Immature Granulocyte Percent A 0.6 % (0-0.5); Lymphocytes Absolute Auto 2.16 K/mm3 (0.9-3.2); Lymphocytes Percent Auto 34.5 % (18.3-44.2); Mean Corpuscular HGB Conc 33.3 g/dl (32-36); Mean Corpuscular Hemoglobin 31.7 pg (26-34); Mean Platelet Volume 9.9 fl (7.4-10.4); Monocytes Absolute Auto 0.5 K/mm3 (0.1-0.6); Monocytes Percent Auto 8.1 % (2.6-8.5); Neutrophils Absolute Auto 3.4 K/mm3 (1.3-6.7); Neutrophils Percent Auto 53.7 % (45.5-73.1); Platelet Count Result 237 k/mm3 (150-375); Red Cell Distribution Width 13.3 % (11.5-14.5); White Blood Count 6.3 K/mm3 (4.5-10.0)
[2025-01-24 17:21] LABS: Prothrombin Time 13.8 Seconds (11.1-14.7)
[2025-01-24 17:22] LABS: Partial Thromboplastin Time 29.9 Seconds (22.3-36.8)
[2025-01-24 18:22] LABS: Alanine Aminotransferase 33 U/L (6-50); Albumin Level 3.8 g/dL (3.5-5.1); Alkaline Phosphatase 94 U/L (38-126); Anion Gap 7 mmol/L (4-12); Aspartate Amino Transferase 33 U/L (17-59); Bilirubin,Total 0.4 mg/dL (0.2-1.3); Blood Urea Nitrogen 17 mg/dL (9-20); Calcium 9.1 mg/dL (8.4-10.2); Carbon Dioxide 26 mmol/L (22-30); Chloride 106 mmol/L (98-107); Estimated CRCL calculation 66 ml/min; Estimated Glomerular Filt Rate > 60; Glucose 193 mg/dL (65-110); Potassium 3.7 mmol/L (3.4-5.0); Sodium 139 mmol/L (137-145); Total Protein 6.6 g/dL (6.3-8.2)
[2025-01-24 19:44] VITALS: BP 166/79; PULSE 60; RESP 14; O2SAT 97
== END 2025-01-24 19:46 | disposition home or self-care (01) ==
PROVIDERS: Emergency Provider Emergency Medicine; PCP Internal Medicine
DX: K57.92 Diverticulitis of intestine, part unspecified, without perforation or abscess without bleeding (principal); K92.1 Melena; I48.91 Unspecified atrial fibrillation; I10 Essential (primary) hypertension; E11.9 Type 2 diabetes mellitus without complications; E78.5 Hyperlipidemia, unspecified; N40.0 Benign prostatic hyperplasia without lower urinary tract symptoms; G47.33 Obstructive sleep apnea (adult) (pediatric); Z87.891 Personal history of nicotine dependence; Z79.01 Long term (current) use of anticoagulants; Z79.84 Long term (current) use of oral hypoglycemic drugs; Z79.82 Long term (current) use of aspirin; Z79.899 Other long term (current) drug therapy; N20.0 Calculus of kidney; D35.01 Benign neoplasm of right adrenal gland; K76.0 Fatty (change of) liver, not elsewhere classified
CPT/HCPCS: 36415; 80053; 85025; 85610; 85730; 86850; 86900; 86901; 99283